=== PATIENT | female | born 1935 | race Caucasian/White ===

== ENCOUNTER 2016-11-29 19:44 | Outpatient (CLI) | payer MEDICARE, OTHER | END 2016-11-29 19:45 | disposition home or self-care (01) | LOC: EMS 19:44 | PROVIDERS: ATTEND Surgery | DX: Z03.89 Encounter for observation for other suspected diseases and conditions ruled out (principal); W01.0XXA Fall on same level from slipping, tripping and stumbling without subsequent striking against object, initial encounter; Y92.013 Bedroom of single-family (private) house as the place of occurrence of the external cause ==

== ENCOUNTER 2017-10-01 20:40 | Outpatient (CLI) | payer MEDICARE | END 2017-10-01 23:59 | disposition EMS.NT | LOC: EMS 20:40 | PROVIDERS: ATTEND Surgery | DX: Z03.89 Encounter for observation for other suspected diseases and conditions ruled out (principal) ==

== ENCOUNTER 2018-03-22 18:40 | Outpatient (CLI) | payer MEDICARE | END 2018-03-22 18:41 | disposition EMS.NT | LOC: EMS 18:40 | PROVIDERS: ATTEND Surgery | DX: Z03.89 Encounter for observation for other suspected diseases and conditions ruled out (principal); W19.XXXA Unspecified fall, initial encounter; Y92.009 Unspecified place in unspecified non-institutional (private) residence as the place of occurrence of the external cause ==

== ENCOUNTER 2018-08-23 17:07 | Outpatient (CLI) | payer MEDICARE | END 2018-08-23 17:08 | disposition EMS.NT | LOC: EMS 17:07 | PROVIDERS: ATTEND Surgery | DX: Z03.89 Encounter for observation for other suspected diseases and conditions ruled out (principal) ==

== ENCOUNTER 2019-01-19 11:43 | Outpatient (CLI) | payer MEDICARE | END 2019-01-19 11:44 | disposition EMS.NT | LOC: EMS 11:43 | PROVIDERS: ATTEND Surgery | DX: Z04.1 Encounter for examination and observation following transport accident (principal) ==

== ENCOUNTER 2019-05-06 19:48 | Outpatient (CLI) | payer MEDICARE | END 2019-05-06 23:59 | disposition EMS.NT | LOC: EMS 19:48 | PROVIDERS: ATTEND Surgery | DX: R42 Dizziness and giddiness (principal) ==

== ENCOUNTER 2019-12-19 19:20 | Outpatient (CLI) | payer MEDICARE | END 2019-12-19 19:21 | disposition EMS.NT | LOC: EMS 19:20 | PROVIDERS: ATTEND Surgery | DX: Z03.89 Encounter for observation for other suspected diseases and conditions ruled out (principal) ==

== ENCOUNTER 2020-04-26 01:51 | Outpatient (CLI) | payer MEDICARE | END 2020-04-26 01:52 | disposition EMS.NT | LOC: EMS 01:51 | PROVIDERS: ATTEND Surgery | DX: Z03.89 Encounter for observation for other suspected diseases and conditions ruled out (principal) ==

== ENCOUNTER 2020-10-01 17:59 | Outpatient (CLI) | payer MEDICARE, BC | END 2020-10-01 18:00 | disposition critical access hospital (66) | LOC: EMS 17:59 | DX: R41.82 Altered mental status, unspecified (principal) | CPT/HCPCS: A0425; A0429 ==

== ENCOUNTER 2020-10-01 18:22 | Inpatient (IN) | payer MEDICARE, BC ==
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
--- OUTSIDE RECORDS SUMMARY | 2020-10-01 18:54 | EXTERNAL MEDICAL SUMMARY RPT | Continuity of Care Document ---
:1935 Demographics Phone Unavailable Preferred Language Unknown Marital Status Unknown Roman Catholic Affiliation Unknown Race Unknown Ethnic Group Unknown Author Organization [facility] Address [address] [place] [address] Phone Social History date description facility [phone]
[2020-10-01 18:59] LABS: BASOPHILS % (AUTO) 0.4 %; HCT - HEMATOCRIT 41.3 % (37.0-47.0); HGB - HEMOGLOBIN 13.9 g/dL (12.0-16.0); MEAN CORPUSCULAR HEMOGLOBIN 36.7 pg (27.0-31.0); MEAN CORPUSCULAR HGB CONC 33.7 g/dL (32.0-36.0); MONOCYTES % (AUTO) 7.9 %; NEUTROPHILS % (AUTO) 86.7 %; PLT - PLATELET COUNT 238 10^3/uL (130-450); RED BLOOD COUNT 3.79 10^6/uL (4.20-5.40); RED CELL DISTRIBUTION WIDTH 12.9 % (12.0-15.0); WHITE BLOOD COUNT 19.5 x10^3/uL (4.8-10.8)
[2020-10-01] MEDS ORDERED: IOPAMIDOL-300 100 ML VIAL ONE (19:01)
[2020-10-01 19:02] LABS: ABNORMAL LYMPHS % (MANUAL) 0 %
[2020-10-01 19:13] LABS: INR 1.3 (0.8-1.2); PT - PROTHROMBIN TIME 14.1 secs (9.9-12.6)
[2020-10-01 19:18] LABS: VBG BASE EXCESS -2.5 mmol/L (-2 - +2); VBG HCO3 22.4 mmol/L (23-28); VBG OXYGEN SATURATION 42.9 % (60-80); VBG PCO2 39.6 mmHg (41-51); VBG PH 7.371 (7.31-7.41); VBG PO2 24.8 mmHg (25-47); VBG TOTAL CO2 23.6 mmol/L (24-29)
[2020-10-01 19:38] LABS: ALBUMIN 3.6 g/dL (3.2-5.5); ALBUMIN/GLOBULIN RATIO 1.3 (1.0-2.2); ALKALINE PHOSPHATASE 50 IU/L (42-121); ALT ALANINE AMINOTRANSFERASE 96 IU/L (10-60); AST ASPARTATE AMINOTRANSFERASE 421 IU/L (10-42); BILIRUBIN,TOTAL 1.3 mg/dL (0.2-1.0); BUN - BLOOD UREA NITROGEN 37 mg/dL (6-20); CALCIUM 8.3 mg/dL (8.5-10.3); CARBON DIOXIDE - CO2 24 mmol/L (21-32); CHLORIDE 102 mmol/L (101-111); ETOH - ETHANOL < 5.0 mg/dL; GFR - MDRD 53 (>89); GLUCOSE 119 mg/dL (70-100); LIPASE 26 U/L (22-51); MAGNESIUM 2.1 mg/dL (1.7-2.8); SODIUM 137 mmol/L (135-145); TOTAL PROTEIN 6.4 g/dL (6.7-8.2)
[2020-10-01 19:42] LABS: BAND NEUTROPHILS % (MANUAL) 3 %; LYMPHOCYTES # (MANUAL) 0.8 10^3/uL (1.5-3.5); LYMPHOCYTES % (MANUAL) 4 %; NEUTROPHILS # (MANUAL) 17.7 10^3/uL (1.5-6.6)
[2020-10-01 19:43] LABS: DIFFERENTIAL COMMENT MANUAL DIFFERENTIAL; PLATELET ESTIMATE, MANUAL NORMAL (130-450,000) (NORMAL); PLATELET MORPHOLOGY NORMAL APPEARANCE (NORMAL); RBC MORPHOLOGY (MULTIPLE) 1+ MACROCYTOSIS (NORMAL); WBC MORPHOLOGY (MULTIPLE) 1+ TOXIC GRANULATION (NORMAL)
[2020-10-01 19:44] LABS: CK- CREATINE KINASE 9438 IU/L (22-269)
[2020-10-01] MEDS ORDERED: SODIUM CHLORIDE 0.9% 1,000 ML IV STA ×2 (19:52)
[2020-10-01] MEDS ORDERED: ASPIRIN 300 MG SUPP PR STA (19:52)
[2020-10-01 20:03] LABS: CORONAVIRUS 229E-RESP PCR NOT DETECTED; CORONAVIRUS HKU1-RESP PCR NOT DETECTED; CORONAVIRUS NL63-RESP PCR NOT DETECTED; CORONAVIRUS OC43-RESP PCR NOT DETECTED; HUMAN METAPNEUMOVIRUS NOT DETECTED; INFLUENZA A- RESP PCR PANEL NOT DETECTED; INFLUENZA B - RESP PCR PANEL NOT DETECTED; PARAINFLUENZA VIRUS 1 NOT DETECTED; PARAINFLUENZA VIRUS 2 NOT DETECTED; PARAINFLUENZA VIRUS 3 NOT DETECTED; PARAINFLUENZA VIRUS 4 NOT DETECTED; RHINOVIRUS/ENTEROVIRUS NOT DETECTED; SARS-CoV-2 -RESP PCR PANEL NOT DETECTED
[2020-10-01 20:04] LABS: B. PARAPERTUSSIS- RESP PCR PAN NOT DETECTED; B. PERTUSSIS- RESP PCR PANEL NOT DETECTED; C. PNEUMONIAE- RESP PCR PANEL NOT DETECTED; M. PNEUMONIAE- RESP PCR PANEL NOT DETECTED; RSV- RESP PCR PANEL NOT DETECTED
[2020-10-01] MEDS ORDERED: IOPAMIDOL-300 100 ML VIAL IVP ONE (20:38)
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
[2020-10-01 20:58] LABS: GLUCOSE, URINE (UA) NEGATIVE (NEGATIVE); KETONES,URINE (UA) 15 mg/dL (NEGATIVE); LEUKOCYTE ESTERASE, URINE NEGATIVE (NEGATIVE); NITRITE,URINE POSITIVE (NEGATIVE); OCCULT BLOOD,URINE LARGE (NEGATIVE); PH,URINE 5.5 PH (5.0-7.5); PROTEIN,URINE 100 mg/dL (NEGATIVE); UROBILINOGEN,URINE 0.2 (NORMAL) E.U./dL (NORMAL)
[2020-10-01 21:01] LABS: BILIRUBIN,URINE NEGATIVE (NEGATIVE); CLARITY,URINE CLOUDY (CLEAR); ICTOTEST,URINE NEGATIVE
[2020-10-01] MEDS ORDERED: SODIUM CHLORIDE FLUSH 0.9% 10 ML SYRINGE IVP PRN (21:03)
[2020-10-01] MEDS ORDERED: LACTATED RINGERS 1,000 ML IV ONE (21:06)
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
[2020-10-01 21:11] LABS: BACTERIA,URINE Moderate /HPF (None Seen); CASTS, URINE 3-5 Course Granular /LPF; SQUAMOUS EPITHELIAL CELL,UR FEW Squamous (<= Few)
[2020-10-01] MEDS ORDERED: cefTRIAXone 1 GM in SODIUM CHLORIDE 0.9% MINIBAG 100 ML IV SCH (21:13)
--- OUTSIDE RECORDS SUMMARY | 2020-10-01 21:32 | EXTERNAL MEDICAL SUMMARY RPT | Continuity of Care Document ---
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 Results test status date ordered by attending specimen dax e ALBUMIN_GLOBULIN_RATIO unknown [id number] unknown unknown unknown T unknown [id number] unknown unknown unknown T unknown [id number] unknown unknown unknown ALKALINE_PHOSPHATASE unknown [id number] unknown unknown un known ALT_ALANINE_AMINOTRANS unknown [id number] unknown unknown unknown FERASE T unknown [id number] unknown unknown unknown T unknown [id number] unknown unknown unknown T unknown [id number] unknown unknown unknown BILIRUBIN_TOTAL unknown [id number] unknown unknown unknown T unknown [id number] unknown unknown unknown T unknown [id number] unknown unknown unknown T unknown [id number] unknown unknown unknown T unknown [id number] unknown unknown unknown T unknown [id number] unknown unknown unknown T unknown [id number] unknown unknown unknown T unknown [id number] unknown unknown unknown GFR_-_MDRD unknown [id number] unknown unknown unknown T unknown [id number] unknown unknown unknown T unknown [id number] unknown unknown unknown T unknown [id number] unknown unknown unknown T unknown [id number] unknown unknown unknown T unknown [id number] unknown unknown unknown T unknown [id number] unknown unknown unknown T unknown [id number] unknown unknown unknown LYMPHOCYTES_MANUAL_ unknown [id number] unknown unknown unk nown T unknown [id number] unknown unknown unknown T unknown [id number] unknown unknown unknown T unknown [id number] unknown unknown unknown T unknown [id number] unknown unknown unknown T unknown [id number] unknown unknown unknown MONOCYTES_MANUAL_ unknown [id number] unknown unknown unkno wn T unknown [id number] unknown unknown unknown T unknown [id number] unknown unknown unknown T unknown [id number] unknown unknown unknown NEUTROPHILS_MANUAL_ unknown [id number] unknown unknown unk nown T unknown [id number] unknown unknown unknown T unknown [id number] unknown unknown unknown PLATELET_ESTIMATE_MANU unknown [id number] unknown unknown unknown AL T unknown [id number] unknown unknown unknown T unknown [id number] unknown unknown unknown T unknown [id number] unknown unknown unknown T unknown [id number] unknown unknown unknown T unknown [id number] unknown unknown unknown TOTAL_CELLS_COUNTED unknown [id number] unknown unknown unk nown T unknown [id number] unknown unknown unknown T unknown [id number] unknown unknown unknown BILIRUBIN_URINE unknown [id number] unknown unknown unknown CLARITY_URINE unknown [id number] unknown unknown unknown COLOR_URINE unknown [id number] unknown unknown unknown GLUCOSE_URINE_UA_ unknown [id number] unknown unknown unkno wn KETONES_URINE_UA_ unknown [id number] unknown unknown unkno wn LEUKOCYTE_ESTERASE_URI unknown [id number] unknown unknown unknown NE NITRITE_URINE unknown [id number] unknown unknown unknown PH_URINE unknown [id number] unknown unknown unknown T unknown [id number] unknown unknown unknown T unknown [id number] unknown unknown unknown T unknown [id number] unknown unknown unknown T unknown [id number] unknown unknown unknown T unknown [id number] unknown unknown unknown T unknown [id number] unknown unknown unknown T unknown [id number] unknown unknown unknown T unknown [id number] unknown unknown unknown T unknown [id number] unknown unknown unknown T unknown [id number] unknown unknown unknown SPECIFIC_GRAVITY_URINE unknown [id number] unknown unknown unknown UROBILINOGEN_URINE unknown [id number] unknown unknown unkn own T unknown [id number] unknown unknown unknown red_blood_cell_distrib unknown [id number] unknown unknown unknown ution_width mean_corpuscular_hemog unknown [id number] unknown unknown unknown lobin_RBC total_cells_counted_bl unknown 68193025 unknown unknown unknown ood calcium_serum unknown [id number] unknown unknown unknown chloride_serum unknown 10324795 unknown unknown unknown albumin_globulin_ratio unknown [id number] unknown unknown unknown _serum sodium_serum unknown [id number] unknown unknown unknown creatine_kinase_serum unknown [id number] unknown unknown u nknown mean_corpuscular_hemog unknown [id number] unknown unknown unknown lobin_concentration_rbc Alanine_aminotransfera unknown 68111924 unknown unknown unknown se_Enzymatic_activity_v olume_in_Serum_or_Plasm a Albumin_Mass_volume_in unknown 23074028 unknown unknown unknown _Serum_or_Plasma Albumin_Globulin_Mass_ unknown [id number] unknown unknown unknown Ratio_in_Serum_or_Plasm a Alkaline_phosphatase_E unknown 05532991 unknown unknown unknown nzymatic_activity_volum e_in_Blood creatinine_serum unknown 29337734 unknown unknown unknow n Anion_gap_4_in_Serum_o unknown [id number] unknown unknown unknown r_Plasma Aspartate_aminotransfe unknown 06539588 unknown unknown unknown rase_Enzymatic_activity _volume_in_Serum_or_Pla sma Bilirubin.total_Mass_v unknown [id number] unknown unknown unknown olume_in_Serum_or_Plasm a albumin_serum unknown 57732040 unknown unknown unknown Calcium_Moles_volume_i unknown 50369832 unknown unknown unknown n_Serum_or_Plasma carbon_dioxide_serum_t unknown 00141025 unknown unknown unknown otal Chloride_Moles_volume_ unknown 22906334 unknown unknown unknown in_Serum_or_Plasma Creatine_kinase_Enzyma unknown [id number] unknown unknown unknown tic_activity_volume_in_ Serum_or_Plasma Creatinine_Mass_volume unknown 08906300 unknown unknown unknown _in_Serum_or_Plasma Globulin_Mass_volume_i unknown 59360015 unknown unknown unknown n_Serum Glucose_Mass_volume_in unknown 24614897 unknown unknown unknown _Serum_or_Plasma Glucose_Mass_volume_in unknown 03311719 unknown unknown unknown _Urine Magnesium_Moles_volume unknown 04040920 unknown unknown unknown _in_Serum_or_Plasma urine_color unknown 97366538 unknown unknown unknown mean_platelet_volume unknown 71755391 unknown unknown un known anion_gap_serum unknown 81159744 unknown unknown unknown Protein_Mass_volume_in unknown 79062609 unknown unknown unknown _Serum_or_Plasma Sodium_Moles_volume_in unknown 32822509 unknown unknown unknown _Serum_or_Plasma alkaline_phosphatase_s unknown 26776718 unknown unknown unknown richard globulin_serum unknown 92931268 unknown unknown unknown international_normaliz unknown [id number] unknown unknown unknown ed_ratio_INR_ Urea_nitrogen_Mass_vol unknown 67257848 unknown unknown unknown ume_in_Serum_or_Plasma platelet_count_estimat unknown 42673158 unknown unknown unknown e mean_corpuscular_volum unknown 31353933 unknown unknown unknown e_RBC bilirubin_urine unknown 28883264 unknown unknown unknown magnesium_serum unknown 19543716 unknown unknown unknown ketones_urine_by_test_ unknown 24904597 unknown unknown unknown strip nitrite_urine_semiquan unknown 15288053 unknown unknown unknown titative specific_gravity_urine unknown 63156421 unknown unknown unknown urobilinogen_urine_sem unknown 79210461 unknown unknown unknown iquantitative_dipstick_ leukocyte_esterase_uri unknown 04399012 unknown unknown unknown ne_by_dipstick glucose_urine unknown 01124184 unknown unknown unknown potassium_blood unknown 32836592 unknown unknown unknown blood_glucose unknown 88017665 unknown unknown unknown protein_total_serum unknown 65319270 unknown unknown unk nown aspartate_aminotransfe unknown 16018088 unknown unknown unknown rase_SGOT_serum carbon_dioxide_serum_t unknown 76484930 unknown unknown unknown otal alanine_aminotransfera unknown 39633302 unknown unknown unknown se_SGPT_serum bilirubin_serum_total unknown 79962968 unknown unknown u nknown Hematocrit_Volume_Frac unknown 09933041 unknown unknown unknown tion_of_Blood_by_Automa ted_count Glomerular_filtration_ unknown [id number] unknown unknown unknown rate_1.73_sq_M.predicte d_among_non-blacks_Volu me_Rate_Area_in_Serum_P lasma_or_Blood_by_Creat inine-based_formula_MDR D_ prothrombin_time_patie unknown [id number] unknown unknown unknown nt_ pH_study_of_acidity unknown 75166944 unknown unknown unk nown polymorphonuclear_neut unknown 10569304 unknown unknown unknown rophils_absolute_manual lymphocytes_absolute_m unknown 91751917 unknown unknown unknown anual monocytes_absolute_man unknown 39824920 unknown unknown unknown ual clarity_urine_point unknown 93590985 unknown unknown unk nown Bilirubin.total_Presen unknown 07521436 unknown unknown unknown ce_in_Urine_by_Test_str ip Color_of_Urine unknown 05665573 unknown unknown unknown Ketones_Mass_volume_in unknown 00341195 unknown unknown unknown _Urine_by_Test_strip Leukocyte_esterase_Pre unknown 70636540 unknown unknown unknown sence_in_Urine_by_Test_ strip Nitrite_Presence_in_Ur unknown 11920085 unknown unknown unknown ine_by_Test_strip Specific_gravity_of_Ur unknown 41515313 unknown unknown unknown ine_by_Test_strip Urobilinogen_Presence_ unknown 24629631 unknown unknown unknown in_Urine_by_Test_strip Prothrombin_time_PT_ unknown 25479897 unknown unknown un known potassium_blood unknown 92763938 unknown unknown unknown INR_in_Platelet_poor_p unknown 10478665 unknown unknown unknown lasma_by_Coagulation_as say hematocrit_blood unknown 70003345 unknown unknown unknow n hemoglobin_blood unknown 67491403 unknown unknown unknow n platelet_count unknown 20201001 unknown unknown unknown Glomerular_Filtration_ unknown 20201001 unknown unknown unknown rate Leukocytes_volume_in_B unknown 20201001 unknown unknown unknown lood_by_Automated_count erythrocyte_RBC_count unknown 12144748 unknown unknown u nknown leukocyte_count_blood unknown 20201001 unknown unknown u nknown Hemoglobin_Mass_volume unknown 11689302 unknown unknown unknown _in_Blood Platelet_mean_volume_E unknown 32102618 unknown unknown unknown ntitic_volume_in_Blood_ by_Rees-Jason Platelets_volume_in_Bl unknown 20201001 unknown unknown unknown ood_by_Automated_count MCH_Entitic_mass_by_Au unknown 20201001 unknown unknown unknown tomated_count MCV_Entitic_volume_by_ unknown 20201001 unknown unknown unknown Automated_count Erythrocyte_distributi unknown 20201001 unknown unknown unknown on_width_Ratio_by_Autom ated_count Erythrocytes_volume_in unknown 20201001 unknown unknown unknown _Blood_by_Automated_cou nt urea_nitrogen_blood unknown 20201001 unknown unknown unk nown platelet_count_estimat unknown 20201001 unknown unknown unknown e facility observation status value reference units lab code abn ormal line range [facility] ALBUMIN_GLOB unknown 1.3 unknown AGRATIO unkno wn unknown Clinic ULIN_RATIO [facility] T unknown 3.6 unknown g/dL ALB unknown unk nown Clinic [facility] T unknown 50 unknown U/L ALK_PHOS unknown u nknown Clinic [facility] ALKALINE_PHO unknown 50 unknown U/L ALP unknow n unknown Clinic SPHATASE [facility] ALT_ALANINE_ unknown 96 unknown U/L ALT unknow n unknown Clinic AMINOTRANSFER [facility] ASE [facility] T unknown 96 unknown U/L ALT_SGPT unknown u nknown Clinic _ [facility] T unknown 421 unknown U/L AST unknown unk nown Clinic [facility] T unknown 1.3 unknown A_G_RATI unknown u [facility] O [facility] BILIRUBIN_TO unknown 1.3 unknown mg/dL BILIT unknow n unknown Clinic DEMARIO [facility] T unknown 37 unknown mg/dL BUN unknown [facility] T unknown 8.3 unknown mg/dL CA unknown [facility] T unknown 9438 unknown U/L CK unknown [facility] T unknown 102 unknown mmol/ CL unknown [facility] L [facility] T unknown 24 unknown mmol/ CO2 unknown [facility] L [facility] T unknown 1.0 unknown mg/dL CREAT unknown [facility] T unknown 11.0 unknown GAP unknown [facility] GFR_-_MDRD unknown 53 unknown mL/mi GFR unknown unknown Clinic n [facility] T unknown 53 unknown mL/mi GFR_-_MD unknown u [facility] n RD [facility] T unknown 2.8 unknown GLOB unknown [facility] T unknown 119 unknown mg/dL GLU unknown [facility] T unknown 41.3 unknown % HCT unknown [facility] T unknown 13.9 unknown g/dL HGB unknown [facility] T unknown 1.3 unknown INR unknown [facility] T unknown 4.0 unknown meq/L K unknown [facility] LYMPHOCYTES_ unknown 0.8 10 unknown LYMPH_M unkno wn unknown Clinic MANUAL_ 3/UL [facility] T unknown 0.8 10 unknown LYMPH_MA unknown u [facility] 3/UL NUAL_ [facility] T unknown 36.7 unknown pg MCH unknown [facility] T unknown 33.7 unknown g/dL MCHC unknown [facility] T unknown 109.0 unknown fL MCV unknown [facility] T unknown 2.1 unknown mg/dL MG unknown [facility] MONOCYTES_MA unknown 1.0 10 unknown MONO_M unknow n unknown Clinic NUAL_ 3/UL [facility] T unknown 1.0 10 unknown MONO_MAN unknown u nknow Clinic 3/UL UAL_ [facility] T unknown 10.0 unknown fL MPV unknown [facility] T unknown 137 unknown mmol/ NA unknown [facility] L [facility] NEUTROPHILS_ unknown 17.7 10 unknown NEUT_M unkno wn unknown Clinic MANUAL_ 3/UL [facility] T unknown 17.7 10 unknown NEUT_MAN unknown unknown Clinic 3/UL UAL_ [facility] T unknown 238 10 unknown PLT unknown [facility] 3/UL [facility] PLATELET_EST unknown NORMAL unknown PLTEST unknow n unknown Clinic IMATE_MANUAL (130-450,0 Primary 00) [facility] T unknown NORMAL unknown PLT_EST unknown un known Clinic (130-450,0 Primary 00) [facility] T unknown 6.4 unknown g/dL PRO_TOTA unknown u no Clinic L [facility] T unknown 14.1 SECS unknown PT unknown unknown Clinic [facility] T unknown 3.79 10 unknown RBC unknown un known Clinic 6/UL [facility] T unknown 12.9 unknown % RDW unknown [facility] TOTAL_CELLS_ unknown 100 unknown TCC unknow n unknown Clinic COUNTED [facility] T unknown 1.3 unknown mg/dL TOTAL_BI unknown u [facility] LI [facility] T unknown 100 unknown TOT_CELL unknown u [facility] S_COUNT [facility] BILIRUBIN_UR unknown NEGATIVE unknown UBIL unkn own unknown Clinic INE [facility] CLARITY_URIN unknown CLOUDY unknown UCLAR unknow n unknown Clinic E [facility] COLOR_URINE unknown YELLOW unknown UCOL unknown unknown Clinic [facility] GLUCOSE_URIN unknown NEGATIVE unknown UGLUC unkn own unknown Clinic E_UA_ mg/dL [facility] KETONES_URIN unknown 15 unknown UKET unknow n unknown Clinic E_UA_ [facility] LEUKOCYTE_ES unknown NEGATIVE unknown ULEUK unkn own unknown Clinic TERASE_URINE [facility] NITRITE_URIN unknown POSITIVE unknown UNITRITE un known unknown Clinic E [facility] PH_URINE unknown 5.5 unknown UPH unknown u [facility] T unknown NEGATIVE unknown UR_BILI unknown unknown Clinic [facility] T unknown CLOUDY unknown UR_CLARI unknown u [facility] TY [facility] T unknown YELLOW unknown UR_COLOR unknown u [facility] T unknown NEGATIVE unknown UR_GLU unknown u [facility] mg/dL [facility] T unknown 15 unknown UR_KETO_ unknown u [facility] UA_ [facility] T unknown NEGATIVE unknown UR_LEU_E unknown unknown Clinic STERASE [facility] T unknown POSITIVE unknown UR_NIT unknown u [facility] T unknown 5.5 unknown UR_PH unknown [facility] T unknown >=1.030 unknown UR_SG unknown un known Clinic [facility] T unknown 0.2 unknown UR_URO unknown unk nown Clinic (NORMAL) [facility] SPECIFIC_GRA unknown >=1.030 unknown USG unkno wn unknown Clinic VITY_URINE [facility] UROBILINOGEN unknown 0.2 unknown UUROBIL unkno wn unknown Clinic _URINE (NORMAL) [facility] T unknown 19.5 X10 unknown WBC unknown u nknown Clinic 3/UL [facility] red_blood_ce unknown 12.9 unknown % _1030 unknow n unknown Clinic ll_distributi Primary on_width [facility] mean_corpusc unknown 36.7 unknown pg _1031 unknow n unknown Clinic ular_hemoglob Primary in_RBC [facility] total_cells_ unknown 100 unknown _1063000 unkn own unknown Clinic counted_blood 01 [facility] calcium_seru unknown 8.3 unknown mg/dL _11 unknow n unknown Clinic m [facility] chloride_ser unknown 102 unknown mmol/ _13 unknow n unknown Clinic um L [facility] albumin_glob unknown 1.3 unknown _146 unknow n unknown Clinic ulin_ratio_se Primary rum [facility] sodium_serum unknown 137 unknown mmol/ _159 unknow n unknown Clinic L [facility] creatine_kin unknown 9438 unknown U/L _16 unknow n unknown Clinic ase_serum [facility] mean_corpusc unknown 33.7 unknown g/dL _17029 unknow n unknown Clinic ular_hemoglob Primary in_concentrat Care & ion_rbc [facility] Alanine_amin unknown 96 unknown U/L _1742-6 unkno wn unknown Clinic otransferase_ Primary Enzymatic_act Care & ivity_volume_ Ancillary in_Serum_or_P Services lasma [facility] Albumin_Mass unknown 3.6 unknown g/dL _1751-7 unkno wn unknown Clinic _volume_in_Se Primary rum_or_Plasma [facility] Albumin_Glob unknown 1.3 unknown _1759-0 unkno wn unknown Clinic ulin_Mass_Rat Primary io_in_Serum_o Care & r_Plasma [facility] Alkaline_pho unknown 50 unknown U/L _1783-0 unkno wn unknown Clinic sphatase_Enzy Primary matic_activit Care & y_volume_in_B Ancillary lood [facility] creatinine_s unknown 1.0 unknown mg/dL _18 unknow n unknown Clinic richard [facility] Anion_gap_4_ unknown 11.0 unknown _1863-0 unkno wn unknown Clinic in_Serum_or_P Primary lasma [facility] Aspartate_am unknown 421 unknown U/L _1919- unkno wn unknown Clinic inotransferas Primary e_Enzymatic_a Care & ctivity_volum Ancillary e_in_Serum_or Services _Plasma [facility] Bilirubin.to unknown 1.3 unknown mg/dL _1974- unkno wn unknown Clinic tal_Mass_volu Primary me_in_Serum_o Care & r_Plasma [facility] albumin_seru unknown 3.6 unknown g/dL _2 unknow n unknown Clinic m [facility] Calcium_Mole unknown 8.3 unknown mg/dL _1999- unkno wn unknown Clinic s_volume_in_S Primary erum_or_Plasm [facility] a [facility] carbon_dioxi unknown 24 unknown mmol/ _2027- unkno wn unknown Clinic de_serum_tota L Primary l [facility] Chloride_Mol unknown 102 unknown mmol/ _2074-0 unkno wn unknown Clinic es_volume_in_ L Primary Serum_or_Plas Care [facility] ma [facility] Creatine_kin unknown 9438 unknown U/L _2156- unkno wn unknown Clinic ase_Enzymatic Primary _activity_vol Care & ume_in_Serum_ Ancillary or_Plasma [facility] Creatinine_M unknown 1.0 unknown mg/dL _2160-0 unkno wn unknown Clinic ass_volume_in Primary _Serum_or_Pla Care & sma [facility] Globulin_Mas unknown 2.8 unknown _2336-6 unkno wn unknown Clinic s_volume_in_S Primary richard [facility] Glucose_Mass unknown 119 unknown mg/dL _2345-7 unkno wn unknown Clinic _volume_in_Se Primary rum_or_Plasma [facility] Glucose_Mass unknown NEGATIVE unknown _2350-7 unk nown unknown Clinic _volume_in_Ur mg/dL Primary ine [facility] Magnesium_Mo unknown 2.1 unknown mg/dL _2601-3 unkno wn unknown Clinic les_volume_in Primary _Serum_or_Pla Care [facility] sma [facility] urine_color unknown YELLOW unknown _2751 unknown unknown Clinic [facility] mean_platele unknown 10.0 unknown fL _2784 unknow n unknown Clinic t_volume [facility] anion_gap_se unknown 11.0 unknown _279 unknow n unknown Clinic rum [facility] Protein_Mass unknown 6.4 unknown g/dL _2885-2 unkno wn unknown Clinic _volume_in_Se Primary rum_or_Plasma [facility] Sodium_Moles unknown 137 unknown mmol/ _2951-2 unkno wn unknown Clinic _volume_in_Se L Primary rum_or_Plasma [facility] alkaline_pho unknown 50 unknown U/L _3 unknow n unknown Clinic sphatase_seru Primary m [facility] globulin_ser unknown 2.8 unknown _3059 unknow n unknown Clinic um [facility] internationa unknown 1.3 unknown _309 unknow n unknown Clinic l_normalized_ Primary ratio_INR_ [facility] Urea_nitroge unknown 37 unknown mg/dL _3094-0 unkno wn unknown Clinic n_Mass_volume Primary _in_Serum_or_ Care & Plasma [facility] platelet_cou unknown NORMAL unknown _3109 unknow n unknown Clinic nt_estimate (130-450,0 Primary 00) [facility] mean_corpusc unknown 109.0 unknown fL _315 unknow n unknown Clinic ular_volume_R Primary BC [facility] bilirubin_ur unknown NEGATIVE unknown _319 unkn own unknown Clinic ine [facility] magnesium_se unknown 2.1 unknown mg/dL _32 unknow n unknown Clinic rum [facility] ketones_urin unknown 15 unknown _322 unknow n unknown Clinic e_by_test_str Primary ip [facility] nitrite_urin unknown POSITIVE unknown _323 unkn own unknown Clinic e_semiquantit Primary ative [facility] specific_gra unknown >=1.030 unknown _325 [facility] w[facility] unknown [facility] vity_urine [facility] urobilinogen unknown 0.2 unknown _326 unknow n unknown Clinic _urine_semiqu (NORMAL) Primary antitative_di Care & pstick_ [facility] leukocyte_es unknown NEGATIVE unknown _327 unkn own unknown Clinic terase_urine_ Primary by_dipstick [facility] glucose_urin unknown NEGATIVE unknown _3369 unkn own unknown Clinic e mg/dL [facility] potassium_bl unknown 4.0 unknown meq/L _3483 unknow n unknown Clinic ood [facility] blood_glucos unknown 119 unknown mg/dL _3565 unknow n unknown Clinic e [facility] protein_tota unknown 6.4 unknown g/dL _36 unknow n unknown Clinic l_serum [facility] aspartate_am unknown 421 unknown U/L _39 unknow n unknown Clinic inotransferas Primary e_SGOT_serum [facility] carbon_dioxi unknown 24 unknown mmol/ _3962 unknow n unknown Clinic de_serum_tota L Primary l [facility] alanine_amin unknown 96 unknown U/L _40 unknow n unknown Clinic otransferase_ Primary SGPT_serum [facility] bilirubin_se unknown 1.3 unknown mg/dL _43 unknow n unknown Clinic rum_total [facility] Hematocrit_V unknown 41.3 unknown % _4544-3 unkno wn unknown Clinic olume_Fractio Primary n_of_Blood_by Care & _Automated_co [facility] unt [facility] Glomerular_fi unknown 53 unknown mL/mi _48642-3 unkn own unknown Clinic ltration_rate n Primary _1.73_sq_M.pr Care & edicted_among Ancillary _non-blacks_V Services olume_Rate_Ar [facility] ea_in_Serum_P lasma_or_Bloo d_by_Creatini ne-based_form ula_MDRD_ [facility] prothrombin_ unknown 14.1 SECS unknown _50 unk nown unknown Clinic time_patient_ [facility] pH_study_of_ unknown 5.5 unknown _51641 unknow n unknown Clinic acidity [facility] polymorphonu unknown 17.7 10 unknown _52320 unkno wn unknown Clinic clear_neutrop 3/UL Primary hils_absolute Care & _manual [facility] lymphocytes_ unknown 0.8 10 unknown _52322 unknow n unknown Clinic absolute_manu 3/UL Primary al [facility] monocytes_ab unknown 1.0 10 unknown _52323 unknow n unknown Clinic solute_manual 3/UL [facility] clarity_urin unknown CLOUDY unknown _5589 unknow n unknown Clinic e_point [facility] Bilirubin.to unknown NEGATIVE unknown _5770-3 unk nown unknown Clinic tal_Presence_ Primary in_Urine_by_T Care & est_strip [facility] Color_of_Uri unknown YELLOW unknown _5778-6 unkno wn unknown Clinic ne [facility] Ketones_Mass unknown 15 unknown _5797-6 unkno wn unknown Clinic _volume_in_Ur Primary ine_by_Test_s Care & trip [facility] Leukocyte_es unknown NEGATIVE unknown _5799-2 unk nown unknown Clinic terase_Presen Primary ce_in_Urine_b Care & y_Test_strip [facility] Nitrite_Pres unknown POSITIVE unknown _5802-4 unk nown unknown Clinic ence_in_Urine Primary _by_Test_stri Care & p [facility] Specific_gra unknown >=1.030 unknown _5811-5 unkn own unknown Clinic vity_of_Urine Primary _by_Test_stri Care & p [facility] Urobilinogen unknown 0.2 unknown _5818-0 unkno wn unknown Clinic _Presence_in_ (NORMAL) Primary Urine_by_Test Care & _strip [facility] Prothrombin_ unknown 14.1 SECS unknown _5902-2 un known unknown Clinic time_PT_ [facility] potassium_bl unknown 4.0 unknown meq/L _6298-4 unkno wn unknown Clinic ood [facility] INR_in_Plate unknown 1.3 unknown _6301-6 unkno wn unknown Clinic let_poor_plas Primary ma_by_Coagula Care & tion_assay [facility] hematocrit_b unknown 41.3 unknown % _64 unknow n unknown Clinic lood [facility] hemoglobin_b unknown 13.9 unknown g/dL _65 unknow n unknown Clinic lood [facility] platelet_cou unknown 238 10 unknown _66 unknow n unknown Clinic nt 3/UL [facility] Glomerular_F unknown 53 unknown mL/mi _66455 unknow n unknown Clinic iltration_rat n Primary e [facility] Leukocytes_v unknown 19.5 X10 unknown _6690-2 unk nown unknown Clinic olume_in_Bloo 3/UL Primary d_by_Automate Care & d_count [facility] erythrocyte_ unknown 3.79 10 unknown _67 unkno wn unknown Clinic RBC_count 6/UL [facility] leukocyte_co unknown 19.5 X10 unknown _68 unkn own unknown Clinic unt_blood 3/UL [facility] Hemoglobin_M unknown 13.9 unknown g/dL _718-7 unknow n unknown Clinic ass_volume_in Primary _Blood [facility] Platelet_mea unknown 10.0 unknown fL _776-5 unknow n unknown Clinic n_volume_Enti Primary tic_volume_in Care & _Blood_by_Ree Anc[facility] s-[facility] Platelets_vo unknown 238 10 unknown _777-3 unknow n unknown Clinic lume_in_Blood 3/UL Primary _by_Automated Care & _count [facility] MCH_Entitic_ unknown 36.7 unknown pg _785-6 unknow n unknown Clinic mass_by_Autom Primary ated_count [facility] MCV_Entitic_ unknown 109.0 unknown fL _787-2 unknow n unknown Clinic volume_by_Aut Primary omated_count [facility] Erythrocyte_ unknown 12.9 unknown % _788-0 unknow n unknown Clinic distribution_ Primary width_Ratio_b Care & y_Automated_c Ancillary ount [facility] Erythrocytes unknown 3.79 10 unknown _789-8 unkno wn unknown Clinic _volume_in_Bl 6/UL Primary ood_by_Automa Care & ted_count [facility] urea_nitroge unknown 37 unknown mg/dL _9 unknow n unknown Clinic n_blood [facility] platelet_cou unknown NORMAL unknown _9317-9 unkno wn unknown Clinic nt_estimate (130-450,0 Primary 00) [facility] Social History date description facility [phone]
[2020-10-01] MEDS ORDERED: cefTRIAXone 1 GM VIAL ONE (21:37)
[2020-10-01] MEDS ORDERED: cefTRIAXone 1 GM in SODIUM CHLORIDE 0.9% MINIBAG 100 ML IV STA (21:43)
[2020-10-01 21:52] LABS: ACETAMINOPHEN < 10 ug/mL (10-30); SALICYLATE < 6.0 mg/dL
[2020-10-01] MEDS ORDERED: THIAMINE 100 MG TABLET PO STA (22:28)
[2020-10-01] MEDS ORDERED: CARBOXYMETHYLCELLULOSE OPHTH DROPS EACHEYE PRN (22:38)
[2020-10-01] MEDS: LACTATED RINGERS 1,000 ML IV SCH (23:03)
--- NOTE | 2020-10-01 23:44 | XRAY Report ---
PROCEDURE: Knee 3 View LT INDICATIONS: Fall. Knee/leg pain. TECHNIQUE: 3 views of the left knee(s) were acquired. COMPARISON: None. FINDINGS: Bones: No fractures or dislocations. No suspicious bony lesions. Expected alignment of left knee a rthroplasty. Diffuse osteopenia Soft tissues: No joint effusion. No suspicious soft tissue calcifications. Scattered vascular calc ifications IMPRESSION: No fracture. Expected postoperative alignment Reviewed by: David Palma MD on 10/01/2020 11:42 PM PDT Approved by: David Palam MD on 10/01/2020 11:42 PM PDT Station ID: [id number]
[2020-10-01] MEDS: SODIUM CHLORIDE FLUSH 0.9% 10 ML SYRINGE IVP SCH (23:46)
[2020-10-02 01:55] LABS: MUDS CUTOFF CONCENTRATIONS CUTOFF CONC BELOW:
[2020-10-02 02:15] LABS: AMPHETAMINE SCREEN,URINE NEGATIVE (NEGATIVE); BARBITURATE SCREEN,UR NEGATIVE (NEGATIVE); BENZODIAZEPINES SCREEN, URINE NEGATIVE (NEGATIVE); COCAINE SCREEN URINE NEGATIVE (NEGATIVE); METHADONE SCREEN, URINE NEGATIVE (NEGATIVE); METHAMPHETAMINES SCREEN, URINE NEGATIVE (NEGATIVE); OPIATE SCREEN, URINE NEGATIVE (NEGATIVE); OXYCODONE SCREEN, URINE NEGATIVE (NEGATIVE); PROPOXYPHENE SCREEN, URINE NEGATIVE (NEGATIVE); THC CANNABINOID SCREEN, URINE NEGATIVE (NEGATIVE); TRICYCLIC ANTIDEPRESSANT,URINE NEGATIVE (NEGATIVE)
[2020-10-02] MEDS: LACTATED RINGERS 1,000 ML IV SCH ×4 (03:42→19:44)
[2020-10-02 05:34] LABS: BASOPHILS # (AUTO) 0.1 10^3/uL (0.0-0.1); BASOPHILS % (AUTO) 0.3 %; HCT - HEMATOCRIT 38.7 % (37.0-47.0); HGB - HEMOGLOBIN 12.6 g/dL (12.0-16.0); LYMPHOCYTES # (AUTO) 1.2 10^3/uL (1.5-3.5); LYMPHOCYTES % (AUTO) 7.7 %; MEAN CORPUSCULAR HEMOGLOBIN 36.2 pg (27.0-31.0); MEAN CORPUSCULAR HGB CONC 32.6 g/dL (32.0-36.0); MEAN CORPUSCULAR VOLUME 111.2 fL (81.0-99.0); MEAN PLATELET VOLUME 10.4 fL (7.9-10.8); MONOCYTES # (AUTO) 1.3 10^3/uL (0.0-1.0); MONOCYTES % (AUTO) 7.9 %; NEUTROPHILS # (AUTO) 13.1 10^3/uL (1.5-6.6); NEUTROPHILS % (AUTO) 83.1 %; PLT - PLATELET COUNT 224 10^3/uL (130-450); RED BLOOD COUNT 3.48 10^6/uL (4.20-5.40); RED CELL DISTRIBUTION WIDTH 13.2 % (12.0-15.0); WHITE BLOOD COUNT 15.8 x10^3/uL (4.8-10.8)
[2020-10-02 05:47] LABS: SLIDE REVIEW? Indicated
[2020-10-02] MEDS: IBUPROFEN 400 MG TABLET PO PRN ×2 (05:52→23:58)
[2020-10-02 06:06] LABS: PLATELET ESTIMATE, MANUAL NORMAL (130-450,000) (NORMAL); PLATELET MORPHOLOGY NORMAL APPEARANCE (NORMAL); RBC MORPHOLOGY (MULTIPLE) 1+ MACROCYTOSIS (NORMAL); WBC MORPHOLOGY (MULTIPLE) NORMAL APPEARANCE (NORMAL)
[2020-10-02 06:15] LABS: FOLATE 7.07 ng/mL (5.90 - >24.8)
[2020-10-02 06:21] LABS: ALBUMIN 3.4 g/dL (3.2-5.5); BILIRUBIN,DIRECT 0.2 mg/dL (0.1-0.5); BILIRUBIN,TOTAL 1.1 mg/dL (0.2-1.0); CREATININE 0.8 mg/dL (0.4-1.0); PHOSPHORUS 2.9 mg/dL (2.5-4.6); POTASSIUM 4.1 mmol/L (3.5-5.0); TOTAL PROTEIN 5.9 g/dL (6.7-8.2)
[2020-10-02] MEDS: MULTIVITAMIN W/MINERALS TABLET PO SCH (09:10)
[2020-10-02] MEDS: ENOXAPARIN 40 MG/0.4 ML SYRINGE SUBQ SCH (09:10)
[2020-10-02] MEDS: SODIUM CHLORIDE FLUSH 0.9% 10 ML SYRINGE IVP SCH ×3 (09:10→23:48)
[2020-10-02] MEDS: THIAMINE 100 MG TABLET PO SCH (09:10)
[2020-10-02] MEDS ORDERED: LORazepam 2 MG/ML VIAL IVP PRN (10:09)
[2020-10-02] MEDS: NYSTATIN POWDER 15 GM TOP SCH ×2 (11:55→21:43)
[2020-10-02] MEDS: ZINC OXIDE 20% OINT 30 GM TUBE TOP SCH ×2 (11:55→21:43)
--- NOTE | 2020-10-02 19:37 | PROVIDER PROGRESS NOTE ---
Subjective - Prog Note Date Prog Note Date: 10/02/20 - Subjective Subjective: She reports feeling better overall. Denies any pain at her left knee. She feels like her legs are a little heavy. She denies any chest pain, dyspnea. She has been tolerating a diet without difficulty. She feels like she still might be a little bit confused but feels improved compared to yesterday. She knows where she is and why she is at the hospital. Current Medications - Current Medications Current Medications: Active Medications Carboxymethylcellulose (Carboxymethylcellulose Ophth Drops) 1 drops EACHEYE Q4HR PRN PRN Reason: Dry Eye Enoxaparin Sodium (Enoxaparin 40 Mg/0.4 Ml Syringe) 40 mg SUBQ DAILY [facility] Last Admin: 10/02/20 09:10 Dose: 40 mg Documented by: Lactated Ringer's (Lr) 1,000 mls @ 200 mls/hr IV .Q5H [facility] Last Admin: 10/02/20 14:20 Dose: 200 mls/hr Documented by: Ceftriaxone Sodium 1 gm/ (Sodium Chloride) 100 mls @ 200 mls/hr IV Q24H [facility] Ibuprofen (Ibuprofen 400 Mg Tablet) 400 mg PO Q4HR PRN PRN Reason: Pain 1 to 4 Last Admin: 10/02/20 05:52 Dose: 400 mg Documented by: Lorazepam (Lorazepam 2 Mg/Ml Vial) 1 mg IVP Q30M PRN; Protocol PRN Reason: CIWA >8 Multi-Ingredient Ointment (Zinc Oxide 20% Oint 30 Gm Tube) 1 applic TOP BID [facility] Last Admin: 10/02/20 11:55 Dose: 1 applic Documented by: Multivitamins/Minerals (Multivitamin W/Minerals Tablet) 1 tab PO DAILYWM [facility] Last Admin: 10/02/20 09:10 Dose: 1 tab Documented by: Nystatin (Nystatin Powder 15 Gm) 1 applic TOP BID [facility] Last Admin: 10/02/20 11:55 Dose: 1 applic Documented by: Multivit/Folic Acid/Iron ( Vitamin Tablet) 1 tab PO DAILY [facility] Sodium Chloride (Sodium Chloride Flush 0.9% 10 Ml Syringe) 10 ml IVP PRN PRN PRN Reason: NEEDED PER PROVIDER ORDERS Sodium Chloride (Sodium Chloride Flush 0.9% 10 Ml Syringe) 10 ml IVP 0100,0900,1700 [facility] Last Admin: 10/02/20 17:27 Dose: Not Given Documented by: Thiamine HCl (Thiamine 100 Mg Tablet) 100 mg PO DAILY [facility] Last Admin: 10/02/20 09:10 Dose: 100 mg Documented by: Naproxen Sodium [Aleve] 220 mg PO DAILY 10/01/20 Objective - Vital Signs/Intake & Output Reviewed Vital Signs: Yes Vital Signs: Vital Signs x48h Temp Pulse Resp BP Pulse Ox 10/02/20 16:06 36.2 C L 70 24 144/67 H 100 10/02/20 11:50 36.5 C 90 20 125/88 H 99 Intake & Output: Intake & Output 09/29/20 09/30/20 10/01/20 10/02/20 23:59 23:59 23:59 23:59 Intake Total 2668.000 3750 Output Total 470 Balance 2668.000 3280 - Objective General Appearance: positive: No acute distress, Alert Eyes Bilateral: positive: Conjunctivae nml ENT: positive: ENT inspection nml Neck: positive: Nml inspection Respiratory: positive: No respiratory distress. negative: Wheezes, Rales Cardiovascular: positive: Regular rate & rhythm, Systolic murmur. negative: No murmur, Tachycardia Abdomen: positive: Non-tender, No distention. negative: Tenderness, Guarding, Rebound Skin: positive: Warm, Dry, Other (Multiple abrasions and areas of varying ecchymosis over her bilateral lower extremities most prominently over her knees as well as her shins. She also has abrasions over her bilateral cheeks and chin.) Extremities: positive: No pedal edema Neurologic/Psychiatric: negative: Disoriented to person, Disoriented to place, Disoriented to time - Lab Results Fish Bones: 10/02/20 05:17 10/02/20 05:17 Other Labs: Lab Results x24hrs 10/02/20 10/02/20 10/02/20 Range/Units 05:17 05:17 05:17 WBC 15.8 H (4.8-10.8) x10^3/uL RBC 3.48 L (4.20-5.40) 10^6/uL Hgb 12.6 (12.0-16.0) g/dL Hct 38.7 (37.0-47.0) % MCV 111.2 H (81.0-99.0) fL MCH 36.2 H (27.0-31.0) pg MCHC 32.6 (32.0-36.0) g/dL RDW 13.2 (12.0-15.0) % Plt Count 224 (130-450) 10^3/uL MPV 10.4 (7.9-10.8) fL Neut # (Auto) 13.1 H Lymph # (Auto) 1.2 L [place] # (Auto) 1.3 H Eos # (Auto) 0.0 Baso # (Auto) 0.1 Absolute Nucleated RBC 0.00 Total Counted Band Neuts % (Manual) (0 - 10) % Abnorm Lymph % (Manual) % Nucleated RBC % 0.0 Neutrophils # (Manual) (1.5-6.6) 10^3/uL Lymphocytes # (Manual) (1.5-3.5) 10^3/uL Monocytes # (Manual) (0.0-1.0) 10^3/uL Eosinophils # (Manual) (0-0.7) 10^3/uL Basophils # (Manual) (0-0.1) 10^3/uL Differential Comment Manual Slide Review Indicated WBC Morphology NORMAL APPEARANCE (NORMAL) Platelet Estimate NORMAL (130-450,000) (NORMAL) Platelet Morphology NORMAL APPEARANCE (NORMAL) RBC Morph Micro Appear 1+ MACROCYTOSIS (NORMAL) Sodium 138 (135-145) mmol/L Potassium 4.1 (3.5-5.0) mmol/L Chloride 105 (101-111) mmol/L Carbon Dioxide 22 (21-32) mmol/L Anion Gap 11.0 (6-13) BUN 32 H (6-20) mg/dL Creatinine 0.8 (0.4-1.0) mg/dL Estimated GFR (MDRD) 68 L (>89) Glucose 85 (70-100) mg/dL Calcium 8.0 L (8.5-10.3) mg/dL Phosphorus 2.9 (2.5-4.6) mg/dL Magnesium 2.0 (1.7-2.8) mg/dL Total Bilirubin 1.1 H (0.2-1.0) mg/dL Direct Bilirubin 0.2 (0.1-0.5) mg/dL AST 326 H (10-42) IU/L ALT 86 H (10-60) IU/L Alkaline Phosphatase 42 (42-121) IU/L Ammonia (7-35) umol/L Total Creatine Kinase 7203 H* (22-269) IU/L Troponin I High Sens (2.3-14.8) ng/L Total Protein 5.9 L (6.7-8.2) g/dL Albumin 3.4 (3.2-5.5) g/dL Globulin 2.5 (2.1-4.2) g/dL Albumin/Globulin Ratio (1.0-2.2) Lipase (22-51) U/L Vitamin B12 150 L (180-914) pg/mL Folate 7.07 (5.90 - >24.8) ng/mL TSH (0.34-5.60) uIU/mL Urine Color Urine Clarity (CLEAR) Urine pH (5.0-7.5) PH Ur Specific [place] (1.002-1.030) Urine Protein (NEGATIVE) mg/dL Urine Glucose (UA) (NEGATIVE) mg/dL Urine Ketones (NEGATIVE) mg/dL Urine Occult Blood (NEGATIVE) Urine Nitrite (NEGATIVE) Urine Bilirubin (NEGATIVE) Urine Urobilinogen (NORMAL) E.U./dL Ur Leukocyte Esterase (NEGATIVE) Urine RBC (0-5) /HPF Urine WBC (0-5) /HPF Ur Squamous Epith Cells (<= Few) Urine Bacteria (None Seen) /HPF Urine Casts /LPF Ur Microscopic Review Urine Culture Comments Nasal Adenovirus (PCR) Nasal B. parapertussis DNA (PCR) Nasal Coronavir 229E PCR Nasal Coronavir HKU1 PCR Nasal Coronavir NL63 PCR Nasal Coronavir OC43 PCR Nasal Enterovir/Rhinovir PCR Nasal Influenza B PCR Nasal Influenza A PCR Nasal Parainfluen 1 PCR Nasal Parainfluen 2 PCR Nasal Parainfluen 3 PCR Nasal Parainfluen 4 PCR Nasal RSV (PCR) Nasal B.pertussis DNA PCR Nasal C.pneumoniae (PCR) Emil Human Metapneumo PCR Nasal M.pneumoniae (PCR) Nasal SARS-CoV-2 (PCR) Salicylates mg/dL Urine Opiates Screen (NEGATIVE) Ur Oxycodone Screen (NEGATIVE) Urine Methadone Screen (NEGATIVE) Ur Propoxyphene Screen (NEGATIVE) Acetaminophen (10-30) ug/mL Ur Barbiturates Screen (NEGATIVE) Ur Tricyclics Screen (NEGATIVE) Ur Phencyclidine Scrn (NEGATIVE) Ur Amphetamine Screen (NEGATIVE) U Methamphetamines Scrn (NEGATIVE) U Benzodiazepines Scrn (NEGATIVE) Urine Cocaine Screen (NEGATIVE) U Cannabinoids Screen (NEGATIVE) Ethyl Alcohol mg/dL 10/02/20 10/01/20 10/01/20 Range/Units 01:45 21:15 21:15 WBC (4.8-10.8) x10^3/uL RBC (4.20-5.40) 10^6/uL Hgb (12.0-16.0) g/dL Hct (37.0-47.0) % MCV (81.0-99.0) fL MCH (27.0-31.0) pg MCHC (32.0-36.0) g/dL RDW (12.0-15.0) % Plt Count (130-450) 10^3/uL MPV (7.9-10.8) fL Neut # (Auto) Lymph # (Auto) [place] # (Auto) Eos # (Auto) Baso # (Auto) Absolute Nucleated RBC Total Counted Band Neuts % (Manual) (0 - 10) % Abnorm Lymph % (Manual) % Nucleated RBC % Neutrophils # (Manual) (1.5-6.6) 10^3/uL Lymphocytes # (Manual) (1.5-3.5) 10^3/uL Monocytes # (Manual) (0.0-1.0) 10^3/uL Eosinophils # (Manual) (0-0.7) 10^3/uL Basophils # (Manual) (0-0.1) 10^3/uL Differential Comment Manual Slide Review WBC Morphology (NORMAL) Platelet Estimate (NORMAL) Platelet Morphology (NORMAL) RBC Morph Micro Appear (NORMAL) Sodium (135-145) mmol/L Potassium (3.5-5.0) mmol/L Chloride (101-111) mmol/L Carbon Dioxide (21-32) mmol/L Anion Gap (6-13) BUN (6-20) mg/dL Creatinine (0.4-1.0) mg/dL Estimated GFR (MDRD) (>89) Glucose (70-100) mg/dL Calcium (8.5-10.3) mg/dL Phosphorus (2.5-4.6) mg/dL Magnesium (1.7-2.8) mg/dL Total Bilirubin (0.2-1.0) mg/dL Direct Bilirubin (0.1-0.5) mg/dL AST (10-42) IU/L ALT (10-60) IU/L Alkaline Phosphatase (42-121) IU/L Ammonia 17.8 (7-35) umol/L Total Creatine Kinase (22-269) IU/L Troponin I High Sens (2.3-14.8) ng/L Total Protein (6.7-8.2) g/dL Albumin (3.2-5.5) g/dL Globulin (2.1-4.2) g/dL Albumin/Globulin Ratio (1.0-2.2) Lipase (22-51) U/L Vitamin B12 (180-914) pg/mL Folate (5.90 - >24.8) ng/mL TSH (0.34-5.60) uIU/mL Urine Color Urine Clarity (CLEAR) Urine pH (5.0-7.5) PH Ur Specific [place] (1.002-1.030) Urine Protein (NEGATIVE) mg/dL Urine Glucose (UA) (NEGATIVE) mg/dL Urine Ketones (NEGATIVE) mg/dL Urine Occult Blood (NEGATIVE) Urine Nitrite (NEGATIVE) Urine Bilirubin (NEGATIVE) Urine Urobilinogen (NORMAL) E.U./dL Ur Leukocyte Esterase (NEGATIVE) Urine RBC (0-5) /HPF Urine WBC (0-5) /HPF Ur Squamous Epith Cells (<= Few) Urine Bacteria (None Seen) /HPF Urine Casts /LPF Ur Microscopic Review Urine Culture Comments Nasal Adenovirus (PCR) Nasal B. parapertussis DNA (PCR) Nasal Coronavir 229E PCR Nasal Coronavir HKU1 PCR Nasal Coronavir NL63 PCR Nasal Coronavir OC43 PCR Nasal Enterovir/Rhinovir PCR Nasal Influenza B PCR Nasal Influenza A PCR Nasal Parainfluen 1 PCR Nasal Parainfluen 2 PCR Nasal Parainfluen 3 PCR Nasal Parainfluen 4 PCR Nasal RSV (PCR) Nasal B.pertussis DNA PCR Nasal C.pneumoniae (PCR) Emil Human Metapneumo PCR Nasal M.pneumoniae (PCR) Nasal SARS-CoV-2 (PCR) Salicylates < 6.0 mg/dL Urine Opiates Screen NEGATIVE (NEGATIVE) Ur Oxycodone Screen NEGATIVE (NEGATIVE) Urine Methadone Screen NEGATIVE (NEGATIVE) Ur Propoxyphene Screen NEGATIVE (NEGATIVE) Acetaminophen < 10 L (10-30) ug/mL Ur Barbiturates Screen NEGATIVE (NEGATIVE) Ur Tricyclics Screen NEGATIVE (NEGATIVE) Ur Phencyclidine Scrn NEGATIVE (NEGATIVE) Ur Amphetamine Screen NEGATIVE (NEGATIVE) U Methamphetamines Scrn NEGATIVE (NEGATIVE) U Benzodiazepines Scrn NEGATIVE (NEGATIVE) Urine Cocaine Screen NEGATIVE (NEGATIVE) U Cannabinoids Screen NEGATIVE (NEGATIVE) Ethyl Alcohol mg/dL 10/01/20 10/01/20 10/01/20 Range/Units 21:15 20:45 18:50 WBC (4.8-10.8) x10^3/uL RBC (4.20-5.40) 10^6/uL Hgb (12.0-16.0) g/dL Hct (37.0-47.0) % MCV (81.0-99.0) fL MCH (27.0-31.0) pg MCHC (32.0-36.0) g/dL RDW (12.0-15.0) % Plt Count (130-450) 10^3/uL MPV (7.9-10.8) fL Neut # (Auto) Lymph # (Auto) [place] # (Auto) Eos # (Auto) Baso # (Auto) Absolute Nucleated RBC Total Counted Band Neuts % (Manual) (0 - 10) % Abnorm Lymph % (Manual) % Nucleated RBC % Neutrophils # (Manual) (1.5-6.6) 10^3/uL Lymphocytes # (Manual) (1.5-3.5) 10^3/uL Monocytes # (Manual) (0.0-1.0) 10^3/uL Eosinophils # (Manual) (0-0.7) 10^3/uL Basophils # (Manual) (0-0.1) 10^3/uL Differential Comment Manual Slide Review WBC Morphology (NORMAL) Platelet Estimate (NORMAL) Platelet Morphology (NORMAL) RBC Morph Micro Appear (NORMAL) Sodium (135-145) mmol/L Potassium (3.5-5.0) mmol/L Chloride (101-111) mmol/L Carbon Dioxide (21-32) mmol/L Anion Gap (6-13) BUN (6-20) mg/dL Creatinine (0.4-1.0) mg/dL Estimated GFR (MDRD) (>89) Glucose (70-100) mg/dL Calcium (8.5-10.3) mg/dL Phosphorus (2.5-4.6) mg/dL Magnesium (1.7-2.8) mg/dL Total Bilirubin (0.2-1.0) mg/dL Direct Bilirubin (0.1-0.5) mg/dL AST (10-42) IU/L ALT (10-60) IU/L Alkaline Phosphatase (42-121) IU/L Ammonia (7-35) umol/L Total Creatine Kinase (22-269) IU/L Troponin I High Sens 227.5 H* (2.3-14.8) ng/L Total Protein (6.7-8.2) g/dL Albumin (3.2-5.5) g/dL Globulin (2.1-4.2) g/dL Albumin/Globulin Ratio (1.0-2.2) Lipase (22-51) U/L Vitamin B12 (180-914) pg/mL Folate (5.90 - >24.8) ng/mL TSH 1.84 (0.34-5.60) uIU/mL Urine Color YELLOW Urine Clarity CLOUDY (CLEAR) Urine pH 5.5 (5.0-7.5) PH Ur Specific [place] >=1.030 H (1.002-1.030) Urine Protein 100 H (NEGATIVE) mg/dL Urine Glucose (UA) NEGATIVE (NEGATIVE) mg/dL Urine Ketones 15 H (NEGATIVE) mg/dL Urine Occult Blood LARGE H (NEGATIVE) Urine Nitrite POSITIVE H (NEGATIVE) Urine Bilirubin NEGATIVE (NEGATIVE) Urine Urobilinogen 0.2 (NORMAL) (NORMAL) E.U./dL Ur Leukocyte Esterase NEGATIVE (NEGATIVE) Urine RBC 11-25 H (0-5) /HPF Urine WBC 6-10 H (0-5) /HPF Ur Squamous Epith Cells FEW Squamous (<= Few) Urine Bacteria Moderate H (None Seen) /HPF Urine Casts 3-5 Course Granular /LPF Ur Microscopic Review INDICATED Urine Culture Comments INDICATED Nasal Adenovirus (PCR) Nasal B. parapertussis DNA (PCR) Nasal Coronavir 229E PCR Nasal Coronavir HKU1 PCR Nasal Coronavir NL63 PCR Nasal Coronavir OC43 PCR Nasal Enterovir/Rhinovir PCR Nasal Influenza B PCR Nasal Influenza A PCR Nasal Parainfluen 1 PCR Nasal Parainfluen 2 PCR Nasal Parainfluen 3 PCR Nasal Parainfluen 4 PCR Nasal RSV (PCR) Nasal B.pertussis DNA PCR Nasal C.pneumoniae (PCR) Emil Human Metapneumo PCR Nasal M.pneumoniae (PCR) Nasal SARS-CoV-2 (PCR) Salicylates mg/dL Urine Opiates Screen (NEGATIVE) Ur Oxycodone Screen (NEGATIVE) Urine Methadone Screen (NEGATIVE) Ur Propoxyphene Screen (NEGATIVE) Acetaminophen (10-30) ug/mL Ur Barbiturates Screen (NEGATIVE) Ur Tricyclics Screen (NEGATIVE) Ur Phencyclidine Scrn (NEGATIVE) Ur Amphetamine Screen (NEGATIVE) U Methamphetamines Scrn (NEGATIVE) U Benzodiazepines Scrn (NEGATIVE) Urine Cocaine Screen (NEGATIVE) U Cannabinoids Screen (NEGATIVE) Ethyl Alcohol mg/dL 10/01/20 10/01/20 10/01/20 Range/Units 18:50 18:50 18:50 WBC (4.8-10.8) x10^3/uL RBC (4.20-5.40) 10^6/uL Hgb (12.0-16.0) g/dL Hct (37.0-47.0) % MCV (81.0-99.0) fL MCH (27.0-31.0) pg MCHC (32.0-36.0) g/dL RDW (12.0-15.0) % Plt Count (130-450) 10^3/uL MPV (7.9-10.8) fL Neut # (Auto) Not Reportable Lymph # (Auto) Not Reportable [place] # (Auto) Not Reportable Eos # (Auto) Not Reportable Baso # (Auto) Not Reportable Absolute Nucleated RBC Not Reportable Total Counted 100 Band Neuts % (Manual) 3 (0 - 10) % Abnorm Lymph % (Manual) 0 % Nucleated RBC % Not Reportable Neutrophils # (Manual) 17.7 H (1.5-6.6) 10^3/uL Lymphocytes # (Manual) 0.8 L (1.5-3.5) 10^3/uL Monocytes # (Manual) 1.0 (0.0-1.0) 10^3/uL Eosinophils # (Manual) 0.0 (0-0.7) 10^3/uL Basophils # (Manual) 0.0 (0-0.1) 10^3/uL Differential Comment MANUAL DIFFERENTIAL Manual Slide Review WBC Morphology 1+ TOXIC GRANULATION (NORMAL) Platelet Estimate NORMAL (130-450,000) (NORMAL) Platelet Morphology NORMAL APPEARANCE (NORMAL) RBC Morph Micro Appear 1+ MACROCYTOSIS (NORMAL) Sodium 137 (135-145) mmol/L Potassium 4.0 (3.5-5.0) mmol/L Chloride 102 (101-111) mmol/L Carbon Dioxide 24 (21-32) mmol/L Anion Gap 11.0 (6-13) BUN 37 H (6-20) mg/dL Creatinine 1.0 (0.4-1.0) mg/dL Estimated GFR (MDRD) 53 L (>89) Glucose 119 H (70-100) mg/dL Calcium 8.3 L (8.5-10.3) mg/dL Phosphorus (2.5-4.6) mg/dL Magnesium 2.1 (1.7-2.8) mg/dL Total Bilirubin 1.3 H (0.2-1.0) mg/dL Direct Bilirubin (0.1-0.5) mg/dL AST 421 H (10-42) IU/L ALT 96 H (10-60) IU/L Alkaline Phosphatase 50 (42-121) IU/L Ammonia (7-35) umol/L Total Creatine Kinase 9438 H* (22-269) IU/L Troponin I High Sens (2.3-14.8) ng/L Total Protein 6.4 L (6.7-8.2) g/dL Albumin 3.6 (3.2-5.5) g/dL Globulin 2.8 (2.1-4.2) g/dL Albumin/Globulin Ratio 1.3 (1.0-2.2) Lipase 26 (22-51) U/L Vitamin B12 (180-914) pg/mL Folate (5.90 - >24.8) ng/mL TSH (0.34-5.60) uIU/mL Urine Color Urine Clarity (CLEAR) Urine pH (5.0-7.5) PH Ur Specific [place] (1.002-1.030) Urine Protein (NEGATIVE) mg/dL Urine Glucose (UA) (NEGATIVE) mg/dL Urine Ketones (NEGATIVE) mg/dL Urine Occult Blood (NEGATIVE) Urine Nitrite (NEGATIVE) Urine Bilirubin (NEGATIVE) Urine Urobilinogen (NORMAL) E.U./dL Ur Leukocyte Esterase (NEGATIVE) Urine RBC (0-5) /HPF Urine WBC (0-5) /HPF Ur Squamous Epith Cells (<= Few) Urine Bacteria (None Seen) /HPF Urine Casts /LPF Ur Microscopic Review Urine Culture Comments Nasal Adenovirus (PCR) NOT DETECTED Nasal B. parapertussis DNA (PCR) NOT DETECTED Nasal Coronavir 229E PCR NOT DETECTED Nasal Coronavir HKU1 PCR NOT DETECTED Nasal Coronavir NL63 PCR NOT DETECTED Nasal Coronavir OC43 PCR NOT DETECTED Nasal Enterovir/Rhinovir PCR NOT DETECTED Nasal Influenza B PCR NOT DETECTED Nasal Influenza A PCR NOT DETECTED Nasal Parainfluen 1 PCR NOT DETECTED Nasal Parainfluen 2 PCR NOT DETECTED Nasal Parainfluen 3 PCR NOT DETECTED Nasal Parainfluen 4 PCR NOT DETECTED Nasal RSV (PCR) NOT DETECTED Nasal B.pertussis DNA PCR NOT DETECTED Nasal C.pneumoniae (PCR) NOT DETECTED Emil Human Metapneumo PCR NOT DETECTED Nasal M.pneumoniae (PCR) NOT DETECTED Nasal SARS-CoV-2 (PCR) NOT DETECTED Salicylates mg/dL Urine Opiates Screen (NEGATIVE) Ur Oxycodone Screen (NEGATIVE) Urine Methadone Screen (NEGATIVE) Ur Propoxyphene Screen (NEGATIVE) Acetaminophen (10-30) ug/mL Ur Barbiturates Screen (NEGATIVE) Ur Tricyclics Screen (NEGATIVE) Ur Phencyclidine Scrn (NEGATIVE) Ur Amphetamine Screen (NEGATIVE) U Methamphetamines Scrn (NEGATIVE) U Benzodiazepines Scrn (NEGATIVE) Urine Cocaine Screen (NEGATIVE) U Cannabinoids Screen (NEGATIVE) Ethyl Alcohol < 5.0 mg/dL - Diagnostic Imaging Diagnostic Imaging Results: positive: Final report reviewed ABX Reporting Has patient been on IV antibiotics over the past 48 hours?: Yes Assessment/Plan - Problem List (1) Encephalopathy Impression: She appears to be improving from an encephalopathy standpoint. She is alert and oriented to self, location, year, and month. She still has some difficulty with recalling the past few days. She is not consistent with how long ago she fell. Overall she is improving. CT of the head and cervical spine was unremarkable. Her ammonia and TSH were within normal limits. She may have some baseline cognitive decline due to her daily alcohol use. Her B12 was low at 150 and we will replace this with supplementation. We will continue to monitor her neurologic status. Continue with IV hydration for the rhabdomyolysis. (2) Rhabdomyolysis Impression: This is improving. Her CKs are down to 7200. We will continue with IV hydration with lactated Ringer's at 200 mL an hour. Daily CKs. Qualifiers: Rhabdomyolysis type: traumatic Encounter type: initial encounter Qualified Code(s): T79.6XXA - Traumatic ischemia of muscle, initial encounter (3) Urinary tract infection Impression: Her urine culture is growing gram-negative rods. Although she has no symptoms, we are treating her given she was confused on admission and was an unreliable historian as well as her significant leukocytosis which is improving. Continue ceftriaxone with today being day 2. Follow-up urine culture. We will look to switch to p.o. antibiotics tomorrow as long as her white count continues to improve. (4) Elevated troponin Impression: Her troponins are decreasing and she has no chest pain. Her EKG revealed nonspecific ST segment changes. This is likely demand ischemia. We will obtain echocardiogram on Sunday. We will hold off on trending troponins unless she has a change in her clinical condition. (5) Abnormal LFTs Impression: This is likely secondary to the rhabdomyolysis as well as component of her alcohol use. Her LFTs are improving. (6) Alcohol abuse Impression: She has not shown evidence of withdrawal during this hospitalization. We will continue to monitor for evidence of withdrawal. Continue with thiamine. (7) Skin abrasion Impression: This is secondary to her fall and likely rug burn. There is no evidence of infection. (8) Vitamin B12 deficiency Impression: Her B12 is low at 150 and her MCV is elevated at 110. We will start her on jarret ly vitamin B12 supplementation.
[2020-10-02] MEDS ORDERED: cefTRIAXone 1 GM in SODIUM CHLORIDE 0.9% MINIBAG 100 ML IV SCH (21:00)
[2020-10-03] MEDS: LACTATED RINGERS 1,000 ML IV SCH ×5 (01:02→21:00)
[2020-10-03 05:34] LABS: BASOPHILS % (AUTO) 0.4 %; EOSINOPHILS # (AUTO) 0.1 10^3/uL (0.0-0.7); EOSINOPHILS % (AUTO) 0.9 %; HCT - HEMATOCRIT 32.9 % (37.0-47.0); HGB - HEMOGLOBIN 10.8 g/dL (12.0-16.0); LYMPHOCYTES # (AUTO) 1.9 10^3/uL (1.5-3.5); MEAN CORPUSCULAR HEMOGLOBIN 36.7 pg (27.0-31.0); MEAN CORPUSCULAR HGB CONC 32.8 g/dL (32.0-36.0); MEAN CORPUSCULAR VOLUME 111.9 fL (81.0-99.0); MEAN PLATELET VOLUME 10.6 fL (7.9-10.8); MONOCYTES # (AUTO) 1.1 10^3/uL (0.0-1.0); MONOCYTES % (AUTO) 10.5 %; NEUTROPHILS # (AUTO) 7.2 10^3/uL (1.5-6.6); NEUTROPHILS % (AUTO) 68.4 %; PLT - PLATELET COUNT 183 10^3/uL (130-450); RED BLOOD COUNT 2.94 10^6/uL (4.20-5.40); RED CELL DISTRIBUTION WIDTH 13.2 % (12.0-15.0); WHITE BLOOD COUNT 10.6 x10^3/uL (4.8-10.8)
[2020-10-03 05:40] LABS: SLIDE REVIEW? Indicated
[2020-10-03 06:01] LABS: PLATELET ESTIMATE, MANUAL NORMAL (130-450,000) (NORMAL); PLATELET MORPHOLOGY NORMAL APPEARANCE (NORMAL); RBC MORPHOLOGY (MULTIPLE) 1+ MACROCYTOSIS (NORMAL); WBC MORPHOLOGY (MULTIPLE) NORMAL APPEARANCE (NORMAL)
[2020-10-03 06:13] LABS: ALBUMIN 2.8 g/dL (3.2-5.5); BILIRUBIN,DIRECT 0.1 mg/dL (0.1-0.5); BILIRUBIN,TOTAL 0.7 mg/dL (0.2-1.0); CALCIUM 7.5 mg/dL (8.5-10.3); CREATININE 0.7 mg/dL (0.4-1.0); MAGNESIUM 1.9 mg/dL (1.7-2.8); POTASSIUM 3.6 mmol/L (3.5-5.0); TOTAL PROTEIN 5.2 g/dL (6.7-8.2)
[2020-10-03] MEDS: MULTIVITAMIN W/MINERALS TABLET PO SCH (07:40)
[2020-10-03] MEDS ORDERED: NEUTRA-PHOS 250 MG TABLET PO SCH (08:00)
[2020-10-03] MEDS: ENOXAPARIN 40 MG/0.4 ML SYRINGE SUBQ SCH (08:34)
[2020-10-03] MEDS: CYANOCOBALAMIN 500 MCG TABLET PO SCH (08:34)
[2020-10-03] MEDS: THIAMINE 100 MG TABLET PO SCH (08:34)
[2020-10-03] MEDS: NYSTATIN POWDER 15 GM TOP SCH ×2 (08:34→20:59)
[2020-10-03] MEDS: SODIUM CHLORIDE FLUSH 0.9% 10 ML SYRINGE IVP SCH ×2 (08:35→16:08)
[2020-10-03] MEDS: ZINC OXIDE 20% OINT 30 GM TUBE TOP SCH ×2 (08:35→20:59)
[2020-10-03] MEDS ORDERED: PRENATAL VITAMIN TABLET PO SCH (09:00)
--- NOTE | 2020-10-03 12:36 | PROVIDER PROGRESS NOTE ---
Assessment/Plan - Problem List (1) Encephalopathy Assessment/Plan: This is probably multifactorial: cognitive decline due to her daily alcohol use, her B12 was low, from an infection(UTI0, and from her dehydration. CT of the head and cervical spine was unremarkable. Her ammonia and TSH were within normal limits. She appears to be improving from a confusion standpoint. We will continue to monitor her neurologic status and [facility] protocol monitor. Replace her B12, thiamine and Multivitamin. Continue with IV hydration for the rhabdomyolysis. Cognitive evaluation by Occupational Therapy has been ordered to be done Sunday (today Sunday). 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 (2) Rhabdomyolysis Qualifiers: Rhabdomyolysis type: traumatic Encounter type: initial encounter Qualified Code(s): T79.6XXA - Traumatic ischemia of muscle, initial encounter Assessment/Plan: This is from being on the ground and is improving. Her CKs are down 9000>> 7000>> 3000's today. We will continue with IV hydration with lactated Ringer's at 200 mL an hour. Monitor daily serum CK. PT has been ordered to evaluate her walking and very likely she will need SNF for PT rehab. (3) Urinary tract infection Assessment/Plan: Her urine culture is growing gram-negative rods. Although she has no symptoms, we are treating her given she was confused on admission and was an unreliable historian as well as her significant leukocytosis which is improving. Continue ceftriaxone with today being day 3. Await urine culture result. Switch to p.o. antibiotics tomorrow as long as her white count continues to improve. (4) Elevated troponin Assessment/Plan: Troponins are decreasing, were relatively flat and she had no chest pain. Her EKG revealed nonspecific ST segment changes. This is likely demand ischemia. We will obtain Echocardiogram on Sunday (today is Sun). (5) Abnormal LFTs Assessment/Plan: This is likely secondary to the rhabdomyolysis as well as from her alcohol use, since the ratio is AST>> ALT. Monitor liver tests intermittently. (6) Alcohol abuse Assessment/Plan: She did admit to drinking 4 alcoholic beverages a day for the past 5 to 6 years. There could be a component of alcoholic hepatitis. She is on daily orlk thiamine and multivitamin. [facility] protocol was ordered to monitor for evidence of withdrawal. (7) Vitamin B12 deficiency Assessment/Plan: Her B12 is low at 150 and her MCV is elevated at 110. We will start her on daily vitamin B12 supplementation. (8) Skin abrasion Assessment/Plan: She has multiple areas of redness on her face torso and extremitities. These is secondary to her fall and likely are rug burn. There is no evidence of infection. Order topical zinc or other ointment for discomfort - Current Meds Current Meds: Current Medications Generic Name Dose Route Start Last Admin Trade Name Freq PRN Reason Stop Dose Admin Carboxymethylcellulose 1 drops 10/01/20 22:38 10/03/20 08:35 Carboxymethylcellulose Ophth Drops EACHEYE 1 drops Q4HR PRN Administration Dry Eye Cefuroxime Axetil 250 mg 10/03/20 09:00 10/03/20 08:34 Cefuroxime Axetil 250 Mg Tablet PO 10/06/20 10:10 250 mg BID JAKE Administration Cyanocobalamin 1,000 mcg 10/03/20 09:00 10/03/20 08:34 Cyanocobalamin 500 Mcg Tablet PO 1,000 mcg DAILY JAKE Administration Enoxaparin Sodium 40 mg 10/02/20 09:00 10/03/20 08:34 Enoxaparin 40 Mg/0.4 Ml Syringe SUBQ 40 mg DAILY JAKE Administration Lactated Ringer's 1,000 mls @ 200 mls/hr 10/01/20 22:00 10/03/20 10:45 Lr IV 200 mls/hr .Q5H JAKE Administration Ibuprofen 400 mg 10/01/20 21:03 10/02/20 23:58 Ibuprofen 400 Mg Tablet PO 400 mg Q4HR PRN Administration Pain 1 to 4 Multi-Ingredient Ointment 1 applic 10/02/20 11:00 10/03/20 08:35 Zinc Oxide 20% Oint 30 Gm Tube TOP 1 applic BID JAKE Administration Multivitamins/Minerals 1 tab 10/02/20 08:00 10/03/20 07:40 Multivitamin W/Minerals Tablet PO 1 tab DAILYWM JAKE Administration Nystatin 1 applic 10/02/20 11:00 10/03/20 08:34 Nystatin Powder 15 Gm TOP 1 applic BID JAKE Administration Multivit/Folic Acid/Iron 1 tab 10/03/20 09:00 10/03/20 08:34 Vitamin Tablet PO 1 tab DAILY JAKE Administration Sodium Chloride 10 ml 10/02/20 01:00 10/03/20 08:35 Sodium Chloride Flush 0.9% 10 Ml Syringe IVP 10 ml 0100,0900,1700 JAKE Administration Thiamine HCl 100 mg 10/02/20 09:00 10/03/20 08:34 Thiamine 100 Mg Tablet PO 100 mg DAILY JAKE Administration - Lab Result Fish Bone Diagrams: 10/03/20 05:06 10/03/20 05:06 - Additional Planning My Orders: My Active Orders 10/03/20 09:00 Vitamin [Trinatal Rx 1] 1 tab PO DAILY Subjective - Subjective Patient Reports: Feeling Better, Resting Comfortably Objective Vital Signs: Vital Signs - 24 hr 10/02/20 10/02/20 10/02/20 16:06 20:30 23:54 Temperature 36.2 C L 36.9 C 36.3 C L Heart Rate [ 70 68 72 Brachial] Respiratory 24 18 17 Rate Blood Pressure 144/67 H 134/60 H 150/62 H [Left Brachial artery] O2 Saturation 100 100 100 10/03/20 10/03/20 05:19 07:19 Temperature 36.8 C 36.3 C L Heart Rate [ 64 60 Brachial] Respiratory 17 16 Rate Blood Pressure 141/66 H 155/69 H [Left Brachial artery] O2 Saturation 99 99 Oxygen O2 Source Room air I&O (Last 24 Hrs): Intake and Output Totals x24h 10/01/20 10/02/20 10/03/20 23:59 23:59 23:59 Intake Total 2668.000 5770 3303.333 Output Total 570 Balance 2668.000 5200 3303.333 General: Alert HEENT: Other (Multiple red areas (rug otto)) Neck: Supple Neuro: Alert, Disoriented Cardiovascular: Regular rate Respiratory: No respiratory distress Abdomen: Soft Genitourinary: Other (As per images on admission) Extremities: No edema, Other (Multiple areas of redness (rug otto) and bruises) - Results Results: Laboratory Results WBC 10.6 x10^3/uL (4.8-10.8) 10/03/20 05:06 RBC 2.94 10^6/uL (4.20-5.40) L 10/03/20 05:06 Hgb 10.8 g/dL (12.0-16.0) L 10/03/20 05:06 Hct 32.9 % (37.0-47.0) L 10/03/20 05:06 MCV 111.9 fL (81.0-99.0) H 10/03/20 05:06 MCH 36.7 pg (27.0-31.0) H 10/03/20 05:06 MCHC 32.8 g/dL (32.0-36.0) 10/03/20 05:06 RDW 13.2 % (12.0-15.0) 10/03/20 05:06 Plt Count 183 10^3/uL (130-450) 10/03/20 05:06 MPV 10.6 fL (7.9-10.8) 10/03/20 05:06 Neut # (Auto) 7.2 10^3/uL (1.5-6.6) H 10/03/20 05:06 Lymph # (Auto) 1.9 10^3/uL (1.5-3.5) 10/03/20 05:06 [place] # (Auto) 1.1 10^3/uL (0.0-1.0) H 10/03/20 05:06 Eos # (Auto) 0.1 10^3/uL (0.0-0.7) 10/03/20 05:06 Baso # (Auto) 0.0 10^3/uL (0.0-0.1) 10/03/20 05:06 Absolute Nucleated RBC 0.00 x10^3/uL 10/03/20 05:06 Total Counted 100 10/01/20 18:50 Band Neuts % (Manual) 3 % (0-10) 10/01/20 18:50 Abnorm Lymph % (Manual) 0 % 10/01/20 18:50 Nucleated RBC % 0.0 /100WBC 10/03/20 05:06 Neutrophils # (Manual) 17.7 10^3/uL (1.5-6.6) H 10/01/20 18:50 Lymphocytes # (Manual) 0.8 10^3/uL (1.5-3.5) L 10/01/20 18:50 Monocytes # (Manual) 1.0 10^3/uL (0.0-1.0) 10/01/20 18:50 Eosinophils # (Manual) 0.0 10^3/uL (0-0.7) 10/01/20 18:50 Basophils # (Manual) 0.0 10^3/uL (0-0.1) 10/01/20 18:50 Differential Comment MANUAL DIFFERENTIAL 10/01/20 18:50 Manual Slide Review Indicated 10/03/20 05:06 WBC Morphology NORMAL APPEARANCE (NORMAL) 10/03/20 05:06 Platelet Estimate NORMAL (130-450,000) (NORMAL) 10/03/20 05:06 Platelet Morphology NORMAL APPEARANCE (NORMAL) 10/03/20 05:06 RBC Morph Micro Appear 1+ MACROCYTOSIS (NORMAL) 10/03/20 05:06 PT 14.1 secs (9.9-12.6) H 10/01/20 18:50 INR 1.3 (0.8-1.2) H 10/01/20 18:50 VBG pH 7.371 (7.31-7.41) 10/01/20 19:12 VBG pCO2 39.6 mmHg (41-51) L 10/01/20 19:12 VBG pO2 24.8 mmHg (25-47) L 10/01/20 19:12 VBG HCO3 22.4 mmol/L (23-28) L 10/01/20 19:12 VBG Total CO2 23.6 mmol/L (24-29) L 10/01/20 19:12 VBG O2 Saturation 42.9 % (60-80) L 10/01/20 19:12 VBG Base Excess -2.5 mmol/L (-2 - +2) L 10/01/20 19:12 Sodium 136 mmol/L (135-145) 10/03/20 05:06 Potassium 3.6 mmol/L (3.5-5.0) 10/03/20 05:06 Chloride 105 mmol/L (101-111) 10/03/20 05:06 Carbon Dioxide 23 mmol/L (21-32) 10/03/20 05:06 Anion Gap 8.0 (6-13) 10/03/20 05:06 BUN 21 mg/dL (6-20) H 10/03/20 05:06 Creatinine 0.7 mg/dL (0.4-1.0) 10/03/20 05:06 Estimated GFR (MDRD) 79 (>89) L 10/03/20 05:06 Glucose 94 mg/dL (70-100) 10/03/20 05:06 Lactic Acid 1.5 mmol/L (0.5-2.2) 10/01/20 18:50 Calcium 7.5 mg/dL (8.5-10.3) L 10/03/20 05:06 Phosphorus 2.0 mg/dL (2.5-4.6) L 10/03/20 05:06 Magnesium 1.9 mg/dL (1.7-2.8) 10/03/20 05:06 Total Bilirubin 0.7 mg/dL (0.2-1.0) 10/03/20 05:06 Direct Bilirubin 0.1 mg/dL (0.1-0.5) 10/03/20 05:06 AST 203 IU/L (10-42) H 10/03/20 05:06 ALT 71 IU/L (10-60) H 10/03/20 05:06 Alkaline Phosphatase 36 IU/L (42-121) L 10/03/20 05:06 Ammonia 17.8 umol/L (7-35) 10/01/20 21:15 Total Creatine Kinase 3487 IU/L (22-269) H* 10/03/20 05:06 Troponin I High Sens 227.5 ng/L (2.3-14.8) H* 10/01/20 21:15 Total Protein 5.2 g/dL (6.7-8.2) L 10/03/20 05:06 Albumin 2.8 g/dL (3.2-5.5) L 10/03/20 05:06 Globulin 2.4 g/dL (2.1-4.2) 10/03/20 05:06 Albumin/Globulin Ratio 1.3 (1.0-2.2) 10/01/20 18:50 Lipase 26 U/L (22-51) 10/01/20 18:50 Vitamin B12 150 pg/mL (180-914) L 10/02/20 05:17 Folate 7.07 ng/mL (5.90 - >24.8) 10/02/20 05:17 TSH 1.84 uIU/mL (0.34-5.60) 10/01/20 18:50 Urine Color YELLOW 10/01/20 20:45 Urine Clarity CLOUDY (CLEAR) 10/01/20 20:45 Urine pH 5.5 PH (5.0-7.5) 10/01/20 20:45 Ur Specific [place] >=1.030 (1.002-1.030) H 10/01/20 20:45 Urine Protein 100 mg/dL (NEGATIVE) H 10/01/20 20:45 Urine Glucose (UA) NEGATIVE mg/dL (NEGATIVE) 10/01/20 20:45 Urine Ketones 15 mg/dL (NEGATIVE) H 10/01/20 20:45 Urine Occult Blood LARGE (NEGATIVE) H 10/01/20 20:45 Urine Nitrite POSITIVE (NEGATIVE) H 10/01/20 20:45 Urine Bilirubin NEGATIVE (NEGATIVE) 10/01/20 20:45 Urine Urobilinogen 0.2 (NORMAL) E.U./dL (NORMAL) 10/01/20 20:45 Ur Leukocyte Esterase NEGATIVE (NEGATIVE) 10/01/20 20:45 Urine RBC 11-25 /HPF (0-5) H 10/01/20 20:45 Urine WBC 6-10 /HPF (0-5) H 10/01/20 20:45 Ur Squamous Epith Cells FEW Squamous (<= Few) 10/01/20 20:45 Urine Bacteria Moderate /HPF (None Seen) H 10/01/20 20:45 Urine Casts 3-5 Course Granular /LPF 10/01/20 20:45 Ur Microscopic Review INDICATED 10/01/20 20:45 Urine Culture Comments INDICATED 10/01/20 20:45 Nasal Adenovirus (PCR) NOT DETECTED 10/01/20 18:50 Nasal B. parapertussis DNA (PCR) NOT DETECTED 10/01/20 18:50 Nasal Coronavir 229E PCR NOT DETECTED 10/01/20 18:50 Nasal Coronavir HKU1 PCR NOT DETECTED 10/01/20 18:50 Nasal Coronavir NL63 PCR NOT DETECTED 10/01/20 18:50 Nasal Coronavir OC43 PCR NOT DETECTED 10/01/20 18:50 Nasal Enterovir/Rhinovir PCR NOT DETECTED 10/01/20 18:50 Nasal Influenza B PCR NOT DETECTED 10/01/20 18:50 Nasal Influenza A PCR NOT DETECTED 10/01/20 18:50 Nasal Parainfluen 1 PCR NOT DETECTED 10/01/20 18:50 Nasal Parainfluen 2 PCR NOT DETECTED 10/01/20 18:50 Nasal Parainfluen 3 PCR NOT DETECTED 10/01/20 18:50 Nasal Parainfluen 4 PCR NOT DETECTED 10/01/20 18:50 Nasal RSV (PCR) NOT DETECTED 10/01/20 18:50 Nasal B.pertussis DNA PCR NOT DETECTED 10/01/20 18:50 Nasal C.pneumoniae (PCR) NOT DETECTED 10/01/20 18:50 Emil Human Metapneumo PCR NOT DETECTED 10/01/20 18:50 Nasal M.pneumoniae (PCR) NOT DETECTED 10/01/20 18:50 Nasal SARS-CoV-2 (PCR) NOT DETECTED 10/01/20 18:50 Salicylates < 6.0 mg/dL 10/01/20 21:15 Urine Opiates Screen NEGATIVE (NEGATIVE) 10/02/20 01:45 Ur Oxycodone Screen NEGATIVE (NEGATIVE) 10/02/20 01:45 Urine Methadone Screen NEGATIVE (NEGATIVE) 10/02/20 01:45 Ur Propoxyphene Screen NEGATIVE (NEGATIVE) 10/02/20 01:45 Acetaminophen < 10 ug/mL (10-30) L 10/01/20 21:15 Ur Barbiturates Screen NEGATIVE (NEGATIVE) 10/02/20 01:45 Ur Tricyclics Screen NEGATIVE (NEGATIVE) 10/02/20 01:45 Ur Phencyclidine Scrn NEGATIVE (NEGATIVE) 10/02/20 01:45 Ur Amphetamine Screen NEGATIVE (NEGATIVE) 10/02/20 01:45 U Methamphetamines Scrn NEGATIVE (NEGATIVE) 10/02/20 01:45 U Benzodiazepines Scrn NEGATIVE (NEGATIVE) 10/02/20 01:45 Urine Cocaine Screen NEGATIVE (NEGATIVE) 10/02/20 01:45 U Cannabinoids Screen NEGATIVE (NEGATIVE) 10/02/20 01:45 Ethyl Alcohol < 5.0 mg/dL 10/01/20 18:50
[2020-10-03] MEDS: IBUPROFEN 400 MG TABLET PO PRN (20:59)
[2020-10-04] MEDS: SODIUM CHLORIDE FLUSH 0.9% 10 ML SYRINGE IVP SCH ×4 (00:50→23:50)
[2020-10-04] MEDS: LACTATED RINGERS 1,000 ML IV SCH ×6 (02:01→23:49)
[2020-10-04 05:44] LABS: BASOPHILS # (AUTO) 0.1 10^3/uL (0.0-0.1); BASOPHILS % (AUTO) 1.1 %; EOSINOPHILS # (AUTO) 0.4 10^3/uL (0.0-0.7); EOSINOPHILS % (AUTO) 3.9 %; HCT - HEMATOCRIT 34.2 % (37.0-47.0); HGB - HEMOGLOBIN 11.1 g/dL (12.0-16.0); LYMPHOCYTES # (AUTO) 1.7 10^3/uL (1.5-3.5); LYMPHOCYTES % (AUTO) 18.8 %; MEAN CORPUSCULAR HEMOGLOBIN 36.9 pg (27.0-31.0); MEAN CORPUSCULAR HGB CONC 32.5 g/dL (32.0-36.0); MEAN CORPUSCULAR VOLUME 113.6 fL (81.0-99.0); MEAN PLATELET VOLUME 10.3 fL (7.9-10.8); MONOCYTES # (AUTO) 1.1 10^3/uL (0.0-1.0); MONOCYTES % (AUTO) 12.3 %; NEUTROPHILS # (AUTO) 5.4 10^3/uL (1.5-6.6); NEUTROPHILS % (AUTO) 59.6 %; PLT - PLATELET COUNT 199 10^3/uL (130-450); RED BLOOD COUNT 3.01 10^6/uL (4.20-5.40); RED CELL DISTRIBUTION WIDTH 13.1 % (12.0-15.0)
[2020-10-04 06:05] LABS: PLATELET ESTIMATE, MANUAL NORMAL (130-450,000) (NORMAL); PLATELET MORPHOLOGY NORMAL APP (NORMAL); RBC MORPHOLOGY (MULTIPLE) 1+ MACROCYTOSIS (NORMAL); WBC MORPHOLOGY (MULTIPLE) NORMAL APPEARANCE (NORMAL)
[2020-10-04 06:08] LABS: ALBUMIN 2.8 g/dL (3.2-5.5); BILIRUBIN,DIRECT 0.1 mg/dL (0.1-0.5); BILIRUBIN,TOTAL 0.8 mg/dL (0.2-1.0); CALCIUM 7.8 mg/dL (8.5-10.3); CREATININE 0.6 mg/dL (0.4-1.0); MAGNESIUM 1.7 mg/dL (1.7-2.8); PHOSPHORUS 2.1 mg/dL (2.5-4.6); POTASSIUM 3.8 mmol/L (3.5-5.0); TOTAL PROTEIN 5.1 g/dL (6.7-8.2)
[2020-10-04] MEDS ORDERED: NEUTRA-PHOS 250 MG TABLET PO ONE (10:00)
[2020-10-04] MEDS: polyethylene glycoL 3350 17 GM PACKET PO SCH (10:21)
[2020-10-04] MEDS: CYANOCOBALAMIN 500 MCG TABLET PO SCH (10:21)
[2020-10-04] MEDS: THIAMINE 100 MG TABLET PO SCH (10:21)
[2020-10-04] MEDS: ENOXAPARIN 40 MG/0.4 ML SYRINGE SUBQ SCH (10:21)
[2020-10-04] MEDS: ZINC OXIDE 20% OINT 30 GM TUBE TOP SCH ×2 (10:22→20:26)
[2020-10-04] MEDS: NYSTATIN POWDER 15 GM TOP SCH ×2 (10:22→20:26)
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
[2020-10-04] MEDS ORDERED: CYANOCOBALAMIN 1,000 MCG/ML VIAL IM ONE (11:00)
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
--- NOTE | 2020-10-04 12:51 | PROVIDER PROGRESS NOTE ---
Assessment/Plan - Problem List (2) Rhabdomyolysis Qualifiers: Rhabdomyolysis type: traumatic Encounter type: initial encounter Qualified Code(s): T79.6XXA - Traumatic ischemia of muscle, initial encounter - Current Meds Current Meds: Current Medications Generic Name Dose Route Start Last Admin Trade Name Freq PRN Reason Stop Dose Admin Carboxymethylcellulose 1 drops 10/01/20 22:38 10/03/20 08:35 Carboxymethylcellulose Ophth Drops EACHEYE 1 drops Q4HR PRN Administration Dry Eye Cefuroxime Axetil 250 mg 10/03/20 09:00 10/04/20 10:21 Cefuroxime Axetil 250 Mg Tablet PO 10/06/20 10:10 250 mg BID JAKE Administration Cyanocobalamin 1,000 mcg 10/03/20 09:00 10/04/20 10:21 Cyanocobalamin 500 Mcg Tablet PO 1,000 mcg DAILY JAKE Administration Enoxaparin Sodium 40 mg 10/02/20 09:00 10/04/20 10:21 Enoxaparin 40 Mg/0.4 Ml Syringe SUBQ 40 mg DAILY JAKE Administration Lactated Ringer's 1,000 mls @ 200 mls/hr 10/01/20 22:00 10/04/20 11:49 Lr IV 200 mls/hr .Q5H JAKE Administration Ibuprofen 400 mg 10/01/20 21:03 10/03/20 20:59 Ibuprofen 400 Mg Tablet PO 400 mg Q4HR PRN Administration Pain 1 to 4 Multi-Ingredient Ointment 1 applic 10/02/20 11:00 10/04/20 10:22 Zinc Oxide 20% Oint 30 Gm Tube TOP 1 applic BID JAKE Administration Nystatin 1 applic 10/02/20 11:00 10/04/20 10:22 Nystatin Powder 15 Gm TOP 1 applic BID JAKE Administration Polyethylene Glycol 17 gm 10/04/20 09:00 10/04/20 10:21 Polyethylene Glycol 3350 17 Gm Packet PO 17 gm DAILY JAKE Administration Sodium Chloride 10 ml 10/02/20 01:00 10/04/20 10:31 Sodium Chloride Flush 0.9% 10 Ml Syringe IVP Not Given 0100,0900,1700 JAKE Thiamine HCl 100 mg 10/02/20 09:00 10/04/20 10:21 Thiamine 100 Mg Tablet PO 100 mg DAILY JAKE Administration - Lab Result Fish Bone Diagrams: 10/04/20 05:18 10/04/20 05:18 - Additional Planning My Orders: My Active Orders 10/04/20 12:00 Vitamin [Trinatal Rx 1] 1 tab PO DAILYWM Objective Vital Signs: Vital Signs - 24 hr 10/03/20 10/03/20 10/04/20 15:51 19:56 00:47 Temperature 36.6 C 36.7 C 36.5 C Heart Rate [ 66 65 71 Brachial] Heart Rate [ Sitting] Heart Rate [ Supine] Respiratory 20 20 18 Rate Blood Pressure 160/71 H 139/66 H 155/68 H [Left Brachial artery] Blood Pressure [Sitting] Blood Pressure [Supine] O2 Saturation 100 98 97 10/04/20 10/04/20 10/04/20 04:20 07:38 11:15 Temperature 36.4 C L 36.3 C L Heart Rate [ 65 63 Brachial] Heart Rate [ 80 Sitting] Heart Rate [ 66 Supine] Respiratory 17 18 Rate Blood Pressure 160/79 H 171/70 H [Left Brachial artery] Blood Pressure 125/88 H [Sitting] Blood Pressure 125/65 [Supine] O2 Saturation 99 99 10/04/20 11:17 Temperature 36.3 C L Heart Rate [ 70 Brachial] Heart Rate [ Sitting] Heart Rate [ Supine] Respiratory 18 Rate Blood Pressure 159/80 H [Left Brachial artery] Blood Pressure [Sitting] Blood Pressure [Supine] O2 Saturation 100 Oxygen O2 Source Room air I&O (Last 24 Hrs): Intake and Output Totals x24h 10/02/20 10/03/20 10/04/20 23:59 23:59 23:59 Intake Total 5770 6405.333 4353.333 Output Total 289 844 4420 Balance 5200 5705.333 2628.333 - Results Results: Laboratory Results WBC 9.0 x10^3/uL (4.8-10.8) 10/04/20 05:18 RBC 3.01 10^6/uL (4.20-5.40) L 10/04/20 05:18 Hgb 11.1 g/dL (12.0-16.0) L 10/04/20 05:18 Hct 34.2 % (37.0-47.0) L 10/04/20 05:18 MCV 113.6 fL (81.0-99.0) H 10/04/20 05:18 MCH 36.9 pg (27.0-31.0) H 10/04/20 05:18 MCHC 32.5 g/dL (32.0-36.0) 10/04/20 05:18 RDW 13.1 % (12.0-15.0) 10/04/20 05:18 Plt Count 199 10^3/uL (130-450) 10/04/20 05:18 MPV 10.3 fL (7.9-10.8) 10/04/20 05:18 Neut # (Auto) 5.4 10^3/uL (1.5-6.6) 10/04/20 05:18 Lymph # (Auto) 1.7 10^3/uL (1.5-3.5) 10/04/20 05:18 [place] # (Auto) 1.1 10^3/uL (0.0-1.0) H 10/04/20 05:18 Eos # (Auto) 0.4 10^3/uL (0.0-0.7) 10/04/20 05:18 Baso # (Auto) 0.1 10^3/uL (0.0-0.1) 10/04/20 05:18 Absolute Nucleated RBC 0.00 x10^3/uL 10/04/20 05:18 Total Counted 100 10/01/20 18:50 Band Neuts % (Manual) 3 % (0-10) 10/01/20 18:50 Abnorm Lymph % (Manual) 0 % 10/01/20 18:50 Nucleated RBC % 0.0 /100WBC 10/04/20 05:18 Neutrophils # (Manual) 17.7 10^3/uL (1.5-6.6) H 10/01/20 18:50 Lymphocytes # (Manual) 0.8 10^3/uL (1.5-3.5) L 10/01/20 18:50 Monocytes # (Manual) 1.0 10^3/uL (0.0-1.0) 10/01/20 18:50 Eosinophils # (Manual) 0.0 10^3/uL (0-0.7) 10/01/20 18:50 Basophils # (Manual) 0.0 10^3/uL (0-0.1) 10/01/20 18:50 Differential Comment MANUAL DIFFERENTIAL 10/01/20 18:50 Manual Slide Review Indicated 10/03/20 05:06 WBC Morphology NORMAL APPEARANCE (NORMAL) 10/04/20 05:18 Platelet Estimate NORMAL (130-450,000) (NORMAL) 10/04/20 05:18 Platelet Morphology NORMAL INES (NORMAL) 10/04/20 05:18 RBC Morph Micro Appear 1+ MACROCYTOSIS (NORMAL) 10/04/20 05:18 PT 14.1 secs (9.9-12.6) H 10/01/20 18:50 INR 1.3 (0.8-1.2) H 10/01/20 18:50 VBG pH 7.371 (7.31-7.41) 10/01/20 19:12 VBG pCO2 39.6 mmHg (41-51) L 10/01/20 19:12 VBG pO2 24.8 mmHg (25-47) L 10/01/20 19:12 VBG HCO3 22.4 mmol/L (23-28) L 10/01/20 19:12 VBG Total CO2 23.6 mmol/L (24-29) L 10/01/20 19:12 VBG O2 Saturation 42.9 % (60-80) L 10/01/20 19:12 VBG Base Excess -2.5 mmol/L (-2 - +2) L 10/01/20 19:12 Sodium 140 mmol/L (135-145) 10/04/20 05:18 Potassium 3.8 mmol/L (3.5-5.0) 10/04/20 05:18 Chloride 107 mmol/L (101-111) 10/04/20 05:18 Carbon Dioxide 25 mmol/L (21-32) 10/04/20 05:18 Anion Gap 8.0 (6-13) 10/04/20 05:18 BUN 12 mg/dL (6-20) 10/04/20 05:18 Creatinine 0.6 mg/dL (0.4-1.0) 10/04/20 05:18 Estimated GFR (MDRD) 95 (>89) 10/04/20 05:18 Glucose 98 mg/dL (70-100) 10/04/20 05:18 Lactic Acid 1.5 mmol/L (0.5-2.2) 10/01/20 18:50 Calcium 7.8 mg/dL (8.5-10.3) L 10/04/20 05:18 Phosphorus 2.1 mg/dL (2.5-4.6) L 10/04/20 05:18 Magnesium 1.7 mg/dL (1.7-2.8) 10/04/20 05:18 Total Bilirubin 0.8 mg/dL (0.2-1.0) 10/04/20 05:18 Direct Bilirubin 0.1 mg/dL (0.1-0.5) 10/04/20 05:18 AST 173 IU/L (10-42) H 10/04/20 05:18 ALT 71 IU/L (10-60) H 10/04/20 05:18 Alkaline Phosphatase 41 IU/L (42-121) L 10/04/20 05:18 Ammonia 17.8 umol/L (7-35) 10/01/20 21:15 Total Creatine Kinase 2515 IU/L (22-269) H* 10/04/20 05:18 Troponin I High Sens 227.5 ng/L (2.3-14.8) H* 10/01/20 21:15 Total Protein 5.1 g/dL (6.7-8.2) L 10/04/20 05:18 Albumin 2.8 g/dL (3.2-5.5) L 10/04/20 05:18 Globulin 2.3 g/dL (2.1-4.2) 10/04/20 05:18 Albumin/Globulin Ratio 1.3 (1.0-2.2) 10/01/20 18:50 Lipase 26 U/L (22-51) 10/01/20 18:50 Vitamin B12 150 pg/mL (180-914) L 10/02/20 05:17 Folate 7.07 ng/mL (5.90 - >24.8) 10/02/20 05:17 TSH 1.84 uIU/mL (0.34-5.60) 10/01/20 18:50 Urine Color YELLOW 10/01/20 20:45 Urine Clarity CLOUDY (CLEAR) 10/01/20 20:45 Urine pH 5.5 PH (5.0-7.5) 10/01/20 20:45 Ur Specific [place] >=1.030 (1.002-1.030) H 10/01/20 20:45 Urine Protein 100 mg/dL (NEGATIVE) H 10/01/20 20:45 Urine Glucose (UA) NEGATIVE mg/dL (NEGATIVE) 10/01/20 20:45 Urine Ketones 15 mg/dL (NEGATIVE) H 10/01/20 20:45 Urine Occult Blood LARGE (NEGATIVE) H 10/01/20 20:45 Urine Nitrite POSITIVE (NEGATIVE) H 10/01/20 20:45 Urine Bilirubin NEGATIVE (NEGATIVE) 10/01/20 20:45 Urine Urobilinogen 0.2 (NORMAL) E.U./dL (NORMAL) 10/01/20 20:45 Ur Leukocyte Esterase NEGATIVE (NEGATIVE) 10/01/20 20:45 Urine RBC 11-25 /HPF (0-5) H 10/01/20 20:45 Urine WBC 6-10 /HPF (0-5) H 10/01/20 20:45 Ur Squamous Epith Cells FEW Squamous (<= Few) 10/01/20 20:45 Urine Bacteria Moderate /HPF (None Seen) H 10/01/20 20:45 Urine Casts 3-5 Course Granular /LPF 10/01/20 20:45 Ur Microscopic Review INDICATED 10/01/20 20:45 Urine Culture Comments INDICATED 10/01/20 20:45 Nasal Adenovirus (PCR) NOT DETECTED 10/01/20 18:50 Nasal B. parapertussis DNA (PCR) NOT DETECTED 10/01/20 18:50 Nasal Coronavir 229E PCR NOT DETECTED 10/01/20 18:50 Nasal Coronavir HKU1 PCR NOT DETECTED 10/01/20 18:50 Nasal Coronavir NL63 PCR NOT DETECTED 10/01/20 18:50 Nasal Coronavir OC43 PCR NOT DETECTED 10/01/20 18:50 Nasal Enterovir/Rhinovir PCR NOT DETECTED 10/01/20 18:50 Nasal Influenza B PCR NOT DETECTED 10/01/20 18:50 Nasal Influenza A PCR NOT DETECTED 10/01/20 18:50 Nasal Parainfluen 1 PCR NOT DETECTED 10/01/20 18:50 Nasal Parainfluen 2 PCR NOT DETECTED 10/01/20 18:50 Nasal Parainfluen 3 PCR NOT DETECTED 10/01/20 18:50 Nasal Parainfluen 4 PCR NOT DETECTED 10/01/20 18:50 Nasal RSV (PCR) NOT DETECTED 10/01/20 18:50 Nasal B.pertussis DNA PCR NOT DETECTED 10/01/20 18:50 Nasal C.pneumoniae (PCR) NOT DETECTED 10/01/20 18:50 Emil Human Metapneumo PCR NOT DETECTED 10/01/20 18:50 Nasal M.pneumoniae (PCR) NOT DETECTED 10/01/20 18:50 Nasal SARS-CoV-2 (PCR) NOT DETECTED 10/01/20 18:50 Salicylates < 6.0 mg/dL 10/01/20 21:15 Urine Opiates Screen NEGATIVE (NEGATIVE) 10/02/20 01:45 Ur Oxycodone Screen NEGATIVE (NEGATIVE) 10/02/20 01:45 Urine Methadone Screen NEGATIVE (NEGATIVE) 10/02/20 01:45 Ur Propoxyphene Screen NEGATIVE (NEGATIVE) 10/02/20 01:45 Acetaminophen < 10 ug/mL (10-30) L 10/01/20 21:15 Ur Barbiturates Screen NEGATIVE (NEGATIVE) 10/02/20 01:45 Ur Tricyclics Screen NEGATIVE (NEGATIVE) 10/02/20 01:45 Ur Phencyclidine Scrn NEGATIVE (NEGATIVE) 10/02/20 01:45 Ur Amphetamine Screen NEGATIVE (NEGATIVE) 10/02/20 01:45 U Methamphetamines Scrn NEGATIVE (NEGATIVE) 10/02/20 01:45 U Benzodiazepines Scrn NEGATIVE (NEGATIVE) 10/02/20 01:45 Urine Cocaine Screen NEGATIVE (NEGATIVE) 10/02/20 01:45 U Cannabinoids Screen NEGATIVE (NEGATIVE) 10/02/20 01:45 Ethyl Alcohol < 5.0 mg/dL 10/01/20 18:50
[2020-10-04] MEDS: PRENATAL VITAMIN TABLET PO SCH (13:05)
[2020-10-04] MEDS: IBUPROFEN 400 MG TABLET PO PRN (23:52)
[2020-10-05] MEDS: LACTATED RINGERS 1,000 ML IV SCH ×2 (04:47→10:19)
[2020-10-05 05:46] LABS: BASOPHILS % (AUTO) 1.9 %; EOSINOPHILS % (AUTO) 8.9 %; HCT - HEMATOCRIT 35.6 % (37.0-47.0); HGB - HEMOGLOBIN 11.2 g/dL (12.0-16.0); MEAN CORPUSCULAR HEMOGLOBIN 35.9 pg (27.0-31.0); MEAN CORPUSCULAR HGB CONC 31.5 g/dL (32.0-36.0); MEAN CORPUSCULAR VOLUME 114.1 fL (81.0-99.0); MEAN PLATELET VOLUME 10.1 fL (7.9-10.8); MONOCYTES % (AUTO) 13.5 %; NEUTROPHILS % (AUTO) 53.3 %; PLT - PLATELET COUNT 194 10^3/uL (130-450); RED BLOOD COUNT 3.12 10^6/uL (4.20-5.40); RED CELL DISTRIBUTION WIDTH 13.1 % (12.0-15.0); WHITE BLOOD COUNT 8.6 x10^3/uL (4.8-10.8)
[2020-10-05 05:50] LABS: ABNORMAL LYMPHS % (MANUAL) 0 %; BAND NEUTROPHILS % (MANUAL) 0 %
[2020-10-05 05:57] LABS: CALCIUM 7.9 mg/dL (8.5-10.3); CREATININE 0.6 mg/dL (0.4-1.0); MAGNESIUM 1.7 mg/dL (1.7-2.8); PHOSPHORUS 2.3 mg/dL (2.5-4.6); POTASSIUM 3.9 mmol/L (3.5-5.0)
[2020-10-05 06:11] LABS: BASOPHILS # (MANUAL) 0.3 10^3/uL (0-0.1); BASOPHILS % (MANUAL) 3 %; DIFFERENTIAL COMMENT MANUAL DIFFERENTIAL; EOSINOPHILS # (MANUAL) 0.8 10^3/uL (0-0.7); LYMPHOCYTES # (MANUAL) 1.5 10^3/uL (1.5-3.5); LYMPHOCYTES % (MANUAL) 18 %; MYELOCYTES % (MANUAL) 3 %; NEUTROPHILS # (MANUAL) 4.7 10^3/uL (1.5-6.6); PLATELET ESTIMATE, MANUAL NORMAL (130-450,000) (NORMAL); PLATELET MORPHOLOGY NORMAL APPEARANCE (NORMAL); RBC MORPHOLOGY (MULTIPLE) NORMAL APPEARANCE (NORMAL); WBC MORPHOLOGY (MULTIPLE) NORMAL APPEARANCE (NORMAL)
[2020-10-05] MEDS: THIAMINE 100 MG TABLET PO SCH (09:11)
[2020-10-05] MEDS: CYANOCOBALAMIN 500 MCG TABLET PO SCH (09:11)
[2020-10-05] MEDS: polyethylene glycoL 3350 17 GM PACKET PO SCH (09:12)
[2020-10-05] MEDS: NYSTATIN POWDER 15 GM TOP SCH (09:12)
[2020-10-05] MEDS: ZINC OXIDE 20% OINT 30 GM TUBE TOP SCH (09:12)
[2020-10-05] MEDS: PRENATAL VITAMIN TABLET PO SCH (09:12)
[2020-10-05] MEDS: SODIUM CHLORIDE FLUSH 0.9% 10 ML SYRINGE IVP SCH (09:12)
[2020-10-05] MEDS: ENOXAPARIN 40 MG/0.4 ML SYRINGE SUBQ SCH (09:15)
[2020-10-05 11:37] VITALS: BP 166/78
--- NOTE | 2020-10-05 11:53 | Discharge Plan ---
"Discharge Plan for SNF / [facility] - Discharge Plan And Transition Orders Problem Reviewed?: Yes Disposition: 03 SNF DC/Xfer Condition: Fair Allergies and Adverse Reactions: Allergies Allergy/AdvReac Type Severity Reaction Status Date / Time No Known Drug Allergies Allergy Verified 12/03/15 21:34 Health Concerns: 84-year-old female who lives in her own home and drinks up to 4 drinks a day before dinner who was found down by a friend who went to check on her. She had significant skin breakdown on her zygomatic arch, chin, knees and had severe rhabdomyolysis, dehydration, and elevated troponin from demand ischemia. Confusion was present. After hydration and fluid management, the patient is improved but is still weak and not able to return to home to live independently due to this weakness. She will need rehabilitation. Plan of Treatment: 1. No more alcohol 2. Occupational and physical therapy to regain strength and cognitive improvement to allow her to live independently 3. She cannot drive Care Goals: To return home to independent living - SNF / GROUP [facility] Transition Orders Admit to (Facility): [facility] Discharge Diagnosis: 1. Rhabdomyolysis 2. E. coli and Klebsiella UTI 3. Metabolic encephalopathy secondary to UTI and chronic alcohol abuse 4. Chronic alcohol abuse 5. Elevated liver enzymes 6. Vitamin B12 deficiency with IM B12 given October 04 and needs to be given every month 7. Multiple skin abrasions: Bilateral facial cheeks, chin, bilateral knees 8. Postmenopausal vaginal bleeding 9. Elevated troponin due to demand ischemia 10. Beatriz intertrigo under breast pannus and intertriginous folds of groin Medicare Certification Statement: I certify that [facility] care is medically necessary on a continuing basis for any of the conditions for which she/he is receiving care during hospitalization. Notify PCP of admission and forward orders to primary provider for signature. Weight on admission and: Weekly Other Notification Orders: Call PCP immediately if patient develops dyspnea, chest pain/tightness or edema. House Bowel Program: Yes Additional Bowel Program Orders: If no BM after 2 days, nurse may give M.O.M. 30ml PO PRN and/or ducolax Supp 1 [place] and/or SHAUN 250mg P.O., and/or senna 1-2 tabs PO. On day 3 nurse may give repeat above order until residents constipation is resolved. Annual Influenza Vaccine (between Feb 09 and September 08): Yes Medication Orders: PLEASE REFER TO THE DISCHARGE MEDICATION LIST. Insulin Orders?: No - Diet Type: Geriatric Texture: Regular Liquids: Thin May have monthly special meal: Yes - Therapies | Activity Therapy: Evaluation | Treat if indicated: PT, OT Rehabilitation Potential: Maximize functional status, Return to independent living Activity: Activity as Tolerated Assistance Devices: Walker"
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
[2020-10-05 12:34] LABS: B. PARAPERTUSSIS- RESP PCR PAN NOT DETECTED; B. PERTUSSIS- RESP PCR PANEL NOT DETECTED; C. PNEUMONIAE- RESP PCR PANEL NOT DETECTED; CORONAVIRUS 229E-RESP PCR NOT DETECTED; CORONAVIRUS HKU1-RESP PCR NOT DETECTED; CORONAVIRUS NL63-RESP PCR NOT DETECTED; CORONAVIRUS OC43-RESP PCR NOT DETECTED; HUMAN METAPNEUMOVIRUS NOT DETECTED; INFLUENZA A- RESP PCR PANEL NOT DETECTED; INFLUENZA B - RESP PCR PANEL NOT DETECTED; M. PNEUMONIAE- RESP PCR PANEL NOT DETECTED; PARAINFLUENZA VIRUS 1 NOT DETECTED; PARAINFLUENZA VIRUS 2 NOT DETECTED; PARAINFLUENZA VIRUS 3 NOT DETECTED; PARAINFLUENZA VIRUS 4 NOT DETECTED; RHINOVIRUS/ENTEROVIRUS NOT DETECTED; RSV- RESP PCR PANEL NOT DETECTED; SARS-CoV-2 -RESP PCR PANEL NOT DETECTED
== END 2020-10-05 15:00 | DRG 565 ==
LOC: EDUNIT# → EDBD → ED 18:22 → MS2 21:03
PROVIDERS: ADMIT Internal Medicine; ATTEND Specialist
DX: T79.6XXA Traumatic ischemia of muscle, initial encounter (principal); G93.40 Encephalopathy, unspecified; Z20.822 Contact with and (suspected) exposure to COVID-19; S09.90XA Unspecified injury of head, initial encounter; S19.9XXA Unspecified injury of neck, initial encounter; T14.8XXA Other injury of unspecified body region, initial encounter; N39.0 Urinary tract infection, site not specified; I24.8 Other forms of acute ischemic heart disease; E86.0 Dehydration; F10.20 Alcohol dependence, uncomplicated; B96.20 Unspecified Escherichia coli [E. coli] as the cause of diseases classified elsewhere; B96.1 Klebsiella pneumoniae [K. pneumoniae] as the cause of diseases classified elsewhere; R74.8 Abnormal levels of other serum enzymes; E53.8 Deficiency of other specified B group vitamins; S00.81XA Abrasion of other part of head, initial encounter; S80.212A Abrasion, left knee, initial encounter; S80.211A Abrasion, right knee, initial encounter; W19.XXXA Unspecified fall, initial encounter; Z91.81 History of falling; Y92.009 Unspecified place in unspecified non-institutional (private) residence as the place of occurrence of the external cause; N93.9 Abnormal uterine and vaginal bleeding, unspecified; B37.2 Candidiasis of skin and nail; M25.562 Pain in left knee; Z96.643 Presence of artificial hip joint, bilateral; Z96.652 Presence of left artificial knee joint; Z66 Do not resuscitate; R53.1 Weakness; Z90.710 Acquired absence of both cervix and uterus
CPT/HCPCS: 36415; 51701; 70450; 71275; 72125; 73562; 74177; 80048; 80053; 80076; 80306; 80307; 81001; 82140; 82550; 82607; 82746; 82803; 83605; 83690; 83735; 84100; 84443; 84484; 85025; 85610; 87040; 87077; 87086; 87181; 87631; 93005; 93306; 97110; 97116; 97162; 97166; 97530; 99285; A9270; G0480; J1650; J7120; Q9967; 0202U; 80320; 80329; 81003

== ENCOUNTER 2020-10-11 08:00 | Outpatient (CLI) | payer MEDICARE, BC ==
[2020-10-11 20:34] LABS: BASOPHILS # (AUTO) 0.1 10^3/uL (0.0-0.1); BASOPHILS % (AUTO) 0.6 %; EOSINOPHILS # (AUTO) 0.7 10^3/uL (0.0-0.7); EOSINOPHILS % (AUTO) 6.1 %; HCT - HEMATOCRIT 36.1 % (37.0-47.0); HGB - HEMOGLOBIN 11.7 g/dL (12.0-16.0); LYMPHOCYTES # (AUTO) 1.4 10^3/uL (1.5-3.5); MEAN CORPUSCULAR HEMOGLOBIN 37.3 pg (27.0-31.0); MEAN CORPUSCULAR HGB CONC 32.4 g/dL (32.0-36.0); MEAN PLATELET VOLUME 10.6 fL (7.9-10.8); NEUTROPHILS # (AUTO) 8.5 10^3/uL (1.5-6.6); NEUTROPHILS % (AUTO) 71.3 %; PLT - PLATELET COUNT 290 10^3/uL (130-450); RED BLOOD COUNT 3.14 10^6/uL (4.20-5.40); RED CELL DISTRIBUTION WIDTH 13.1 % (12.0-15.0); WHITE BLOOD COUNT 11.9 x10^3/uL (4.8-10.8)
[2020-10-11 20:39] LABS: SLIDE REVIEW? Indicated
[2020-10-11 20:42] LABS: ALBUMIN/GLOBULIN RATIO 1.1 (1.0-2.2); BILIRUBIN,TOTAL 0.5 mg/dL (0.2-1.0); CALCIUM 8.8 mg/dL (8.5-10.3); POTASSIUM 4.8 mmol/L (3.5-5.0); TOTAL PROTEIN 5.8 g/dL (6.7-8.2)
[2020-10-11 21:31] LABS: RBC MORPHOLOGY (MULTIPLE) 1+ MACROCYTOSIS (NORMAL)
[2020-10-11 21:32] LABS: PLATELET ESTIMATE, MANUAL NORMAL (130-450,000) (NORMAL); PLATELET MORPHOLOGY RARE GIANT PLATELETS (NORMAL)
== END 2020-10-11 23:59 | disposition home or self-care (01) ==
LOC: LAB.R 08:00 → EDSTATUS 08:43 → LAB.R 16:45 → EDSTATUS 21:38 → LAB.R 23:59
DX: E53.9 Vitamin B deficiency, unspecified (principal); I24.8 Other forms of acute ischemic heart disease
CPT/HCPCS: 80053; 85025

== ENCOUNTER 2020-10-14 13:37 | Outpatient (CLI) | payer MEDICARE, BC ==
--- NOTE | 2020-10-14 15:37 | Ultrasound Report ---
PROCEDURE: Duplex Ext Veins Left INDICATIONS: EDEMA TECHNIQUE: Real-time imaging, as well as color and pulse Doppler interrogation, was performed of the left upper extremity deep veins from the inferior neck to the antecubital fossa. COMPARISON: None. FINDINGS: The internal jugular vein, visualized portions of the subclavian vein, axillary, and brach ial veins are free of intraluminal thrombus. Where physically possible, the veins are normally compr essible. Color and pulse Doppler demonstrate normal intraluminal flow, with expected phasicity and p ulsatility. Additional scanning of the cephalic and basilic veins of the superficial system demonstr ate normal compressibility, without thrombus. IMPRESSION: No evidence of deep vein thrombosis involving the left upper extremity. Reviewed by: Anne Harper MD, PhD on 10/14/2020 3:36 PM PDT Approved by: Anne Harper MD, PhD on 10/14/2020 3:36 PM PDT Station ID: [id number]
== END 2020-10-14 13:38 | disposition home or self-care (01) ==
LOC: DI 13:37
PROVIDERS: ATTEND Family Medicine
DX: R60.9 Edema, unspecified (principal)

== ENCOUNTER 2020-10-25 17:35 | Outpatient (CLI) | payer MEDICARE, BC ==
[2020-10-25 20:50] LABS: BASOPHILS # (AUTO) 0.1 10^3/uL (0.0-0.1); BASOPHILS % (AUTO) 0.4 %; EOSINOPHILS # (AUTO) 0.2 10^3/uL (0.0-0.7); EOSINOPHILS % (AUTO) 1.3 %; HCT - HEMATOCRIT 39.3 % (37.0-47.0); HGB - HEMOGLOBIN 12.8 g/dL (12.0-16.0); LYMPHOCYTES # (AUTO) 1.3 10^3/uL (1.5-3.5); LYMPHOCYTES % (AUTO) 10.7 %; MEAN CORPUSCULAR HEMOGLOBIN 36.7 pg (27.0-31.0); MEAN CORPUSCULAR HGB CONC 32.6 g/dL (32.0-36.0); MEAN CORPUSCULAR VOLUME 112.6 fL (81.0-99.0); MEAN PLATELET VOLUME 11.7 fL (7.9-10.8); MONOCYTES # (AUTO) 0.9 10^3/uL (0.0-1.0); MONOCYTES % (AUTO) 7.4 %; NEUTROPHILS # (AUTO) 9.5 10^3/uL (1.5-6.6); NEUTROPHILS % (AUTO) 79.7 %; PLATELET ESTIMATE, MANUAL NORMAL (130-450,000) (NORMAL); PLATELET MORPHOLOGY NORMAL APPEARANCE (NORMAL); PLT - PLATELET COUNT 284 10^3/uL (130-450); RED BLOOD COUNT 3.49 10^6/uL (4.20-5.40); RED CELL DISTRIBUTION WIDTH 12.5 % (12.0-15.0)
[2020-10-25 20:51] LABS: RBC MORPHOLOGY (MULTIPLE) 2+ MACROCYTOSIS (NORMAL); WBC MORPHOLOGY (MULTIPLE) NORMAL APPEARANCE (NORMAL)
[2020-10-25 20:56] LABS: ALBUMIN 4.3 g/dL (3.2-5.5); ALBUMIN/GLOBULIN RATIO 1.2 (1.0-2.2); BILIRUBIN,TOTAL 1.3 mg/dL (0.2-1.0); CALCIUM 9.3 mg/dL (8.5-10.3); CREATININE 0.8 mg/dL (0.4-1.0); POTASSIUM 4.1 mmol/L (3.5-5.0); TOTAL PROTEIN 7.8 g/dL (6.7-8.2)
== END 2020-10-25 23:59 | disposition home or self-care (01) ==
LOC: LAB.R 17:35
DX: R10.9 Unspecified abdominal pain (principal)
CPT/HCPCS: 80053; 85025

== ENCOUNTER 2020-10-28 17:00 | Outpatient (CLI) | payer MEDICARE, BC ==
[2020-10-28 18:38] LABS: BILIRUBIN,URINE NEGATIVE (NEGATIVE); GLUCOSE, URINE (UA) NEGATIVE (NEGATIVE); KETONES,URINE (UA) NEGATIVE (NEGATIVE); LEUKOCYTE ESTERASE, URINE TRACE (NEGATIVE); NITRITE,URINE POSITIVE (NEGATIVE); OCCULT BLOOD,URINE TRACE-LYSE (NEGATIVE); PROTEIN,URINE 30 mg/dL (NEGATIVE); UROBILINOGEN,URINE 2 E.U./dL (NORMAL)
[2020-10-28 18:39] LABS: CLARITY,URINE HAZY (CLEAR)
[2020-10-28 18:54] LABS: BACTERIA,URINE Many /HPF (None Seen); SQUAMOUS EPITHELIAL CELL,UR FEW Squamous (<= Few)
== END 2020-10-28 23:59 | disposition home or self-care (01) ==
LOC: LAB.R 17:00
DX: N39.0 Urinary tract infection, site not specified (principal)
CPT/HCPCS: 81001; 81003; 87077; 87086; 87181

== ENCOUNTER 2020-10-29 14:15 | Outpatient (CLI) | payer MEDICARE, BC ==
[2020-10-30 21:17] LABS: BASOPHILS # (AUTO) 0.1 10^3/uL (0.0-0.1); BASOPHILS % (AUTO) 1.1 %; EOSINOPHILS # (AUTO) 0.2 10^3/uL (0.0-0.7); EOSINOPHILS % (AUTO) 1.6 %; HCT - HEMATOCRIT 35.8 % (37.0-47.0); HGB - HEMOGLOBIN 11.6 g/dL (12.0-16.0); LYMPHOCYTES # (AUTO) 1.4 10^3/uL (1.5-3.5); LYMPHOCYTES % (AUTO) 11.7 %; MEAN CORPUSCULAR HEMOGLOBIN 36.3 pg (27.0-31.0); MEAN CORPUSCULAR HGB CONC 32.4 g/dL (32.0-36.0); MEAN CORPUSCULAR VOLUME 111.9 fL (81.0-99.0); MEAN PLATELET VOLUME 12.1 fL (7.9-10.8); MONOCYTES # (AUTO) 1.4 10^3/uL (0.0-1.0); MONOCYTES % (AUTO) 11.4 %; NEUTROPHILS # (AUTO) 8.7 10^3/uL (1.5-6.6); NEUTROPHILS % (AUTO) 71.7 %; PLT - PLATELET COUNT 328 10^3/uL (130-450); RED CELL DISTRIBUTION WIDTH 12.2 % (12.0-15.0); WHITE BLOOD COUNT 12.2 x10^3/uL (4.8-10.8)
[2020-10-30 21:21] LABS: SLIDE REVIEW? Indicated
[2020-10-30 22:16] LABS: RBC MORPHOLOGY (MULTIPLE) 1+ MACROCYTOSIS (NORMAL)
[2020-10-30 22:17] LABS: PLATELET ESTIMATE, MANUAL NORMAL (130-450,000) (NORMAL); PLATELET MORPHOLOGY NORMAL APPEARANCE (NORMAL)
== END 2020-10-29 23:59 | disposition home or self-care (01) ==
LOC: LAB.R 14:15
DX: N95.0 Postmenopausal bleeding (principal); G93.41 Metabolic encephalopathy
CPT/HCPCS: 85025

== ENCOUNTER 2020-11-01 10:08 | Outpatient (CLI) | payer MEDICARE, BC, OTHER ==
[2020-11-01 13:23] LABS: CALCIUM 8.6 mg/dL (8.5-10.3); CREATININE 0.7 mg/dL (0.4-1.0); POTASSIUM 3.8 mmol/L (3.5-5.0)
== END 2020-11-01 23:59 | disposition home or self-care (01) ==
LOC: LAB.R 10:08
PROVIDERS: ATTEND Family Medicine
DX: G93.41 Metabolic encephalopathy (principal)
CPT/HCPCS: 80048

== ENCOUNTER 2020-11-25 10:28 | Outpatient (CLI) | payer MEDICARE, BC ==
[2020-11-25 16:18] LABS: BASOPHILS # (AUTO) 0.1 10^3/uL (0.0-0.1); BASOPHILS % (AUTO) 0.8 %; EOSINOPHILS # (AUTO) 0.1 10^3/uL (0.0-0.7); EOSINOPHILS % (AUTO) 1.2 %; HCT - HEMATOCRIT 40.5 % (37.0-47.0); HGB - HEMOGLOBIN 12.6 g/dL (12.0-16.0); LYMPHOCYTES # (AUTO) 1.6 10^3/uL (1.5-3.5); LYMPHOCYTES % (AUTO) 16.3 %; MEAN CORPUSCULAR HEMOGLOBIN 35.1 pg (27.0-31.0); MEAN CORPUSCULAR HGB CONC 31.1 g/dL (32.0-36.0); MEAN CORPUSCULAR VOLUME 112.8 fL (81.0-99.0); MEAN PLATELET VOLUME 10.8 fL (7.9-10.8); MONOCYTES # (AUTO) 0.9 10^3/uL (0.0-1.0); NEUTROPHILS # (AUTO) 6.8 10^3/uL (1.5-6.6); NEUTROPHILS % (AUTO) 71.8 %; PLT - PLATELET COUNT 269 10^3/uL (130-450); RED BLOOD COUNT 3.59 10^6/uL (4.20-5.40); RED CELL DISTRIBUTION WIDTH 14.4 % (12.0-15.0); WHITE BLOOD COUNT 9.5 x10^3/uL (4.8-10.8)
[2020-11-25 16:22] LABS: SLIDE REVIEW? Indicated
[2020-11-25 16:32] LABS: ALBUMIN 4.1 g/dL (3.2-5.5); ALBUMIN/GLOBULIN RATIO 1.4 (1.0-2.2); ALKALINE PHOSPHATASE 59 IU/L (42-121); ALT ALANINE AMINOTRANSFERASE < 10 IU/L (10-60); AST ASPARTATE AMINOTRANSFERASE 16 IU/L (10-42); BUN - BLOOD UREA NITROGEN 14 mg/dL (6-20); CALCIUM 9.4 mg/dL (8.5-10.3); CARBON DIOXIDE - CO2 27 mmol/L (21-32); CHLORIDE 101 mmol/L (101-111); CREATININE 0.9 mg/dL (0.4-1.0); GFR - MDRD 59 (>89); GLUCOSE 108 mg/dL (70-100); POTASSIUM 4.5 mmol/L (3.5-5.0); SODIUM 138 mmol/L (135-145); TOTAL PROTEIN 7.1 g/dL (6.7-8.2)
[2020-11-25 16:44] LABS: PLATELET ESTIMATE, MANUAL NORMAL (130-450,000) (NORMAL); PLATELET MORPHOLOGY NORMAL APPEARANCE (NORMAL); RBC MORPHOLOGY (MULTIPLE) 1+ MACROCYTOSIS (NORMAL); WBC MORPHOLOGY (MULTIPLE) NORMAL APPEARANCE (NORMAL)
== END 2020-11-25 10:29 | disposition home or self-care (01) ==
LOC: LAB.S 10:28
PROVIDERS: ATTEND Internal Medicine
DX: G93.41 Metabolic encephalopathy (principal)
CPT/HCPCS: 36415; 80053; 85025

== ENCOUNTER 2021-04-30 02:38 | Outpatient (CLI) | payer MEDICARE, BC | END 2021-04-30 02:39 | disposition EMS.NT | LOC: EMS 02:38 | DX: Z03.89 Encounter for observation for other suspected diseases and conditions ruled out (principal) ==

== ENCOUNTER 2021-05-07 01:38 | Outpatient (CLI) | payer MEDICARE, BC | END 2021-05-07 01:39 | disposition EMS.NT | LOC: EMS 01:38 | DX: S51.812A Laceration without foreign body of left forearm, initial encounter (principal); W06.XXXA Fall from bed, initial encounter; Y92.003 Bedroom of unspecified non-institutional (private) residence as the place of occurrence of the external cause ==

== ENCOUNTER 2021-07-06 17:47 | Outpatient (CLI) | payer MEDICARE, BC | END 2021-07-06 17:48 | disposition EMS.NT | LOC: EMS 17:47 | DX: Z03.89 Encounter for observation for other suspected diseases and conditions ruled out (principal) ==

== ENCOUNTER 2021-07-06 18:24 | Outpatient (CLI) | payer MEDICARE, BC | END 2021-07-06 18:25 | disposition EMS.NT | LOC: EMS 18:24 | DX: Z03.89 Encounter for observation for other suspected diseases and conditions ruled out (principal) ==

== ENCOUNTER 2021-11-18 11:10 | Inpatient (IN) | payer MEDICARE, BC ==
[2021-11-18] MEDS ORDERED: ACETAMINOPHEN 325 MG TABLET PO PRN (14:33)
[2021-11-18] MEDS: APIXABAN 5 MG TABLET PO SCH (20:38)
--- NOTE | 2021-11-19 07:34 | HISTORY & PHYSICAL EXAMINATION ---
Chief Complaint - Chief Complaint Chief Complaint: Weakness History of Present Illness - Admitted From Admitted From:: [facility] acute care - History Obtained From Records Reviewed: [facility] History obtained from: Patient, EMR - History of Present Illness HPI Comment/Other: This is a 85-year-old female with a past medical history significant for alcohol abuse who was admitted to our facility about 4 days ago after a fall and found to have atrial fibrillation with rapid ventricular response. She was treated initially with a diltiazem drip and then transition to oral metoprolol. An echocardiogram revealed an ejection fraction of 25% and she did appear to be in heart failure issue she was diuresed with IV Lasix before being transitioned to oral diuretics. She was then started on appropriate heart failure therapy with Toprol, lisinopril, spironolactone. She was seen by physical therapy and ongoing therapy was recommended so she is now being admitted to our swing bed for physical therapy. The patient reports feeling well. She denies any chest pain, dyspnea, palpitations, lower extremity edema. Her goal is to go home on discharge. She is a DNR. 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 Living arrangement: At home Living Situation: Alone Social History Notes: The patient lives at home alone and has a friend who will check on her every few days. She drinks 4 alcoholic beverages and has been doing so for about a decade. She is a non-smoker. Meds/Allgy - Home Medications Home Medications: Ambulatory Orders Medication Instructions Recorded Confirmed Apixaban [Eliquis] 5 mg PO BID tablet 11/18/21 11/18/21 Furosemide [Lasix] 40 mg PO DAILY #0 tablet 11/18/21 11/18/21 Metoprolol Succinate [Toprol Xl] 50 mg PO DAILY tablet 11/18/21 11/18/21 Spironolactone [Aldactone] 12.5 mg PO DAILY tablet 11/18/21 11/18/21 Thiamine [Vitamin B-1] 100 mg PO DAILY tablet 11/18/21 11/18/21 lisinopriL [Zestril] 5 mg PO DAILY tablet 11/18/21 11/18/21 - Allergies Allergies/Adverse Reactions: Allergies Allergy/AdvReac Type Severity Reaction Status Date / Time No Known Drug Allergies Allergy Verified 11/14/21 21:46 Review of Systems - Constitutional Constitutional: denies: Fever, Chills - Cardiovascular Cariovascular: denies: Chest pain, Edema, Lightheadedness, Exertional dyspnea, Decr. exercise tolerance - Respiratory Respiratory: denies: Cough, SOB at rest, SOB with exertion - Genitourinary Genitourinary: denies: Dysuria, Frequency, Urgency - Neurological Neurological: denies: Focal weakness - Hematologic/Lymphatic Hematologic/Lymphatic: denies: Bruising, Bleeding tendencies - All Other Systems All Other Systems: reports: Reviewed and negative Prior Level of Functionality: She was living independently prior to admission. Now ambulates with a walker. Exam - Vital Signs Reviewed Vital Signs: Yes Vital Signs: Vital Signs x48h Temp Pulse Resp BP Pulse Ox 11/19/21 07:19 36.6 C 76 15 112/83 H 92 - Physical Exam General Appearance: positive: No acute distress, Alert Eyes Bilateral: positive: Normal inspection, Conjunctivae nml ENT: positive: ENT inspection nml Neck: positive: Nml inspection Respiratory: positive: No respiratory distress Cardiovascular: positive: Irregularly irregular. negative: Tachycardia, Systolic murmur Abdomen: positive: Non-tender, No distention. negative: Tenderness Skin: positive: Warm, Dry Extremities: positive: No pedal edema Neurologic/Psychiatric: negative: Disoriented to person, Disoriented to place Conclusion/Plan - Problem List (1) Physical deconditioning Conclusion/Plan: This is an ongoing problem for her leading to multiple falls. She will not be admitted to our swing bed facility for PT/OT. (2) Chronic systolic heart failure Conclusion/Plan: This is stable and not in exacerbation. This is likely secondary to alcohol abuse or tachyarrhythmia She is stable on oral Lasix, metoprolol, lisinopril, spironolactone. He will need labs in a few days to ensure that her renal function electrolytes are stable. She will eventually need outpatient follow up with cardiology. (3) Atrial fibrillation Conclusion/Plan: This is a new diagnosis for her during this past admission. She is rate controlled on metoprolol and we are continuing Eliquis for anticoagulation. (4) Alcohol abuse Conclusion/Plan: She was treated with Librium during the prior hospitalization and there was no e vidence of withdrawal. Continue thiamine. Core Measures - Issues Hospital Issues and Management Plan: 85-year-old female with chronic systolic heart failure, tribulation will be admitted to our swing bed due to physical deconditioning that requires physical therapy.
[2021-11-19] MEDS: APIXABAN 5 MG TABLET PO SCH ×2 (08:37→20:10)
[2021-11-19] MEDS: METOPROLOL SUCCINATE 50 MG TABLET PO SCH (08:37)
[2021-11-19] MEDS: SPIRONOLACTONE 25 MG TABLET PO SCH (08:38)
[2021-11-19] MEDS: THIAMINE 100 MG TABLET PO SCH (08:38)
[2021-11-19] MEDS: lisinopriL 5 MG TABLET PO SCH (08:38)
[2021-11-19] MEDS: FUROSEMIDE 40 MG TABLET PO SCH (08:38)
[2021-11-20] MEDS: lisinopriL 5 MG TABLET PO SCH (08:10)
[2021-11-20] MEDS: APIXABAN 5 MG TABLET PO SCH ×2 (08:10→20:50)
[2021-11-20] MEDS: THIAMINE 100 MG TABLET PO SCH (08:10)
[2021-11-20] MEDS: METOPROLOL SUCCINATE 50 MG TABLET PO SCH (08:10)
[2021-11-20] MEDS: SPIRONOLACTONE 25 MG TABLET PO SCH (08:11)
[2021-11-20] MEDS: FUROSEMIDE 40 MG TABLET PO SCH (08:11)
[2021-11-21] MEDS: FUROSEMIDE 40 MG TABLET PO SCH (08:29)
[2021-11-21] MEDS: METOPROLOL SUCCINATE 50 MG TABLET PO SCH (08:30)
[2021-11-21] MEDS: THIAMINE 100 MG TABLET PO SCH (08:30)
[2021-11-21] MEDS: APIXABAN 5 MG TABLET PO SCH ×2 (08:30→20:19)
[2021-11-21] MEDS: lisinopriL 5 MG TABLET PO SCH (08:30)
[2021-11-21] MEDS: SPIRONOLACTONE 25 MG TABLET PO SCH (08:30)
[2021-11-21] MEDS: PRENATAL VITAMIN TABLET PO SCH (09:49)
[2021-11-22] MEDS: lisinopriL 5 MG TABLET PO SCH (08:01)
[2021-11-22] MEDS: THIAMINE 100 MG TABLET PO SCH (08:01)
[2021-11-22] MEDS: PRENATAL VITAMIN TABLET PO SCH (08:01)
[2021-11-22] MEDS: FUROSEMIDE 40 MG TABLET PO SCH (08:02)
[2021-11-22] MEDS: SPIRONOLACTONE 25 MG TABLET PO SCH (08:02)
[2021-11-22] MEDS: METOPROLOL SUCCINATE 50 MG TABLET PO SCH (08:02)
[2021-11-22] MEDS: APIXABAN 5 MG TABLET PO SCH ×2 (08:02→20:53)
[2021-11-23] MEDS: METOPROLOL SUCCINATE 50 MG TABLET PO SCH (07:47)
[2021-11-23] MEDS: APIXABAN 5 MG TABLET PO SCH ×2 (07:47→20:16)
[2021-11-23] MEDS: lisinopriL 5 MG TABLET PO SCH (07:48)
[2021-11-23] MEDS: PRENATAL VITAMIN TABLET PO SCH (07:48)
[2021-11-23] MEDS: FUROSEMIDE 40 MG TABLET PO SCH (07:48)
[2021-11-23] MEDS: THIAMINE 100 MG TABLET PO SCH (07:48)
[2021-11-23] MEDS: SPIRONOLACTONE 25 MG TABLET PO SCH (07:49)
[2021-11-24] MEDS: FUROSEMIDE 40 MG TABLET PO SCH (08:25)
[2021-11-24] MEDS: THIAMINE 100 MG TABLET PO SCH (08:25)
[2021-11-24] MEDS: lisinopriL 5 MG TABLET PO SCH (08:25)
[2021-11-24] MEDS: PRENATAL VITAMIN TABLET PO SCH (08:25)
[2021-11-24] MEDS: METOPROLOL SUCCINATE 50 MG TABLET PO SCH (08:26)
[2021-11-24] MEDS: SPIRONOLACTONE 25 MG TABLET PO SCH (08:26)
[2021-11-24] MEDS: APIXABAN 5 MG TABLET PO SCH ×2 (08:26→20:57)
[2021-11-25] MEDS: SPIRONOLACTONE 25 MG TABLET PO SCH (08:19)
[2021-11-25] MEDS: FUROSEMIDE 40 MG TABLET PO SCH (08:19)
[2021-11-25] MEDS: THIAMINE 100 MG TABLET PO SCH (08:19)
[2021-11-25] MEDS: lisinopriL 5 MG TABLET PO SCH (08:19)
[2021-11-25] MEDS: METOPROLOL SUCCINATE 50 MG TABLET PO SCH (08:19)
[2021-11-25] MEDS: PRENATAL VITAMIN TABLET PO SCH (08:19)
[2021-11-25] MEDS: APIXABAN 5 MG TABLET PO SCH ×2 (08:19→23:15)
[2021-11-26] MEDS: SPIRONOLACTONE 25 MG TABLET PO SCH (09:07)
[2021-11-26] MEDS: THIAMINE 100 MG TABLET PO SCH (09:07)
[2021-11-26] MEDS: PRENATAL VITAMIN TABLET PO SCH (09:08)
[2021-11-26] MEDS: FUROSEMIDE 40 MG TABLET PO SCH (09:08)
[2021-11-26] MEDS: APIXABAN 5 MG TABLET PO SCH ×2 (09:08→20:48)
[2021-11-26] MEDS: METOPROLOL SUCCINATE 50 MG TABLET PO SCH (09:57)
[2021-11-26] MEDS: lisinopriL 5 MG TABLET PO SCH (09:58)
--- NOTE | 2021-11-26 10:34 | PROVIDER PROGRESS NOTE ---
Assessment/Plan - Problem List (1) Hypotension Assessment/Plan: BP is the lowest she has had at 90 systolic today. Will assess that she does not have prerenal azotemia and obtain a BMP as well as magnesium. We will put holding parameters on her cardiac medications. We will likely decrease her Lasix dose. (2) Physical deconditioning Conclusion/Plan: This is an ongoing problem for her leading to multiple falls. She was admitted to our swing bed facility for PT/OT. Today her friend Franklyn visited her at bedside and I spoke to him. The social worker masters Flora was also in the room. We both explained to Franklyn that she needs caregivers daily because of her poor memory and trouble with maneuvering out of bed. He said he currently has Mondays and Tuesdays covered but no other days. (3) Chronic systolic heart failure Conclusion/Plan: This is stable and not in exacerbation. This is likely secondary to alcohol abuse or tachyarrhythmia She is stable on oral Lasix, metoprolol, lisinopril, spironolactone. She will eventually need outpatient follow up with Cardiology. (4) Atrial fibrillation Conclusion/Plan: This is a new diagnosis for her during this past admission. She is rate controlled on metoprolol and we are continuing Eliquis for anticoagulation. (5) Alcohol abuse Conclusion/Plan: She was treated with Librium during the prior hospitalization and there was no evidence of withdrawal. Continue thiamine. (6) Dementia Conclusion/Plan: This patient scored low on her cognitive eval. She may have dementia from alcohol abuse. She was living alone and friend Tere was checking on her daily, taking her shopping. She cannot return to living at home alone. Franklyn has been told by our SW and he was to be arranging for caregivers. He said he currently has Mondays and Tuesdays covered but no other days. Franklyn was told we are anticipating her upcoming discharge in next 2 days approx. - Current Meds Current Meds: Current Medications Generic Name Dose Route Start Last Admin Trade Name Freq PRN Reason Stop Dose Admin Apixaban 5 mg 11/18/21 21:00 11/26/21 09:08 Apixaban 5 Mg Tablet PO 5 mg BID JAKE Administration Multivit/Folic Acid/Iron 1 tab 11/21/21 10:00 11/26/21 09:08 Vitamin Tablet PO 1 tab DAILYWM JAKE Administration Spironolactone 12.5 mg 11/19/21 09:00 11/26/21 09:07 Spironolactone 25 Mg Tablet PO 12.5 mg DAILY JAKE Administration Thiamine HCl 100 mg 11/19/21 09:00 11/26/21 09:07 Thiamine 100 Mg Tablet PO 100 mg DAILY JAKE Administration - Lab Result Fish Bone Diagrams: 11/26/21 10:45 - Additional Planning My Orders: My Active Orders 11/26/21 10:28 Vital Signs - Orthostatic [RC] DAILY BMP - BASIC METABOLIC PANEL [CHEM] Routine MAGNESIUM [CHEM] Routine 11/26/21 10:30 Miscellaenous Nursing Order [RC] ONCE 11/26/21 21:00 Metoprolol Succinate [Toprol Xl] 25 mg PO BID 11/27/21 09:00 lisinopriL [Zestril] 2.5 mg PO DAILY 11/28/21 10:29 Furosemide [Lasix] 40 mg PO [id number] Subjective - Subjective Patient Reports: No Complaints Nursing Reports: Other (She told her RN she was bit "foggy". Per PT, she has marked trouble maneuvering OOB.) Objective Vital Signs: Vital Signs - 24 hr 11/25/21 11/26/21 11/26/21 15:59 07:55 10:17 Temperature 36.6 C 36.8 C Heart Rate [ 97 102 H Brachial] Respiratory 18 20 Rate Blood Pressure 104/71 120/89 H 91/62 [Right Brachial artery] O2 Saturation 97 95 Oxygen O2 Source Room air I&O (Last 24 Hrs): Intake and Output Totals x24h 11/24/21 11/25/21 11/26/21 23:59 23:59 23:59 Intake Total 1670 1560 785 Output Total 2250 1000 1050 Balance -580 560 -265 General: Alert, Other (She appears disheveled.) HEENT: PERRLA Neck: Supple Neuro: Alert, Other (Poor memory, she is slow to answer. Speech is normal.) Cardiovascular: Regular rate Respiratory: No respiratory distress Abdomen: Soft, Other (Obese) Extremities: No clubbing, No edema
[2021-11-26 11:24] LABS: CALCIUM 8.6 mg/dL (8.5-10.3); CREATININE 0.8 mg/dL (0.4-1.0); POTASSIUM 3.8 mmol/L (3.5-5.0)
[2021-11-26] MEDS: METOPROLOL SUCCINATE 25 MG TABLET PO SCH (20:48)
[2021-11-27] MEDS: SPIRONOLACTONE 25 MG TABLET PO SCH (08:26)
[2021-11-27] MEDS: PRENATAL VITAMIN TABLET PO SCH (08:26)
[2021-11-27] MEDS: THIAMINE 100 MG TABLET PO SCH (08:26)
[2021-11-27] MEDS: APIXABAN 5 MG TABLET PO SCH ×2 (08:26→21:25)
[2021-11-27] MEDS: lisinopriL 5 MG TABLET PO SCH (10:23)
[2021-11-27] MEDS: METOPROLOL SUCCINATE 25 MG TABLET PO SCH ×2 (10:23→21:25)
[2021-11-28 08:19] VITALS: BP 96/77
[2021-11-28] MEDS: lisinopriL 5 MG TABLET PO SCH (08:19)
[2021-11-28] MEDS: METOPROLOL SUCCINATE 25 MG TABLET PO SCH (08:19)
[2021-11-28] MEDS: PRENATAL VITAMIN TABLET PO SCH (08:21)
[2021-11-28] MEDS: SPIRONOLACTONE 25 MG TABLET PO SCH (08:21)
[2021-11-28] MEDS: APIXABAN 5 MG TABLET PO SCH (08:21)
[2021-11-28] MEDS: THIAMINE 100 MG TABLET PO SCH (08:22)
[2021-11-28] MEDS ORDERED: FUROSEMIDE 40 MG TABLET PO SCH (09:00)
--- NOTE | 2021-11-28 12:59 | Discharge Plan ---
Discharge Plan Problem Reviewed?: Yes Disposition: Home Health Service Condition: Fair Prescriptions: Metoprolol Succinate [Toprol Xl] 25 mg PO BID #60 tablet lisinopriL [Zestril] 2.5 mg PO DAILY #15 tablet Diet: Cardiac Activity Restrictions: Activity as Tolerated Shower Restrictions: No Driving Restrictions: Yes (No driving due to dementia) Assistance Devices: Walker Health Concerns: You were hospitalized to treat your trouble breathing and your weakness. You have progressed with physical therapy and you are being discharged home. [facility] agency will be contacting you and coming out to your house. They will be providing you with a Registered Nurse to check that your medications are correct, a home health aide to help with bathing, and therapists for more Physical Therapy and Occupational Therapy. Because of poor memory, you need a daily caregiver to come to your home. Please DO NOT DRINK ANY ALCOHOL. Follow the list of medications as printed out. Some of the doses have been changed since what you took before admission. You should see your Primary Care Provider in the next 1-2 weeks for a hospital follow-up appointment. Plan of Treatment: As above. Care Goals: Improvement in symptoms and stabilization are the goals. Assessment: These instructions are provided for reminders and for your caregivers at home. Additional Instructions or Follow Up instructions: If you have new or worsening symptoms, call your Primary Care Provider for advice or come to the Emergency Department. Follow-Up Care: Home Health - RN, Home Health - PT, Home Health - OT No Smoking: If you smoke, Please STOP! Call for help. Follow-up with: Osman Bauman MD [Credentialed Staff Provider] -
--- NOTE | 2021-11-28 13:18 | DISCHARGE SUMMARY ---
Discharge Summary Admit Date: 11/19/21 Discharge Date: 11/28/21 Discharging Provider: Dr Rosa M Andersen Primary Care Provider: Dr Osman Bauman Code Status: Do Not Attempt Resuscitation Condition at Discharge: Fair Discharge Disposition: [facility] History of Present Illness: From the admission H&P into SNF, by Dr Alexander Connell: This is an 85-year-old white female with a past medical history significant for alcohol abuse, who was admitted to our hospital facility as an Inpatient about 4 days ago after a fall and was found to have atrial fibrillation with rapid ventricular response. She was treated initially with a diltiazem drip and then transition to oral metoprolol. An Echocardiogram was done and revealed an LV ejection fraction of 25% and she did appear to be in heart failure, but she was diuresed with IV Lasix before being transitioned to oral diuretics. She was then started on appropriate heart failure therapy with Toprol, lisinopril, and spironolactone. She was seen by physical therapy and ongoing rehab therapy was recommended so she is now being admitted to our SNF, Swing bed status, for physical therapy. The patient reports feeling well. She denies any chest pain, dyspnea, palpitations, lower extremity edema. She has a poor memory. Her goal is to go home on discharge, but she lives alone. She is a DNR. - HOSPITAL COURSE Hospital Course: (1) Physical deconditioning This was an ongoing problem for her, leading to multiple falls. She was admitted to the Swing bed status at our facility for PT/OT and participated and met her goals. She needs caregivers daily because of her poor memory and alot of trouble with maneuvering out of bed. Franklyn has arranged for daily caregivers. Further PT and OT were to be done with a Home Health agency. (2) Hypotension Her BP at its lowest was 90 systolic, likely from being on new cardiac meds for CHF. Doses were adjusted. (3) Chronic systolic heart failure This was stable and she was not in exacerbation. It was likely secondary to alcohol abuse or tachyarrhythmia. She was stable on oral Lasix, Metoprolol, Lisinopril, and Spironolactone. She will need outpatient work-up and follow up with Cardiology. (4) Atrial fibrillation This is also a new diagnosis for her during the last admission. She was rate controlled on Metoprolol and she was on Eliquis for anticoagulation. (5) Alcohol abuse She was treated with Librium during the recent prior hospitalization and there was no evidence of withdrawal. We continued daily thiamine. (6) Dementia This patient scored low on her cognitive eval. She likely has dementia from alcohol abuse. She was living alone and friend Franklyn was checking on her daily, helping around the house and taking her shopping. Since she could not return to living safely at home alone, Franklyn was notified by our SW and the Hospitalist that now daily caregivers were needed, and Franklyn arranged this by the time of discharge. - ALLERGIES Allergies/Adverse Reactions: Allergies Allergy/AdvReac Type Severity Reaction Status Date / Time No Known Drug Allergies Allergy Verified 11/14/21 21:46 - MEDICATIONS Home Medications: Ambulatory Orders Medication Instructions Recorded Confirmed Apixaban [Eliquis] 5 mg PO BID tablet 11/18/21 11/18/21 Spironolactone [Aldactone] 12.5 mg PO DAILY tablet 11/18/21 11/18/21 Thiamine [Vitamin B-1] 100 mg PO DAILY tablet 11/18/21 11/18/21 Apixaban [Eliquis] 5 mg PO BID #60 tablet 11/28/21 Furosemide [Lasix] 40 mg PO MOWEFR tablet 11/28/21 Furosemide [Lasix] 40 mg PO MOWEFR #15 tablet 11/28/21 Lisinopril [Zestril] 2.5 mg PO DAILY #30 tablet 11/28/21 Metoprolol Succinate [Toprol Xl] 25 mg PO BID #60 tablet 11/28/21 Metoprolol Succinate [Toprol Xl] 25 mg PO BID #60 tablet 11/28/21 Multivit with Iron,Minerals 1 each PO DAILY #30 tab.chew 11/28/21 [Multivitamins with Iron] Spironolactone [Aldactone] 12.5 mg PO DAILY #15 tablet 11/28/21 Thiamine [Vitamin B-1] 100 mg PO DAILY #30 tablet 11/28/21 lisinopriL [Zestril] 2.5 mg PO DAILY #15 tablet 11/28/21 - PHYSICAL EXAM AT DISCHARGE General Appearance: positive: No acute distress, Alert, Other (Disheveled) Eyes Bilateral: positive: Normal inspection, EOMI ENT: positive: ENT inspection nml, No signs of dehydration Neck: positive: Nml inspection, No JVD Respiratory: positive: No respiratory distress, Breath sounds nml Cardiovascular: positive: No murmur, Irregularly irregular Abdomen: positive: Non-tender, Nml bowel sounds, No distention Skin: positive: Warm, Dry Extremities: positive: Non-tender, No pedal edema Neurologic/Psychiatric: positive: Motor nml, Disoriented to place, Disoriented to time, Other (Poor memory) - LABS Result Diagrams: 11/26/21 10:45 - FOLLOW UP Follow Up: See PCP in 1-2 weeks for a hospital follow-up visit and possibly a referral to Cardiology. - TIME SPENT Time Spent in Discharge (Minutes): 50
== END 2021-11-28 14:15 | disposition home health service (06) | DRG 948 ==
LOC: MS2 14:33 → UNDOADMIN 14:33 → UNDODISIN 11-28 14:15
PROVIDERS: ADMIT Internal Medicine; ATTEND Internal Medicine
DX: R53.1 Weakness (principal); I50.22 Chronic systolic (congestive) heart failure; I95.2 Hypotension due to drugs; T50.915A Adverse effect of multiple unspecified drugs, medicaments and biological substances, initial encounter; Y92.239 Unspecified place in hospital as the place of occurrence of the external cause; I48.91 Unspecified atrial fibrillation; F10.10 Alcohol abuse, uncomplicated; F03.90 Unspecified dementia, unspecified severity, without behavioral disturbance, psychotic disturbance, mood disturbance, and anxiety; Z91.81 History of falling
CPT/HCPCS: 36415; 80048; 83735

== ENCOUNTER 2021-12-29 04:15 | Outpatient (CLI) | payer MEDICARE, BC | END 2021-12-29 04:16 | disposition EMS.NT | LOC: EMS 04:15 | DX: Z03.89 Encounter for observation for other suspected diseases and conditions ruled out (principal) ==

== ENCOUNTER 2022-01-02 07:03 | Outpatient (CLI) | payer MEDICARE, BC | END 2022-01-02 07:04 | disposition EMS.NT | LOC: EMS 07:03 | DX: Z03.89 Encounter for observation for other suspected diseases and conditions ruled out (principal) ==

== ENCOUNTER 2022-01-02 15:19 | Outpatient (CLI) | payer MEDICARE, BC | END 2022-01-02 15:20 | disposition EMS.NT | LOC: EMS 15:19 | DX: Z03.89 Encounter for observation for other suspected diseases and conditions ruled out (principal) ==

== ENCOUNTER 2022-01-02 15:56 | Outpatient (CLI) | payer MEDICARE, BC | END 2022-01-02 15:57 | disposition left against medical advice (07) | LOC: EMS 15:56 | DX: S61.511A Laceration without foreign body of right wrist, initial encounter (principal); W01.0XXA Fall on same level from slipping, tripping and stumbling without subsequent striking against object, initial encounter; Y93.K9 Activity, other involving animal care; Y92.000 Kitchen of unspecified non-institutional (private) residence as the place of occurrence of the external cause ==

== ENCOUNTER 2022-01-03 06:50 | Outpatient (CLI) | payer MEDICARE, BC | END 2022-01-03 06:51 | disposition left against medical advice (07) | LOC: EMS 06:50 | DX: R53.1 Weakness (principal) ==

== ENCOUNTER 2022-01-03 11:22 | Outpatient (CLI) | payer MEDICARE, BC | END 2022-01-03 11:23 | disposition critical access hospital (66) | LOC: EMS 11:22 | DX: R53.1 Weakness (principal); R29.6 Repeated falls; S81.802A Unspecified open wound, left lower leg, initial encounter; S81.801A Unspecified open wound, right lower leg, initial encounter; X58.XXXA Exposure to other specified factors, initial encounter | CPT/HCPCS: A0425; A0429 ==

== ENCOUNTER 2022-01-03 12:03 | Emergency (ER) | payer MEDICARE, BC ==
--- OUTSIDE RECORDS SUMMARY | 2022-01-03 12:11 | EXTERNAL MEDICAL SUMMARY RPT | Continuity of Care Document ---
:1935 Author Organization [facility] Address [address] [place] [address] Phone Allergies No information. Encounters No information. Functional Status No information. Immunizations No information. Medications date description facility [id number]+0000 apixaban [facility] Eddie [phone]+0000 cephalexin [facility] [phone]+0000 furosemide [facility] [phone]+0000 metoprolol succinate [facility] Eddie [phone]+0000 lisinopril [facility] [phone]+0000 apixaban [facility] [phone]+0000 cephalexin [facility] [phone]+0000 lisinopril [facility] [phone]+0000 furosemide [facility] [phone]+0000 metoprolol tartrate [facility] Eddie [phone]+0000 metoprolol succinate [facility] Eddie [phone]+0000 metoprolol succinate [facility] Eddie [phone]+0000 metoprolol succinate [facility] [phone]+0000 metoprolol tartrate [facility] Eddie Problems No information. Procedures date description facility [id number]+0000 Visit Code Hold [facility] C [facility] [id number]+0000 POC URINALYSIS DIP [facility] [place] [phone]+0000 Home Health Certification [facility] tanrowan [phone]+0000 Home Health Certification [facility] Results/Labs No information. Social History No information. Vital Signs date measurement value units [id number]+0000 BMI BMI 32.51 kg/m2 [id number]+0000 BP_diastolic BP_diastolic 62 mm[H g] 44028759633087+0000 BP_systolic BP_systolic 110 mm[Hg] 22291215106954+0000 heart_rate heart_rate 94 /min 49856734830492+0000 height_metric height_metric 158.75 cm [id number]+0000 height_standard height_standard 62.5 in [id number]+0000 respiration_rate respiration_rate 16 /min 86207931008561+0000 temperature_metric temperature_metric 35.89 C [id number]+0000 temperature_standard temperature_standard 9 6.6 F [id number]+0000 weight_metric weight_metric 81.65 kg 41153290925078+0000 weight_standard weight_standard 180 lb 05823172104501+0000 BP_diastolic BP_diastolic 47 mm[H g] 11298721351384+0000 BP_systolic BP_systolic 81 mm[Hg] 44337528883206+0000 heart_rate heart_rate 72 /min 86677859595067+0000 height_metric height_metric 158.75 cm 34616457380715+0000 height_standard height_standard 62.5 in [id number]+0000 respiration_rate respiration_rate 12 /min 73404681690997+0000 temperature_metric temperature_metric 36.28 C [id number]+0000 temperature_standard temperature_standard 9 7.3 F
[2022-01-03 12:38] LABS: BASOPHILS # (AUTO) 0.1 10^3/uL (0.0-0.1); BASOPHILS % (AUTO) 0.5 %; EOSINOPHILS # (AUTO) 0.1 10^3/uL (0.0-0.7); EOSINOPHILS % (AUTO) 0.6 %; HCT - HEMATOCRIT 33.4 % (37.0-47.0); HGB - HEMOGLOBIN 11.7 g/dL (12.0-16.0); LYMPHOCYTES # (AUTO) 1.1 10^3/uL (1.5-3.5); LYMPHOCYTES % (AUTO) 10.3 %; MEAN CORPUSCULAR HEMOGLOBIN 36.9 pg (27.0-31.0); MEAN CORPUSCULAR VOLUME 105.4 fL (81.0-99.0); MEAN PLATELET VOLUME 9.1 fL (7.9-10.8); MONOCYTES # (AUTO) 0.9 10^3/uL (0.0-1.0); MONOCYTES % (AUTO) 8.6 %; NEUTROPHILS # (AUTO) 8.6 10^3/uL (1.5-6.6); NEUTROPHILS % (AUTO) 79.3 %; PLT - PLATELET COUNT 235 10^3/uL (130-450); RED BLOOD COUNT 3.17 10^6/uL (4.20-5.40); RED CELL DISTRIBUTION WIDTH 12.4 % (12.0-15.0); WHITE BLOOD COUNT 10.8 x10^3/uL (4.8-10.8)
[2022-01-03] MEDS ORDERED: SODIUM CHLORIDE 0.9% 1,000 ML IV ONE (12:48)
[2022-01-03 12:49] LABS: INR 2.6 (0.8-1.2); PT - PROTHROMBIN TIME 28.8 secs (9.9-12.6)
[2022-01-03 12:52] LABS: ALBUMIN 3.4 g/dL (3.2-5.5); ALBUMIN/GLOBULIN RATIO 1.2 (1.0-2.2); BILIRUBIN,TOTAL 1.5 mg/dL (0.2-1.0); CALCIUM 9.2 mg/dL (8.5-10.3); CREATININE 1.1 mg/dL (0.4-1.0); POTASSIUM 4.5 mmol/L (3.5-5.0); TOTAL PROTEIN 6.2 g/dL (6.7-8.2)
[2022-01-03 12:54] LABS: BILIRUBIN,URINE NEGATIVE (NEGATIVE); GLUCOSE, URINE (UA) NEGATIVE (NEGATIVE); KETONES,URINE (UA) NEGATIVE (NEGATIVE); LEUKOCYTE ESTERASE, URINE SMALL (NEGATIVE); NITRITE,URINE POSITIVE (NEGATIVE); OCCULT BLOOD,URINE TRACE-INTA (NEGATIVE); PROTEIN,URINE NEGATIVE (NEGATIVE); UROBILINOGEN,URINE 1 (NORMAL) E.U./dL (NORMAL)
[2022-01-03 12:56] LABS: CLARITY,URINE CLEAR (CLEAR)
[2022-01-03 13:05] LABS: RBC,URINE 0-5 /HPF (0-5); SQUAMOUS EPITHELIAL CELL,UR FEW Squamous (<= Few)
[2022-01-03 13:06] LABS: BACTERIA,URINE Moderate /HPF (None Seen)
[2022-01-03] MEDS ORDERED: cefTRIAXone 1 GM in SODIUM CHLORIDE 0.9% MINIBAG 100 ML IV STA (13:10)
--- NOTE | 2022-01-03 13:38 | XRAY Report ---
PROCEDURE: Chest 1 View X-Ray INDICATIONS: chest pain TECHNIQUE: One view of the chest was acquired. COMPARISON: 11/14/2021 FINDINGS: Surgical changes and devices: None. Lungs and pleura: No pleural effusions or pneumothorax. Mild diffuse interstitial prominence. Streak y bibasilar opacities likely representing atelectasis. No focal consolidation. Mediastinum: Mediastinal contours appear normal. Heart size is mildly enlarged. Bones and chest wall: No suspicious bony lesions. Overlying soft tissues appear unremarkable. IMPRESSION: Cardiomegaly with findings suggestive of early/mild pulmonary edema/CHF. No focal consolidation. Reviewed by: Nestor Faulkner MD on 01/03/2022 1:37 PM PDT Approved by: Nestor Faulkner MD on 01/03/2022 1:37 PM PDT Station ID: [id number]
--- NOTE | 2022-01-03 13:59 | CT Report ---
PROCEDURE: HEAD WO INDICATIONS: Fall TECHNIQUE: Noncontrast 4.5 mm thick angled axial sections acquired from the foramen magnum to the vertex. For r adiation dose reduction, the following was used: automated exposure control, adjustment of mA and/or kV according to patient size. COMPARISON: 11/14/2021 FINDINGS: Image quality: Excellent. CSF spaces: Basal cisterns are patent. There is a small amount of high density material layering al jeana the left tentorium with a thickness up to 0.7 cm. There is slight effacement of the overlying sul ci in the temporal lobe. Ventricles are normal in size and shape. Brain: There may be a trace amount of subarachnoid hemorrhage immediately overlying the tiny subdura l hemorrhage arising from the left temporal lobe. No midline shift. No intracranial mass. Long-white matter interface is normal. There is age-related cervical cortical volume loss. Skull and face: Calvarium and visualized facial bones are intact, without suspicious lesions. Sinuses: Visualized sinuses and mastoids are clear. IMPRESSION: 1. Small subdural hemorrhage layering dependently in the left tentorium. 2. Possible tiny adjacent subarachnoid hemorrhage from the left posterior temporal lobe. 3. Findings discussed with Dr. Carrasco in the emergency room at 13:53 hours Reviewed by: Lakeisha Al MD on 01/03/2022 1:58 PM PDT Approved by: Lakeisha Al MD on 01/03/2022 1:58 PM PDT Station ID: [id number]
[2022-01-03] MEDS ORDERED: PROTHROMBIN COMPLEX CONC 500 UNIT VIAL IVP STA (14:13)
[2022-01-03] MEDS ORDERED: NITROGLYCERIN SL 0.4 MG TABLET SL STA (14:40)
--- NOTE | 2022-01-03 14:54 | ED Physician Documentation ---
History of Present Illness - Stated complaint Stated Complaint: GLF - Chief complaint Chief Complaint: General - Additonal information Additional information: Patient is 86-year-old female presenting to the emergency department with complaint of weakness and frequent falls. Brought in by EMS who reports 6 call out to her property over the last 24 hours for frequent falls at home. They report that she was seen recently at a local area medical clinic and prescribed antibiotics for urinary tract infection. She became acutely weak while trying to return home and was subsequently transported to the emergency department. Patient is somewhat confused. Reports that she has been taking all of her medications as prescribed including her Eliquis. Endorses for feeling generally weak but denies any specific area of pain. Further history is limited by her altered mentation. Review of Systems Unable to obtain: Confused PD PAST MEDICAL HISTORY - Past Medical History Cardiovascular: Congestive heart failure, Atrial fibrillation Respiratory: None Neuro: Dementia Endocrine/Autoimmune: None GI: None MEDICAL TECHNOLOGIST BLOOD BANK: None : None HEENT: None Psych: None Musculoskeletal: Osteoarthritis Derm: None - Past Surgical History Past Surgical History: Yes Ortho: Hip replacement, Knee replacement /MEDICAL TECHNOLOGIST BLOOD BANK: Hysterectomy HEENT: Cataracts - Present Medications Home Medications: Ambulatory Orders Medication Instructions Recorded Confirmed Apixaban [Eliquis] 5 mg PO BID tablet 11/18/21 11/18/21 Spironolactone [Aldactone] 12.5 mg PO DAILY tablet 11/18/21 11/18/21 Thiamine [Vitamin B-1] 100 mg PO DAILY tablet 11/18/21 11/18/21 Apixaban [Eliquis] 5 mg PO BID #60 tablet 11/28/21 Furosemide [Lasix] 40 mg PO MOWEFR tablet 11/28/21 Furosemide [Lasix] 40 mg PO MOWEFR #15 tablet 11/28/21 Lisinopril [Zestril] 2.5 mg PO DAILY #30 tablet 11/28/21 Metoprolol Succinate [Toprol Xl] 25 mg PO BID #60 tablet 11/28/21 Metoprolol Succinate [Toprol Xl] 25 mg PO BID #60 tablet 11/28/21 Multivit with Iron,Minerals 1 each PO DAILY #30 tab.chew 11/28/21 [Multivitamins with Iron] Spironolactone [Aldactone] 12.5 mg PO DAILY #15 tablet 11/28/21 Thiamine [Vitamin B-1] 100 mg PO DAILY #30 tablet 11/28/21 lisinopriL [Zestril] 2.5 mg PO DAILY #15 tablet 11/28/21 - Allergies Allergies/Adverse Reactions: Allergies Allergy/AdvReac Type Severity Reaction Status Date / Time No Known Drug Allergies Allergy Verified 01/03/22 12:26 - Social History Does the pt smoke?: No Smoking Status: Unknown if ever smoked Does the pt drink ETOH?: No Does the pt have substance abuse?: No - Immunizations Immunizations are current?: Yes Immunizations: TDAP current <10years PD ED PE NORMAL - General General: No acute distress, Other (Elderly, obese.) - HEENT HEENT: Atraumatic, PERRL, EOMI, Ears normal, Pharynx benign - Neck Neck: Supple, no meningeal sign, No bony TTP, No adenopathy - Cardiac Cardiac: RRR, No gallop - Respiratory Respiratory: No respiratory distress, Clear bilaterally - Abdomen Abdomen: Normal bowel sounds, Non tender - Female Female : Deferred - Rectal Rectal: Deferred - Back Back: No CVA TTP - Derm Derm: Normal color - Extremities Extremities: No deformity - Neuro Neuro: porter luggage 2-12 intact, No motor deficit, Other (Patient GCS 14. Generally nonfocal nonlateralizing exam.) Results - Vitals Vitals: Vital Signs - 24 hr 01/03/22 01/03/22 01/03/22 12:03 12:44 13:19 Temperature 36.4 C L Heart Rate 92 73 95 Respiratory 12 17 20 Rate Blood Pressure 78/47 L 101/73 96/62 O2 Saturation 97 100 97 01/03/22 01/03/22 01/03/22 13:40 14:00 14:30 Temperature 36.5 C Heart Rate 100 98 96 Respiratory 14 14 16 Rate Blood Pressure 108/89 H 110/88 H 114/86 H O2 Saturation 97 98 98 Oxygen O2 Source Room air - EKG (time done) 1233 Rate: Rate (enter#) (95) Rhythm: Atrial fibrillation [place]: Normal Intervals: Prolonged QT, RBBB Ischemia: Non specific changes Compare to prior EKG: Old EKG unavailable - Labs Labs: Laboratory Tests 01/03/22 01/03/22 01/03/22 12:35 12:35 12:35 WBC 10.8 RBC 3.17 L Hgb 11.7 L Hct 33.4 L MCV 105.4 H MCH 36.9 H MCHC 35.0 RDW 12.4 Plt Count 235 MPV 9.1 Neut # (Auto) 8.6 H Lymph # (Auto) 1.1 L [place] # (Auto) 0.9 Eos # (Auto) 0.1 Baso # (Auto) 0.1 Absolute Nucleated RBC 0.00 Nucleated RBC % 0.0 PT 28.8 H INR 2.6 H Sodium 128 L Potassium 4.5 Chloride 91 L Carbon Dioxide 27 Anion Gap 10.0 BUN 26 H Creatinine 1.1 H Estimated GFR (MDRD) 47 L Glucose 74 Lactic Acid Calcium 9.2 Magnesium 2.0 Total Bilirubin 1.5 H AST 84 H ALT 30 Alkaline Phosphatase 65 Total Creatine Kinase 876 H CK-MB (CK-2) Troponin I High Sens B-Natriuretic Peptide Total Protein 6.2 L Albumin 3.4 Globulin 2.8 Albumin/Globulin Ratio 1.2 Lipase 64 H TSH Urine Color Urine Clarity Urine pH Ur Specific [place] Urine Protein Urine Glucose (UA) Urine Ketones Urine Occult Blood Urine Nitrite Urine Bilirubin Urine Urobilinogen Ur Leukocyte Esterase Urine RBC Urine WBC Ur Squamous Epith Cells Urine Bacteria Ur Microscopic Review Urine Culture Comments SARS-CoV-2 (PCR) 01/03/22 01/03/22 01/03/22 12:35 12:35 12:35 WBC RBC Hgb Hct MCV MCH MCHC RDW Plt Count MPV Neut # (Auto) Lymph # (Auto) [place] # (Auto) Eos # (Auto) Baso # (Auto) Absolute Nucleated RBC Nucleated RBC % PT INR Sodium Potassium Chloride Carbon Dioxide Anion Gap BUN Creatinine Estimated GFR (MDRD) Glucose Lactic Acid 1.5 Calcium Magnesium Total Bilirubin AST ALT Alkaline Phosphatase Total Creatine Kinase CK-MB (CK-2) 30.8 H Troponin I High Sens B-Natriuretic Peptide 629 H Total Protein Albumin Globulin Albumin/Globulin Ratio Lipase TSH Urine Color Urine Clarity Urine pH Ur Specific [place] Urine Protein Urine Glucose (UA) Urine Ketones Urine Occult Blood Urine Nitrite Urine Bilirubin Urine Urobilinogen Ur Leukocyte Esterase Urine RBC Urine WBC Ur Squamous Epith Cells Urine Bacteria Ur Microscopic Review Urine Culture Comments SARS-CoV-2 (PCR) 01/03/22 01/03/22 01/03/22 12:35 12:35 12:36 WBC RBC Hgb Hct MCV MCH MCHC RDW Plt Count MPV Neut # (Auto) Lymph # (Auto) [place] # (Auto) Eos # (Auto) Baso # (Auto) Absolute Nucleated RBC Nucleated RBC % PT INR Sodium Potassium Chloride Carbon Dioxide Anion Gap BUN Creatinine Estimated GFR (MDRD) Glucose Lactic Acid Calcium Magnesium Total Bilirubin AST ALT Alkaline Phosphatase Total Creatine Kinase CK-MB (CK-2) Troponin I High Sens 39.5 H* B-Natriuretic Peptide Total Protein Albumin Globulin Albumin/Globulin Ratio Lipase TSH 6.24 H Urine Color Urine Clarity Urine pH Ur Specific [place] Urine Protein Urine Glucose (UA) Urine Ketones Urine Occult Blood Urine Nitrite Urine Bilirubin Urine Urobilinogen Ur Leukocyte Esterase Urine RBC Urine WBC Ur Squamous Epith Cells Urine Bacteria Ur Microscopic Review Urine Culture Comments SARS-CoV-2 (PCR) DETECTED A 01/03/22 12:40 WBC RBC Hgb Hct MCV MCH MCHC RDW Plt Count MPV Neut # (Auto) Lymph # (Auto) [place] # (Auto) Eos # (Auto) Baso # (Auto) Absolute Nucleated RBC Nucleated RBC % PT INR Sodium Potassium Chloride Carbon Dioxide Anion Gap BUN Creatinine Estimated GFR (MDRD) Glucose Lactic Acid Calcium Magnesium Total Bilirubin AST ALT Alkaline Phosphatase Total Creatine Kinase CK-MB (CK-2) Troponin I High Sens B-Natriuretic Peptide Total Protein Albumin Globulin Albumin/Globulin Ratio Lipase TSH Urine Color DARK YELLOW Urine Clarity CLEAR Urine pH 6.0 Ur Specific [place] 1.015 Urine Protein NEGATIVE Urine Glucose (UA) NEGATIVE Urine Ketones NEGATIVE Urine Occult Blood TRACE-INTA Urine Nitrite POSITIVE H Urine Bilirubin NEGATIVE Urine Urobilinogen 1 (NORMAL) Ur Leukocyte Esterase SMALL H Urine RBC 0-5 Urine WBC 11-25 H Ur Squamous Epith Cells FEW Squamous Urine Bacteria Moderate H Ur Microscopic Review INDICATED Urine Culture Comments INDICATED SARS-CoV-2 (PCR) PD MEDICAL DECISION MAKING - ED course Complexity details: reviewed old records, reviewed results, d/w patient, d/w financial consultant ED course: Patient is 86-year-old female presenting to the emergency department with generalized weakness and frequent falls at home. Mildly hypertensive on arrival to the emergency department and given 1 L IV hydration with significant improvement in her blood pressure. Clinically appears dry. Is somewhat confused but has a generally nonfocal nonlateralizing neurologic exam. Multiple superficial abrasions noted on the base of the chin as well as fresh skin tears on the arms bilaterally consistent with history of frequent falls at home. EKG as outlined above demonstrated atrial fibrillation with existing right bundle branch block. Nonspecific changes but nothing that is directly evident of acute cardiac ischemia. Labs returned demonstrate a very mild elevation in high-sensitivity troponin as well as a new onset hyponatremia with sodium 128. Patient found to be COVID-positive in the emergency department. CT of the head obtained demonstrated subdural hematoma along the left tentorium with involved subarachnoid involving the left temporal lobe. Additionally patient's urine analysis positive for urinary tract infection. Patient given a gram Rocephin in the emergency department as well as dose Kcentra for reversal of her Eliquis. Patient's clinical presentation improved dramatically with IV hydration however she remains somewhat confused. Does not Seem to understand the nature of her injury or its possible severity. Case was further discussed with the transfer center and ER attending at [facility]. At this time patient will be transferred from our facility to [facility] for further evaluation and treatment. - Critical Care Time(min): 31 Time Includes: Direct patient care, Coordinate care, Medical consult Departure - Departure Disposition: 66 [facility] DC/Xfer Clinical Impression: Subdural hematoma, Chronic anticoagulation, Hyponatremia, Confusion, Acute lower UTI
[2022-01-03 15:28] VITALS: BP 112/88
== END 2022-01-03 15:45 | disposition short-term general hospital (02) ==
LOC: EDUNIT# → ED 12:03
DX: S06.5X9A Traumatic subdural hemorrhage with loss of consciousness of unspecified duration, initial encounter (principal); S06.6X9A Traumatic subarachnoid hemorrhage with loss of consciousness of unspecified duration, initial encounter; S41.112A Laceration without foreign body of left upper arm, initial encounter; S41.111A Laceration without foreign body of right upper arm, initial encounter; W19.XXXA Unspecified fall, initial encounter; S00.81XA Abrasion of other part of head, initial encounter; Z91.81 History of falling; R41.0 Disorientation, unspecified; I10 Essential (primary) hypertension; I48.91 Unspecified atrial fibrillation; I45.10 Unspecified right bundle-branch block; E87.1 Hypo-osmolality and hyponatremia; N39.0 Urinary tract infection, site not specified; U07.1 COVID-19; Z79.01 Long term (current) use of anticoagulants
CPT/HCPCS: 36415; 70450; 71045; 80053; 81001; 82550; 82553; 83605; 83690; 83735; 83880; 84443; 84484; 85025; 85610; 87086; 87181; 87635; 93005; 96365; 96375; 99285; 99291; J7168; 81003

== ENCOUNTER 2022-03-09 11:47 | Outpatient (CLI) | payer MEDICARE, BC | END 2022-03-09 11:48 | disposition home or self-care (01) | LOC: LAB.R 11:47 | PROVIDERS: ATTEND Hospitalist | DX: R77.0 Abnormality of albumin (principal) | CPT/HCPCS: 84134 ==

== ENCOUNTER 2022-05-08 15:25 | Outpatient (CLI) | payer MEDICARE, BC ==
[2022-05-08 15:41] LABS: CALCIUM 8.9 mg/dL (8.5-10.3); CREATININE 0.7 mg/dL (0.4-1.0); POTASSIUM 4.1 mmol/L (3.5-5.0)
== END 2022-05-08 15:26 | disposition home or self-care (01) ==
LOC: LAB 15:25
PROVIDERS: ATTEND Internal Medicine
DX: I10 Essential (primary) hypertension (principal)
CPT/HCPCS: 36415; 80048

== ENCOUNTER 2022-05-31 12:16 | Outpatient (CLI) | payer MEDICARE, BC ==
[2022-05-31 13:15] LABS: B. PARAPERTUSSIS- RESP PCR PAN NOT DETECTED; B. PERTUSSIS- RESP PCR PANEL NOT DETECTED; C. PNEUMONIAE- RESP PCR PANEL NOT DETECTED; CORONAVIRUS 229E-RESP PCR NOT DETECTED; CORONAVIRUS HKU1-RESP PCR NOT DETECTED; CORONAVIRUS NL63-RESP PCR NOT DETECTED; CORONAVIRUS OC43-RESP PCR NOT DETECTED; HUMAN METAPNEUMOVIRUS NOT DETECTED; INFLUENZA A- RESP PCR PANEL NOT DETECTED; INFLUENZA B - RESP PCR PANEL NOT DETECTED; M. PNEUMONIAE- RESP PCR PANEL NOT DETECTED; PARAINFLUENZA VIRUS 1 NOT DETECTED; PARAINFLUENZA VIRUS 2 NOT DETECTED; PARAINFLUENZA VIRUS 3 NOT DETECTED; PARAINFLUENZA VIRUS 4 NOT DETECTED; RHINOVIRUS/ENTEROVIRUS NOT DETECTED; RSV- RESP PCR PANEL DETECTED; SARS-CoV-2 -RESP PCR PANEL NOT DETECTED
== END 2022-05-31 12:17 | disposition home or self-care (01) ==
LOC: LAB.R 12:16
PROVIDERS: ATTEND Internal Medicine
DX: R05.9 Cough, unspecified (principal); Z20.822 Contact with and (suspected) exposure to COVID-19
CPT/HCPCS: 87633

== ENCOUNTER 2022-08-31 14:45 | Outpatient (CLI) | payer MEDICARE, BC ==
[2022-08-31 15:07] LABS: CALCIUM 8.4 mg/dL (8.5-10.3); CREATININE 0.7 mg/dL (0.4-1.0); POTASSIUM 3.6 mmol/L (3.5-5.0)
== END 2022-08-31 14:46 | disposition home or self-care (01) ==
LOC: LAB.R 14:45
PROVIDERS: ATTEND Registered Nurse
DX: R26.2 Difficulty in walking, not elsewhere classified (principal); E87.1 Hypo-osmolality and hyponatremia
CPT/HCPCS: 80048

== ENCOUNTER 2022-09-25 15:32 | Outpatient (CLI) | payer MEDICARE, BC ==
--- NOTE | 2022-09-25 17:00 | XRAY Report ---
PROCEDURE: Shoulder 2 View RT INDICATIONS: ACUTE ONSET PX TECHNIQUE: 2 views of the shoulder were acquired. COMPARISON: Chest radiograph 01/03/2022 FINDINGS: No definite acute fracture or dislocation identified. Nonspecific dystrophic calcification present ab out the right shoulder as before. Degenerative changes of the acromioclavicular joint redemonstrated IMPRESSION: No definite acute osseous abnormality. if symptoms persist, follow-up radiographs and/or CT or MRI m ay be helpful for further evaluation. Degenerative changes about the shoulder present as before. Nonspecific dystrophic calcification redem onstrated about the right shoulder Reviewed by: Kel Hardy MD on 09/25/2022 4:58 PM PDT Approved by: Kel Hardy MD on 09/25/2022 4:58 PM PDT Station ID: [id number]
--- NOTE | 2022-09-25 17:01 | XRAY Report ---
PROCEDURE: Clavicle RT INDICATIONS: ACUTE ONSET PAIN TECHNIQUE: 2 views of the clavicle were acquired. COMPARISON: Right Shoulder radiographs same day chest radiograph 01/03/2022 FINDINGS: No definite acute fracture or dislocation identified. Nonspecific dystrophic calcification present ab out the right shoulder as before. Degenerative changes of the acromioclavicular joint redemonstrated IMPRESSION: No definite acute osseous abnormality. if symptoms persist, follow-up radiographs and/or CT or MRI m ay be helpful for further evaluation. Degenerative changes about the shoulder present as before. Nonspecific dystrophic calcification redem onstrated about the right shoulder Reviewed by: Kel Hardy MD on 09/25/2022 4:59 PM PDT Approved by: Kel Hardy MD on 09/25/2022 4:59 PM PDT Station ID: [id number]
--- NOTE | 2022-09-25 17:24 | XRAY Report ---
PROCEDURE: Ribs w/PA Chest RT INDICATIONS: ACUTE ONSET PAIN TECHNIQUE: 2 views of the right ribs were acquired, along with a single view chest. COMPARISON: None. FINDINGS: Surgical changes and devices: None. Bones and chest wall: No fractures or dislocations. No suspicious bony lesions. Overlying soft tis sues appear unremarkable. Lungs and pleura: No pleural effusions or pneumothorax. Lungs appear clear. Mediastinum: Mediastinal contours appear normal. Heart size is normal. IMPRESSION: No definite displaced rib fracture or pneumothorax. Reviewed by: Frankie Rosenthal MD on 09/25/2022 5:23 PM PDT Approved by: Frankie Rosenthal MD on 09/25/2022 5:23 PM PDT Station ID: [id number]
== END 2022-09-25 15:33 | disposition home or self-care (01) ==
LOC: DI 15:32
PROVIDERS: ATTEND Registered Nurse
DX: M19.011 Primary osteoarthritis, right shoulder (principal); M25.811 Other specified joint disorders, right shoulder

== ENCOUNTER 2022-10-18 13:53 | Outpatient (CLI) | payer OTHER, BC ==
[2022-10-18 14:03] LABS: BASOPHILS # (AUTO) 0.1 10^3/uL (0.0-0.1); BASOPHILS % (AUTO) 0.6 %; EOSINOPHILS # (AUTO) 0.3 10^3/uL (0.0-0.7); EOSINOPHILS % (AUTO) 1.9 %; HCT - HEMATOCRIT 38.1 % (37.0-47.0); HGB - HEMOGLOBIN 12.4 g/dL (12.0-16.0); MEAN CORPUSCULAR HEMOGLOBIN 34.9 pg (27.0-31.0); MEAN CORPUSCULAR HGB CONC 32.5 g/dL (32.0-36.0); MEAN CORPUSCULAR VOLUME 107.3 fL (81.0-99.0); MEAN PLATELET VOLUME 10.8 fL (7.9-10.8); MONOCYTES % (AUTO) 7.6 %; NEUTROPHILS # (AUTO) 9.8 10^3/uL (1.5-6.6); NEUTROPHILS % (AUTO) 74.4 %; PLT - PLATELET COUNT 275 10^3/uL (130-450); RED BLOOD COUNT 3.55 10^6/uL (4.20-5.40); RED CELL DISTRIBUTION WIDTH 13.3 % (12.0-15.0); WHITE BLOOD COUNT 13.2 x10^3/uL (4.8-10.8)
== END 2022-10-18 13:54 | disposition home or self-care (01) ==
LOC: LAB.R 13:53
PROVIDERS: ATTEND Registered Nurse
DX: E87.1 Hypo-osmolality and hyponatremia (principal)
CPT/HCPCS: 85025

== ENCOUNTER 2023-02-06 07:55 | Outpatient (CLI) | payer MEDICARE, BC | END 2023-02-06 23:59 | disposition critical access hospital (66) | LOC: EMS 07:55 | DX: I48.91 Unspecified atrial fibrillation (principal) | CPT/HCPCS: A0425; A0427 ==

== ENCOUNTER 2023-02-06 08:04 | Inpatient (IN) | payer MEDICARE, BC ==
[2023-02-06] MEDS ORDERED: ACETAMINOPHEN 500 MG TABLET PO STA (08:10)
[2023-02-06] MEDS ORDERED: SODIUM CHLORIDE 0.9% 1,000 ML IV STA ×2 (08:11→08:53)
--- NOTE | 2023-02-06 08:22 | ED Physician Documentation ---
History of Present Illness - Stated complaint Stated Complaint: AFIB/RVR - Chief complaint Chief Complaint: Cardiac - History obtained from History obtained from: EMS - Additonal information Additional information: Patient is an 87-year-old female from a carriage presenting for evaluation of elevated heart rate. She has a history of chronic atrial fibrillation and is on Eliquis. She was noted by staff to have an elevated heart rate this morning of 150s. Per EMS her heart rates were in the 80s yesterday but she is always in A- fib. They did not receive any other information from nursing staff and were told By the nurse that it was her first time caring for this patient this morning. EMS was unable to obtain a blood pressure but administered 12 mg of IV Cardizem for the elevated heart rate. Patient was noted to be febrile and hypotensive upon arrival. She is not able to contribute any meaningful history. Per her records she does have cognitive deficits. She was admitted 1 year ago to [facility] after recurrent falls at home with a subdural and subarachnoid hemorrhage. She was discharged home on Toprol all succinate ER 25 mg daily. She is currently on metoprolol tartrate 12.5 mg daily. Has a history of borderline blood pressures. It is unclear if she has had her metoprolol dosing today. Review of Systems Unable to obtain: Confused PD PAST MEDICAL HISTORY - Past Medical History Cardiovascular: Congestive heart failure, Atrial fibrillation Respiratory: None Neuro: Dementia Endocrine/Autoimmune: None GI: None PIE MAKER MACHINE: None : None HEENT: None Psych: None Musculoskeletal: Osteoarthritis Derm: None - Past Surgical History Past Surgical History: Yes Ortho: Hip replacement, Knee replacement /PIE MAKER MACHINE: Hysterectomy HEENT: Cataracts - Present Medications Home Medications: Ambulatory Orders Medication Instructions Recorded Confirmed Apixaban [Eliquis] 5 mg PO BID #60 tablet 11/28/21 02/06/23 Multivit with Iron,Minerals 1 each PO DAILY #30 tab.chew 11/28/21 02/06/23 [Multivitamins with Iron] Acetaminophen [Tylenol] 650 mg PO Q8HR PRN 02/06/23 02/06/23 Bisacodyl Supp [Dulcolax Supp] 10 mg [place] DAILY PRN 02/06/23 02/06/23 Diclofenac Sodium 1% Gel [Voltaren 1 applic TOP BID PRN 02/06/23 02/06/23 Gel] Metoprolol Succinate [Toprol Xl] 12.5 mg PO DAILY 02/06/23 02/06/23 Mineral Oil [Mineral Oil Enema] 1 ea RC PRN PRN 02/06/23 02/06/23 Senna [Senokot] 17.2 mg PO DAILY PRN 02/06/23 02/06/23 guaiFENesin [Chest Congestion 400 mg PO Q6HR PRN 02/06/23 02/06/23 Relief] polyethylene glycoL 3350 [Miralax] 17 gm PO DAILY PRN 02/06/23 02/06/23 - Allergies Allergies/Adverse Reactions: Allergies Allergy/AdvReac Type Severity Reaction Status Date / Time No Known Drug Allergies Allergy Verified 02/06/23 08:12 - Social History Does the pt smoke?: No Smoking Status: Unknown if ever smoked Does the pt drink ETOH?: No Does the pt have substance abuse?: No - Immunizations Immunizations are current?: Yes Immunizations: TDAP current <10years PD ED PE NORMAL - General General: No acute distress, Well developed/nourished. No: Alert and oriented X 3 (Alert and oriented to person and place) - HEENT HEENT: Atraumatic, PERRL, EOMI, Other. No: Moist mucous membranes (Dry oral mucosa) - Neck Neck: Supple, no meningeal sign - Cardiac Cardiac: Strong equal pulses, Other (Tachycardic, irregularly irregular) - Respiratory Respiratory: No respiratory distress, Clear bilaterally - Abdomen Abdomen: Normal bowel sounds, Soft, Non tender, Non distended - Derm Derm: Warm and dry - Extremities Extremities: No edema - Neuro Neuro: No motor deficit (Generalized weakness but no focal deficits), Normal speech, Other (No facial asymmetry). No: Alert and oriented X 3 (Alert and oriented to person and place) Results - Vitals Vitals: Vital Signs - 24 hr 02/06/23 02/06/23 02/06/23 08:12 08:28 09:03 Temperature 38.5 C H Heart Rate 155 H 144 H 156 H Respiratory 20 22 24 Rate Blood Pressure 58/38 L 95/36 L 75/34 L O2 Saturation 96 95 98 02/06/23 02/06/23 02/06/23 09:19 09:23 09:37 Temperature 37.1 C Heart Rate 154 H 152 H Respiratory 30 H 15 Rate Blood Pressure 75/34 L 84/73 L O2 Saturation 96 97 02/06/23 10:41 Temperature Heart Rate 149 H Respiratory 20 Rate Blood Pressure 70/42 L O2 Saturation 98 Oxygen O2 Source Room air - EKG (time done) 0812 EKG releavant findings:: EKG personally interpreted by author of this note. Relevant findings are: Rate 155, atrial fibrillation, right bundle branch block Rate: Rate (enter#) (155) Rhythm: Atrial fibrillation Intervals: RBBB Ischemia: No: ST elevation c/w ischemia - Labs Labs: Laboratory Tests 02/06/23 02/06/23 02/06/23 08:09 08:24 08:24 WBC 24.4 H RBC 3.50 L Hgb 12.2 Hct 36.7 L MCV 104.9 H MCH 34.9 H MCHC 33.2 RDW 13.7 Plt Count 220 MPV 10.9 H Neut # (Auto) 23.5 H Lymph # (Auto) 0.2 L Mora # (Auto) 0.2 Eos # (Auto) 0.1 Baso # (Auto) 0.1 Absolute Nucleated RBC 0.00 Nucleated RBC % 0.0 Manual Slide Review Indicated RBC Morph Micro Appear 1+ ANISOCYTOSIS Sodium 133 L Potassium 3.7 Chloride 100 L Carbon Dioxide 23 Anion Gap 10.0 BUN 57 H Creatinine 1.7 H Estimated GFR (MDRD) 28 L Glucose 107 H POC Whole Bld Glucose 124 H Lactic Acid Calcium 8.8 Total Bilirubin 1.0 AST 12 ALT 9 L Alkaline Phosphatase 71 Total Protein 6.4 Albumin 3.3 Globulin 3.1 Albumin/Globulin Ratio 1.1 Lipase 20 Urine Color Urine Clarity Urine pH Ur Specific [place] Urine Protein Urine Glucose (UA) Urine Ketones Urine Occult Blood Urine Nitrite Urine Bilirubin Urine Urobilinogen Ur Leukocyte Esterase Urine RBC Urine WBC Ur Squamous Epith Cells Urine Bacteria Ur Microscopic Review Urine Culture Comments Nasal Adenovirus (PCR) Nasal B. parapertussis DNA (PCR) Nasal Coronavir 229E PCR Nasal Coronavir HKU1 PCR Nasal Coronavir NL63 PCR Nasal Coronavir OC43 PCR Nasal Enterovir/Rhinovir PCR Nasal Influenza B PCR Nasal Influenza A PCR Nasal Parainfluen 1 PCR Nasal Parainfluen 2 PCR Nasal Parainfluen 3 PCR Nasal Parainfluen 4 PCR Nasal RSV (PCR) Nasal B.pertussis DNA PCR Nasal C.pneumoniae (PCR) Emil Human Metapneumo PCR Nasal M.pneumoniae (PCR) Nasal SARS-CoV-2 (PCR) 02/06/23 02/06/23 02/06/23 08:24 08:40 08:45 WBC RBC Hgb Hct MCV MCH MCHC RDW Plt Count MPV Neut # (Auto) Lymph # (Auto) Mora # (Auto) Eos # (Auto) Baso # (Auto) Absolute Nucleated RBC Nucleated RBC % Manual Slide Review RBC Morph Micro Appear Sodium Potassium Chloride Carbon Dioxide Anion Gap BUN Creatinine Estimated GFR (MDRD) Glucose POC Whole Bld Glucose Lactic Acid 3.1 H* Calcium Total Bilirubin AST ALT Alkaline Phosphatase Total Protein Albumin Globulin Albumin/Globulin Ratio Lipase Urine Color YELLOW Urine Clarity CLOUDY Urine pH 8.0 H Ur Specific [place] 1.025 Urine Protein >=300 H Urine Glucose (UA) NEGATIVE Urine Ketones NEGATIVE Urine Occult Blood MODERATE H Urine Nitrite NEGATIVE Urine Bilirubin NEGATIVE Urine Urobilinogen 0.2 (NORMAL) Ur Leukocyte Esterase MODERATE H Urine RBC 6-10 H Urine WBC >25 H Ur Squamous Epith Cells FEW Squamous Urine Bacteria Many H Ur Microscopic Review INDICATED Urine Culture Comments INDICATED Nasal Adenovirus (PCR) NOT DETECTED Nasal B. parapertussis DNA (PCR) NOT DETECTED Nasal Coronavir 229E PCR NOT DETECTED Nasal Coronavir HKU1 PCR NOT DETECTED Nasal Coronavir NL63 PCR NOT DETECTED Nasal Coronavir OC43 PCR NOT DETECTED Nasal Enterovir/Rhinovir PCR NOT DETECTED Nasal Influenza B PCR NOT DETECTED Nasal Influenza A PCR NOT DETECTED Nasal Parainfluen 1 PCR NOT DETECTED Nasal Parainfluen 2 PCR NOT DETECTED Nasal Parainfluen 3 PCR NOT DETECTED Nasal Parainfluen 4 PCR NOT DETECTED Nasal RSV (PCR) NOT DETECTED Nasal B.pertussis DNA PCR NOT DETECTED Nasal C.pneumoniae (PCR) NOT DETECTED Emil Human Metapneumo PCR NOT DETECTED Nasal M.pneumoniae (PCR) NOT DETECTED Nasal SARS-CoV-2 (PCR) NOT DETECTED Procedures - Central Line - Major Central Line Preparation: Unable to obtain consent, Time out completed, Ultrasound used, Sterile prep and drape Central line location: Right IJ Central line type: Triple lumen Central line aftercare: Chlorhexidine disc placed, Secured, Placement confirmed, No pneumothorax, No complications, Bundle checklist complete, Pt tolerated well PD Medical Decision Making - ED course Complexity details: reviewed results, re-evaluated patient ED course: Patient is an 87-year-old female presenting from a carriage for reports of elevated heart rate. She received IV Cardizem prior to arrival with no blood pressure obtainable by EMS. Patient noted to be febrile on arrival. Tachycardic and hypotensive. Sepsis work-up initiated. Patient started with IV fluid boluses, Patient has not had significant improvement in her hemodynamics despite fluid resuscitation and was started on IV Levophed. Central line was placed. Urine appeared purulent on straight cath and started on Rocephin. Her labs are significant for elevated white count of 24,000, lactic of 3.1. Creatinine of 1.7 (with prior baseline around 0.7). CT head obtained due to confusion unclear baseline. CT abdomen pelvis was also obtained. Patient has a 7 proximal left ureter stone. Consulted with urology as well as our hospitalist. They will admit and treat for further management. Plan for patient to go to the OR for ureter stent. 1139 - D/W Urology, Dr. Ridley - He will call the OR and see the pt. 1140 - D/W Hospitalist, Dr. Dillon. We will admit the patient to the ICU. Departure - Departure Disposition: [facility] DC/Xfer Clinical Impression: Septic shock, Left ureteral stone, Chronic atrial fibrillation Condition: Critical Discharge Date/Time: 02/06/23 11:49
[2023-02-06 08:39] LABS: BASOPHILS # (AUTO) 0.1 10^3/uL (0.0-0.1); BASOPHILS % (AUTO) 0.4 %; EOSINOPHILS # (AUTO) 0.1 10^3/uL (0.0-0.7); EOSINOPHILS % (AUTO) 0.4 %; HCT - HEMATOCRIT 36.7 % (37.0-47.0); HGB - HEMOGLOBIN 12.2 g/dL (12.0-16.0); LYMPHOCYTES # (AUTO) 0.2 10^3/uL (1.5-3.5); LYMPHOCYTES % (AUTO) 0.8 %; MEAN CORPUSCULAR HEMOGLOBIN 34.9 pg (27.0-31.0); MEAN CORPUSCULAR HGB CONC 33.2 g/dL (32.0-36.0); MEAN CORPUSCULAR VOLUME 104.9 fL (81.0-99.0); MEAN PLATELET VOLUME 10.9 fL (7.9-10.8); MONOCYTES # (AUTO) 0.2 10^3/uL (0.0-1.0); MONOCYTES % (AUTO) 0.8 %; NEUTROPHILS # (AUTO) 23.5 10^3/uL (1.5-6.6); NEUTROPHILS % (AUTO) 96.5 %; PLT - PLATELET COUNT 220 10^3/uL (130-450); RED CELL DISTRIBUTION WIDTH 13.7 % (12.0-15.0); WHITE BLOOD COUNT 24.4 x10^3/uL (4.8-10.8)
[2023-02-06 08:45] LABS: SLIDE REVIEW? Indicated
[2023-02-06] MEDS ORDERED: cefTRIAXone 1 GM in SODIUM CHLORIDE 0.9% MINIBAG 100 ML IV STA (08:47)
[2023-02-06 08:49] LABS: ALBUMIN 3.3 g/dL (3.2-5.5); ALBUMIN/GLOBULIN RATIO 1.1 (1.0-2.2); CALCIUM 8.8 mg/dL (8.5-10.3); CREATININE 1.7 mg/dL (0.6-1.3); POTASSIUM 3.7 mmol/L (3.5-4.5); TOTAL PROTEIN 6.4 g/dL (6.4-8.9)
[2023-02-06 08:59] LABS: BILIRUBIN,URINE NEGATIVE (NEGATIVE); GLUCOSE, URINE (UA) NEGATIVE (NEGATIVE); KETONES,URINE (UA) NEGATIVE (NEGATIVE); LEUKOCYTE ESTERASE, URINE MODERATE (NEGATIVE); NITRITE,URINE NEGATIVE (NEGATIVE); OCCULT BLOOD,URINE MODERATE (NEGATIVE); PROTEIN,URINE >=300 mg/dL (NEGATIVE); UROBILINOGEN,URINE 0.2 (NORMAL) E.U./dL (NORMAL)
--- NOTE | 2023-02-06 08:59 | XRAY Report ---
PROCEDURE: Chest 1 View X-Ray INDICATIONS: fever/afib TECHNIQUE: One view of the chest was acquired. COMPARISON: 09/25/2022, 01/03/2022 FINDINGS: Surgical changes and devices: None. Lungs and pleura: Clear lungs. No pneumothorax or significant pleural effusion. Mediastinum: Mild cardiomegaly and tortuous thoracic aorta. Prominent central pulmonary arteries. No significant central venous congestion. Bones and chest wall: No acute fractures. Severe left shoulder degeneration and postsurgical and/or dystrophic posttraumatic changes to the right distal clavicle. IMPRESSION: 1. No acute cardiopulmonary disease. 2. Stable cardiomediastinal contour. Reviewed by: Lakeisha Al MD on 02/06/2023 8:58 AM PDT Approved by: Lakeisha Al MD on 02/06/2023 8:58 AM PDT Station ID: [id number]
[2023-02-06 09:01] LABS: CLARITY,URINE CLOUDY (CLEAR)
[2023-02-06 09:02] LABS: BACTERIA,URINE Many /HPF (None Seen); SQUAMOUS EPITHELIAL CELL,UR FEW Squamous (<= Few); WBC,URINE >25 /HPF (0-5)
[2023-02-06 09:04] LABS: RBC MORPHOLOGY (MULTIPLE) 1+ ANISOCYTOSIS (NORMAL)
[2023-02-06 09:40] LABS: B. PARAPERTUSSIS- RESP PCR PAN NOT DETECTED; B. PERTUSSIS- RESP PCR PANEL NOT DETECTED; C. PNEUMONIAE- RESP PCR PANEL NOT DETECTED; CORONAVIRUS 229E-RESP PCR NOT DETECTED; CORONAVIRUS HKU1-RESP PCR NOT DETECTED; CORONAVIRUS NL63-RESP PCR NOT DETECTED; CORONAVIRUS OC43-RESP PCR NOT DETECTED; HUMAN METAPNEUMOVIRUS NOT DETECTED; INFLUENZA A- RESP PCR PANEL NOT DETECTED; INFLUENZA B - RESP PCR PANEL NOT DETECTED; M. PNEUMONIAE- RESP PCR PANEL NOT DETECTED; PARAINFLUENZA VIRUS 1 NOT DETECTED; PARAINFLUENZA VIRUS 2 NOT DETECTED; PARAINFLUENZA VIRUS 3 NOT DETECTED; PARAINFLUENZA VIRUS 4 NOT DETECTED; RHINOVIRUS/ENTEROVIRUS NOT DETECTED; RSV- RESP PCR PANEL NOT DETECTED; SARS-CoV-2 -RESP PCR PANEL NOT DETECTED
--- NOTE | 2023-02-06 10:53 | CT Report ---
PROCEDURE: CT brain without contrast INDICATIONS: AMS; on eliquis TECHNIQUE: Helical axial CT of the brain was obtained without contrast and reformatted in multiple p lanes. Radiation dose reduction was achieved using automated exposure control or adjustment of mA and /or kV according to patient size. COMPARISON: None. FINDINGS: CSF spaces: Basal cisterns are patent. No extra-axial fluid collections. Ventricles are normal in size and shape. Brain: No midline shift. No intracranial masses or hemorrhage. Long-white matter interface is norm al. Moderate atrophy and multifocal white matter chronic ischemic change noted. Atherosclerotic vascular calcification noted in the cavernous segments of both internal carotid arteries as well as the intrad ural vertebral arteries. Skull and face: Calvarium and visualized facial bones are intact, without suspicious lesions. Bilat eral intraocular lens replacements noted. Sinuses: Complete opacification of the left maxillary sinus, ostiomeatal unit, left ethmoid and fron haley sinus also associated with mucosal thickening on the floor the right maxillary sinus IMPRESSION: Atrophy and chronic ischemic change without intracranial hemorrhage or mass effect. Left-sided mack sinus disease without remodeling involves complete opacification of the frontal, anter ior ethmoid and maxillary sinuses. Reviewed by: Jose Miguel Morel MD on 02/06/2023 9:52 AM EMILIA Approved by: Jose Miguel Morel MD on 02/06/2023 9:52 AM EMILIA Station ID: [id number]
[2023-02-06] MEDS ORDERED: oxyCODONE 5 MG TABLET PO PRN (11:00)
[2023-02-06] MEDS: NOREPINEPHRINE/D5W 8 MG/250 ML BAG IV SCH (11:00)
[2023-02-06] MEDS ORDERED: ONDANSETRON ODT 4 MG TABLET TL PRN (11:00)
[2023-02-06] MEDS ORDERED: ONDANSETRON 4 MG/2 ML VIAL IVP PRN (11:00)
--- NOTE | 2023-02-06 11:10 | CT Report ---
PROCEDURE: CT abdomen and pelvis without contrast INDICATIONS: sepsis/UTI/KELLY TECHNIQUE: Helical axial CT of the abdomen and pelvis was obtained without intravenous contrast and reformatted in multiple planes. Radiation dose reduction was achieved utilizing automated exposure control or adj ustment of mA and/or kV according to patient size. COMPARISON: 10/01/2020 FINDINGS: Lower thorax: The lung bases are clear. Heart size enlarged. Coronary vascular calcification noted.. No hiatal hernia. Liver: Normal in size and attenuation. No contour deformity present. Small hepatic cyst Biliary system: Cholelithiasis without CT evidence of pericholecystic inflammatory change Pancreas: Unremarkable without mass or inflammation evident. Spleen: Normal in size and density. Adrenals: Normal morphology and density. Reproductive system: Unremarkable as visualized. Urinary system: 7 x 5 mm calculus in the proximal left ureter results in moderate left hydronephrosis and hydroureter as well as left renal swelling. Left renal simple cyst remains unchanged. Right kidn ey contains a hyperdense cyst, also stable Gastrointestinal system: The bowel appears unremarkable with no evidence of bowel obstruction or inf lammation. The stomach appears unremarkable. Multiple diverticuli arise from the left colon and sigmo id colon without evidence of diverticulitis Appendix: No findings to suggest acute appendicitis. Peritoneal spaces: No mesenteric or retroperitoneal adenopathy. No free air. No free fluid. Vasculature: Diffuse aortic and small vessel vascular atherosclerotic calcification present. Abdominal Wall: Abdominal wall is intact without evidence of ventral or inguinal hernias. Musculoskeletal: Multilevel degenerative disc disease, arthropathy and T12 wedge-shaped compression f racture all remains unchanged from the prior. Severe L4-5 central stenosis. Bilateral hip prosthesis limits assessment of multiple images in the pelvis. Incidental note is made of asymmetric fatty atrop hy of the right iliopsoas iliacus muscle, stable. IMPRESSION: 1. Left-sided moderate hydronephrosis and hydroureter results from 7 mm proximal left ureter calculus . 2. Chronic stable findings include advanced aortic and small vessel vascular atherosclerotic calcific ation, degenerative disc disease and arthropathy, sigmoid diverticulosis and cholelithiasis without i nflammatory change Reviewed by: Jose Miguel Morel MD on 02/06/2023 10:09 AM EMILIA Approved by: Jose Miguel Morel MD on 02/06/2023 10:09 AM EMILIA Station ID: [id number]
--- NOTE | 2023-02-06 11:16 | HISTORY & PHYSICAL EXAMINATION ---
Chief Complaint - Chief Complaint Chief Complaint: Fast heart rate on vital signs History of Present Illness - Admitted From Admitted From:: [facility] via ambulance - History Obtained From Records Reviewed: [facility] History obtained from: Dr. Alegre Exam Limitations: Patient has dementia, is very lethargic with her septic shock - History of Present Illness HPI Comment/Other: Elderly female who is a resident of [facility] and has a history of alcohol abuse with admission for atrial fibrillation with RVR in November 2021 resulting in a swing bed stay. At that time ejection fraction was 25%. There i s no antecedent history provided to EMS but EMS was called because her heart rate was elevated during vital sign check this morning. Heart rate was in the 150s. Blood pressure was not checked with this and she was given 12 mg of Cardizem IVP. She was then brought into the emergency room and fever was seen with a temperature of 101. Heart rate was in the 150s. Blood pressure were 70s to 80s systolic. She was given 2 L of IV fluids, and evaluation was done. She is still in A-fib with RVR but white cell count is 24,000, creatinine is twice but usually is (she is usually 0.7 and she is 1.7). Lactic acid is 3. Urinalysis has dense pyuria. She is COVID-negative. Chest x-ray negative. CT of head and abdomen and pelvis is pending. In the emergency room the emergency room provider felt that the patient had septic shock from both A-fib with RVR and UTI. Since she did not respond to the 2 L IV fluid and her pressure is still in the 70s and 80s a central line was started and she was begun on Levophed. Blood pressures were manually confirmed. The emergency room provider and I discussed the case. She asked if the patient needed to be kept in the emergency room until we got back the CT of abdomen and pelvis. Since we do have urology on staff, I do feel comfortable admitting this patient even if she does have obstructed stones.As such, I am admitting this patient to inpatient status in the ICU. I last admitted this patient in September 2020 for a fall. At that time she had co gnitive deficits, was walking with a cane. But she did tell me that she is a DO NOT RESUSCITATE and wanted limited intervention. She was readmitted again in November 2021. Again for fall. It was at that point she was identified as having an ejection fraction of 25%. The ER provider makes reference of a fall at home with resultant subarachnoid hemorrhage, subdural. She called EMS 6 times in 24 hours in December 2021 and with the last time had UTI. Also subdurral. Went to [facility]. And shortly thereafter placed in a correction facility. I spoke to her nurse at the SNF, and the RN reports 10/05/2020 was Ms. Finley's admission to [facility] but that date is not concordant with the ER records of living along and EMS being called until December 2021. Never the less, the patient doesn't walk or get of bed. She will feed herself. But refuses to get out of bed and is dependent on the aides for bath, hygeined, meds, etc. She has a neice that is POA. Radha Garcia @ [phone]. Up until today, the patient was in her usual status. The nurse states that there was no change in the patient's mentation. There is no fever. No cough, urgency, frequency. It was only the fast heart rate that alerted her to something wrong. As far as mentation, the patient was normally mentating when she left the correction facility and came to the ER. Her friend Franklyn, who is a nearby neighbor, has promised to look in after her ever since her . Franklyn said that she is pretty stubborn. Refuses to get out of bed because her feet hurt. So she is basically bedbound. She is starting to lose her memory over the last year. History - Past Medical History Cardiovascular: reports: Congestive heart failure (Echocardiogram November 2021 with ejection fraction 25%), Atrial fibrillation Respiratory: reports: None Neuro: reports: Dementia Endocrine/Autoimmune: reports: None GI: reports: None PRODUCTION MACHINE TENDER: reports: None, Other (, lost baby in miscarriage) : reports: None HEENT: reports: None Psych: reports: None Musculoskeletal: reports: Osteoarthritis Derm: reports: None MRSA Hx?: Yes - Past Surgical History Ortho: reports: Hip replacement, Knee replacement /PRODUCTION MACHINE TENDER: reports: Hysterectomy HEENT: reports: Cataracts - Family & Social History Family History: Mother: , Father: Family History Comment/Other: Her mother from a myocardial infarction. No children. No siblings. Cousin Radha is RAFFI. Living arrangement: senior living Living Situation: With caregiver(s) Social History Notes: She used to drink 4 large alcoholic beverages a day and had been doing so for about a decade. She is a non-smoker. 3 years ago. Since being placed at [facility], no longer drinks. She converses w her friends and friend Franklyn feels cognitive ok. She is member of the [employer]. Never had children. RAFFI lives in [facility] and is her niece. Right now Radha is in [place] - Substance History Use: Uses substance without health or social issues: NONE Abuse: Recurrent use of substance despite neg consequences: NONE Dependence: Experiences withdrawal or developed tolerances: NONE - POLST Patient has POLST: Yes POLST Status: DNR (With limited interventions) Meds/Allgy - Home Medications Home Medications: Ambulatory Orders Medication Instructions Recorded Confirmed Apixaban [Eliquis] 5 mg PO BID #60 tablet 11/28/21 02/06/23 Multivit with Iron,Minerals 1 each PO DAILY #30 tab.chew 11/28/21 02/06/23 [Multivitamins with Iron] Acetaminophen [Tylenol] 650 mg PO Q8HR PRN 02/06/23 02/06/23 Bisacodyl Supp [Dulcolax Supp] 10 mg DE DAILY PRN 02/06/23 02/06/23 Diclofenac Sodium 1% Gel [Voltaren 1 applic TOP BID PRN 02/06/23 02/06/23 Gel] Metoprolol Succinate [Toprol Xl] 12.5 mg PO DAILY 02/06/23 02/06/23 Mineral Oil [Mineral Oil Enema] 1 ea RC PRN PRN 02/06/23 02/06/23 Senna [Senokot] 17.2 mg PO DAILY PRN 02/06/23 02/06/23 guaiFENesin [Chest Congestion 400 mg PO Q6HR PRN 02/06/23 02/06/23 Relief] polyethylene glycoL 3350 [Miralax] 17 gm PO DAILY PRN 02/06/23 02/06/23 - Allergies Allergies/Adverse Reactions: Allergies Allergy/AdvReac Type Severity Reaction Status Date / Time No Known Drug Allergies Allergy Verified 08/29/23 08:12 Review of Systems - Other Findings Other Findings: Patient is obtunded, unable to provide review of systems at this time. Her description of her overall status is provided by her nurse from [facility] Prior Level of Functionality: Bedbound status. Completely dependent for activities of daily living. The only thing she does on her own, voluntarily, is feed herself Exam - Vital Signs Reviewed Vital Signs: Yes Vital Signs: Vital Signs x48h Temp Pulse Resp BP Pulse Ox 02/06/23 10:41 149 H 20 70/42 L 98 02/06/23 09:37 152 H 15 84/73 L 97 02/06/23 09:23 37.1 C 02/06/23 09:19 154 H 30 H 75/34 L 96 02/06/23 09:03 156 H 24 75/34 L 98 02/06/23 08:28 144 H 22 95/36 L 95 02/06/23 08:12 38.5 C H 155 H 20 58/38 L 96 - Physical Exam General Appearance: positive: Lethargic Eyes Bilateral: positive: PERRL, EOMI ENT: positive: Pharynx nml Neck: positive: No JVD. negative: Stiff neck Respiratory: positive: No respiratory distress. negative: Wheezes, Rales, Rhonchi Sepsis Event Note (H) - Evaluation Current Stage of Sepsis: Septic shock Possible source of Sepsis: positive: Genitourinary - Sepsis Criteria Sepsis Criteria: Recorded Temperature greater than 38.3C or Less than 36C, Recorded Heart Rate greater than 90 bpm, WBC count greater than 10% bands, WBC count greater than 12,000 or less than 4000, SENIOR DESIGNER/ART DIRECTOR: altered consciousness (unrelated to primary neuro pathology), SBP drop more than 40mHg, MAP less than 65 mmHg, Metabolic: lactate > 2 mmol/L Conclusion/Plan - Problem List (1) Septic shock Conclusion/Plan: Her nurse at the correction facility describes her as being in her baseline bedbound status. She does not get out of bed very often. Her friend Franklyn says that she does not get out of bed because her feet hurt. Nurse states has been no increasing of dictation. No fever, no chills. Nevertheless she was evaluated for tachycardia and found to be in septic shock from most likely a UTI. Plan: Inpatient status Central line so that we can start Levophed I called power of collections attorneyDanell, and left a message at [phone] Start empiric antibiotics Repeat lactic acid to assess response to therapy Recognize that she is a DO NOT RESUSCITATE with regards to intubation and CPR but she is still to get antibiotics, blood transfusions, etc. (2) Urinary tract infection Conclusion/Plan: At this time we are only identifying severe pyuria. We do not know the organism yet and cultures have been sent. Plan: CT of the abdomen and pelvis is pending. We are making sure she is not obstructed. Started on empiric Rocephin 1 g daily in the ER Adjust antibiotics on the basis of identification and sensitivities Qualifiers: Urinary tract infection type: site unspecified (3) Atrial fibrillation with RVR Conclusion/Plan: Most likely rate is uncontrolled. At this point I am not getting history of hypovolemia. But she is hypotensive, very infected, and her inflammatory response could be driving her A-fib. She has a history of congestive heart failure and this was most likely make her CHF worse. Plan: Lopressor 5 mg IV push now that she has had 2 L of fluid resuscitation Metoprolol 50 mg p.o. twice daily if she is awake enough to take this Follow troponins tomorrow. I do expect demand ischemia to cause a troponin to bump. (4) Chronic systolic heart failure Conclusion/Plan: I suspect that she is getting going to acute systolic heart failure with 2 L of fluid, her atrial fibrillation. But we are aggressively resuscitating her. We will have to treat with diuresis when she is stabilized from her blood pressure and heart rate. (5) Encephalopathy Conclusion/Plan: Both her POA and her friend, Franklyn, say that she is losing her memory over the last few months. But she is still a very opinionated person. Talkative. She may be forgetful but still tells me what she wants. Cousin Radha states that she kind of lost the will to live once her . And when she got placed in the [facility], she is just sort of given up. She is given away all of her personal things including jewelry. As such, I do feel she has a metabolic encephalopathy from sepsis. I would anticipate clearing once her sepsis improves. - Lab Results Lab results reviewed: Yes Fish Bones: 02/06/23 08:24 08/29/23 08:24 - Diagnostic Imaging Results Diagnostic Imaging Results: positive: Final report reviewed Core Measures - Anticipated LOS I expect patient to be DC'd or transferred within 96 hours.: Yes - DVT/VTE - Prophylaxis VTE/DVT Device ordered at admit?: Yes
[2023-02-06] MEDS: SODIUM CHLORIDE 0.9% 1,000 ML IV SCH ×2 (11:26→20:04)
[2023-02-06] MEDS ORDERED: ENOXAPARIN 40 MG/0.4 ML SYRINGE SUBQ SCH (12:00)
--- NOTE | 2023-02-06 12:16 | SURGERY HX AND PHYSICAL(T) ---
Surgical History & Physical - Chief Complaint/HPI Chief Complaint: septic shock History of Present Illness: 87yo F with multiple medical issues presented today with septic shock, UTI, leukocytosis. 7mm left proximal ureteral stone on CT KUB. She is confused and a poor historian. Seen today at bedside. - PMH/PSH/Social Hx Does the pt have a hx of MRSA?: Yes Neurological History: Dementia Eyes, Ears, Nose, Throat: None Cardiovascular: Congestive heart failure (Echocardiogram November 2021 with ejection fraction 25%), Atrial fibrillation Respiratory: None Skin: None Endocrine/Autoimmune: None Gastrointestinal: None CAKE FORMER: None Urinary: None Musculoskeletal: Osteoarthritis Blood Disorders: None Psychiatric: None Orthopedic: Hip replacement, Knee replacement Eyes Ears Nose Throat (EENT): Cataracts Smoking Status: Unknown if ever smoked Does the pt drink ETOH?: No Frequency: Daily Does the pt have substance abuse?: No - Home Meds and Allergies Home Medications: Acetaminophen [Tylenol] 650 mg PO Q8HR PRN 02/06/23 Bisacodyl Supp [Dulcolax Supp] 10 mg DC DAILY PRN 02/06/23 Diclofenac Sodium 1% Gel [Voltaren Gel] 1 applic TOP BID PRN 02/06/23 Metoprolol Succinate [Toprol Xl] 12.5 mg PO DAILY 02/06/23 Mineral Oil [Mineral Oil Enema] 1 ea RC PRN PRN 02/06/23 Senna [Senokot] 17.2 mg PO DAILY PRN 02/06/23 guaiFENesin [Chest Congestion Relief] 400 mg PO Q6HR PRN 02/06/23 polyethylene glycoL 3350 [Miralax] 17 gm PO DAILY PRN 02/06/23 Allergies/Adverse Reactions: Allergies Allergy/AdvReac Type Severity Reaction Status Date / Time No Known Drug Allergies Allergy Verified 02/06/23 08:12 - Vital Signs Heart Rate: 159 Blood Pressure: 114/66 Temperature: 37.1 C Respiratory Rate: 23 O2 Saturation: 97 Weight (kg): 73.4 kg Height: 1.52 m - Physical Exam General Appearance: positive: No acute distress Respiratory: positive: Breath sounds nml Cardiovascular: positive: Irregularly irregular. negative: Regular rate & rhythm - Patient Review Patient Review: Problems were reviewed with the patient during this visit. Medications were reviewed with the patient during this visit. Allergies were reviewed this patient during this visit. Pertinent Tests Reviewed: All pertitent test for this patient were reviewed. - Assessment & Plan Assessment and Plan: 87yo F with septic shock, 7mm left proximal ureteral stone, UTI. Plan: -cystoscopy and left ureteral stent placement -risks including, infection, bleeding, pain, anesthesia concerns, discussed -discussed with Franklyn her next of kin. Nursing and SHIP ENGINES OPERATING ENGINEER Dash fajardo
--- NOTE | 2023-02-06 12:25 | PHARMACY PROGRESS NOTE ---
- Best Possible Medication History Admit Date and Time: 02/06/23 1100 Processed by: Pharmacy Medication History completed: Yes Patient Interview: Pt unable to participate Secondary Source(s): Facility MAR as ONLY source As the person ultimately responsible for medication therapy, providers are able to order a medication from an existing home medication list in [facility] via the "Reconcile Routine" prior to Confirmation of that medication by office support specialist. Such practice is discouraged except when the physician, in their clinical judgment, deems that a medical need exists for a medication without regard to previous use.
[2023-02-06] MEDS ORDERED: MIDAZOLAM 2 MG/2 ML VIAL ONE (12:27)
[2023-02-06] MEDS ORDERED: LIDOCAINE 2% URO-JET 5 ML SYRINGE UR ONE (12:27)
[2023-02-06] MEDS ORDERED: KETAMINE 200 MG/20 ML VIAL ONE (12:27)
--- NOTE | 2023-02-06 12:42 | XRAY Report ---
PROCEDURE: Chest for Line Placement INDICATIONS: line placement TECHNIQUE: One view of the chest was acquired. COMPARISON: Chest radiograph 02/06/2023. FINDINGS: Surgical changes and devices: Interval placement of a right internal jugular catheter with catheter tip projecting over the right atrium.. Lungs and pleura: No pleural effusions or pneumothorax. Lungs are clear. Mediastinum: Mediastinal contours appear normal. Heart size is normal. Bones and chest wall: No suspicious bony lesions. Overlying soft tissues appear unremarkable. IMPRESSION: Interval placement of a right internal jugular catheter with catheter tip projecting over the right a trium. Recommend pulling catheter back by approximately 5 cm. Reviewed by: Kel Cabezas MD on 02/06/2023 12:41 PM PDT Approved by: Kel Cabezas MD on 02/06/2023 12:41 PM PDT Station ID: [id number]
[2023-02-06] MEDS ORDERED: fentaNYL 100 MCG/2 ML VIAL ONE ×2 (12:52→13:21)
[2023-02-06] MEDS ORDERED: iohexoL-240 10 ML VIAL IVP ONE (13:06)
--- NOTE | 2023-02-06 13:26 | OPERATIVE REPORT ---
Operative Report - General Admit Date: 02/06/23 Procedure Date: 02/06/23 Planned Procedure: Cystoscopy left ureteral stent placement Pre-Op Diagnosis: Left ureteral stone, septic shock Procedure Performed: Cystoscopy, left ureteral stent, retrograde pyelogram Post Op Diagnosis: left ureteral stone, septic shock - Procedure Note Primary Surgeon: Khai Anesthesia Provider: FRANCO Bowling Anesthesia Technique: MAC Estimated Blood Loss (mL): 0 Indications: Septic shock, left ureteral stone Findings: Severe vaginal atrophy Proximal Urethra Tortuous ureter Left 4.5f stent placed Complications: Shanthi stoolage - Other Other Information/Narrative: After informed consent was obtained by the patient and her caregiver Franklyn from the ICU, the patient was brought to the OR and laid in the supine position at that point time the patient was in anesthetized per anesthesia protocols she is prepped draped in usual sterile fashion. She was noted to have severe co ntractures and was very difficult to be placed in lithotomy position. A formal timeout was performed reconfirming the patient procedure and laterality. She had preoperative antibiotics in the ER with ceftriaxone. Using 22 Burkinan cystoscope her vagina was noted be severely atrophied with a very tight introitus. She had a proximal urethra which was 2 to 3 cm back from the introitus. It was little difficult to find this. Once the urethra was found it was advanced into the bladder. The bladder was very cloudy and full of purulent urine. This was evacuated. There was some debris or possibly small stones in the bladder. The left UO was edematous and difficult to cannulize. A sensor wire was eventually placed up the left UO into the kidney. The ureter was tortuous. A 5 Burkinan ureteral catheter was placed over this and we drained some purulent urine. A gentle retrograde pyelogram confirmed we were in the kidney. A sensor wire was replaced and a 6 Burkinan 24 cm stent was placed. However, on withdrawal of the wire the stent seem to fall down into the proximal ureter, it possibly was getting hung up on the stone. So a new wire was placed up into the kidney, and then a 4.5 Burkinan variable stent was placed with good curling noted in the kidney and good curling noted in the bladder cystoscopically. With some difficulty a temperature probe [place] catheter was placed into the bladder. It was noted she had shanthi stoolage after the [place] was placed, which was cleaned up at the end of the case. The patient will be brought to the ICU for further care. She suffered no untoward events. All counts were correct. She will require advanced medical care for the foreseeable future.She remains in a guarded state
--- NOTE | 2023-02-06 13:35 | ANESTHESIA ---
Pre-Anesthesia VS, & Labs - Diagnosis L kidney stone urosepsis - Procedure L ureteral stent placement Vital Signs: Temp Pulse Resp BP Pulse Ox O2 Flow Rate 37.1 C 159 H 30 H 100/47 L 98 02/06/23 12:16 02/06/23 12:30 02/06/23 12:30 02/06/23 12:30 02/06/23 12:30 Height: 5 ft Weight (kg): 73.4 kg Body Mass Index: 31.6 BMI Classification: Obese - NPO Other - Is Patient ?: No - Lab Results Current Lab Results: Laboratory Tests 02/06/23 08:24: Lactic Acid 3.1 H* 02/06/23 08:24: Sodium 133 L, Potassium 3.7, Chloride 100 L, Carbon Dioxide 23, Anion Gap 10.0, BUN 57 H, Creatinine 1.7 H, Estimated GFR (MDRD) 28 L, Glucose 107 H, Calcium 8.8, Total Bilirubin 1.0, AST 12, ALT 9 L, Alkaline Phosphatase 71, Total Protein 6.4, Albumin 3.3, Globulin 3.1, Albumin/Globulin Ratio 1.1, Lipase 20 02/06/23 08:24: WBC 24.4 H, RBC 3.50 L, Hgb 12.2, Hct 36.7 L, MCV 104.9 H, MCH 34.9 H, MCHC 33.2, RDW 13.7, Plt Count 220, MPV 10.9 H, Neut # (Auto) 23.5 H, Lymph # (Auto) 0.2 L, Ware # (Auto) 0.2, Eos # (Auto) 0.1, Baso # (Auto) 0.1, A bsolute Nucleated RBC 0.00, Nucleated RBC % 0.0, Manual Slide Review Indicated, RBC Morph Micro Appear 1+ ANISOCYTOSIS 02/06/23 08:09: POC Whole Bld Glucose 124 H Lab results reviewed: Yes Fish Bones: 02/06/23 08:24 02/06/23 08:24 Home Medications and Allergies Home Medications: Ambulatory Orders Acetaminophen [Tylenol] 650 mg PO Q8HR PRN 02/06/23 Bisacodyl Supp [Dulcolax Supp] 10 mg KS DAILY PRN 02/06/23 Diclofenac Sodium 1% Gel [Voltaren Gel] 1 applic TOP BID PRN 02/06/23 Metoprolol Succinate [Toprol Xl] 12.5 mg PO DAILY 02/06/23 Mineral Oil [Mineral Oil Enema] 1 ea RC PRN PRN 02/06/23 Senna [Senokot] 17.2 mg PO DAILY PRN 02/06/23 guaiFENesin [Chest Congestion Relief] 400 mg PO Q6HR PRN 02/06/23 polyethylene glycoL 3350 [Miralax] 17 gm PO DAILY PRN 02/06/23 Active Medications Acetaminophen (Acetaminophen 325 Mg Tablet) 650 mg PO Q4HR PRN PRN Reason: Pain 1 to 4, or Fever Enoxaparin Sodium (Enoxaparin 30 Mg/0.3 Ml Syringe) 30 mg SUBQ DAILY JAKE Norepinephrine Bitartrate (Levophed 8 Mg/250 Ml D5w) 8 mg in 250 mls @ 15 mls /hr IV .[id number] JAKE; Protocol Last Titration: 02/06/23 12:00 Dose: 10 mcg/min, 18.75 mls/hr Sodium Chloride (Normal Saline 0.9%) 1,000 mls @ 100 mls/hr IV .Q10H JAKE Last Infusion: 02/06/23 12:28 Dose: 100 mls/hr Ceftriaxone Sodium 1 gm/ (Sodium Chloride) 100 mls @ 200 mls/hr IV DAILY JAKE Stop: 02/13/23 09:29 Morphine Sulfate (Morphine 2 Mg/Ml Carpuject) 2 mg IVP Q2HR PRN PRN Reason: Pain 8 to 10 Ondansetron HCl (Ondansetron Odt 4 Mg Tablet) 4 mg TL Q6HR PRN PRN Reason: Nausea / Vomiting Ondansetron HCl (Ondansetron 4 Mg/2 Ml Vial) 4 mg IVP Q6HR PRN PRN Reason: Nausea / Vomiting Oxycodone HCl (Oxycodone 5 Mg Tablet) 5 mg PO Q4HR PRN PRN Reason: Pain 5 to 7 Sodium Chloride (Sodium Chloride Flush 0.9% 10 Ml Syringe) 10 ml IVP 0100,0900,1700 JAKE Sodium Chloride (Sodium Chloride Flush 0.9% 10 Ml Syringe) 10 ml IVP PRN PRN PRN Reason: NEEDED PER PROVIDER ORDERS Acetaminophen [Tylenol] 650 mg PO Q8HR PRN 02/06/23 Bisacodyl Supp [Dulcolax Supp] 10 mg KS DAILY PRN 02/06/23 Diclofenac Sodium 1% Gel [Voltaren Gel] 1 applic TOP BID PRN 02/06/23 Metoprolol Succinate [Toprol Xl] 12.5 mg PO DAILY 02/06/23 Mineral Oil [Mineral Oil Enema] 1 ea RC PRN PRN 02/06/23 Senna [Senokot] 17.2 mg PO DAILY PRN 02/06/23 guaiFENesin [Chest Congestion Relief] 400 mg PO Q6HR PRN 02/06/23 polyethylene glycoL 3350 [Miralax] 17 gm PO DAILY PRN 02/06/23 Allergies/Adverse Reactions: Allergies Allergy/AdvReac Type Severity Reaction Status Date / Time No Known Drug Allergies Allergy Verified 02/06/23 08:12 Anes History & Medical History - Anesthetic History Anesthesia Complications: reports: No previous complications Family history of Anesthesia Complications: Denies Family history of Malignant Hyperthermia: Denies - Medical History Cardiovascular: reports: Congestive heart failure (Echocardiogram November 2021 with ejection fraction 25%), Atrial fibrillation (w rvr, rates 160) Pulmonary: reports: None Gastrointestinal: reports: None Urinary: reports: Kidney stones, Other (urosepsis) Neuro: reports: Dementia Musculoskeletal: reports: Osteoarthritis Endocrine/Autoimmune: reports: None Blood Disorders: reports: None Skin: reports: None Smoking Status: Unknown if ever smoked - Surgical History Eyes Ears Nose Throat (EENT): reports: Cataracts Gynecologic: reports: Hysterectomy Orthopedic: reports: Hip replacement, Knee replacement Exam General: Alert, Cooperative, Mild distress, Other (oriented to place/person/time) Mouth Openin Fingerbreadth Neck Mobility: Normal Mallampati classification: III Thyromental Distance: 4-6 cm Respiratory: Lungs clear Plan Anesthesia Type: General, MAC Consent for Procedure(s) Verified and Reviewed: Yes Code Status: Attempt Resuscitation ASA classification: 4-Incapacitating disease Is this case an emergency?: Yes
[2023-02-06] MEDS ORDERED: METOPROLOL 5 MG/5 ML VIAL IVP STA ×2 (14:20→15:05)
--- NOTE | 2023-02-06 15:27 | ANESTHESIA POST OP EVALUATION ---
Anesthesia Post Eval - Post Anesthesia Eval Vitals: Last Vital Signs Temp 36.9 C 02/06/23 15:15 Pulse 152 H 02/06/23 15:15 Resp 18 02/06/23 15:15 BP 105/79 02/06/23 15:21 Pulse Ox 96 02/06/23 15:15 O2 Flow Rate CV Function Including HR & BP: Stable Pain Control: Satisfactory Nausea & Vomiting: Negative Mental Status: Baseline Respiratory Status: Airway Patent Hydration Status: Satisfactory Anesthesia Complications: None
--- NOTE | 2023-02-06 16:18 | XRAY Report ---
PROCEDURE: OR C-Arm Procedure INDICATIONS: stent placement FLUORO TIME: 0.3 TECHNIQUE: Intraoperative fluoroscopy used for stent placement. COMPARISON: None. FINDINGS: Intraoperative fluoroscopic spot image demonstrates catheter tubing in the expected location of the l eft ureter. IMPRESSION: Intraoperative fluoroscopy for ureteral stent placement. Reviewed by: Lakeisha Al MD on 02/06/2023 4:16 PM PDT Approved by: Lakeisha Al MD on 02/06/2023 4:16 PM PDT Station ID: [id number]
[2023-02-06] MEDS ORDERED: diltiaZEM INJ 5 MG/ML VIAL ONE (17:14)
[2023-02-06] MEDS: diltiaZEM INJ 125 MG in DEXTROSE 5% 100 ML IV SCH (17:18)
[2023-02-06] MEDS: SODIUM CHLORIDE FLUSH 0.9% 10 ML SYRINGE IVP SCH (17:21)
[2023-02-06] MEDS: METOPROLOL 5 MG/5 ML VIAL IVP SCH (19:02)
[2023-02-06] MEDS: METOPROLOL TARTRATE 50 MG TABLET PO SCH (20:05)
[2023-02-07] MEDS: SODIUM CHLORIDE FLUSH 0.9% 10 ML SYRINGE IVP SCH ×3 (00:10→18:11)
[2023-02-07] MEDS: METOPROLOL 5 MG/5 ML VIAL IVP SCH ×5 (00:10→23:45)
[2023-02-07] MEDS: NOREPINEPHRINE/D5W 8 MG/250 ML BAG IV SCH ×2 (01:02→17:06)
[2023-02-07] MEDS: diltiaZEM INJ 125 MG in DEXTROSE 5% 100 ML IV SCH ×2 (02:54→19:52)
--- NOTE | 2023-02-07 03:10 | PROVIDER PROGRESS NOTE ---
Tourist Cabin Keeper Note - Tourist Cabin Keeper Note Tourist Cabin Keeper Note: RN paged"87F DNR admitted for septic shock/UTI. Patient's preliminary blood cultures have just come back showing gram positive cocci. No urine cultures are resulted at this time. Patient is currently on Rocephin once daily. Vitals are stable. Are there any changes to antibiotics needed?" managed. followup sensitivity Ck Thornton DO Internal Medicine Sound Tele Tourist Cabin Keeper
[2023-02-07 04:27] LABS: BASOPHILS % (AUTO) 0.4 %; HCT - HEMATOCRIT 34.2 % (37.0-47.0); HGB - HEMOGLOBIN 11.2 g/dL (12.0-16.0); LYMPHOCYTES % (AUTO) 4.5 %; MEAN CORPUSCULAR HEMOGLOBIN 34.8 pg (27.0-31.0); MEAN CORPUSCULAR HGB CONC 32.7 g/dL (32.0-36.0); MEAN CORPUSCULAR VOLUME 106.2 fL (81.0-99.0); MONOCYTES % (AUTO) 5.6 %; NEUTROPHILS % (AUTO) 88.5 %; PLT - PLATELET COUNT 208 10^3/uL (130-450); RED BLOOD COUNT 3.22 10^6/uL (4.20-5.40); RED CELL DISTRIBUTION WIDTH 13.8 % (12.0-15.0); WHITE BLOOD COUNT 28.2 x10^3/uL (4.8-10.8)
[2023-02-07 04:32] LABS: ABNORMAL LYMPHS % (MANUAL) 0 %
[2023-02-07 04:33] LABS: CALCIUM, IONIZED 1.14 mmol/L (1.15-1.33); VBG PH 7.351 (7.31-7.41)
[2023-02-07 04:39] LABS: CALCIUM 8.3 mg/dL (8.5-10.3); CREATININE 1.2 mg/dL (0.6-1.3); MAGNESIUM 1.9 mg/dL (1.7-2.3); POTASSIUM 3.6 mmol/L (3.5-4.5)
[2023-02-07] MEDS ORDERED: POTASSIUM CHLOR 20 MEQ/100 ML 20 MEQ/100 ML BAG IV ONE ×2 (05:11→08:53)
[2023-02-07 05:32] LABS: BAND NEUTROPHILS % (MANUAL) 1 %; DIFFERENTIAL COMMENT MANUAL DIFFERENTIAL; LYMPHOCYTES # (MANUAL) 1.4 10^3/uL (1.5-3.5); LYMPHOCYTES % (MANUAL) 5 %; MONOCYTES # (MANUAL) 2.5 10^3/uL (0.0-1.0); NEUTROPHILS # (MANUAL) 24.3 10^3/uL (1.5-6.6); PLATELET ESTIMATE, MANUAL NORMAL (130-450,000) (NORMAL); RBC MORPHOLOGY (MULTIPLE) NORMAL APPEARANCE (NORMAL)
[2023-02-07] MEDS: SODIUM CHLORIDE 0.9% 1,000 ML IV SCH ×2 (05:41→16:16)
[2023-02-07] MEDS: ACETAMINOPHEN 325 MG TABLET PO PRN (06:21)
[2023-02-07] MEDS: METOPROLOL TARTRATE 50 MG TABLET PO SCH ×3 (08:04→20:00)
[2023-02-07] MEDS: ENOXAPARIN 30 MG/0.3 ML SYRINGE SUBQ SCH (08:05)
[2023-02-07] MEDS: cefTRIAXone 1 GM in SODIUM CHLORIDE 0.9% MINIBAG 100 ML IV SCH (08:09)
--- NOTE | 2023-02-07 09:53 | CONSULTATION NOTE ---
Consultation Report: consulted by corn lab technician for radiologist recommendation to withdraw R IJ central line 5cm. discussed w pt, verbalized understanding, sterile procedure withdrew catheter approx 5cm after providing site care and redressed site w clear occlusive dressing w imbedded antimicrobial. no complications noted, will reCXR
[2023-02-07] MEDS ORDERED: METOPROLOL 5 MG/5 ML VIAL IVP ONE (10:00)
--- NOTE | 2023-02-07 10:58 | XRAY Report ---
PROCEDURE: Chest for Line Placement INDICATIONS: central line placement TECHNIQUE: One view of the chest was acquired. COMPARISON: 02/06/2023. FINDINGS: Surgical changes and devices: Right IJ line has been retracted, and projects to the proximal to mid right atrium. Lungs and pleura: No pleural effusions or pneumothorax. Lungs are clear. Mediastinum: Mediastinal contours appear normal. Cardiomegaly. Bones and chest wall: No suspicious bony lesions. Overlying soft tissues appear unremarkable. IMPRESSION: Right IJ line projects to the proximal to mid right atrium. Suggest retraction slightly. Reviewed by: Hernán Blanton MD on 02/07/2023 10:57 AM PDT Approved by: Hernán Blanton MD on 02/07/2023 10:57 AM PDT Station ID: [id number]
[2023-02-07] MEDS ORDERED: DIGOXIN 500 MCG/2 ML AMP IVP STA (13:22)
[2023-02-07] MEDS ORDERED: MIN OIL/DIMETHICON/COCONUT OIL 92 GM TUBE TOP PRN (14:00)
[2023-02-07] MEDS: DIGOXIN 500 MCG/2 ML AMP IVP SCH ×2 (18:14→23:45)
--- NOTE | 2023-02-07 19:05 | PROVIDER PROGRESS NOTE ---
Assessment/Plan - Problem List (1) Septic shock Assessment/Plan: On levophed, improving, titrate down levophed with goal MAP>65 continue IV ceftraxone (2) Acute on chronic systolic CHF (congestive heart failure) Assessment/Plan: monitoring sign of SOB, edema, volume status strict I&O weight daily (3) Atrial fibrillation with RVR Assessment/Plan: rate is not well controlled give digioxin loading will transition to oral (4) Bacteriuria Assessment/Plan: E coli bacteriuria, in the setting of shock, it is likely the source of infection, continue with iv ceftriaxone - Current Meds Current Meds: Current Medications Generic Name Dose Route Start Last Admin Trade Name Freq PRN Reason Stop Dose Admin Acetaminophen 650 mg 02/06/23 11:00 02/07/23 06:21 Acetaminophen 325 Mg Tablet PO 650 mg Q4HR PRN Administration Pain 1 to 4, or Fever Digoxin 250 mcg 02/07/23 18:00 02/07/23 18:14 Digoxin 500 Mcg/2 Ml Amp IVP 02/08/23 06:01 250 mcg Q6H JAKE Administration Enoxaparin Sodium 30 mg 02/07/23 09:00 02/07/23 08:05 Enoxaparin 30 Mg/0.3 Ml Syringe SUBQ 30 mg DAILY JAKE Administration Norepinephrine Bitartrate 8 mg in 250 mls @ 15 mls/hr 02/06/23 11:00 02/07/23 18:33 Levophed 8 Mg/250 Ml D5w IV 8 mcg/min .[id number] JAKE 15 mls/hr Titration Protocol 8 MCG/MIN Sodium Chloride 1,000 mls @ 100 mls/hr 02/06/23 11:00 02/07/23 16:16 Normal Saline 0.9% IV 100 mls/hr .Q10H JAKE Administration Ceftriaxone Sodium 1 gm/ 100 mls @ 200 mls/hr 02/07/23 09:00 02/07/23 08:41 Sodium Chloride IV 02/13/23 09:29 Infused DAILY JAKE Infusion Diltiazem HCl 125 mg/ Dextrose 125 mls @ 5 mls/hr 02/06/23 17:00 02/07/23 15:39 IV Infused .Q25H JAKE Titration Protocol 5 MG/HR Metoprolol Tartrate 50 mg 02/06/23 21:00 02/07/23 10:08 Metoprolol Tartrate 50 Mg Tablet PO 50 mg BID JAKE Administration Metoprolol Tartrate 5 mg 02/06/23 19:00 02/07/23 18:16 Metoprolol 5 Mg/5 Ml Vial IVP 5 mg Q6HR JAKE Administration Sodium Chloride 10 ml 02/06/23 17:00 02/07/23 18:11 Sodium Chloride Flush 0.9% 10 Ml Syringe IVP 10 ml 0100,0900,1700 JAKE Administration - Lab Result Fish Bone Diagrams: 02/07/23 04:00 02/07/23 11:30 - Additional Planning My Orders: My Active Orders 02/07/23 Breakfast DIET [Regular Diet] [DIET] 02/07/23 14:00 Min Oil/Dimeth/Coconut Oil Crm [Cavilon] 1 applic TOP PRN PRN 02/07/23 18:00 Digoxin Inj [Lanoxin Inj] 250 mcg IVP Q6H Subjective - Subjective Patient Reports: Feeling Better, No Complaints, Other (appetite is improved) Objective Vital Signs: Vital Signs - 24 hr 02/06/23 02/06/23 02/06/23 19:30 20:00 20:05 Temperature 36.9 C 36.9 C Heart Rate Heart Rate [ 121 H 102 H Monitoring electrodes] Respiratory 20 21 Rate Blood Pressure 110/63 Blood Pressure 81/63 L 110/63 [Right Brachial artery] O2 Saturation 100 99 02/06/23 02/06/23 02/06/23 20:30 21:00 21:30 Temperature 36.8 C 36.8 C 36.8 C Heart Rate Heart Rate [ 102 H 74 73 Monitoring electrodes] Respiratory 17 22 20 Rate Blood Pressure Blood Pressure 104/57 L 92/54 L 95/56 L [Right Brachial artery] O2 Saturation 94 98 99 02/06/23 02/06/23 02/06/23 22:00 22:30 22:39 Temperature 36.8 C 36.8 C Heart Rate Heart Rate [ 73 80 74 Monitoring electrodes] Respiratory 20 20 Rate Blood Pressure Blood Pressure 91/56 L 80/52 L 84/57 L [Right Brachial artery] O2 Saturation 99 98 02/06/23 02/06/23 02/06/23 22:48 23:00 23:30 Temperature 36.6 C 36.5 C Heart Rate Heart Rate [ 81 99 99 Monitoring electrodes] Respiratory 20 19 Rate Blood Pressure Blood Pressure 96/55 L 101/52 L 104/53 L [Right Brachial artery] O2 Saturation 97 98 02/07/23 02/07/23 02/07/23 00:00 00:10 00:15 Temperature 36.5 C Heart Rate Heart Rate [ 101 H 74 Monitoring electrodes] Respiratory 16 Rate Blood Pressure 102/54 L Blood Pressure 100/55 L 96/57 L [Right Brachial artery] O2 Saturation 100 02/07/23 02/07/23 02/07/23 00:22 00:30 01:00 Temperature 36.4 C L 36.4 C L Heart Rate Heart Rate [ 74 81 77 Monitoring electrodes] Respiratory 19 18 Rate Blood Pressure Blood Pressure 92/56 L 95/58 L 104/59 L [Right Brachial artery] O2 Saturation 97 97 02/07/23 02/07/23 02/07/23 01:30 02:00 02:30 Temperature 36.3 C L 36.3 C L 36.4 C L Heart Rate Heart Rate [ 100 76 101 H Monitoring electrodes] Respiratory 20 19 20 Rate Blood Pressure Blood Pressure 112/57 L 107/56 L 125/53 L [Right Brachial artery] O2 Saturation 98 99 98 02/07/23 02/07/23 02/07/23 02:45 03:00 03:30 Temperature 36.3 C L 36.3 C L Heart Rate Heart Rate [ 102 H 92 Monitoring electrodes] Respiratory 14 20 Rate Blood Pressure Blood Pressure 99/53 L 97/55 L 90/57 L [Right Brachial artery] O2 Saturation 100 99 02/07/23 02/07/23 02/07/23 04:00 04:30 05:00 Temperature 36.4 C L 36.4 C L 36.4 C L Heart Rate Heart Rate [ 77 84 89 Monitoring electrodes] Respiratory 19 19 17 Rate Blood Pressure Blood Pressure 92/58 L 96/56 L 112/57 L [Right Brachial artery] O2 Saturation 100 100 100 02/07/23 02/07/23 02/07/23 05:30 06:00 06:15 Temperature 36.4 C L 36.4 C L 36.3 C L Heart Rate Heart Rate [ 84 81 104 H Monitoring electrodes] Respiratory 18 18 17 Rate Blood Pressure Blood Pressure 96/53 L 85/54 L 105/58 L [Right Brachial artery] O2 Saturation 100 96 99 02/07/23 02/07/23 02/07/23 06:28 06:30 06:35 Temperature 36.4 C L Heart Rate Heart Rate [ 101 H 87 Monitoring electrodes] Respiratory 19 Rate Blood Pressure 105/58 L Blood Pressure 79/51 L 71/48 L [Right Brachial artery] O2 Saturation 100 02/07/23 02/07/23 02/07/23 06:40 06:45 06:55 Temperature 36.4 C L Heart Rate Heart Rate [ 94 99 99 Monitoring electrodes] Respiratory 17 Rate Blood Pressure Blood Pressure 91/72 109/65 111/58 L [Right Brachial artery] O2 Saturation 99 02/07/23 02/07/23 02/07/23 07:00 07:11 07:30 Temperature 36.4 C L Heart Rate Heart Rate [ 99 100 Monitoring electrodes] Respiratory 20 Rate Blood Pressure Blood Pressure 112/60 106/58 L 99/56 L [Right Brachial artery] O2 Saturation 96 02/07/23 02/07/23 02/07/23 08:00 08:30 09:00 Temperature 36.4 C L 36.4 C L Heart Rate Heart Rate [ 102 H 116 H 114 H Monitoring electrodes] Respiratory 18 22 19 Rate Blood Pressure Blood Pressure 99/71 98/64 96/58 L [Right Brachial artery] O2 Saturation 99 100 99 02/07/23 02/07/23 02/07/23 09:30 09:55 10:02 Temperature 36.6 C Heart Rate Heart Rate [ 157 H 128 H Monitoring electrodes] Respiratory 27 H 18 Rate Blood Pressure 93/75 Blood Pressure 86/60 L 100/81 H [Right Brachial artery] O2 Saturation 99 100 02/07/23 02/07/23 02/07/23 10:08 10:30 10:45 Temperature 36.7 C Heart Rate Heart Rate [ 128 H 137 H Monitoring electrodes] Respiratory 18 Rate Blood Pressure 100/81 H Blood Pressure 88/69 L 88/69 L [Right Brachial artery] O2 Saturation 99 02/07/23 02/07/23 02/07/23 11:05 11:30 11:45 Temperature 36.9 C Heart Rate Heart Rate [ 131 H 140 H 133 H Monitoring electrodes] Respiratory 28 H 18 Rate Blood Pressure Blood Pressure 105/68 85/61 L 100/65 [Right Brachial artery] O2 Saturation 100 100 02/07/23 02/07/23 02/07/23 11:46 11:50 11:58 Temperature 37.0 C Heart Rate Heart Rate [ 120 H 119 H Monitoring electrodes] Respiratory 25 H Rate Blood Pressure 100/65 Blood Pressure 109/94 H 77/55 L [Right Brachial artery] O2 Saturation 98 02/07/23 02/07/23 02/07/23 12:00 12:17 12:30 Temperature 37.0 C 37.1 C Heart Rate Heart Rate [ 134 H 137 H 137 H Monitoring electrodes] Respiratory 22 22 Rate Blood Pressure Blood Pressure 135/98 H 107/78 83/58 L [Right Brachial artery] O2 Saturation 97 98 02/07/23 02/07/23 02/07/23 13:00 13:30 13:33 Temperature 37.2 C 37.2 C Heart Rate 151 H Heart Rate [ 150 H 151 H Monitoring electrodes] Respiratory 27 H 27 H Rate Blood Pressure Blood Pressure 89/69 L 99/73 [Right Brachial artery] O2 Saturation 100 98 02/07/23 02/07/23 02/07/23 14:00 15:00 15:30 Temperature Heart Rate Heart Rate [ 137 H 135 H 149 H Monitoring electrodes] Respiratory 27 H 21 22 Rate Blood Pressure Blood Pressure 100/67 82/40 L 90/67 [Right Brachial artery] O2 Saturation 98 99 98 02/07/23 02/07/23 02/07/23 16:00 16:30 17:00 Temperature 37.1 C 37.2 C Heart Rate Heart Rate [ 149 H 151 H 152 H Monitoring electrodes] Respiratory 20 23 24 Rate Blood Pressure Blood Pressure 104/76 96/69 81/67 L [Right Brachial artery] O2 Saturation 100 98 99 02/07/23 02/07/23 02/07/23 17:30 18:00 18:14 Temperature 37.2 C 37.2 C Heart Rate 151 H Heart Rate [ 152 H 98 Monitoring electrodes] Respiratory 21 25 H Rate Blood Pressure Blood Pressure 96/68 116/69 [Right Brachial artery] O2 Saturation 100 98 02/07/23 02/07/23 02/07/23 18:16 18:25 18:30 Temperature Heart Rate Heart Rate [ 99 98 Monitoring electrodes] Respiratory Rate Blood Pressure 104/74 Blood Pressure 116/69 117/74 [Right Brachial artery] O2 Saturation 02/07/23 02/07/23 18:35 18:45 Temperature Heart Rate Heart Rate [ 98 98 Monitoring electrodes] Respiratory Rate Blood Pressure Blood Pressure 116/69 113/69 [Right Brachial artery] O2 Saturation Oxygen O2 Source Room air I&O (Last 24 Hrs): Intake and Output Totals x24h 02/05/23 02/06/23 02/07/23 23:59 23:59 23:59 Intake Total 3218.167 3662.427 Output Total 247 597 Balance 2971.167 3065.427 General: Alert, No acute distress, Other (congnitive impairment) HEENT: Atraumatic, PERRLA, EOMI Neck: Supple Neuro: Alert, Non Focal, CN 2-12 Grossly Intact Cardiovascular: Other (irregular rate rhythm, RVR) Respiratory: Chest non-tender, No respiratory distress Abdomen: Soft, No tenderness Extremities: No edema, Normal pulses - Results Results: Laboratory Results WBC 28.2 x10^3/uL (4.8-10.8) H 02/07/23 04:00 RBC 3.22 10^6/uL (4.20-5.40) L 02/07/23 04:00 Hgb 11.2 g/dL (12.0-16.0) L 02/07/23 04:00 Hct 34.2 % (37.0-47.0) L 02/07/23 04:00 MCV 106.2 fL (81.0-99.0) H 02/07/23 04:00 MCH 34.8 pg (27.0-31.0) H 02/07/23 04:00 MCHC 32.7 g/dL (32.0-36.0) 02/07/23 04:00 RDW 13.8 % (12.0-15.0) 02/07/23 04:00 Plt Count 208 10^3/uL (130-450) 02/07/23 04:00 MPV 11.0 fL (7.9-10.8) H 02/07/23 04:00 Neut # (Auto) Not Reportable 02/07/23 04:00 Lymph # (Auto) Not Reportable 02/07/23 04:00 [place] # (Auto) Not Reportable 02/07/23 04:00 Eos # (Auto) Not Reportable 02/07/23 04:00 Baso # (Auto) Not Reportable 02/07/23 04:00 Absolute Nucleated RBC Not Reportable 02/07/23 04:00 Total Counted 100 02/07/23 04:00 Band Neuts % (Manual) 1 % (0-10) 02/07/23 04:00 Abnorm Lymph % (Manual) 0 % 02/07/23 04:00 Nucleated RBC % Not Reportable 02/07/23 04:00 Neutrophils # (Manual) 24.3 10^3/uL (1.5-6.6) H 02/07/23 04:00 Lymphocytes # (Manual) 1.4 10^3/uL (1.5-3.5) L 02/07/23 04:00 Monocytes # (Manual) 2.5 10^3/uL (0.0-1.0) H 02/07/23 04:00 Eosinophils # (Manual) 0.0 10^3/uL (0-0.7) 02/07/23 04:00 Basophils # (Manual) 0.0 10^3/uL (0-0.1) 02/07/23 04:00 Differential Comment MANUAL DIFFERENTIAL 02/07/23 04:00 Manual Slide Review Indicated 02/06/23 08:24 Platelet Estimate NORMAL (130-450,000) (NORMAL) 02/07/23 04:00 RBC Morph Micro Appear NORMAL APPEARANCE (NORMAL) 02/07/23 04:00 VBG pH 7.351 (7.31-7.41) 02/07/23 04:00 Ionized Calcium 1.14 mmol/L (1.15-1.33) L 02/07/23 04:00 Sodium 135 mmol/L (135-145) 02/07/23 04:00 Potassium 4.0 mmol/L (3.5-4.5) 02/07/23 11:30 Chloride 104 mmol/L (101-111) 02/07/23 04:00 Carbon Dioxide 25 mmol/L (21-32) 02/07/23 04:00 Anion Gap 6.0 (6-13) 02/07/23 04:00 BUN 50 mg/dL (6-20) H 02/07/23 04:00 Creatinine 1.2 mg/dL (0.6-1.3) 02/07/23 04:00 Estimated GFR (MDRD) 42 (>89) L 02/07/23 04:00 Glucose 137 mg/dL (74-104) H 02/07/23 04:00 POC Whole Bld Glucose 124 mg/dL (70 - 100) H 02/06/23 08:09 Lactic Acid 1.1 mmol/L (0.5-2.2) 02/06/23 19:18 Calcium 8.3 mg/dL (8.5-10.3) L 02/07/23 04:00 Phosphorus 3.8 mg/dL (2.5-5.0) 02/07/23 04:00 Magnesium 1.9 mg/dL (1.7-2.3) 02/07/23 04:00 Total Bilirubin 1.0 mg/dL (0.2-1.0) 02/06/23 08:24 AST 12 IU/L (10-42) 02/06/23 08:24 ALT 9 IU/L (10-60) L 02/06/23 08:24 Alkaline Phosphatase 71 IU/L (42-121) 02/06/23 08:24 Total Protein 6.4 g/dL (6.4-8.9) 02/06/23 08:24 Albumin 3.3 g/dL (3.2-5.5) 02/06/23 08:24 Globulin 3.1 g/dL (2.1-4.2) 02/06/23 08:24 Albumin/Globulin Ratio 1.1 (1.0-2.2) 02/06/23 08:24 Lipase 20 U/L (11-82) 02/06/23 08:24 Urine Color YELLOW 02/06/23 08:45 Urine Clarity CLOUDY (CLEAR) 02/06/23 08:45 Urine pH 8.0 PH (5.0-7.5) H 02/06/23 08:45 Ur Specific [place] 1.025 (1.002-1.030) 02/06/23 08:45 Urine Protein >=300 mg/dL (NEGATIVE) H 02/06/23 08:45 Urine Glucose (UA) NEGATIVE mg/dL (NEGATIVE) 02/06/23 08:45 Urine Ketones NEGATIVE mg/dL (NEGATIVE) 02/06/23 08:45 Urine Occult Blood MODERATE (NEGATIVE) H 02/06/23 08:45 Urine Nitrite NEGATIVE (NEGATIVE) 02/06/23 08:45 Urine Bilirubin NEGATIVE (NEGATIVE) 02/06/23 08:45 Urine Urobilinogen 0.2 (NORMAL) E.U./dL (NORMAL) 02/06/23 08:45 Ur Leukocyte Esterase MODERATE (NEGATIVE) H 02/06/23 08:45 Urine RBC 6-10 /HPF (0-5) H 02/06/23 08:45 Urine WBC >25 /HPF (0-5) H 02/06/23 08:45 Ur Squamous Epith Cells FEW Squamous (<= Few) 02/06/23 08:45 Urine Bacteria Many /HPF (None Seen) H 02/06/23 08:45 Ur Microscopic Review INDICATED 02/06/23 08:45 Urine Culture Comments INDICATED 02/06/23 08:45 Nasal Adenovirus (PCR) NOT DETECTED 02/06/23 08:40 Nasal B. parapertussis DNA (PCR) NOT DETECTED 02/06/23 08:40 Nasal Coronavir 229E PCR NOT DETECTED 02/06/23 08:40 Nasal Coronavir HKU1 PCR NOT DETECTED 02/06/23 08:40 Nasal Coronavir NL63 PCR NOT DETECTED 02/06/23 08:40 Nasal Coronavir OC43 PCR NOT DETECTED 02/06/23 08:40 Nasal Enterovir/Rhinovir PCR NOT DETECTED 02/06/23 08:40 Nasal Influenza B PCR NOT DETECTED 02/06/23 08:40 Nasal Influenza A PCR NOT DETECTED 02/06/23 08:40 Nasal Parainfluen 1 PCR NOT DETECTED 02/06/23 08:40 Nasal Parainfluen 2 PCR NOT DETECTED 02/06/23 08:40 Nasal Parainfluen 3 PCR NOT DETECTED 02/06/23 08:40 Nasal Parainfluen 4 PCR NOT DETECTED 02/06/23 08:40 Nasal RSV (PCR) NOT DETECTED 02/06/23 08:40 Nasal Screen MRSA (PCR) NEGATIVE (NEGATIVE) 02/06/23 12:01 Nasal B.pertussis DNA PCR NOT DETECTED 02/06/23 08:40 Nasal C.pneumoniae (PCR) NOT DETECTED 02/06/23 08:40 Emil Human Metapneumo PCR NOT DETECTED 02/06/23 08:40 Nasal M.pneumoniae (PCR) NOT DETECTED 02/06/23 08:40 Nasal SARS-CoV-2 (PCR) NOT DETECTED 02/06/23 08:40 Sepsis Event Note (H) - Evaluation Current Stage of Sepsis: Septic shock Possible source of Sepsis: positive: Genitourinary - Sepsis Criteria Sepsis Criteria: Recorded Temperature greater than 38.3C or Less than 36C, Recorded Heart Rate greater than 90 bpm, WBC count greater than 10% bands, WBC count greater than 12,000 or less than 4000, 3RD PRESSMAN: altered consciousness (unrelated to primary neuro pathology), SBP drop more than 40mHg, MAP less than 65 mmHg, Metabolic: lactate > 2 mmol/L ABX Reporting Has patient been on IV antibiotics over the past 48 hours?: Yes Current Medications - Current Medications Current Medications: Active Medications Generic Name Dose Route Start Last Admin Trade Name Freq PRN Reason Stop Dose Admin Acetaminophen 650 mg 02/06/23 11:00 02/07/23 06:21 Acetaminophen 325 Mg Tablet PO 650 mg Q4HR PRN Administration Pain 1 to 4, or Fever Digoxin 250 mcg 02/07/23 18:00 02/07/23 18:14 Digoxin 500 Mcg/2 Ml Amp IVP 02/08/23 06:01 250 mcg Q6H JAKE Administration Enoxaparin Sodium 30 mg 02/07/23 09:00 02/07/23 08:05 Enoxaparin 30 Mg/0.3 Ml Syringe SUBQ 30 mg DAILY JAKE Administration Norepinephrine Bitartrate 8 mg in 250 mls @ 15 mls/hr 02/06/23 11:00 02/07/23 18:33 Levophed 8 Mg/250 Ml D5w IV 8 mcg/min .[id number] JAKE 15 mls/hr Titration Protocol 8 MCG/MIN Sodium Chloride 1,000 mls @ 100 mls/hr 02/06/23 11:00 02/07/23 16:16 Normal Saline 0.9% IV 100 mls/hr .Q10H JAKE Administration Ceftriaxone Sodium 1 gm/ 100 mls @ 200 mls/hr 02/07/23 09:00 02/07/23 08:41 Sodium Chloride IV 02/13/23 09:29 Infused DAILY JAKE Infusion Diltiazem HCl 125 mg/ Dextrose 125 mls @ 5 mls/hr 02/06/23 17:00 02/07/23 15:39 IV Infused .Q25H JAKE Titration Protocol 5 MG/HR Metoprolol Tartrate 50 mg 02/06/23 21:00 02/07/23 10:08 Metoprolol Tartrate 50 Mg Tablet PO 50 mg BID JAKE Administration Metoprolol Tartrate 5 mg 02/06/23 19:00 02/07/23 18:16 Metoprolol 5 Mg/5 Ml Vial IVP 5 mg Q6HR JAKE Administration Mineral Oil 1 applic 02/07/23 14:00 Min Oil/Dimethicon/Coconut Oil 92 Gm Tube TOP PRN PRN Skin Care Morphine Sulfate 2 mg 02/06/23 11:00 Morphine 2 Mg/Ml Carpuject IVP Q2HR PRN Pain 8 to 10 Ondansetron HCl 4 mg 02/06/23 11:00 Ondansetron Odt 4 Mg Tablet TL Q6HR PRN Nausea / Vomiting Ondansetron HCl 4 mg 02/06/23 11:00 Ondansetron 4 Mg/2 Ml Vial IVP Q6HR PRN Nausea / Vomiting Oxycodone HCl 5 mg 02/06/23 11:00 Oxycodone 5 Mg Tablet PO Q4HR PRN Pain 5 to 7 Sodium Chloride 10 ml 02/06/23 17:00 02/07/23 18:11 Sodium Chloride Flush 0.9% 10 Ml Syringe IVP 10 ml 0100,0900,1700 JAKE Administration Sodium Chloride 10 ml 02/06/23 11:00 Sodium Chloride Flush 0.9% 10 Ml Syringe IVP PRN PRN NEEDED PER PROVIDER ORDERS Acetaminophen [Tylenol] 650 mg PO Q8HR PRN 02/06/23 Bisacodyl Supp [Dulcolax Supp] 10 mg [place] DAILY PRN 02/06/23 Diclofenac Sodium 1% Gel [Voltaren Gel] 1 applic TOP BID PRN 02/06/23 Metoprolol Succinate [Toprol Xl] 12.5 mg PO DAILY 02/06/23 Mineral Oil [Mineral Oil Enema] 1 ea RC PRN PRN 02/06/23 Senna [Senokot] 17.2 mg PO DAILY PRN 02/06/23 guaiFENesin [Chest Congestion Relief] 400 mg PO Q6HR PRN 02/06/23 polyethylene glycoL 3350 [Miralax] 17 gm PO DAILY PRN 02/06/23
[2023-02-07] MEDS: MORPHINE 2 MG/ML CARPUJECT IVP PRN (23:46)
[2023-02-08] MEDS: SODIUM CHLORIDE 0.9% 1,000 ML IV SCH (01:56)
[2023-02-08 05:24] LABS: BASOPHILS # (AUTO) 0.1 10^3/uL (0.0-0.1); BASOPHILS % (AUTO) 0.4 %; EOSINOPHILS # (AUTO) 0.3 10^3/uL (0.0-0.7); EOSINOPHILS % (AUTO) 1.7 %; HCT - HEMATOCRIT 32.9 % (37.0-47.0); HGB - HEMOGLOBIN 11.1 g/dL (12.0-16.0); LYMPHOCYTES # (AUTO) 1.2 10^3/uL (1.5-3.5); LYMPHOCYTES % (AUTO) 6.6 %; MEAN CORPUSCULAR HEMOGLOBIN 35.8 pg (27.0-31.0); MEAN CORPUSCULAR HGB CONC 33.7 g/dL (32.0-36.0); MEAN CORPUSCULAR VOLUME 106.1 fL (81.0-99.0); MEAN PLATELET VOLUME 11.2 fL (7.9-10.8); MONOCYTES # (AUTO) 1.4 10^3/uL (0.0-1.0); MONOCYTES % (AUTO) 7.4 %; NEUTROPHILS # (AUTO) 15.6 10^3/uL (1.5-6.6); NEUTROPHILS % (AUTO) 82.8 %; PLT - PLATELET COUNT 196 10^3/uL (130-450); RED CELL DISTRIBUTION WIDTH 14.1 % (12.0-15.0); WHITE BLOOD COUNT 18.8 x10^3/uL (4.8-10.8)
[2023-02-08 05:30] LABS: CALCIUM, IONIZED 1.15 mmol/L (1.15-1.33); VBG PH 7.366 (7.31-7.41)
[2023-02-08 05:38] LABS: CALCIUM 8.2 mg/dL (8.5-10.3); CREATININE 0.8 mg/dL (0.6-1.3); MAGNESIUM 1.7 mg/dL (1.7-2.3); POTASSIUM 3.8 mmol/L (3.5-4.5)
[2023-02-08] MEDS: NOREPINEPHRINE/D5W 8 MG/250 ML BAG IV SCH (06:24)
[2023-02-08] MEDS: SODIUM CHLORIDE FLUSH 0.9% 10 ML SYRINGE IVP SCH ×3 (06:25→17:22)
[2023-02-08] MEDS: DIGOXIN 500 MCG/2 ML AMP IVP SCH (06:34)
[2023-02-08] MEDS: METOPROLOL 5 MG/5 ML VIAL IVP SCH (06:35)
[2023-02-08] MEDS: SODIUM CHLORIDE FLUSH 0.9% 10 ML SYRINGE IVP PRN (06:35)
--- NOTE | 2023-02-08 07:37 | PROVIDER PROGRESS NOTE ---
Assessment/Plan - Problem List (1) Septic shock Assessment/Plan: Shock status resolved, weaned off Levophed yesterday, continue improving, Continue IV ceftriaxone [facility] (2) Atrial fibrillation with RVR Assessment/Plan: Rate controlled after digoxin loading, continue give digoxin 125 mcg daily, continue with metoprolol, continue telemetry for 24 hours (3) E. coli UTI Assessment/Plan: Improved leukocytosis, improved overall condition, continue IV ceftriaxone. Follow-up with CBC - Current Meds Current Meds: Current Medications Generic Name Dose Route Start Last Admin Trade Name Freq PRN Reason Stop Dose Admin Acetaminophen 650 mg 02/06/23 11:00 02/07/23 06:21 Acetaminophen 325 Mg Tablet PO 650 mg Q4HR PRN Administration Pain 1 to 4, or Fever Enoxaparin Sodium 30 mg 02/07/23 09:00 02/07/23 08:05 Enoxaparin 30 Mg/0.3 Ml Syringe SUBQ 30 mg DAILY JAKE Administration Norepinephrine Bitartrate 8 mg in 250 mls @ 15 mls/hr 02/06/23 11:00 02/08/23 06:32 Levophed 8 Mg/250 Ml D5w IV 5 mcg/min .[id number] JAKE 9.375 mls/hr Titration Protocol 8 MCG/MIN Sodium Chloride 1,000 mls @ 100 mls/hr 02/06/23 11:00 02/08/23 01:56 Normal Saline 0.9% IV 100 mls/hr .Q10H JAKE Administration Ceftriaxone Sodium 1 gm/ 100 mls @ 200 mls/hr 02/07/23 09:00 02/07/23 08:41 Sodium Chloride IV 02/13/23 09:29 Infused DAILY JAKE Infusion Diltiazem HCl 125 mg/ Dextrose 125 mls @ 5 mls/hr 02/06/23 17:00 02/08/23 00:25 IV 0 mg/hr .Q25H JAKE 0 mls/hr Titration Protocol 5 MG/HR Metoprolol Tartrate 50 mg 02/06/23 21:00 02/07/23 20:00 Metoprolol Tartrate 50 Mg Tablet PO 50 mg BID JAKE Administration Metoprolol Tartrate 5 mg 02/06/23 19:00 02/08/23 06:35 Metoprolol 5 Mg/5 Ml Vial IVP 5 mg Q6HR JAKE Administration Morphine Sulfate 2 mg 02/06/23 11:00 02/07/23 23:46 Morphine 2 Mg/Ml Carpuject IVP 2 mg Q2HR PRN Administration Pain 8 to 10 Sodium Chloride 10 ml 02/06/23 17:00 02/08/23 06:25 Sodium Chloride Flush 0.9% 10 Ml Syringe IVP 10 ml 0100,0900,1700 JAKE Administration Sodium Chloride 10 ml 02/06/23 11:00 02/08/23 06:35 Sodium Chloride Flush 0.9% 10 Ml Syringe IVP 10 ml PRN PRN Administration NEEDED PER PROVIDER ORDERS - Lab Result Fish Bone Diagrams: 02/08/23 04:23 02/08/23 13:47 - Additional Planning Condition/Complexity: Improved My Orders: My Active Orders 02/07/23 14:00 Min Oil/Dimeth/Coconut Oil Crm [Cavilon] 1 applic TOP PRN PRN Plan Discussed with:: Patient Time Spent: 31-60 minutes Subjective - Subjective Patient Reports: Feeling Better (Patient reports he feels better, feels normal herself, denies any discomfort. Reports on baseline she is using brief for her urinary incontinent. She understand that [place] need to be removed, she need to be trialed on voiding) Objective Vital Signs: Vital Signs - 24 hr 02/07/23 02/07/23 02/07/23 08:00 08:30 09:00 Temperature 36.4 C L 36.4 C L Heart Rate Heart Rate [ 102 H 116 H 114 H Monitoring electrodes] Respiratory 18 22 19 Rate Blood Pressure Blood Pressure 99/71 98/64 96/58 L [Right Brachial artery] O2 Saturation 99 100 99 02/07/23 02/07/23 02/07/23 09:30 09:55 10:02 Temperature 36.6 C Heart Rate Heart Rate [ 157 H 128 H Monitoring electrodes] Respiratory 27 H 18 Rate Blood Pressure 93/75 Blood Pressure 86/60 L 100/81 H [Right Brachial artery] O2 Saturation 99 100 02/07/23 02/07/23 02/07/23 10:08 10:30 10:45 Temperature 36.7 C Heart Rate Heart Rate [ 128 H 137 H Monitoring electrodes] Respiratory 18 Rate Blood Pressure 100/81 H Blood Pressure 88/69 L 88/69 L [Right Brachial artery] O2 Saturation 99 02/07/23 02/07/23 02/07/23 11:05 11:30 11:45 Temperature 36.9 C Heart Rate Heart Rate [ 131 H 140 H 133 H Monitoring electrodes] Respiratory 28 H 18 Rate Blood Pressure Blood Pressure 105/68 85/61 L 100/65 [Right Brachial artery] O2 Saturation 100 100 02/07/23 02/07/23 02/07/23 11:46 11:50 11:58 Temperature 37.0 C Heart Rate Heart Rate [ 120 H 119 H Monitoring electrodes] Respiratory 25 H Rate Blood Pressure 100/65 Blood Pressure 109/94 H 77/55 L [Right Brachial artery] O2 Saturation 98 02/07/23 02/07/23 02/07/23 12:00 12:17 12:30 Temperature 37.0 C 37.1 C Heart Rate Heart Rate [ 134 H 137 H 137 H Monitoring electrodes] Respiratory 22 22 Rate Blood Pressure Blood Pressure 135/98 H 107/78 83/58 L [Right Brachial artery] O2 Saturation 97 98 02/07/23 02/07/23 02/07/23 13:00 13:30 13:33 Temperature 37.2 C 37.2 C Heart Rate 151 H Heart Rate [ 150 H 151 H Monitoring electrodes] Respiratory 27 H 27 H Rate Blood Pressure Blood Pressure 89/69 L 99/73 [Right Brachial artery] O2 Saturation 100 98 02/07/23 02/07/23 02/07/23 14:00 15:00 15:30 Temperature Heart Rate Heart Rate [ 137 H 135 H 149 H Monitoring electrodes] Respiratory 27 H 21 22 Rate Blood Pressure Blood Pressure 100/67 82/40 L 90/67 [Right Brachial artery] O2 Saturation 98 99 98 02/07/23 02/07/23 02/07/23 16:00 16:30 17:00 Temperature 37.1 C 37.2 C Heart Rate Heart Rate [ 149 H 151 H 152 H Monitoring electrodes] Respiratory 20 23 24 Rate Blood Pressure Blood Pressure 104/76 96/69 81/67 L [Right Brachial artery] O2 Saturation 100 98 99 02/07/23 02/07/23 02/07/23 17:30 18:00 18:14 Temperature 37.2 C 37.2 C Heart Rate 151 H Heart Rate [ 152 H 98 Monitoring electrodes] Respiratory 21 25 H Rate Blood Pressure Blood Pressure 96/68 116/69 [Right Brachial artery] O2 Saturation 100 98 02/07/23 02/07/23 02/07/23 18:16 18:25 18:30 Temperature Heart Rate Heart Rate [ 99 98 Monitoring electrodes] Respiratory Rate Blood Pressure 104/74 Blood Pressure 116/69 117/74 [Right Brachial artery] O2 Saturation 02/07/23 02/07/23 02/07/23 18:35 18:45 19:00 Temperature 37.1 C Heart Rate Heart Rate [ 98 98 99 Monitoring electrodes] Respiratory 21 Rate Blood Pressure Blood Pressure 116/69 113/69 106/75 [Right Brachial artery] O2 Saturation 98 02/07/23 02/07/23 02/07/23 19:30 20:00 20:30 Temperature 37.1 C 37.0 C 37.0 C Heart Rate Heart Rate [ 127 H 148 H 147 H Monitoring electrodes] Respiratory 23 24 23 Rate Blood Pressure 110/76 Blood Pressure 110/76 103/64 120/95 H [Right Brachial artery] O2 Saturation 98 98 99 02/07/23 02/07/23 02/07/23 21:00 21:30 22:00 Temperature 37.0 C 36.9 C 36.9 C Heart Rate Heart Rate [ 148 H 148 H 74 Monitoring electrodes] Respiratory 25 H 19 20 Rate Blood Pressure Blood Pressure 107/81 H 100/84 H 104/77 [Right Brachial artery] O2 Saturation 99 98 98 02/07/23 02/07/23 02/07/23 22:30 23:00 23:30 Temperature 36.9 C 36.9 C 36.9 C Heart Rate Heart Rate [ 128 H 99 100 Monitoring electrodes] Respiratory 16 19 20 Rate Blood Pressure Blood Pressure 126/107 H 104/49 L 117/49 L [Right Brachial artery] O2 Saturation 96 99 99 02/07/23 02/08/23 02/08/23 23:45 00:00 00:30 Temperature 36.9 C 36.9 C Heart Rate 78 Heart Rate [ 72 53 L Monitoring electrodes] Respiratory 18 18 Rate Blood Pressure 117/49 L Blood Pressure 109/54 L 104/48 L [Right Brachial artery] O2 Saturation 99 99 02/08/23 02/08/23 02/08/23 01:00 01:30 02:00 Temperature 36.9 C 36.9 C 36.9 C Heart Rate Heart Rate [ 72 71 64 Monitoring electrodes] Respiratory 19 17 18 Rate Blood Pressure Blood Pressure 118/63 120/67 122/54 L [Right Brachial artery] O2 Saturation 99 95 97 02/08/23 02/08/23 02/08/23 02:30 03:00 03:30 Temperature 36.9 C 36.9 C 36.9 C Heart Rate Heart Rate [ 71 85 83 Monitoring electrodes] Respiratory 18 18 17 Rate Blood Pressure Blood Pressure 132/81 H 136/93 H 122/60 [Right Brachial artery] O2 Saturation 99 96 95 02/08/23 02/08/23 02/08/23 04:00 04:30 05:00 Temperature 36.9 C 36.9 C 36.9 C Heart Rate Heart Rate [ 91 72 73 Monitoring electrodes] Respiratory 21 17 18 Rate Blood Pressure Blood Pressure 94/72 121/74 144/62 H [Right Brachial artery] O2 Saturation 97 96 97 02/08/23 02/08/23 02/08/23 05:30 06:00 06:30 Temperature 36.9 C 36.9 C Heart Rate Heart Rate [ 72 97 125 H Monitoring electrodes] Respiratory 14 20 16 Rate Blood Pressure Blood Pressure 153/60 H 152/65 H 122/74 [Right Brachial artery] O2 Saturation 100 96 96 02/08/23 02/08/23 02/08/23 06:34 06:35 07:00 Temperature 36.9 C Heart Rate 125 H Heart Rate [ 88 Monitoring electrodes] Respiratory 12 Rate Blood Pressure 122/74 Blood Pressure 138/49 H [Right Brachial artery] O2 Saturation 100 Oxygen O2 Source Room air I&O (Last 24 Hrs): Intake and Output Totals x24h 02/06/23 02/07/23 02/08/23 23:59 23:59 23:59 Intake Total 3218.167 3734.427 1098.480 Output Total 247 822 768 Balance 2971.167 2912.427 330.480 General: Alert, Oriented x3 (Patient is able to recognize all the providers, remembers the names) HEENT: PERRLA, EOMI Neck: Supple Neuro: Alert, Non Focal, CN 2-12 Grossly Intact Cardiovascular: Regular rate Respiratory: No respiratory distress, Breath sounds nml Abdomen: Normal bowel sounds Extremities: No clubbing, No edema, No tenderness/swelling - Results Results: Laboratory Results WBC 18.8 x10^3/uL (4.8-10.8) H 02/08/23 04:23 RBC 3.10 10^6/uL (4.20-5.40) L 02/08/23 04:23 Hgb 11.1 g/dL (12.0-16.0) L 02/08/23 04:23 Hct 32.9 % (37.0-47.0) L 02/08/23 04:23 MCV 106.1 fL (81.0-99.0) H 02/08/23 04:23 MCH 35.8 pg (27.0-31.0) H 02/08/23 04:23 MCHC 33.7 g/dL (32.0-36.0) 02/08/23 04: RDW 14.1 % (12.0-15.0) 02/08/23 04: Plt Count 196 10^3/uL (130-450) 02/08/23 04:23 MPV 11.2 fL (7.9-10.8) H 02/08/23 04:23 Neut # (Auto) 15.6 10^3/uL (1.5-6.6) H 02/08/23 04:23 Lymph # (Auto) 1.2 10^3/uL (1.5-3.5) L 02/08/23 04:23 [place] # (Auto) 1.4 10^3/uL (0.0-1.0) H 02/08/23 04:23 Eos # (Auto) 0.3 10^3/uL (0.0-0.7) 02/08/23 04: Baso # (Auto) 0.1 10^3/uL (0.0-0.1) 02/08/23 04:23 Absolute Nucleated RBC 0.00 x10^3/uL 02/08/23 04:23 Total Counted 100 02/07/23 04:00 Band Neuts % (Manual) 1 % (0-10) 02/07/23 04:00 Abnorm Lymph % (Manual) 0 % 02/07/23 04:00 Nucleated RBC % 0.0 /100WBC 02/08/23 04:23 Neutrophils # (Manual) 24.3 10^3/uL (1.5-6.6) H 02/07/23 04:00 Lymphocytes # (Manual) 1.4 10^3/uL (1.5-3.5) L 02/07/23 04:00 Monocytes # (Manual) 2.5 10^3/uL (0.0-1.0) H 02/07/23 04:00 Eosinophils # (Manual) 0.0 10^3/uL (0-0.7) 02/07/23 04:00 Basophils # (Manual) 0.0 10^3/uL (0-0.1) 02/07/23 04:00 Differential Comment MANUAL DIFFERENTIAL 02/07/23 04:00 Manual Slide Review Indicated 02/06/23 08:24 Platelet Estimate NORMAL (130-450,000) (NORMAL) 02/07/23 04:00 RBC Morph Micro Appear NORMAL APPEARANCE (NORMAL) 02/07/23 04:00 VBG pH 7.366 (7.31-7.41) 02/08/23 04:23 Ionized Calcium 1.15 mmol/L (1.15-1.33) 02/08/23 04:23 Sodium 136 mmol/L (135-145) 02/08/23 04:23 Potassium 3.8 mmol/L (3.5-4.5) 02/08/23 04:23 Chloride 108 mmol/L (101-111) 02/08/23 04:23 Carbon Dioxide 23 mmol/L (21-32) 02/08/23 04:23 Anion Gap 5.0 (6-13) L 02/08/23 04:23 BUN 33 mg/dL (6-20) H 02/08/23 04:23 Creatinine 0.8 mg/dL (0.6-1.3) 02/08/23 04:23 Estimated GFR (MDRD) 68 (>89) L 02/08/23 04:23 Glucose 117 mg/dL (74-104) H 02/08/23 04:23 POC Whole Bld Glucose 124 mg/dL (70 - 100) H 02/06/23 08:09 Lactic Acid 1.1 mmol/L (0.5-2.2) 02/06/23 19:18 Calcium 8.2 mg/dL (8.5-10.3) L 02/08/23 04:23 Phosphorus 3.8 mg/dL (2.5-5.0) 02/07/23 04:00 Magnesium 1.7 mg/dL (1.7-2.3) 02/08/23 04:23 Total Bilirubin 1.0 mg/dL (0.2-1.0) 02/06/23 08:24 AST 12 IU/L (10-42) 02/06/23 08:24 ALT 9 IU/L (10-60) L 02/06/23 08:24 Alkaline Phosphatase 71 IU/L (42-121) 02/06/23 08:24 Total Protein 6.4 g/dL (6.4-8.9) 02/06/23 08:24 Albumin 3.3 g/dL (3.2-5.5) 02/06/23 08:24 Globulin 3.1 g/dL (2.1-4.2) 02/06/23 08:24 Albumin/Globulin Ratio 1.1 (1.0-2.2) 02/06/23 08:24 Lipase 20 U/L (11-82) 02/06/23 08:24 Urine Color YELLOW 02/06/23 08:45 Urine Clarity CLOUDY (CLEAR) 02/06/23 08:45 Urine pH 8.0 PH (5.0-7.5) H 02/06/23 08:45 Ur Specific [place] 1.025 (1.002-1.030) 02/06/23 08:45 Urine Protein >=300 mg/dL (NEGATIVE) H 02/06/23 08:45 Urine Glucose (UA) NEGATIVE mg/dL (NEGATIVE) 02/06/23 08:45 Urine Ketones NEGATIVE mg/dL (NEGATIVE) 02/06/23 08:45 Urine Occult Blood MODERATE (NEGATIVE) H 02/06/23 08:45 Urine Nitrite NEGATIVE (NEGATIVE) 02/06/23 08:45 Urine Bilirubin NEGATIVE (NEGATIVE) 02/06/23 08:45 Urine Urobilinogen 0.2 (NORMAL) E.U./dL (NORMAL) 02/06/23 08:45 Ur Leukocyte Esterase MODERATE (NEGATIVE) H 02/06/23 08:45 Urine RBC 6-10 /HPF (0-5) H 02/06/23 08:45 Urine WBC >25 /HPF (0-5) H 02/06/23 08:45 Ur Squamous Epith Cells FEW Squamous (<= Few) 02/06/23 08:45 Urine Bacteria Many /HPF (None Seen) H 02/06/23 08:45 Ur Microscopic Review INDICATED 02/06/23 08:45 Urine Culture Comments INDICATED 02/06/23 08:45 Nasal Adenovirus (PCR) NOT DETECTED 02/06/23 08:40 Nasal B. parapertussis DNA (PCR) NOT DETECTED 02/06/23 08:40 Nasal Coronavir 229E PCR NOT DETECTED 02/06/23 08:40 Nasal Coronavir HKU1 PCR NOT DETECTED 02/06/23 08:40 Nasal Coronavir NL63 PCR NOT DETECTED 02/06/23 08:40 Nasal Coronavir OC43 PCR NOT DETECTED 02/06/23 08:40 Nasal Enterovir/Rhinovir PCR NOT DETECTED 02/06/23 08:40 Nasal Influenza B PCR NOT DETECTED 02/06/23 08:40 Nasal Influenza A PCR NOT DETECTED 02/06/23 08:40 Nasal Parainfluen 1 PCR NOT DETECTED 02/06/23 08:40 Nasal Parainfluen 2 PCR NOT DETECTED 02/06/23 08:40 Nasal Parainfluen 3 PCR NOT DETECTED 02/06/23 08:40 Nasal Parainfluen 4 PCR NOT DETECTED 02/06/23 08:40 Nasal RSV (PCR) NOT DETECTED 02/06/23 08:40 Nasal Screen MRSA (PCR) NEGATIVE (NEGATIVE) 02/06/23 12:01 Nasal B.pertussis DNA PCR NOT DETECTED 02/06/23 08:40 Nasal C.pneumoniae (PCR) NOT DETECTED 02/06/23 08:40 Emil Human Metapneumo PCR NOT DETECTED 02/06/23 08:40 Nasal M.pneumoniae (PCR) NOT DETECTED 02/06/23 08:40 Nasal SARS-CoV-2 (PCR) NOT DETECTED 02/06/23 08:40 Sepsis Event Note (H) - Evaluation Current Stage of Sepsis: Septic shock Possible source of Sepsis: positive: Genitourinary - Sepsis Criteria Sepsis Criteria: Recorded Temperature greater than 38.3C or Less than 36C, Recorded Heart Rate greater than 90 bpm, WBC count greater than 10% bands, WBC count greater than 12,000 or less than 4000, FILLER SHREDDER: altered consciousness (unrelated to primary neuro pathology), SBP drop more than 40mHg, MAP less than 65 mmHg, Metabolic: lactate > 2 mmol/L Current Medications - Current Medications Current Medications: Active Medications Acetaminophen (Acetaminophen 325 Mg Tablet) 650 mg PO Q4HR PRN PRN Reason: Pain 1 to 4, or Fever Last Admin: 02/07/23 06:21 Dose: 650 mg Digoxin (Digoxin 125 Mcg Tablet) 125 mcg PO DAILY [facility] Enoxaparin Sodium (Enoxaparin 30 Mg/0.3 Ml Syringe) 30 mg SUBQ DAILY [facility] Last Admin: 02/08/23 08:41 Dose: 30 mg Ceftriaxone Sodium 1 gm/ (Sodium Chloride) 100 mls @ 200 mls/hr IV DAILY [facility] Stop: 02/09/23 09:29 Last Infusion: 02/08/23 09:25 Dose: Infused Metoprolol Tartrate (Metoprolol Tartrate 50 Mg Tablet) 25 mg PO BID [facility] Mineral Oil (Min Oil/Dimethicon/Coconut Oil 92 Gm Tube) 1 applic TOP PRN PRN PRN Reason: Skin Care Morphine Sulfate (Morphine 2 Mg/Ml Carpuject) 2 mg IVP Q2HR PRN PRN Reason: Pain 8 to 10 Last Admin: 02/07/23 23:46 Dose: 2 mg Ondansetron HCl (Ondansetron Odt 4 Mg Tablet) 4 mg TL Q6HR PRN PRN Reason: Nausea / Vomiting Ondansetron HCl (Ondansetron 4 Mg/2 Ml Vial) 4 mg IVP Q6HR PRN PRN Reason: Nausea / Vomiting Oxycodone HCl (Oxycodone 5 Mg Tablet) 5 mg PO Q4HR PRN PRN Reason: Pain 5 to 7 Sodium Chloride (Sodium Chloride Flush 0.9% 10 Ml Syringe) 10 ml IVP 0100,0900,1700 [facility] Last Admin: 02/08/23 08:47 Dose: 10 ml Sodium Chloride (Sodium Chloride Flush 0.9% 10 Ml Syringe) 10 ml IVP PRN PRN PRN Reason: NEEDED PER PROVIDER ORDERS Last Admin: 02/08/23 06:35 Dose: 10 ml Acetaminophen [Tylenol] 650 mg PO Q8HR PRN 02/06/23 Bisacodyl Supp [Dulcolax Supp] 10 mg [place] DAILY PRN 02/06/23 Diclofenac Sodium 1% Gel [Voltaren Gel] 1 applic TOP BID PRN 02/06/23 Metoprolol Succinate [Toprol Xl] 12.5 mg PO DAILY 02/06/23 Mineral Oil [Mineral Oil Enema] 1 ea RC PRN PRN 02/06/23 Senna [Senokot] 17.2 mg PO DAILY PRN 02/06/23 guaiFENesin [Chest Congestion Relief] 400 mg PO Q6HR PRN 02/06/23 polyethylene glycoL 3350 [Miralax] 17 gm PO DAILY PRN 02/06/23
[2023-02-08] MEDS ORDERED: POTASSIUM CHLOR 20 MEQ/100 ML 20 MEQ/100 ML BAG IV ONE (08:00)
[2023-02-08] MEDS ORDERED: MAGNESIUM SULFATE 2 GRAM 2 GM/50 ML BAG IV ONE (08:00)
[2023-02-08] MEDS: ENOXAPARIN 30 MG/0.3 ML SYRINGE SUBQ SCH (08:41)
[2023-02-08] MEDS: cefTRIAXone 1 GM in SODIUM CHLORIDE 0.9% MINIBAG 100 ML IV SCH (08:44)
[2023-02-08] MEDS: METOPROLOL TARTRATE 50 MG TABLET PO SCH ×2 (08:44→21:43)
[2023-02-08 14:18] LABS: MAGNESIUM 2.1 mg/dL (1.7-2.3); POTASSIUM 4.1 mmol/L (3.5-4.5)
[2023-02-08] MEDS: MORPHINE 2 MG/ML CARPUJECT IVP PRN (22:01)
[2023-02-09 05:21] LABS: BASOPHILS # (AUTO) 0.1 10^3/uL (0.0-0.1); BASOPHILS % (AUTO) 0.7 %; EOSINOPHILS # (AUTO) 0.6 10^3/uL (0.0-0.7); EOSINOPHILS % (AUTO) 4.7 %; HGB - HEMOGLOBIN 10.1 g/dL (12.0-16.0); LYMPHOCYTES # (AUTO) 1.5 10^3/uL (1.5-3.5); LYMPHOCYTES % (AUTO) 11.2 %; MEAN CORPUSCULAR HEMOGLOBIN 33.8 pg (27.0-31.0); MEAN CORPUSCULAR HGB CONC 31.6 g/dL (32.0-36.0); MEAN PLATELET VOLUME 11.3 fL (7.9-10.8); MONOCYTES # (AUTO) 1.3 10^3/uL (0.0-1.0); MONOCYTES % (AUTO) 9.5 %; NEUTROPHILS % (AUTO) 72.7 %; PLT - PLATELET COUNT 191 10^3/uL (130-450); RED BLOOD COUNT 2.99 10^6/uL (4.20-5.40); RED CELL DISTRIBUTION WIDTH 13.9 % (12.0-15.0); WHITE BLOOD COUNT 13.7 x10^3/uL (4.8-10.8)
[2023-02-09 05:45] LABS: CALCIUM 8.2 mg/dL (8.5-10.3); CREATININE 0.7 mg/dL (0.6-1.3); MAGNESIUM 1.9 mg/dL (1.7-2.3); POTASSIUM 3.9 mmol/L (3.5-4.5)
[2023-02-09] MEDS: SODIUM CHLORIDE FLUSH 0.9% 10 ML SYRINGE IVP SCH ×4 (06:40→23:43)
--- NOTE | 2023-02-09 08:08 | PROVIDER PROGRESS NOTE ---
Assessment/Plan - Problem List (1) Ureteral stone Assessment/Plan: She had a left ureteral stent placed here by Urologist, Dr. Ridley Plan: We will request for a follow-up note from uUrology regarding management (2) Bacteremia Assessment/Plan: Bacteriuria on U/A, in the setting of a renal stone and shock, made it likely the source of infection was a UTI. The last hospitalist stated that it was E. coli UTI. I can find no identification of E. coli. In fact, the urine culture is growing polymicrobial organisms therefore probably contaminants. Of concern is that 2 of 2 blood cultures are growing gram-positive cocci and that bacteria has not yet been identified. She has improved considerably on empiric IV antibiotic ceftraxone Plan: Continue IV ceftraxone until blood and urine cx are all finalized Because of bacteremia, I will increase the ceftriaxone from 1 g daily to 2 g daily ID consult may be needed (3) Atrial fibrillation with RVR Assessment/Plan: RVR has RESOLVED after she was given digoxin loading. She was transitioned to oral Dig Plan: I will adjust her necessary meds for rate control No plan for anticoAgs due to several subdural bleeds (4) Chronic systolic CHF (congestive heart failure) Assessment/Plan: Her last adm 11/2021 LVEF by Echo was 30%. There has been no pulm edema Plan: Cont monitoring for sign of SOB, edema, volume status strict I&O weight daily (5) Bedbound Assessment/Plan: As per Hx Plan: No PT eval planned (6) Dementia Assessment/Plan: As per Hx. She has a robot cat on her lap Plan: Will order OT eval, since she was able to feed herself before coming in (7) Septic shock RESOLVED She was on levophed, that was stopped 02/07/23. She was ordered out of ICU on 02/07/23. The presumed spource is a UTI Plan: continue IV ceftraxone until c and s avail - Current Meds Current Meds: Current Medications Generic Name Dose Route Start Last Admin Trade Name Freq PRN Reason Stop Dose Admin Acetaminophen 650 mg 02/06/23 11:00 02/07/23 06:21 Acetaminophen 325 Mg Tablet PO 650 mg Q4HR PRN Administration Pain 1 to 4, or Fever Enoxaparin Sodium 30 mg 02/07/23 09:00 02/08/23 08:41 Enoxaparin 30 Mg/0.3 Ml Syringe SUBQ 30 mg DAILY JAKE Administration Ceftriaxone Sodium 1 gm/ 100 mls @ 200 mls/hr 02/07/23 09:00 02/08/23 09:25 Sodium Chloride IV 02/09/23 09:29 Infused DAILY JAKE Infusion Metoprolol Tartrate 25 mg 02/08/23 21:00 02/08/23 21:43 Metoprolol Tartrate 50 Mg Tablet PO 25 mg BID JAKE Administration Morphine Sulfate 2 mg 02/06/23 11:00 02/08/23 22:01 Morphine 2 Mg/Ml Carpuject IVP 2 mg Q2HR PRN Administration Pain 8 to 10 Sodium Chloride 10 ml 02/06/23 17:00 02/09/23 06:40 Sodium Chloride Flush 0.9% 10 Ml Syringe IVP 10 ml 0100,0900,1700 JAKE Administration Sodium Chloride 10 ml 02/06/23 11:00 02/08/23 06:35 Sodium Chloride Flush 0.9% 10 Ml Syringe IVP 10 ml PRN PRN Administration NEEDED PER PROVIDER ORDERS - Lab Result Fish Bone Diagrams: 02/09/23 04:32 02/09/23 04:32 - Additional Planning My Orders: My Active Orders 02/09/23 07:54 Transfer [Admit \ Transfer \ Status] [RC] .ONCE 02/09/23 07:56 Transfer [Admit \ Transfer \ Status] [RC] .ONCE Subjective - Subjective Patient Reports: Pain (Complains of pain in both hands and right shoulder, says it is her arthritis) Objective Vital Signs: Vital Signs - 24 hr 02/08/23 02/08/23 02/08/23 08:30 08:44 09:00 Temperature 37.1 C 37.2 C Heart Rate [ 88 71 Monitoring electrodes] Respiratory 20 20 Rate Blood Pressure 102/60 Blood Pressure 114/46 L 107/50 L [Right Brachial artery] O2 Saturation 97 99 02/08/23 02/08/23 02/08/23 09:30 10:00 10:30 Temperature 37.2 C 37.3 C 37.3 C Heart Rate [ 65 61 63 Monitoring electrodes] Respiratory 21 19 13 Rate Blood Pressure Blood Pressure 104/54 L 106/71 94/60 [Right Brachial artery] O2 Saturation 98 98 97 08/02/08/23 02/08/23 11:00 11:30 12:00 Temperature Heart Rate [ 60 58 L 65 Monitoring electrodes] Respiratory 16 21 18 Rate Blood Pressure Blood Pressure 95/56 L 105/50 L 98/51 L [Right Brachial artery] O2 Saturation 96 95 97 02/08/23 02/08/23 02/08/23 12:30 13:00 13:30 Temperature Heart Rate [ 61 63 61 Monitoring electrodes] Respiratory 22 20 20 Rate Blood Pressure Blood Pressure 105/54 L 94/53 L 96/57 L [Right Brachial artery] O2 Saturation 98 99 100 02/08/23 02/08/23 02/08/23 14:00 14:30 15:00 Temperature Heart Rate [ 68 67 71 Monitoring electrodes] Respiratory 20 24 16 Rate Blood Pressure Blood Pressure 103/73 117/61 103/45 L [Right Brachial artery] O2 Saturation 99 99 97 02/08/23 02/08/23 02/08/23 15:30 16:00 17:00 Temperature Heart Rate [ 73 66 75 Monitoring electrodes] Respiratory 20 18 20 Rate Blood Pressure Blood Pressure 86/50 L 111/93 H 109/51 L [Right Brachial artery] O2 Saturation 99 99 97 02/08/23 02/08/23 02/08/23 18:00 21:00 21:43 Temperature 37.0 C Heart Rate [ 69 60 Monitoring electrodes] Respiratory 18 18 Rate Blood Pressure 122/73 Blood Pressure 102/70 122/73 [Right Brachial artery] O2 Saturation 98 98 02/09/23 02/09/23 00:57 05:00 Temperature Heart Rate [ 73 78 Monitoring electrodes] Respiratory 25 H 15 Rate Blood Pressure Blood Pressure 115/72 100/62 [Right Brachial artery] O2 Saturation 98 98 Oxygen O2 Source Room air I&O (Last 24 Hrs): Intake and Output Totals x24h 02/07/23 02/08/23 02/09/23 23:59 23:59 23:59 Intake Total 3734.427 3731.585 0 Output Total 822 1138 400 Balance 2912.427 2593.585 -400 General: Alert, No acute distress HEENT: Mucous membr. moist/pink, Other (Disheveled) Neck: Supple, No JVD Neuro: Alert, Disoriented, Non Focal Cardiovascular: Regular rate, Other (syst murmur at base) Respiratory: No respiratory distress, Breath sounds nml Abdomen: Normal bowel sounds, Soft Extremities: No clubbing, No edema, Other (R hand tender at joints) - Results Results: Laboratory Results WBC 13.7 x10^3/uL (4.8-10.8) H 02/09/23 04:32 RBC 2.99 10^6/uL (4.20-5.40) L 02/09/23 04:32 Hgb 10.1 g/dL (12.0-16.0) L 02/09/23 04:32 Hct 32.0 % (37.0-47.0) L 02/09/23 04:32 MCV 107.0 fL (81.0-99.0) H 02/09/23 04:32 MCH 33.8 pg (27.0-31.0) H 02/09/23 04:32 MCHC 31.6 g/dL (32.0-36.0) L 02/09/23 04:32 RDW 13.9 % (12.0-15.0) 02/09/23 04:32 Plt Count 191 10^3/uL (130-450) 02/09/23 04:32 MPV 11.3 fL (7.9-10.8) H 02/09/23 04:32 Neut # (Auto) 10.0 10^3/uL (1.5-6.6) H 02/09/23 04:32 Lymph # (Auto) 1.5 10^3/uL (1.5-3.5) 02/09/23 04:32 [place] # (Auto) 1.3 10^3/uL (0.0-1.0) H 02/09/23 04:32 Eos # (Auto) 0.6 10^3/uL (0.0-0.7) 02/09/23 04:32 Baso # (Auto) 0.1 10^3/uL (0.0-0.1) 02/09/23 04:32 Absolute Nucleated RBC 0.00 x10^3/uL 02/09/23 04:32 Total Counted 100 02/07/23 04:00 Band Neuts % (Manual) 1 % (0-10) 02/07/23 04:00 Abnorm Lymph % (Manual) 0 % 02/07/23 04:00 Nucleated RBC % 0.0 /100WBC 02/09/23 04:32 Neutrophils # (Manual) 24.3 10^3/uL (1.5-6.6) H 02/07/23 04:00 Lymphocytes # (Manual) 1.4 10^3/uL (1.5-3.5) L 02/07/23 04:00 Monocytes # (Manual) 2.5 10^3/uL (0.0-1.0) H 02/07/23 04:00 Eosinophils # (Manual) 0.0 10^3/uL (0-0.7) 02/07/23 04:00 Basophils # (Manual) 0.0 10^3/uL (0-0.1) 02/07/23 04:00 Differential Comment MANUAL DIFFERENTIAL 02/07/23 04:00 Manual Slide Review Indicated 02/06/23 08:24 Platelet Estimate NORMAL (130-450,000) (NORMAL) 02/07/23 04:00 RBC Morph Micro Appear NORMAL APPEARANCE (NORMAL) 02/07/23 04:00 VBG pH 7.366 (7.31-7.41) 02/08/23 04:23 Ionized Calcium 1.15 mmol/L (1.15-1.33) 02/08/23 04:23 Sodium 136 mmol/L (135-145) 02/09/23 04:32 Potassium 3.9 mmol/L (3.5-4.5) 02/09/23 04:32 Chloride 108 mmol/L (101-111) 02/09/23 04:32 Carbon Dioxide 25 mmol/L (21-32) 02/09/23 04:32 Anion Gap 3.0 (6-13) L 02/09/23 04:32 BUN 23 mg/dL (6-20) H 02/09/23 04:32 Creatinine 0.7 mg/dL (0.6-1.3) 02/09/23 04:32 Estimated GFR (MDRD) 79 (>89) L 02/09/23 04:32 Glucose 87 mg/dL (74-104) 02/09/23 04:32 POC Whole Bld Glucose 124 mg/dL (70 - 100) H 02/06/23 08:09 Lactic Acid 1.1 mmol/L (0.5-2.2) 02/06/23 19:18 Calcium 8.2 mg/dL (8.5-10.3) L 02/09/23 04:32 Phosphorus 3.8 mg/dL (2.5-5.0) 02/07/23 04:00 Magnesium 1.9 mg/dL (1.7-2.3) 02/09/23 04:32 Total Bilirubin 1.0 mg/dL (0.2-1.0) 02/06/23 08:24 AST 12 IU/L (10-42) 02/06/23 08:24 ALT 9 IU/L (10-60) L 02/06/23 08:24 Alkaline Phosphatase 71 IU/L (42-121) 02/06/23 08:24 Total Protein 6.4 g/dL (6.4-8.9) 02/06/23 08:24 Albumin 3.3 g/dL (3.2-5.5) 02/06/23 08:24 Globulin 3.1 g/dL (2.1-4.2) 02/06/23 08:24 Albumin/Globulin Ratio 1.1 (1.0-2.2) 02/06/23 08:24 Lipase 20 U/L (11-82) 02/06/23 08:24 Urine Color YELLOW 02/06/23 08:45 Urine Clarity CLOUDY (CLEAR) 02/06/23 08:45 Urine pH 8.0 PH (5.0-7.5) H 02/06/23 08:45 Ur Specific [place] 1.025 (1.002-1.030) 02/06/23 08:45 Urine Protein >=300 mg/dL (NEGATIVE) H 02/06/23 08:45 Urine Glucose (UA) NEGATIVE mg/dL (NEGATIVE) 02/06/23 08:45 Urine Ketones NEGATIVE mg/dL (NEGATIVE) 02/06/23 08:45 Urine Occult Blood MODERATE (NEGATIVE) H 02/06/23 08:45 Urine Nitrite NEGATIVE (NEGATIVE) 02/06/23 08:45 Urine Bilirubin NEGATIVE (NEGATIVE) 02/06/23 08:45 Urine Urobilinogen 0.2 (NORMAL) E.U./dL (NORMAL) 02/06/23 08:45 Ur Leukocyte Esterase MODERATE (NEGATIVE) H 02/06/23 08:45 Urine RBC 6-10 /HPF (0-5) H 02/06/23 08:45 Urine WBC >25 /HPF (0-5) H 02/06/23 08:45 Ur Squamous Epith Cells FEW Squamous (<= Few) 02/06/23 08:45 Urine Bacteria Many /HPF (None Seen) H 02/06/23 08:45 Ur Microscopic Review INDICATED 02/06/23 08:45 Urine Culture Comments INDICATED 02/06/23 08:45 Nasal Adenovirus (PCR) NOT DETECTED 02/06/23 08:40 Nasal B. parapertussis DNA (PCR) NOT DETECTED 02/06/23 08:40 Nasal Coronavir 229E PCR NOT DETECTED 02/06/23 08:40 Nasal Coronavir HKU1 PCR NOT DETECTED 02/06/23 08:40 Nasal Coronavir NL63 PCR NOT DETECTED 02/06/23 08:40 Nasal Coronavir OC43 PCR NOT DETECTED 02/06/23 08:40 Nasal Enterovir/Rhinovir PCR NOT DETECTED 02/06/23 08:40 Nasal Influenza B PCR NOT DETECTED 02/06/23 08:40 Nasal Influenza A PCR NOT DETECTED 02/06/23 08:40 Nasal Parainfluen 1 PCR NOT DETECTED 02/06/23 08:40 Nasal Parainfluen 2 PCR NOT DETECTED 02/06/23 08:40 Nasal Parainfluen 3 PCR NOT DETECTED 02/06/23 08:40 Nasal Parainfluen 4 PCR NOT DETECTED 02/06/23 08:40 Nasal RSV (PCR) NOT DETECTED 02/06/23 08:40 Nasal Screen MRSA (PCR) NEGATIVE (NEGATIVE) 02/06/23 12:01 Nasal B.pertussis DNA PCR NOT DETECTED 02/06/23 08:40 Nasal C.pneumoniae (PCR) NOT DETECTED 02/06/23 08:40 Emil Human Metapneumo PCR NOT DETECTED 02/06/23 08:40 Nasal M.pneumoniae (PCR) NOT DETECTED 02/06/23 08:40 Nasal SARS-CoV-2 (PCR) NOT DETECTED 02/06/23 08:40 Sepsis Event Note (H) - Evaluation Current Stage of Sepsis: Septic shock Possible source of Sepsis: positive: Genitourinary - Sepsis Criteria Sepsis Criteria: Recorded Temperature greater than 38.3C or Less than 36C, Recorded Heart Rate greater than 90 bpm, WBC count greater than 10% bands, WBC count greater than 12,000 or less than 4000, MICROSOFT ARCHITECT: altered consciousness (unrelated to primary neuro pathology), SBP drop more than 40mHg, MAP less than 65 mmHg, Metabolic: lactate > 2 mmol/L
[2023-02-09] MEDS ORDERED: MORPHINE 2 MG/ML CARPUJECT IVP PRN (08:21)
[2023-02-09] MEDS: ENOXAPARIN 30 MG/0.3 ML SYRINGE SUBQ SCH (09:17)
[2023-02-09] MEDS: cefTRIAXone 1 GM in SODIUM CHLORIDE 0.9% MINIBAG 100 ML IV SCH (09:17)
[2023-02-09] MEDS: METOPROLOL TARTRATE 50 MG TABLET PO SCH ×3 (09:18→22:04)
[2023-02-09] MEDS: DIGOXIN 125 MCG TABLET PO SCH (09:27)
--- NOTE | 2023-02-09 13:11 | PROVIDER PROGRESS NOTE ---
Subjective - Prog Note Date Prog Note Date: 02/09/23 Objective - Vital Signs/Intake & Output Vital Signs: Vital Signs x48h Temp Pulse Pulse Resp BP Pulse Ox 02/09/23 11:06 36.7 C 96 20 106/82 H 97 02/09/23 08:14 37.1 C 82 19 115/67 96 Intake & Output: Intake & Output 02/06/23 02/07/23 02/08/23 02/09/23 23:59 23:59 23:59 23:59 Intake Total 3218.167 3734.427 3731.585 820 Output Total 470 850 9987 500 Balance 2971.167 2912.427 2593.585 320 - Lab Results Fish Bones: 02/09/23 04:32 02/09/23 04:32 Other Labs: Lab Results x24hrs 02/09/23 02/09/23 02/09/23 Range/Units 04:32 04:32 04:32 WBC 13.7 H (4.8-10.8) x10^3/uL RBC 2.99 L (4.20-5.40) 10^6/uL Hgb 10.1 L (12.0-16.0) g/dL Hct 32.0 L (37.0-47.0) % MCV 107.0 H (81.0-99.0) fL MCH 33.8 H (27.0-31.0) pg MCHC 31.6 L (32.0-36.0) g/dL RDW 13.9 (12.0-15.0) % Plt Count 191 (130-450) 10^3/uL MPV 11.3 H (7.9-10.8) fL Neut # (Auto) 10.0 H (1.5-6.6) 10^3/uL Lymph # (Auto) 1.5 (1.5-3.5) 10^3/uL [place] # (Auto) 1.3 H (0.0-1.0) 10^3/uL Eos # (Auto) 0.6 (0.0-0.7) 10^3/uL Baso # (Auto) 0.1 (0.0-0.1) 10^3/uL Absolute Nucleated RBC 0.00 x10^3/uL Nucleated RBC % 0.0 /100WBC Sodium 136 (135-145) mmol/L Potassium 3.9 (3.5-4.5) mmol/L Chloride 108 (101-111) mmol/L Carbon Dioxide 25 (21-32) mmol/L Anion Gap 3.0 L (6-13) BUN 23 H (6-20) mg/dL Creatinine 0.7 (0.6-1.3) mg/dL Estimated GFR (MDRD) 79 L (>89) Glucose 87 (74-104) mg/dL Calcium 8.2 L (8.5-10.3) mg/dL Magnesium 1.9 (1.7-2.3) mg/dL Vitamin B12 806 (180-914) pg/mL Folate 12.5 (5.90 - >24.8) ng/mL 02/08/23 Range/Units 13:47 WBC (4.8-10.8) x10^3/uL RBC (4.20-5.40) 10^6/uL Hgb (12.0-16.0) g/dL Hct (37.0-47.0) % MCV (81.0-99.0) fL MCH (27.0-31.0) pg MCHC (32.0-36.0) g/dL RDW (12.0-15.0) % Plt Count (130-450) 10^3/uL MPV (7.9-10.8) fL Neut # (Auto) (1.5-6.6) 10^3/uL Lymph # (Auto) (1.5-3.5) 10^3/uL [place] # (Auto) (0.0-1.0) 10^3/uL Eos # (Auto) (0.0-0.7) 10^3/uL Baso # (Auto) (0.0-0.1) 10^3/uL Absolute Nucleated RBC x10^3/uL Nucleated RBC % /100WBC Sodium (135-145) mmol/L Potassium 4.1 (3.5-4.5) mmol/L Chloride (101-111) mmol/L Carbon Dioxide (21-32) mmol/L Anion Gap (6-13) BUN (6-20) mg/dL Creatinine (0.6-1.3) mg/dL Estimated GFR (MDRD) (>89) Glucose (74-104) mg/dL Calcium (8.5-10.3) mg/dL Magnesium 2.1 (1.7-2.3) mg/dL Vitamin B12 (180-914) pg/mL Folate (5.90 - >24.8) ng/mL Sepsis Event Note (H) - Evaluation Current Stage of Sepsis: Septic shock Possible source of Sepsis: positive: Genitourinary - Sepsis Criteria Sepsis Criteria: Recorded Temperature greater than 38.3C or Less than 36C, Rec orded Heart Rate greater than 90 bpm, WBC count greater than 10% bands, WBC count greater than 12,000 or less than 4000, LINUX ENGINEER: altered consciousness (unrelated to primary neuro pathology), SBP drop more than 40mHg, MAP less than 65 mmHg, Metabolic: lactate > 2 mmol/L Assessment/Plan - Problem List (1) Ureteral stone Impression: I was asked to comment on further management per hospitalist team. The stent will remain in place until she is seen as an outpatient and a further plan is decided for her stone. The stent can stay in place for up to 3 months. Her urine culture was polymicrobial growth only, she should complete 2 weeks of empiric antibiotics I recommend Keflex. Both her blood cultures were positive for gram-positive bacteria. She should have further work-up for this per the hospitalist plan. Consider infectious disease consultation. If placed on abx for this, make sure covers empiric urine bacteria, and if so can forgo keflex My office should be made aware when she is discharged to arrange follow-up.
[2023-02-09] MEDS: ACETAMINOPHEN 325 MG TABLET PO PRN ×2 (17:46→22:03)
[2023-02-10] MEDS: ACETAMINOPHEN 325 MG TABLET PO PRN ×3 (05:21→15:47)
[2023-02-10 05:49] LABS: BASOPHILS # (AUTO) 0.1 10^3/uL (0.0-0.1); BASOPHILS % (AUTO) 0.7 %; EOSINOPHILS # (AUTO) 0.6 10^3/uL (0.0-0.7); EOSINOPHILS % (AUTO) 5.9 %; HCT - HEMATOCRIT 32.5 % (37.0-47.0); HGB - HEMOGLOBIN 10.4 g/dL (12.0-16.0); LYMPHOCYTES # (AUTO) 1.8 10^3/uL (1.5-3.5); LYMPHOCYTES % (AUTO) 16.1 %; MEAN CORPUSCULAR HEMOGLOBIN 34.1 pg (27.0-31.0); MEAN CORPUSCULAR VOLUME 106.6 fL (81.0-99.0); MEAN PLATELET VOLUME 10.9 fL (7.9-10.8); MONOCYTES # (AUTO) 1.1 10^3/uL (0.0-1.0); NEUTROPHILS # (AUTO) 7.1 10^3/uL (1.5-6.6); NEUTROPHILS % (AUTO) 65.3 %; PLT - PLATELET COUNT 209 10^3/uL (130-450); RED BLOOD COUNT 3.05 10^6/uL (4.20-5.40); RED CELL DISTRIBUTION WIDTH 13.7 % (12.0-15.0); WHITE BLOOD COUNT 10.9 x10^3/uL (4.8-10.8)
[2023-02-10 06:04] LABS: DIGOXIN 1.4 ng/mL
[2023-02-10 06:08] LABS: CALCIUM 8.5 mg/dL (8.5-10.3); CREATININE 0.6 mg/dL (0.6-1.3); MAGNESIUM 1.6 mg/dL (1.7-2.3)
[2023-02-10] MEDS: DIGOXIN 125 MCG TABLET PO SCH (09:19)
[2023-02-10] MEDS: cefTRIAXone 2 GM in SODIUM CHLORIDE 0.9% MINIBAG 100 ML IV SCH (09:19)
[2023-02-10] MEDS: METOPROLOL TARTRATE 50 MG TABLET PO SCH ×2 (09:20→21:25)
[2023-02-10] MEDS: ENOXAPARIN 40 MG/0.4 ML SYRINGE SUBQ SCH (09:21)
[2023-02-10] MEDS: SODIUM CHLORIDE FLUSH 0.9% 10 ML SYRINGE IVP SCH ×2 (09:23→21:24)
--- NOTE | 2023-02-10 12:52 | PROVIDER PROGRESS NOTE ---
Assessment/Plan - Problem List (1) Streptococcal bacteremia Assessment/Plan: Bacteriuria on U/A, in the setting of a renal stone and shock, made the urine the most likely the source of infection. But her urine cx is growing a different organism. The last Hospitalist stated that it was E. coli UTI. I can find no identification of E. coli. In fact, the urine culture is growing polymicrobial organisms therefore probably contaminants. Of concern is that 2 of 2 blood cultures are growing Strep, theregore this is not a contaminant She has improved considerably since admission, on empiric IV antibiotic ce ftraxone Plan: Continue IV ceftraxone until blood and urine cx are all finalized Because of bacteremia, yesterday I increased the ceftriaxone from 1 g daily to 2 g daily ID consult may be needed (2) Ureteral stone Assessment/Plan: She had a left ureteral stent placed during this admission by Urologist, Dr. Ridley Appreciate follow-up note from urology which indicates that the stent and stone will have further management when she is in outpatient (3) Chronic systolic CHF (congestive heart failure) Assessment/Plan: Her last adm 11/2021 LVEF by Echo was 30%. There has been no pulm edema Plan: Cont monitoring for sign of SOB, edema, volume status strict I&O weight daily (4) Atrial fibrillation Assessment/Plan: RVR has RESOLVED after she was given digoxin loading. She was transitioned to oral Dig Plan: I will adjust meds if necessary for rate control No plan for anticoAgs due to several subdural bleeds (5) Bedbound Assessment/Plan: As per Hx Plan: No PT eval planned (6) Dementia Assessment/Plan: As per Hx. She has a robot cat on her lap Plan: I ordered OT eval, since she was able to feed herself before coming in (7) Septic shock RESOLVED She was on levophed, that was stopped 02/07/23. She was ordered out of ICU on 02/07/23. The presumed spource is a UTI Plan: Continue IV ceftraxone until c and s avail - Current Meds Current Meds: Current Medications Generic Name Dose Route Start Last Admin Trade Name Freq PRN Reason Stop Dose Admin Acetaminophen 650 mg 02/06/23 11:00 02/10/23 09:29 Acetaminophen 325 Mg Tablet PO 650 mg Q4HR PRN Administration Pain 1 to 4, or Fever Digoxin 125 mcg 02/09/23 09:00 02/10/23 09:19 Digoxin 125 Mcg Tablet PO 125 mcg DAILY JAKE Administration Enoxaparin Sodium 40 mg 02/10/23 09:00 02/10/23 09:21 Enoxaparin 40 Mg/0.4 Ml Syringe SUBQ 40 mg DAILY JAKE Administration Ceftriaxone Sodium 2 gm/ 100 mls @ 200 mls/hr 02/10/23 09:00 02/10/23 11:33 Sodium Chloride IV Infused DAILY JAKE Infusion Metoprolol Tartrate 25 mg 02/08/23 21:00 02/10/23 09:20 Metoprolol Tartrate 50 Mg Tablet PO 25 mg BID JAKE Administration Sodium Chloride 10 ml 02/06/23 17:00 02/10/23 09:23 Sodium Chloride Flush 0.9% 10 Ml Syringe IVP 10 ml 0100,0900,1700 JAKE Administration Sodium Chloride 10 ml 02/06/23 11:00 02/08/23 06:35 Sodium Chloride Flush 0.9% 10 Ml Syringe IVP 10 ml PRN PRN Administration NEEDED PER PROVIDER ORDERS - Lab Result Fish Bone Diagrams: 02/10/23 05:15 02/10/23 05:15 - Additional Planning My Orders: My Active Orders 02/09/23 16:33 Shower [RC] ONCE 02/10/23 09:00 [id number] [Rocephin] 2 gm Sodium Chloride 0.9% Minibag [Normal Saline 0.9% Minibag] 100 ml IV DAILY 02/13/23 07:00 Echo Transthoracic Complete [ECHO] Routine Subjective - Subjective Patient Reports: No Complaints Objective Vital Signs: Vital Signs - 24 hr 02/09/23 02/09/23 02/09/23 16:31 20:44 21:59 Temperature 36.6 C 36.7 C Heart Rate [ 49 L 78 89 Brachial] Respiratory 18 16 Rate Blood Pressure Blood Pressure 115/61 96/73 111/55 L [Right Brachial artery] O2 Saturation 99 92 02/09/23 02/10/23 02/10/23 22:04 00:02 05:39 Temperature 36.7 C 36.4 C L Heart Rate [ 73 83 Brachial] Respiratory 24 16 Rate Blood Pressure 111/55 L Blood Pressure 134/84 H 131/73 H [Right Brachial artery] O2 Saturation 96 93 02/10/23 02/10/23 08:36 09:20 Temperature 36.5 C Heart Rate [ 80 Brachial] Respiratory 18 Rate Blood Pressure 123/60 Blood Pressure 123/60 [Right Brachial artery] O2 Saturation 95 Oxygen O2 Source Room air I&O (Last 24 Hrs): Intake and Output Totals x24h 02/08/23 02/09/23 02/10/23 23:59 23:59 23:59 Intake Total 3731.585 1070 340 Output Total 1138 900 Balance 2593.585 170 340 General: Alert, No acute distress HEENT: Mucous membr. moist/pink, Other (disheveled) Neck: Supple Neuro: Alert, Disoriented, Non Focal Cardiovascular: Regular rate Respiratory: No respiratory distress Abdomen: Soft Extremities: No clubbing, No edema, Other (Swollen and misshapen arthritic joints of her hands) - Results Results: Laboratory Results WBC 10.9 x10^3/uL (4.8-10.8) H 02/10/23 05:15 RBC 3.05 10^6/uL (4.20-5.40) L 02/10/23 05:15 Hgb 10.4 g/dL (12.0-16.0) L 02/10/23 05:15 Hct 32.5 % (37.0-47.0) L 02/10/23 05:15 MCV 106.6 fL (81.0-99.0) H 02/10/23 05:15 MCH 34.1 pg (27.0-31.0) H 02/10/23 05:15 MCHC 32.0 g/dL (32.0-36.0) 02/10/23 05:15 RDW 13.7 % (12.0-15.0) 02/10/23 05:15 Plt Count 209 10^3/uL (130-450) 02/10/23 05:15 MPV 10.9 fL (7.9-10.8) H 02/10/23 05:15 Neut # (Auto) 7.1 10^3/uL (1.5-6.6) H 02/10/23 05:15 Lymph # (Auto) 1.8 10^3/uL (1.5-3.5) 02/10/23 05:15 [place] # (Auto) 1.1 10^3/uL (0.0-1.0) H 02/10/23 05:15 Eos # (Auto) 0.6 10^3/uL (0.0-0.7) 02/10/23 05:15 Baso # (Auto) 0.1 10^3/uL (0.0-0.1) 02/10/23 05:15 Absolute Nucleated RBC 0.00 x10^3/uL 02/10/23 05:15 Total Counted 100 02/07/23 04:00 Band Neuts % (Manual) 1 % (0-10) 02/07/23 04:00 Abnorm Lymph % (Manual) 0 % 02/07/23 04:00 Nucleated RBC % 0.0 /100WBC 02/10/23 05:15 Neutrophils # (Manual) 24.3 10^3/uL (1.5-6.6) H 02/07/23 04:00 Lymphocytes # (Manual) 1.4 10^3/uL (1.5-3.5) L 02/07/23 04:00 Monocytes # (Manual) 2.5 10^3/uL (0.0-1.0) H 02/07/23 04:00 Eosinophils # (Manual) 0.0 10^3/uL (0-0.7) 02/07/23 04:00 Basophils # (Manual) 0.0 10^3/uL (0-0.1) 02/07/23 04:00 Differential Comment MANUAL DIFFERENTIAL 02/07/23 04:00 Manual Slide Review Indicated 02/06/23 08:24 Platelet Estimate NORMAL (130-450,000) (NORMAL) 02/07/23 04:00 RBC Morph Micro Appear NORMAL APPEARANCE (NORMAL) 02/07/23 04:00 VBG pH 7.366 (7.31-7.41) 02/08/23 04:23 Ionized Calcium 1.15 mmol/L (1.15-1.33) 02/08/23 04:23 Sodium 136 mmol/L (135-145) 02/10/23 05:15 Potassium 4.0 mmol/L (3.5-4.5) 02/10/23 05:15 Chloride 106 mmol/L (101-111) 02/10/23 05:15 Carbon Dioxide 25 mmol/L (21-32) 02/10/23 05:15 Anion Gap 5.0 (6-13) L 02/10/23 05:15 BUN 16 mg/dL (6-20) 02/10/23 05:15 Creatinine 0.6 mg/dL (0.6-1.3) 02/10/23 05:15 Estimated GFR (MDRD) 94 (>89) 02/10/23 05:15 Glucose 90 mg/dL (74-104) 02/10/23 05:15 POC Whole Bld Glucose 124 mg/dL (70 - 100) H 02/06/23 08:09 Lactic Acid 1.1 mmol/L (0.5-2.2) 02/06/23 19:18 Calcium 8.5 mg/dL (8.5-10.3) 02/10/23 05:15 Phosphorus 3.8 mg/dL (2.5-5.0) 02/07/23 04:00 Magnesium 1.6 mg/dL (1.7-2.3) L 02/10/23 05:15 Total Bilirubin 1.0 mg/dL (0.2-1.0) 02/06/23 08:24 AST 12 IU/L (10-42) 02/06/23 08:24 ALT 9 IU/L (10-60) L 02/06/23 08:24 Alkaline Phosphatase 71 IU/L (42-121) 02/06/23 08:24 Total Protein 6.4 g/dL (6.4-8.9) 02/06/23 08:24 Albumin 3.3 g/dL (3.2-5.5) 02/06/23 08:24 Globulin 3.1 g/dL (2.1-4.2) 02/06/23 08:24 Albumin/Globulin Ratio 1.1 (1.0-2.2) 02/06/23 08:24 Lipase 20 U/L (11-82) 02/06/23 08:24 Vitamin B12 806 pg/mL (180-914) 02/09/23 04:32 Folate 12.5 ng/mL (5.90 - >24.8) 02/09/23 04:32 Urine Color YELLOW 02/06/23 08:45 Urine Clarity CLOUDY (CLEAR) 02/06/23 08:45 Urine pH 8.0 PH (5.0-7.5) H 02/06/23 08:45 Ur Specific [place] 1.025 (1.002-1.030) 02/06/23 08:45 Urine Protein >=300 mg/dL (NEGATIVE) H 02/06/23 08:45 Urine Glucose (UA) NEGATIVE mg/dL (NEGATIVE) 02/06/23 08:45 Urine Ketones NEGATIVE mg/dL (NEGATIVE) 02/06/23 08:45 Urine Occult Blood MODERATE (NEGATIVE) H 02/06/23 08:45 Urine Nitrite NEGATIVE (NEGATIVE) 02/06/23 08:45 Urine Bilirubin NEGATIVE (NEGATIVE) 02/06/23 08:45 Urine Urobilinogen 0.2 (NORMAL) E.U./dL (NORMAL) 02/06/23 08:45 Ur Leukocyte Esterase MODERATE (NEGATIVE) H 02/06/23 08:45 Urine RBC 6-10 /HPF (0-5) H 02/06/23 08:45 Urine WBC >25 /HPF (0-5) H 02/06/23 08:45 Ur Squamous Epith Cells FEW Squamous (<= Few) 02/06/23 08:45 Urine Bacteria Many /HPF (None Seen) H 02/06/23 08:45 Ur Microscopic Review INDICATED 02/06/23 08:45 Urine Culture Comments INDICATED 02/06/23 08:45 Nasal Adenovirus (PCR) NOT DETECTED 02/06/23 08:40 Nasal B. parapertussis DNA (PCR) NOT DETECTED 02/06/23 08:40 Nasal Coronavir 229E PCR NOT DETECTED 02/06/23 08:40 Nasal Coronavir HKU1 PCR NOT DETECTED 02/06/23 08:40 Nasal Coronavir NL63 PCR NOT DETECTED 02/06/23 08:40 Nasal Coronavir OC43 PCR NOT DETECTED 02/06/23 08:40 Nasal Enterovir/Rhinovir PCR NOT DETECTED 02/06/23 08:40 Nasal Influenza B PCR NOT DETECTED 02/06/23 08:40 Nasal Influenza A PCR NOT DETECTED 02/06/23 08:40 Nasal Parainfluen 1 PCR NOT DETECTED 02/06/23 08:40 Nasal Parainfluen 2 PCR NOT DETECTED 02/06/23 08:40 Nasal Parainfluen 3 PCR NOT DETECTED 02/06/23 08:40 Nasal Parainfluen 4 PCR NOT DETECTED 02/06/23 08:40 Nasal RSV (PCR) NOT DETECTED 02/06/23 08:40 Nasal Screen MRSA (PCR) NEGATIVE (NEGATIVE) 02/06/23 12:01 Nasal B.pertussis DNA PCR NOT DETECTED 02/06/23 08:40 Nasal C.pneumoniae (PCR) NOT DETECTED 02/06/23 08:40 Emil Human Metapneumo PCR NOT DETECTED 02/06/23 08:40 Nasal M.pneumoniae (PCR) NOT DETECTED 02/06/23 08:40 Nasal SARS-CoV-2 (PCR) NOT DETECTED 02/06/23 08:40 Last Dose Date UNKNOWN 02/10/23 05:15 Last Dose Time UNKNOWN 02/10/23 05:15 Digoxin 1.4 ng/mL 02/10/23 05:15 Sepsis Event Note (H) - Evaluation Current Stage of Sepsis: Septic shock Possible source of Sepsis: positive: Genitourinary - Sepsis Criteria Sepsis Criteria: Recorded Temperature greater than 38.3C or Less than 36C, Recorded Heart Rate greater than 90 bpm, WBC count greater than 10% bands, WBC count greater than 12,000 or less than 4000, [employer]: altered consciousness (unrelated to primary neuro pathology), SBP drop more than 40mHg, MAP less than 65 mmHg, Metabolic: lactate > 2 mmol/L
[2023-02-11] MEDS: SODIUM CHLORIDE FLUSH 0.9% 10 ML SYRINGE IVP SCH ×3 (00:39→20:16)
[2023-02-11] MEDS: ACETAMINOPHEN 325 MG TABLET PO PRN ×2 (05:48→16:01)
[2023-02-11 06:13] LABS: BASOPHILS # (AUTO) 0.1 10^3/uL (0.0-0.1); BASOPHILS % (AUTO) 0.8 %; EOSINOPHILS # (AUTO) 0.8 10^3/uL (0.0-0.7); EOSINOPHILS % (AUTO) 6.1 %; HCT - HEMATOCRIT 33.4 % (37.0-47.0); HGB - HEMOGLOBIN 10.9 g/dL (12.0-16.0); LYMPHOCYTES # (AUTO) 1.7 10^3/uL (1.5-3.5); LYMPHOCYTES % (AUTO) 13.5 %; MEAN CORPUSCULAR HEMOGLOBIN 34.5 pg (27.0-31.0); MEAN CORPUSCULAR HGB CONC 32.6 g/dL (32.0-36.0); MEAN CORPUSCULAR VOLUME 105.7 fL (81.0-99.0); MEAN PLATELET VOLUME 10.2 fL (7.9-10.8); MONOCYTES # (AUTO) 1.2 10^3/uL (0.0-1.0); MONOCYTES % (AUTO) 9.1 %; NEUTROPHILS # (AUTO) 8.6 10^3/uL (1.5-6.6); NEUTROPHILS % (AUTO) 67.5 %; PLT - PLATELET COUNT 260 10^3/uL (130-450); RED BLOOD COUNT 3.16 10^6/uL (4.20-5.40); RED CELL DISTRIBUTION WIDTH 13.5 % (12.0-15.0); WHITE BLOOD COUNT 12.8 x10^3/uL (4.8-10.8)
[2023-02-11 06:29] LABS: CALCIUM 8.7 mg/dL (8.5-10.3); CREATININE 0.6 mg/dL (0.6-1.3); MAGNESIUM 1.5 mg/dL (1.7-2.3); POTASSIUM 4.2 mmol/L (3.5-4.5)
[2023-02-11] MEDS: METOPROLOL TARTRATE 50 MG TABLET PO SCH ×2 (10:16→20:16)
[2023-02-11] MEDS: ENOXAPARIN 40 MG/0.4 ML SYRINGE SUBQ SCH (10:18)
[2023-02-11] MEDS: NYSTATIN POWDER 15 GM TOP SCH ×2 (10:19→20:17)
[2023-02-11] MEDS: cefTRIAXone 2 GM in SODIUM CHLORIDE 0.9% MINIBAG 100 ML IV SCH (10:19)
[2023-02-11] MEDS: DIGOXIN 125 MCG TABLET PO SCH (10:19)
--- NOTE | 2023-02-11 14:18 | PROVIDER PROGRESS NOTE ---
Assessment/Plan - Problem List (1) Streptococcal bacteremia Assessment/Plan: Bacteriuria on her adm U/A, in the setting of a renal stone and septic shock, made the urine the most likely the source of infection. But her urine cx is growing a different organism. The last Hospitalist stated that it was E. coli UTI. I can find no identification of E. coli. In fact, the urine culture is growing polymicrobial organisms therefore probably contaminants. Of concern is that 2 of 2 blood cultures are growing Strep, therefore this is not a contaminant She has improved considerably since admission, on empiric IV antibiotic ceftraxone Plan: Continue IV ceftraxone until blood and urine cx are all finalized Because of bacteremia, I increased the ceftriaxone from 1 g daily to 2 g daily We will obtain repeat blood culture today, 1 from central line, one from peripheral site, to assess if bld is now negative for growth. If negative, will place a PICC line and plan for her course of IV antibiotics. We are also awaiting an Echocardiogram to assure she does not have endocarditis (today is Sun and we have no Echo ech here until ). She will get 14 days total iv antibx, if there is no endocarditis, otherwise 4-6 weeks of iv antibx (2) Ureteral stone Assessment/Plan: She had a left ureteral stent placed during this admission by Urologist, Dr. Ridley Appreciate follow-up note from urology which indicates that the stent and stone will have further management when she is in outpatient (3) Chronic systolic CHF (congestive heart failure) Assessment/Plan: Her last adm 11/2021 LVEF by Echo was 30%. There has been no pulm edema Plan: Cont monitoring for sign of SOB, edema, volume status strict I&O weight daily (4) Atrial fibrillation Assessment/Plan: RVR has RESOLVED after she was given digoxin loading. She was transitioned to oral Dig Plan: I will adjust meds if necessary for rate control No plan for anticoags due to a Hx of several subdural bleeds (5) Bedbound Assessment/Plan: As per Hx Plan: No PT eval planned (6) Dementia Assessment/Plan: As per Hx. She has a robot cat on her lap Plan: I ordered OT eval, since she was able to feed herself before coming in (7) Septic shock RESOLVED She was on levophed, that was stopped 02/07/23. She was ordered out of ICU on 02/07/23. The presumed spource is a UTI Plan: Continue IV ceftraxone until c and s avail - Current Meds Current Meds: Current Medications Generic Name Dose Route Start Last Admin Trade Name Freq PRN Reason Stop Dose Admin Acetaminophen 650 mg 02/06/23 11:00 02/11/23 05:48 Acetaminophen 325 Mg Tablet PO 650 mg Q4HR PRN Administration Pain 1 to 4, or Fever Digoxin 125 mcg 02/09/23 09:00 02/11/23 10:19 Digoxin 125 Mcg Tablet PO 125 mcg DAILY JAKE Administration Enoxaparin Sodium 40 mg 02/10/23 09:00 02/11/23 10:18 Enoxaparin 40 Mg/0.4 Ml Syringe SUBQ 40 mg DAILY JAKE Administration Ceftriaxone Sodium 2 gm/ 100 mls @ 200 mls/hr 02/10/23 09:00 02/11/23 11:35 Sodium Chloride IV Infused DAILY JAKE Infusion Metoprolol Tartrate 25 mg 02/08/23 21:00 02/11/23 10:16 Metoprolol Tartrate 50 Mg Tablet PO Not Given BID JAKE Nystatin 1 applic 02/11/23 09:00 02/11/23 10:19 Nystatin Powder 15 Gm TOP 1 applic BID JAKE Administration Sodium Chloride 10 ml 02/06/23 17:00 02/11/23 10:20 Sodium Chloride Flush 0.9% 10 Ml Syringe IVP 10 ml 0100,0900,1700 JAKE Administration Sodium Chloride 10 ml 02/06/23 11:00 02/08/23 06:35 Sodium Chloride Flush 0.9% 10 Ml Syringe IVP 10 ml PRN PRN Administration NEEDED PER PROVIDER ORDERS - Lab Result Fish Bone Diagrams: 02/11/23 06:00 02/11/23 06:00 - Additional Planning My Orders: My Active Orders 02/11/23 09:00 Nystatin [Nystop] 1 applic TOP BID 02/11/23 12:00 polyethylene glycoL 3350 [Miralax] 17 gm PO DAILY 02/13/23 07:00 Echo Transthoracic Complete [ECHO] Routine Subjective - Subjective Patient Reports: No Complaints (She is talking to and petting the robot cat that she has on her lap) Objective Vital Signs: Vital Signs - 24 hr 02/10/23 02/10/23 02/10/23 15:54 20:22 21:25 Temperature 36.7 C 36.8 C Heart Rate [ 74 83 Brachial] Respiratory 16 20 Rate Blood Pressure 120/65 Blood Pressure 112/57 L 119/76 [Right Brachial artery] O2 Saturation 95 95 02/11/23 02/11/23 02/11/23 00:25 06:15 08:42 Temperature 36.7 C 36.8 C 36.3 C L Heart Rate [ 72 84 72 Brachial] Respiratory 16 20 18 Rate Blood Pressure Blood Pressure 126/64 119/86 H 101/70 [Right Brachial artery] O2 Saturation 92 93 96 02/11/23 02/11/23 10:16 13:00 Temperature 36.3 C L Heart Rate [ 89 Brachial] Respiratory 18 Rate Blood Pressure 90/73 Blood Pressure 120/74 [Right Brachial artery] O2 Saturation 96 Oxygen O2 Source Room air I&O (Last 24 Hrs): Intake and Output Totals x24h 02/09/23 02/10/23 02/11/23 23:59 23:59 23:59 Intake Total 1070 678 100 Output Total 900 400 800 Balance 170 278 -700 General: Alert, No acute distress HEENT: Mucous membr. moist/pink, Other (Disheveled) Neck: Supple, No JVD Neuro: Alert, Disoriented, Non Focal Cardiovascular: Regular rate, No murmurs Respiratory: No respiratory distress, Breath sounds nml Abdomen: Normal bowel sounds, Soft Extremities: No clubbing, Other (Trace pretibial edema) - Results Results: Laboratory Results WBC 12.8 x10^3/uL (4.8-10.8) H 02/11/23 06:00 RBC 3.16 10^6/uL (4.20-5.40) L 02/11/23 06:00 Hgb 10.9 g/dL (12.0-16.0) L 02/11/23 06:00 Hct 33.4 % (37.0-47.0) L 02/11/23 06:00 MCV 105.7 fL (81.0-99.0) H 02/11/23 06:00 MCH 34.5 pg (27.0-31.0) H 02/11/23 06:00 MCHC 32.6 g/dL (32.0-36.0) 02/11/23 06:00 RDW 13.5 % (12.0-15.0) 02/11/23 06:00 Plt Count 260 10^3/uL (130-450) 02/11/23 06:00 MPV 10.2 fL (7.9-10.8) 02/11/23 06:00 Neut # (Auto) 8.6 10^3/uL (1.5-6.6) H 02/11/23 06:00 Lymph # (Auto) 1.7 10^3/uL (1.5-3.5) 02/11/23 06:00 [place] # (Auto) 1.2 10^3/uL (0.0-1.0) H 02/11/23 06:00 Eos # (Auto) 0.8 10^3/uL (0.0-0.7) H 02/11/23 06:00 Baso # (Auto) 0.1 10^3/uL (0.0-0.1) 02/11/23 06:00 Absolute Nucleated RBC 0.00 x10^3/uL 02/11/23 06:00 Total Counted 100 02/07/23 04:00 Band Neuts % (Manual) 1 % (0-10) 02/07/23 04:00 Abnorm Lymph % (Manual) 0 % 02/07/23 04:00 Nucleated RBC % 0.0 /100WBC 02/11/23 06:00 Neutrophils # (Manual) 24.3 10^3/uL (1.5-6.6) H 02/07/23 04:00 Lymphocytes # (Manual) 1.4 10^3/uL (1.5-3.5) L 02/07/23 04:00 Monocytes # (Manual) 2.5 10^3/uL (0.0-1.0) H 02/07/23 04:00 Eosinophils # (Manual) 0.0 10^3/uL (0-0.7) 02/07/23 04:00 Basophils # (Manual) 0.0 10^3/uL (0-0.1) 02/07/23 04:00 Differential Comment MANUAL DIFFERENTIAL 02/07/23 04:00 Manual Slide Review Indicated 02/06/23 08:24 Platelet Estimate NORMAL (130-450,000) (NORMAL) 02/07/23 04:00 RBC Morph Micro Appear NORMAL APPEARANCE (NORMAL) 02/07/23 04:00 VBG pH 7.366 (7.31-7.41) 02/08/23 04:23 Ionized Calcium 1.15 mmol/L (1.15-1.33) 02/08/23 04:23 Sodium 138 mmol/L (135-145) 02/11/23 06:00 Potassium 4.2 mmol/L (3.5-4.5) 02/11/23 06:00 Chloride 106 mmol/L (101-111) 02/11/23 06:00 Carbon Dioxide 28 mmol/L (21-32) 02/11/23 06:00 Anion Gap 4.0 (6-13) L 02/11/23 06:00 BUN 11 mg/dL (6-20) 02/11/23 06:00 Creatinine 0.6 mg/dL (0.6-1.3) 02/11/23 06:00 Estimated GFR (MDRD) 94 (>89) 02/11/23 06:00 Glucose 94 mg/dL (74-104) 02/11/23 06:00 POC Whole Bld Glucose 124 mg/dL (70 - 100) H 02/06/23 08:09 Lactic Acid 1.1 mmol/L (0.5-2.2) 02/06/23 19:18 Calcium 8.7 mg/dL (8.5-10.3) 02/11/23 06:00 Phosphorus 3.8 mg/dL (2.5-5.0) 02/07/23 04:00 Magnesium 1.5 mg/dL (1.7-2.3) L 02/11/23 06:00 Total Bilirubin 1.0 mg/dL (0.2-1.0) 02/06/23 08:24 AST 12 IU/L (10-42) 02/06/23 08:24 ALT 9 IU/L (10-60) L 02/06/23 08:24 Alkaline Phosphatase 71 IU/L (42-121) 02/06/23 08:24 Total Protein 6.4 g/dL (6.4-8.9) 02/06/23 08:24 Albumin 3.3 g/dL (3.2-5.5) 02/06/23 08:24 Globulin 3.1 g/dL (2.1-4.2) 02/06/23 08:24 Albumin/Globulin Ratio 1.1 (1.0-2.2) 02/06/23 08:24 Lipase 20 U/L (11-82) 02/06/23 08:24 Vitamin B12 806 pg/mL (180-914) 02/09/23 04:32 Folate 12.5 ng/mL (5.90 - >24.8) 02/09/23 04:32 Urine Color YELLOW 02/06/23 08:45 Urine Clarity CLOUDY (CLEAR) 02/06/23 08:45 Urine pH 8.0 PH (5.0-7.5) H 02/06/23 08:45 Ur Specific [place] 1.025 (1.002-1.030) 02/06/23 08:45 Urine Protein >=300 mg/dL (NEGATIVE) H 02/06/23 08:45 Urine Glucose (UA) NEGATIVE mg/dL (NEGATIVE) 02/06/23 08:45 Urine Ketones NEGATIVE mg/dL (NEGATIVE) 02/06/23 08:45 Urine Occult Blood MODERATE (NEGATIVE) H 02/06/23 08:45 Urine Nitrite NEGATIVE (NEGATIVE) 02/06/23 08:45 Urine Bilirubin NEGATIVE (NEGATIVE) 02/06/23 08:45 Urine Urobilinogen 0.2 (NORMAL) E.U./dL (NORMAL) 02/06/23 08:45 Ur Leukocyte Esterase MODERATE (NEGATIVE) H 02/06/23 08:45 Urine RBC 6-10 /HPF (0-5) H 02/06/23 08:45 Urine WBC >25 /HPF (0-5) H 02/06/23 08:45 Ur Squamous Epith Cells FEW Squamous (<= Few) 02/06/23 08:45 Urine Bacteria Many /HPF (None Seen) H 02/06/23 08:45 Ur Microscopic Review INDICATED 02/06/23 08:45 Urine Culture Comments INDICATED 02/06/23 08:45 Nasal Adenovirus (PCR) NOT DETECTED 02/06/23 08:40 Nasal B. parapertussis DNA (PCR) NOT DETECTED 02/06/23 08:40 Nasal Coronavir 229E PCR NOT DETECTED 02/06/23 08:40 Nasal Coronavir HKU1 PCR NOT DETECTED 02/06/23 08:40 Nasal Coronavir NL63 PCR NOT DETECTED 02/06/23 08:40 Nasal Coronavir OC43 PCR NOT DETECTED 02/06/23 08:40 Nasal Enterovir/Rhinovir PCR NOT DETECTED 02/06/23 08:40 Nasal Influenza B PCR NOT DETECTED 02/06/23 08:40 Nasal Influenza A PCR NOT DETECTED 02/06/23 08:40 Nasal Parainfluen 1 PCR NOT DETECTED 02/06/23 08:40 Nasal Parainfluen 2 PCR NOT DETECTED 02/06/23 08:40 Nasal Parainfluen 3 PCR NOT DETECTED 02/06/23 08:40 Nasal Parainfluen 4 PCR NOT DETECTED 02/06/23 08:40 Nasal RSV (PCR) NOT DETECTED 02/06/23 08:40 Nasal Screen MRSA (PCR) NEGATIVE (NEGATIVE) 02/06/23 12:01 Nasal B.pertussis DNA PCR NOT DETECTED 02/06/23 08:40 Nasal C.pneumoniae (PCR) NOT DETECTED 02/06/23 08:40 Emil Human Metapneumo PCR NOT DETECTED 02/06/23 08:40 Nasal M.pneumoniae (PCR) NOT DETECTED 02/06/23 08:40 Nasal SARS-CoV-2 (PCR) NOT DETECTED 02/06/23 08:40 Last Dose Date UNKNOWN 02/10/23 05:15 Last Dose Time UNKNOWN 02/10/23 05:15 Digoxin 1.4 ng/mL 02/10/23 05:15 Sepsis Event Note (H) - Evaluation Current Stage of Sepsis: Septic shock Possible source of Sepsis: positive: Genitourinary - Sepsis Criteria Sepsis Criteria: Recorded Temperature greater than 38.3C or Less than 36C, Recorded Heart Rate greater than 90 bpm, WBC count greater than 10% bands, WBC count greater than 12,000 or less than 4000, [employer]CHNICIAN: altered consciousness (unrelated to primary neuro pathology), SBP drop more than 40mHg, MAP less than 65 mmHg, Metabolic: lactate > 2 mmol/L
[2023-02-11] MEDS: polyethylene glycoL 3350 17 GM PACKET PO SCH (15:05)
[2023-02-12] MEDS: SODIUM CHLORIDE FLUSH 0.9% 10 ML SYRINGE IVP SCH ×3 (00:24→17:21)
[2023-02-12] MEDS: METOPROLOL TARTRATE 50 MG TABLET PO SCH ×2 (08:08→20:23)
[2023-02-12] MEDS: ENOXAPARIN 40 MG/0.4 ML SYRINGE SUBQ SCH (08:09)
[2023-02-12] MEDS: DIGOXIN 125 MCG TABLET PO SCH (08:09)
[2023-02-12] MEDS: NYSTATIN POWDER 15 GM TOP SCH ×2 (08:10→20:18)
[2023-02-12] MEDS: polyethylene glycoL 3350 17 GM PACKET PO SCH (08:11)
[2023-02-12] MEDS: cefTRIAXone 2 GM in SODIUM CHLORIDE 0.9% MINIBAG 100 ML IV SCH (08:50)
--- NOTE | 2023-02-12 13:32 | PROVIDER PROGRESS NOTE ---
Assessment/Plan - Problem List (1) Streptococcal bacteremia Assessment/Plan: Bacteriuria on her adm U/A, in the setting of a renal stone and septic shock, made the urine the most likely the source of infection. But her urine cx is growing a different organism. The last Hospitalist stated that it was E. coli UTI. I can find no identification of E. coli. In fact, the urine culture is growing polymicrobial organisms therefore probably contaminants. Of concern is that 2 of 2 blood cultures are growing Strep, therefore this is not a contaminant She has improved considerably since admission, on empiric IV antibiotic ceftraxone Repeat blood cultures were drawn yesterday 02/11, 1 from central line, one from peripheral site, to assess if blood is now negative for growth. Plan: Continue IV ceftraxone until blood and urine cx are all finalized Because of bacteremia, I increased the ceftriaxone from 1 g daily to 2 g daily Await the repeat blood cultures taken yesterday 02/11. If negative, will place a PICC line tomorrow 02/13 and plan for her course of IV antibiotics. We are also awaiting an Echocardiogram to assure she does not have endocarditis (today is and we have no Electrical Mechanical Technician here until -). She will get 14 days total iv antibx, if there is no endocarditis, otherwise 4-6 weeks of iv antibx (2) Ureteral stone Assessment/Plan: She had a left ureteral stent placed during this admission by Urologist, Dr. Ridley Appreciate follow-up note from urology which indicates that the stent and stone will have further management when she is in outpatient (3) Chronic systolic CHF (congestive heart failure) Assessment/Plan: Her last adm 11/2021 LVEF by Echo was 30%. There has been no pulm edema Plan: Cont monitoring for sign of SOB, edema, volume status Follow I&O weight daily (4) Atrial fibrillation Assessment/Plan: RVR has RESOLVED after she was given digoxin loading. She was transitioned to oral Dig Plan: I will adjust meds if necessary for rate control No plan for anticoags due to a Hx of several subdural bleeds (5) Bedbound Assessment/Plan: As per Hx Plan: No PT eval planned (6) Dementia Assessment/Plan: As per Hx. She has a robot cat on her lap Plan: I ordered OT eval, since she was able to feed herself before coming in (7) Septic shock RESOLVED She was on levophed, that was stopped 02/07/23. She was ordered out of ICU on 02/07/23. The presumed spource is a UTI Plan: Continue IV ceftraxone until c and s avail - Current Meds Current Meds: Current Medications Generic Name Dose Route Start Last Admin Trade Name Freq PRN Reason Stop Dose Admin Acetaminophen 650 mg 02/06/23 11:00 02/11/23 16:01 Acetaminophen 325 Mg Tablet PO 650 mg Q4HR PRN Administration Pain 1 to 4, or Fever Digoxin 125 mcg 02/09/23 09:00 02/12/23 08:09 Digoxin 125 Mcg Tablet PO 125 mcg DAILY JAKE Administration Enoxaparin Sodium 40 mg 02/10/23 09:00 02/12/23 08:09 Enoxaparin 40 Mg/0.4 Ml Syringe SUBQ 40 mg DAILY JAKE Administration Ceftriaxone Sodium 2 gm/ 100 mls @ 200 mls/hr 02/10/23 09:00 02/12/23 09:20 Sodium Chloride IV Infused DAILY JAKE Infusion Metoprolol Tartrate 25 mg 02/08/23 21:00 02/12/23 08:08 Metoprolol Tartrate 50 Mg Tablet PO 25 mg BID JAKE Administration Nystatin 1 applic 02/11/23 09:00 02/12/23 08:10 Nystatin Powder 15 Gm TOP 1 applic BID JAKE Administration Polyethylene Glycol 17 gm 02/11/23 12:00 02/12/23 08:11 Polyethylene Glycol 3350 17 Gm Packet PO 17 gm DAILY JAKE Administration Sodium Chloride 10 ml 02/06/23 17:00 02/12/23 08:50 Sodium Chloride Flush 0.9% 10 Ml Syringe IVP 10 ml 0100,0900,1700 JAKE Administration Sodium Chloride 10 ml 02/06/23 11:00 02/08/23 06:35 Sodium Chloride Flush 0.9% 10 Ml Syringe IVP 10 ml PRN PRN Administration NEEDED PER PROVIDER ORDERS - Lab Result Fish Bone Diagrams: 02/11/23 06:00 02/11/23 06:00 - Additional Planning My Orders: My Active Orders 02/11/23 14:32 CULTURE, BLOOD #1 [RM] Stat 02/11/23 15:00 CULTURE, BLOOD #2 [RM] Stat 02/13/23 07:00 Echo Transthoracic Complete [ECHO] Routine Subjective - Subjective Patient Reports: No Complaints Objective Vital Signs: Vital Signs - 24 hr 02/11/23 02/11/23 02/11/23 16:04 20:16 20:58 Temperature 36.9 C 36.9 C Heart Rate [ 64 75 Brachial] Heart Rate [ 20 L Monitoring electrodes] Respiratory 20 18 Rate Blood Pressure 128/65 Blood Pressure 123/62 128/65 [Right Brachial artery] O2 Saturation 96 97 02/11/23 02/12/23 02/12/23 23:50 04:05 08:08 Temperature 36.7 C 36.1 C L Heart Rate [ 78 78 Brachial] Heart Rate [ Monitoring electrodes] Respiratory 20 18 Rate Blood Pressure 120/64 Blood Pressure 130/54 L 109/67 [Right Brachial artery] O2 Saturation 98 94 02/12/23 08:15 Temperature 36.8 C Heart Rate [ 78 Brachial] Heart Rate [ Monitoring electrodes] Respiratory 18 Rate Blood Pressure Blood Pressure 120/64 [Right Brachial artery] O2 Saturation 96 Oxygen O2 Source Room air I&O (Last 24 Hrs): Intake and Output Totals x24h 02/10/23 02/11/23 02/12/23 23:59 23:59 23:59 Intake Total 678 638 500 Output Total 400 1150 1000 Balance 278 -512 -500 General: Alert, No acute distress HEENT: Mucous membr. moist/pink Neck: Supple, No JVD Neuro: Alert, Disoriented, Non Focal Cardiovascular: Regular rate Respiratory: No respiratory distress Abdomen: No tenderness Extremities: No clubbing, Other (Trace pretibial edema) - Results Results: Laboratory Results WBC 12.8 x10^3/uL (4.8-10.8) H 02/11/23 06:00 RBC 3.16 10^6/uL (4.20-5.40) L 02/11/23 06:00 Hgb 10.9 g/dL (12.0-16.0) L 02/11/23 06:00 Hct 33.4 % (37.0-47.0) L 02/11/23 06:00 MCV 105.7 fL (81.0-99.0) H 02/11/23 06:00 MCH 34.5 pg (27.0-31.0) H 02/11/23 06:00 MCHC 32.6 g/dL (32.0-36.0) 02/11/23 06:00 RDW 13.5 % (12.0-15.0) 02/11/23 06:00 Plt Count 260 10^3/uL (130-450) 02/11/23 06:00 MPV 10.2 fL (7.9-10.8) 02/11/23 06:00 Neut # (Auto) 8.6 10^3/uL (1.5-6.6) H 02/11/23 06:00 Lymph # (Auto) 1.7 10^3/uL (1.5-3.5) 02/11/23 06:00 [place] # (Auto) 1.2 10^3/uL (0.0-1.0) H 02/11/23 06:00 Eos # (Auto) 0.8 10^3/uL (0.0-0.7) H 02/11/23 06:00 Baso # (Auto) 0.1 10^3/uL (0.0-0.1) 02/11/23 06:00 Absolute Nucleated RBC 0.00 x10^3/uL 02/11/23 06:00 Total Counted 100 02/07/23 04:00 Band Neuts % (Manual) 1 % (0-10) 02/07/23 04:00 Abnorm Lymph % (Manual) 0 % 02/07/23 04:00 Nucleated RBC % 0.0 /100WBC 02/11/23 06:00 Neutrophils # (Manual) 24.3 10^3/uL (1.5-6.6) H 02/07/23 04:00 Lymphocytes # (Manual) 1.4 10^3/uL (1.5-3.5) L 02/07/23 04:00 Monocytes # (Manual) 2.5 10^3/uL (0.0-1.0) H 02/07/23 04:00 Eosinophils # (Manual) 0.0 10^3/uL (0-0.7) 02/07/23 04:00 Basophils # (Manual) 0.0 10^3/uL (0-0.1) 02/07/23 04:00 Differential Comment MANUAL DIFFERENTIAL 02/07/23 04:00 Manual Slide Review Indicated 02/06/23 08:24 Platelet Estimate NORMAL (130-450,000) (NORMAL) 02/07/23 04:00 RBC Morph Micro Appear NORMAL APPEARANCE (NORMAL) 02/07/23 04:00 VBG pH 7.366 (7.31-7.41) 02/08/23 04:23 Ionized Calcium 1.15 mmol/L (1.15-1.33) 02/08/23 04:23 Sodium 138 mmol/L (135-145) 02/11/23 06:00 Potassium 4.2 mmol/L (3.5-4.5) 02/11/23 06:00 Chloride 106 mmol/L (101-111) 02/11/23 06:00 Carbon Dioxide 28 mmol/L (21-32) 02/11/23 06:00 Anion Gap 4.0 (6-13) L 02/11/23 06:00 BUN 11 mg/dL (6-20) 02/11/23 06:00 Creatinine 0.6 mg/dL (0.6-1.3) 02/11/23 06:00 Estimated GFR (MDRD) 94 (>89) 02/11/23 06:00 Glucose 94 mg/dL (74-104) 02/11/23 06:00 POC Whole Bld Glucose 124 mg/dL (70 - 100) H 02/06/23 08:09 Lactic Acid 1.1 mmol/L (0.5-2.2) 02/06/23 19:18 Calcium 8.7 mg/dL (8.5-10.3) 02/11/23 06:00 Phosphorus 3.8 mg/dL (2.5-5.0) 02/07/23 04:00 Magnesium 1.5 mg/dL (1.7-2.3) L 02/11/23 06:00 Total Bilirubin 1.0 mg/dL (0.2-1.0) 02/06/23 08:24 AST 12 IU/L (10-42) 02/06/23 08:24 ALT 9 IU/L (10-60) L 02/06/23 08:24 Alkaline Phosphatase 71 IU/L (42-121) 02/06/23 08:24 Total Protein 6.4 g/dL (6.4-8.9) 02/06/23 08:24 Albumin 3.3 g/dL (3.2-5.5) 02/06/23 08:24 Globulin 3.1 g/dL (2.1-4.2) 02/06/23 08:24 Albumin/Globulin Ratio 1.1 (1.0-2.2) 02/06/23 08:24 Lipase 20 U/L (11-82) 02/06/23 08:24 Vitamin B12 806 pg/mL (180-914) 02/09/23 04:32 Folate 12.5 ng/mL (5.90 - >24.8) 02/09/23 04:32 Urine Color YELLOW 02/06/23 08:45 Urine Clarity CLOUDY (CLEAR) 02/06/23 08:45 Urine pH 8.0 PH (5.0-7.5) H 02/06/23 08:45 Ur Specific [place] 1.025 (1.002-1.030) 02/06/23 08:45 Urine Protein >=300 mg/dL (NEGATIVE) H 02/06/23 08:45 Urine Glucose (UA) NEGATIVE mg/dL (NEGATIVE) 02/06/23 08:45 Urine Ketones NEGATIVE mg/dL (NEGATIVE) 02/06/23 08:45 Urine Occult Blood MODERATE (NEGATIVE) H 02/06/23 08:45 Urine Nitrite NEGATIVE (NEGATIVE) 02/06/23 08:45 Urine Bilirubin NEGATIVE (NEGATIVE) 02/06/23 08:45 Urine Urobilinogen 0.2 (NORMAL) E.U./dL (NORMAL) 02/06/23 08:45 Ur Leukocyte Esterase MODERATE (NEGATIVE) H 02/06/23 08:45 Urine RBC 6-10 /HPF (0-5) H 02/06/23 08:45 Urine WBC >25 /HPF (0-5) H 02/06/23 08:45 Ur Squamous Epith Cells FEW Squamous (<= Few) 02/06/23 08:45 Urine Bacteria Many /HPF (None Seen) H 02/06/23 08:45 Ur Microscopic Review INDICATED 02/06/23 08:45 Urine Culture Comments INDICATED 02/06/23 08:45 Nasal Adenovirus (PCR) NOT DETECTED 02/06/23 08:40 Nasal B. parapertussis DNA (PCR) NOT DETECTED 02/06/23 08:40 Nasal Coronavir 229E PCR NOT DETECTED 02/06/23 08:40 Nasal Coronavir HKU1 PCR NOT DETECTED 02/06/23 08:40 Nasal Coronavir NL63 PCR NOT DETECTED 02/06/23 08:40 Nasal Coronavir OC43 PCR NOT DETECTED 02/06/23 08:40 Nasal Enterovir/Rhinovir PCR NOT DETECTED 02/06/23 08:40 Nasal Influenza B PCR NOT DETECTED 02/06/23 08:40 Nasal Influenza A PCR NOT DETECTED 02/06/23 08:40 Nasal Parainfluen 1 PCR NOT DETECTED 02/06/23 08:40 Nasal Parainfluen 2 PCR NOT DETECTED 02/06/23 08:40 Nasal Parainfluen 3 PCR NOT DETECTED 02/06/23 08:40 Nasal Parainfluen 4 PCR NOT DETECTED 02/06/23 08:40 Nasal RSV (PCR) NOT DETECTED 02/06/23 08:40 Nasal Screen MRSA (PCR) NEGATIVE (NEGATIVE) 02/06/23 12:01 Nasal B.pertussis DNA PCR NOT DETECTED 02/06/23 08:40 Nasal C.pneumoniae (PCR) NOT DETECTED 02/06/23 08:40 Emil Human Metapneumo PCR NOT DETECTED 02/06/23 08:40 Nasal M.pneumoniae (PCR) NOT DETECTED 02/06/23 08:40 Nasal SARS-CoV-2 (PCR) NOT DETECTED 02/06/23 08:40 Last Dose Date UNKNOWN 02/10/23 05:15 Last Dose Time UNKNOWN 02/10/23 05:15 Digoxin 1.4 ng/mL 02/10/23 05:15 Sepsis Event Note (H) - Evaluation Current Stage of Sepsis: Septic shock Possible source of Sepsis: positive: Genitourinary - Sepsis Criteria Sepsis Criteria: Recorded Temperature greater than 38.3C or Less than 36C, Recorded Heart Rate greater than 90 bpm, WBC count greater than 10% bands, WBC count greater than 12,000 or less than 4000, FIELD MARKETING DIRECTOR: altered consciousness (unrelated to primary neuro pathology), SBP drop more than 40mHg, MAP less than 65 mmHg, Metabolic: lactate > 2 mmol/L
[2023-02-12] MEDS: ACETAMINOPHEN 325 MG TABLET PO PRN (20:27)
[2023-02-13] MEDS: SODIUM CHLORIDE FLUSH 0.9% 10 ML SYRINGE IVP SCH ×3 (03:11→16:11)
[2023-02-13] MEDS: METOPROLOL TARTRATE 50 MG TABLET PO SCH ×2 (08:41→20:12)
[2023-02-13] MEDS: DIGOXIN 125 MCG TABLET PO SCH (08:42)
[2023-02-13] MEDS: ENOXAPARIN 40 MG/0.4 ML SYRINGE SUBQ SCH (08:42)
[2023-02-13] MEDS: cefTRIAXone 2 GM in SODIUM CHLORIDE 0.9% MINIBAG 100 ML IV SCH (08:42)
[2023-02-13] MEDS: NYSTATIN POWDER 15 GM TOP SCH ×2 (08:43→20:15)
[2023-02-13] MEDS: polyethylene glycoL 3350 17 GM PACKET PO SCH (08:43)
[2023-02-13] MEDS: ACETAMINOPHEN 325 MG TABLET PO PRN (16:11)
[2023-02-13] MEDS: SODIUM CHLORIDE FLUSH 0.9% 10 ML SYRINGE IVP PRN (16:11)
--- NOTE | 2023-02-13 17:57 | PROVIDER PROGRESS NOTE ---
Assessment/Plan - Problem List (1) Streptococcal bacteremia Assessment/Plan: Bacteriuria on her adm U/A, in the setting of a renal stone and septic shock, made the urine the most likely the source of infection. But her urine cx is not growing Strep. The last Hospitalist stated that urine had E. coli UTI. I can find no identification of E. coli. In fact, the urine culture is growing polymicrobial organisms therefore probably contaminants. Of concern is that 2 of 2 blood cultures grew Strep, therefore this was not a contaminant She has improved considerably since admission, on empiric IV antibiotic c eftraxone Repeat blood cultures were drawn 02/11, 1 from central line, one from peripheral site, to assess if blood is now negative for growth. At 48 hours they have no growth Plan: Continue IV ceftraxone 2 g daily until blood cx have senitivities Today I ordered placement a PICC line for her course of IV antibiotics. Anesthesia said it will be placed tomorrow. We are also awaiting an Echocardiogram to assure she does not have endocarditis (we have no Tag Meter Operator here except ). She will get 14 days total iv antibx if there is no endocarditis, otherwise she may need a TRISH and/or 4-6 weeks of iv antibx (2) Ureteral stone Assessment/Plan: She had a left ureteral stent placed during this admission by Urologist, Dr. Ridley Appreciate follow-up note from urology which indicates that the stent and stone will have further management when she is in outpatient (3) Chronic systolic CHF (congestive heart failure) Assessment/Plan: Her last adm 11/2021 LVEF by Echo was 30%. There has been no pulm edema Plan: Cont monitoring for sign of SOB, edema, volume status Follow I&O weight daily (4) Atrial fibrillation Assessment/Plan: RVR has RESOLVED after she was given digoxin loading. She was transitioned to oral Dig Plan: I will adjust meds if necessary for rate control No plan for anticoags due to a Hx of several subdural bleeds (5) Bedbound Assessment/Plan: As per Hx Plan: No PT eval planned (6) Dementia Assessment/Plan: As per Hx. She has a robot cat on her lap Plan: I ordered OT eval, it will be done today (7) Septic shock RESOLVED She was on levophed, that was stopped 02/07/23. She was ordered out of ICU on 02/07/23. The presumed spource is a UTI Plan: Continue IV ceftraxone until c and s avail - Current Meds Current Meds: Current Medications Generic Name Dose Route Start Last Admin Trade Name Freq PRN Reason Stop Dose Admin Acetaminophen 650 mg 02/06/23 11:00 02/13/23 16:11 Acetaminophen 325 Mg Tablet PO 650 mg Q4HR PRN Administration Pain 1 to 4, or Fever Digoxin 125 mcg 02/09/23 09:00 02/13/23 08:42 Digoxin 125 Mcg Tablet PO 125 mcg DAILY JAKE Administration Enoxaparin Sodium 40 mg 02/10/23 09:00 02/13/23 08:42 Enoxaparin 40 Mg/0.4 Ml Syringe SUBQ 40 mg DAILY JAKE Administration Ceftriaxone Sodium 2 gm/ 100 mls @ 200 mls/hr 02/10/23 09:00 02/13/23 15:12 Sodium Chloride IV Infused DAILY JAKE Infusion Metoprolol Tartrate 25 mg 02/08/23 21:00 02/13/23 08:41 Metoprolol Tartrate 50 Mg Tablet PO 25 mg BID JAKE Administration Nystatin 1 applic 02/11/23 09:00 02/13/23 08:43 Nystatin Powder 15 Gm TOP 1 applic BID JAKE Administration Polyethylene Glycol 17 gm 02/11/23 12:00 02/13/23 08:43 Polyethylene Glycol 3350 17 Gm Packet PO 17 gm DAILY JAKE Administration Sodium Chloride 10 ml 02/06/23 17:00 02/13/23 16:11 Sodium Chloride Flush 0.9% 10 Ml Syringe IVP 10 ml 0100,0900,1700 JAKE Administration Sodium Chloride 10 ml 02/06/23 11:00 02/13/23 16:11 Sodium Chloride Flush 0.9% 10 Ml Syringe IVP 30 ml PRN PRN Administration NEEDED PER PROVIDER ORDERS - Lab Result Fish Bone Diagrams: 02/11/23 06:00 02/11/23 06:00 - Additional Planning My Orders: My Active Orders 02/13/23 Evaluate and Treat OT [OT] Routine 02/13/23 07:00 Echo Transthoracic Complete [ECHO] Routine 02/13/23 14:50 PICC Line Care [RC] Q4H PICC Line Insert [RC] .ONCE 02/14/23 05:00 BMP - BASIC METABOLIC PANEL [CHEM] DAILYLAB CBC - COMP BLD CT W/AUTO DIFF [HEME] DAILYLAB MAGNESIUM [CHEM] DAILYLAB Subjective - Subjective Patient Reports: No Complaints Objective Vital Signs: Vital Signs - 24 hr 02/12/23 02/12/23 02/12/23 20:19 20:23 20:50 Temperature 36.9 C 36.9 C Heart Rate [ 72 70 Brachial] Respiratory 17 16 Rate Blood Pressure 121/69 Blood Pressure 121/69 133/78 H [Right Brachial artery] O2 Saturation 95 96 02/12/23 02/13/23 02/13/23 23:58 03:13 08:28 Temperature 36.6 C 36.5 C 36.5 C Heart Rate [ 70 85 Brachial] Respiratory 18 18 18 Rate Blood Pressure Blood Pressure 123/57 L 124/77 132/77 H [Right Brachial artery] O2 Saturation 97 95 97 02/13/23 02/13/23 13:00 15:43 Temperature 36.9 C 36.8 C Heart Rate [ 75 79 Brachial] Respiratory 18 18 Rate Blood Pressure Blood Pressure 113/88 H 113/65 [Right Brachial artery] O2 Saturation 98 96 Oxygen O2 Source Room air I&O (Last 24 Hrs): Intake and Output Totals x24h 02/11/23 02/12/23 02/13/23 23:59 23:59 23:59 Intake Total 638 950 220 Output Total 1150 1600 450 Balance -512 -650 -230 General: Alert, No acute distress, Other (Disheveled) HEENT: Mucous membr. moist/pink Neck: Supple, No JVD Neuro: Alert, Other (Left side weak) Cardiovascular: No murmurs Respiratory: No respiratory distress Abdomen: Soft Extremities: No clubbing, No edema - Results Results: Laboratory Results WBC 12.8 x10^3/uL (4.8-10.8) H 02/11/23 06:00 RBC 3.16 10^6/uL (4.20-5.40) L 02/11/23 06:00 Hgb 10.9 g/dL (12.0-16.0) L 02/11/23 06:00 Hct 33.4 % (37.0-47.0) L 02/11/23 06:00 MCV 105.7 fL (81.0-99.0) H 02/11/23 06:00 MCH 34.5 pg (27.0-31.0) H 02/11/23 06:00 MCHC 32.6 g/dL (32.0-36.0) 02/11/23 06:00 RDW 13.5 % (12.0-15.0) 02/11/23 06:00 Plt Count 260 10^3/uL (130-450) 02/11/23 06:00 MPV 10.2 fL (7.9-10.8) 02/11/23 06:00 Neut # (Auto) 8.6 10^3/uL (1.5-6.6) H 02/11/23 06:00 Lymph # (Auto) 1.7 10^3/uL (1.5-3.5) 02/11/23 06:00 [place] # (Auto) 1.2 10^3/uL (0.0-1.0) H 02/11/23 06:00 Eos # (Auto) 0.8 10^3/uL (0.0-0.7) H 02/11/23 06:00 Baso # (Auto) 0.1 10^3/uL (0.0-0.1) 02/11/23 06:00 Absolute Nucleated RBC 0.00 x10^3/uL 02/11/23 06:00 Total Counted 100 02/07/23 04:00 Band Neuts % (Manual) 1 % (0-10) 02/07/23 04:00 Abnorm Lymph % (Manual) 0 % 02/07/23 04:00 Nucleated RBC % 0.0 /100WBC 02/11/23 06:00 Neutrophils # (Manual) 24.3 10^3/uL (1.5-6.6) H 02/07/23 04:00 Lymphocytes # (Manual) 1.4 10^3/uL (1.5-3.5) L 02/07/23 04:00 Monocytes # (Manual) 2.5 10^3/uL (0.0-1.0) H 02/07/23 04:00 Eosinophils # (Manual) 0.0 10^3/uL (0-0.7) 02/07/23 04:00 Basophils # (Manual) 0.0 10^3/uL (0-0.1) 02/07/23 04:00 Differential Comment MANUAL DIFFERENTIAL 02/07/23 04:00 Manual Slide Review Indicated 02/06/23 08:24 Platelet Estimate NORMAL (130-450,000) (NORMAL) 02/07/23 04:00 RBC Morph Micro Appear NORMAL APPEARANCE (NORMAL) 02/07/23 04:00 VBG pH 7.366 (7.31-7.41) 02/08/23 04:23 Ionized Calcium 1.15 mmol/L (1.15-1.33) 02/08/23 04:23 Sodium 138 mmol/L (135-145) 02/11/23 06:00 Potassium 4.2 mmol/L (3.5-4.5) 02/11/23 06:00 Chloride 106 mmol/L (101-111) 02/11/23 06:00 Carbon Dioxide 28 mmol/L (21-32) 02/11/23 06:00 Anion Gap 4.0 (6-13) L 02/11/23 06:00 BUN 11 mg/dL (6-20) 02/11/23 06:00 Creatinine 0.6 mg/dL (0.6-1.3) 02/11/23 06:00 Estimated GFR (MDRD) 94 (>89) 02/11/23 06:00 Glucose 94 mg/dL (74-104) 02/11/23 06:00 POC Whole Bld Glucose 124 mg/dL (70 - 100) H 02/06/23 08:09 Lactic Acid 1.1 mmol/L (0.5-2.2) 02/06/23 19:18 Calcium 8.7 mg/dL (8.5-10.3) 02/11/23 06:00 Phosphorus 3.8 mg/dL (2.5-5.0) 02/07/23 04:00 Magnesium 1.5 mg/dL (1.7-2.3) L 02/11/23 06:00 Total Bilirubin 1.0 mg/dL (0.2-1.0) 02/06/23 08:24 AST 12 IU/L (10-42) 02/06/23 08:24 ALT 9 IU/L (10-60) L 02/06/23 08:24 Alkaline Phosphatase 71 IU/L (42-121) 02/06/23 08:24 Total Protein 6.4 g/dL (6.4-8.9) 02/06/23 08:24 Albumin 3.3 g/dL (3.2-5.5) 02/06/23 08:24 Globulin 3.1 g/dL (2.1-4.2) 02/06/23 08:24 Albumin/Globulin Ratio 1.1 (1.0-2.2) 02/06/23 08:24 Lipase 20 U/L (11-82) 02/06/23 08:24 Vitamin B12 806 pg/mL (180-914) 02/09/23 04:32 Folate 12.5 ng/mL (5.90 - >24.8) 02/09/23 04:32 Urine Color YELLOW 02/06/23 08:45 Urine Clarity CLOUDY (CLEAR) 02/06/23 08:45 Urine pH 8.0 PH (5.0-7.5) H 02/06/23 08:45 Ur Specific [place] 1.025 (1.002-1.030) 02/06/23 08:45 Urine Protein >=300 mg/dL (NEGATIVE) H 02/06/23 08:45 Urine Glucose (UA) NEGATIVE mg/dL (NEGATIVE) 02/06/23 08:45 Urine Ketones NEGATIVE mg/dL (NEGATIVE) 02/06/23 08:45 Urine Occult Blood MODERATE (NEGATIVE) H 02/06/23 08:45 Urine Nitrite NEGATIVE (NEGATIVE) 02/06/23 08:45 Urine Bilirubin NEGATIVE (NEGATIVE) 02/06/23 08:45 Urine Urobilinogen 0.2 (NORMAL) E.U./dL (NORMAL) 02/06/23 08:45 Ur Leukocyte Esterase MODERATE (NEGATIVE) H 02/06/23 08:45 Urine RBC 6-10 /HPF (0-5) H 02/06/23 08:45 Urine WBC >25 /HPF (0-5) H 02/06/23 08:45 Ur Squamous Epith Cells FEW Squamous (<= Few) 02/06/23 08:45 Urine Bacteria Many /HPF (None Seen) H 02/06/23 08:45 Ur Microscopic Review INDICATED 02/06/23 08:45 Urine Culture Comments INDICATED 02/06/23 08:45 Nasal Adenovirus (PCR) NOT DETECTED 02/06/23 08:40 Nasal B. parapertussis DNA (PCR) NOT DETECTED 02/06/23 08:40 Nasal Coronavir 229E PCR NOT DETECTED 02/06/23 08:40 Nasal Coronavir HKU1 PCR NOT DETECTED 02/06/23 08:40 Nasal Coronavir NL63 PCR NOT DETECTED 02/06/23 08:40 Nasal Coronavir OC43 PCR NOT DETECTED 02/06/23 08:40 Nasal Enterovir/Rhinovir PCR NOT DETECTED 02/06/23 08:40 Nasal Influenza B PCR NOT DETECTED 02/06/23 08:40 Nasal Influenza A PCR NOT DETECTED 02/06/23 08:40 Nasal Parainfluen 1 PCR NOT DETECTED 02/06/23 08:40 Nasal Parainfluen 2 PCR NOT DETECTED 02/06/23 08:40 Nasal Parainfluen 3 PCR NOT DETECTED 02/06/23 08:40 Nasal Parainfluen 4 PCR NOT DETECTED 02/06/23 08:40 Nasal RSV (PCR) NOT DETECTED 02/06/23 08:40 Nasal Screen MRSA (PCR) NEGATIVE (NEGATIVE) 02/06/23 12:01 Nasal B.pertussis DNA PCR NOT DETECTED 02/06/23 08:40 Nasal C.pneumoniae (PCR) NOT DETECTED 02/06/23 08:40 Emil Human Metapneumo PCR NOT DETECTED 02/06/23 08:40 Nasal M.pneumoniae (PCR) NOT DETECTED 02/06/23 08:40 Nasal SARS-CoV-2 (PCR) NOT DETECTED 02/06/23 08:40 Last Dose Date UNKNOWN 02/10/23 05:15 Last Dose Time UNKNOWN 02/10/23 05:15 Digoxin 1.4 ng/mL 02/10/23 05:15 Sepsis Event Note (H) - Evaluation Current Stage of Sepsis: Septic shock Possible source of Sepsis: positive: Genitourinary - Sepsis Criteria Sepsis Criteria: Recorded Temperature greater than 38.3C or Less than 36C, Recorded Heart Rate greater than 90 bpm, WBC count greater than 10% bands, WBC count greater than 12,000 or less than 4000, CONTROL CABINET ASSEMBLER: altered consciousness (unrelated to primary neuro pathology), SBP drop more than 40mHg, MAP less than 65 mmHg, Metabolic: lactate > 2 mmol/L
[2023-02-14] MEDS: SODIUM CHLORIDE FLUSH 0.9% 10 ML SYRINGE IVP SCH ×2 (01:32→09:00)
[2023-02-14 05:21] LABS: BASOPHILS # (AUTO) 0.1 10^3/uL (0.0-0.1); BASOPHILS % (AUTO) 0.6 %; EOSINOPHILS # (AUTO) 0.7 10^3/uL (0.0-0.7); EOSINOPHILS % (AUTO) 5.8 %; HCT - HEMATOCRIT 32.1 % (37.0-47.0); HGB - HEMOGLOBIN 10.3 g/dL (12.0-16.0); LYMPHOCYTES % (AUTO) 16.9 %; MEAN CORPUSCULAR HEMOGLOBIN 34.1 pg (27.0-31.0); MEAN CORPUSCULAR HGB CONC 32.1 g/dL (32.0-36.0); MEAN CORPUSCULAR VOLUME 106.3 fL (81.0-99.0); MEAN PLATELET VOLUME 9.8 fL (7.9-10.8); MONOCYTES # (AUTO) 0.9 10^3/uL (0.0-1.0); MONOCYTES % (AUTO) 7.7 %; NEUTROPHILS # (AUTO) 7.6 10^3/uL (1.5-6.6); NEUTROPHILS % (AUTO) 64.9 %; PLT - PLATELET COUNT 297 10^3/uL (130-450); RED BLOOD COUNT 3.02 10^6/uL (4.20-5.40); RED CELL DISTRIBUTION WIDTH 14.3 % (12.0-15.0); WHITE BLOOD COUNT 11.7 x10^3/uL (4.8-10.8)
[2023-02-14 05:39] LABS: CALCIUM 8.6 mg/dL (8.5-10.3); CREATININE 0.5 mg/dL (0.6-1.3); MAGNESIUM 1.4 mg/dL (1.7-2.3); POTASSIUM 3.9 mmol/L (3.5-4.5)
[2023-02-14] MEDS: METOPROLOL TARTRATE 50 MG TABLET PO SCH (09:00)
[2023-02-14] MEDS: cefTRIAXone 2 GM in SODIUM CHLORIDE 0.9% MINIBAG 100 ML IV SCH (09:00)
[2023-02-14] MEDS: polyethylene glycoL 3350 17 GM PACKET PO SCH (09:00)
[2023-02-14] MEDS: DIGOXIN 125 MCG TABLET PO SCH (09:00)
[2023-02-14] MEDS: ENOXAPARIN 40 MG/0.4 ML SYRINGE SUBQ SCH (09:00)
--- NOTE | 2023-02-14 09:22 | XRAY Report ---
PROCEDURE: Chest for Line Placement INDICATIONS: PICC line placement TECHNIQUE: One view of the chest was acquired. COMPARISON: Chest x-ray 02/07/2023 FINDINGS: Surgical changes and devices: Left-sided PICC line is present with distal tip projecting over the di stal SVC/right atrial junction. Lungs and pleura: Bibasilar opacities have developed since prior exam. Mild effusions are present. Mediastinum: Mediastinal contours appear normal. Heart size is enlarged. Bones and chest wall: No suspicious bony lesions. Overlying soft tissues appear unremarkable. IMPRESSION: Left PICC line as above. Interval bibasilar opacities and effusions. This could represent atelectasis versus developing pneumo andi. Reviewed by: Yeni Lloyd MD on 02/14/2023 9:20 AM PDT Approved by: Yeni Lloyd MD on 02/14/2023 9:20 AM PDT Station ID: [id number]
[2023-02-14] MEDS ORDERED: MAGNESIUM SULFATE 2 GRAM 2 GM/50 ML BAG IV ONE (10:42)
--- NOTE | 2023-02-14 10:53 | Discharge Plan ---
"Discharge Plan for SNF / SUSAN - Discharge Plan And Transition Orders Problem Reviewed?: Yes Disposition: 03 SNF DC/Xfer Condition: Fair Allergies and Adverse Reactions: Allergies Allergy/AdvReac Type Severity Reaction Status Date / Time No Known Drug Allergies Allergy Verified 02/06/23 08:12 Health Concerns: The patient was hospitalized to treat septic shock. It was caused by a UTI and a urinary stone causing obstruction. She had a stent placed by her urologist. She has been on IV antibiotics. Her blood culture has grown strep. She needs to complete a total 14-day course of treatment. She has a PICC line in and needs several more days of IV ceftriaxone 2 g daily (give through Feb 20). Plan of Treatment: As above. Care Goals: Improvement in symptoms and stabilization are the goals. Assessment: The patient understands and is agreeable with the plan. - SNF / SUSAN Transition Orders Admit to (Facility): [facility] Under the care of (Name): Dr Ziyad Gloria Discharge Diagnosis: (1) Septic shock Resolved (2) Streptococcal bacteremia She needs to complete her course of IV antibiotics via PICC line (3) Ureteral stone She had a left ureteral stent placed during this admission by Urologist, Dr. Ridley. The stent and stone will have further management by him as an outpatient. formerly [facility] to please contact Dr. Ridley and coordinate the appointments. (4) Chronic systolic CHF (congestive heart failure) Her last Echo showedd LVEF 30%. She had no CHF exacerbation during this hospital stay. (5) Hypomagnesemia Mg was replaced. (6) Atrial fibrillation Meds for rate control were adjusted. No plan for anticoagulants due to a Hx of several subdural bleeds. She is on 1 baby aspirin daily now. (7) Arthritis She is on 1 baby aspirin daily now and also oxycodone ordered for severe pain (8) Bedbound As per hx (9) Dementia As per Hx. She is able to feed herself. Medicare Certification Statement: I certify that [facility] is medically necessary on a continuing basis for any of the conditions for which she/he is receiving care during hospitalization. Notify PCP of admission and forward orders to primary provider for signature. Weight on admission and: Weekly Call PCP immediately if weight increases by: 5 kg Other Notification Orders: Call PCP immediately if patient develops dyspnea, chest pain/tightness or edema. House Bowel Program: Yes Additional Bowel Program Orders: If no BM after 2 days, nurse may give M.O.M. 30ml PO PRN and/or ducolax Supp 1 [place] and/or SHAUN 250mg P.O., and/or senna 1-2 tabs PO. On day 3 nurse may give repeat above order until residents constipation is resolved. Annual Influenza Vaccine (between Feb 09 and September 08): Yes Two-step PPD per [facility] [id number] or approved exception documents: Yes Treatments & Other Orders: IV antibiotic via PICC line daily, give through 02/20/23, then stop Lab Tests or X-ray Orders: Dig level and Mg level every Mon for 2 weeks Medication Orders: PLEASE REFER TO THE DISCHARGE MEDICATION LIST. Insulin Orders?: No - Medications New Prescriptions: oxyCODONE [Roxicodone] 5 mg PO Q8HR PRN #10 tab PRN Reason: Severe Pain (Level 7-10) Aspirin EC [Ecotrin] 81 mg PO DAILY #30 tablet Digoxin [Lanoxin] 125 mcg PO DAILY #30 tab Metoprolol Tartrate [Lopressor] 25 mg PO BID #60 tab Magnesium Oxide [Magnesium] 200 mg PO DAILY #7 ea Nystatin [Nystop] 1 applic TOP BID #1 each cefTRIAXone [Rocephin 2 gram] 2 gm IV DAILY #6 ea - Diet Type: Geriatric Texture: Regular Liquids: Thin May have monthly special meal: Yes - Therapies | Activity Weight Bearing: No Weight Follow Up: See PCP for routine follow-up"
--- NOTE | 2023-02-14 11:41 | DISCHARGE SUMMARY ---
Discharge Summary Admit Date: 02/06/23 Discharge Date: 02/14/23 Discharging Provider: Dr Rosa M Andersen Primary Care Provider: Dr Ziyad Gloria Code Status: Do Not Attempt Resuscitation Condition at Discharge: Fair Discharge Disposition: 03 SNF DC/Xfer - HPI History of Present Illness: Elderly female who is a resident of LTAC[facility] located within [facility] and has a history of alcohol abuse with admission for atrial fibrillation with RVR in November 2021 resulting in a swing bed stay. At that time ejection fraction was 25%. There is no antecedent history provided to EMS but EMS was called because her heart rate was elevated during vital sign check this morning. Heart rate was in the 150s. Blood pressure was not checked with this and she was given 12 mg of Car dizem IVP. She was then brought into the emergency room and fever was seen with a temperature of 101. Heart rate was in the 150s. Blood pressure were 70s to 80s systolic. She was given 2 L of IV fluids, and evaluation was done. She is still in A-fib with RVR but white cell count is 24,000, creatinine is twice but usually is (she is usually 0.7 and she is 1.7). Lactic acid is 3. Urinalysis h as dense pyuria. She is COVID-negative. Chest x-ray negative. CT of head and abdomen and pelvis is pending. In the emergency room the emergency room provider felt that the patient had septic shock from both A-fib with RVR and UTI. Since she did not respond to the 2 L IV fluid and her pressure is still in the 70s and 80s a central line was started and she was begun on Levophed. Blood pressures were manually confirmed. The emergency room provider and I discussed the case. She asked if the patient needed to be kept in the emergency room until we got back the CT of abdomen and pelvis. Since we do have urology on staff, I do feel comfortable admitting this patient even if she does have obstructed stones.As such, I am admitting this patient to inpatient status in the ICU. I last admitted this patient in September 2020 for a fall. At that time she had cognitive deficits, was walking with a cane. But she did tell me that she is a DO NOT RESUSCITATE and wanted limited intervention. She was readmitted again in November 2021. Again for fall. It was at that point she was identified as having an ejection fraction of 25%. The ER provider makes reference of a fall at home with resultant subarachnoid hemorrhage, subdural. She called EMS 6 times in 24 hours in December 2021 and with the last time had UTI. Also subdurral. Went to [facility]. And shortly thereafter placed in a halfway facility. I spoke to her nurse at the SNF, and the RN reports 10/05/2020 was Ms. Finley's admis mike to [facility] but that date is not concordant with the ER records of living along and EMS being called until December 2021. Never the less, the patient doesn't walk or get of bed. She will feed herself. But refuses to get out of bed and is dependent on the aides for bath, hygeined, meds, etc. She has a neice that is POA. Radha Garcia @ [phone]. Up until today, the patient was in her usual status. The nurse states that there was no change in the patient's mentation. There is no fever. No cough, urgency, frequency. It was only the fast heart rate that alerted her to something wrong. As far as mentation, the patient was normally mentating when she left the halfway facility and came to the ER. Her friend Franklyn, who is a nearby neighbor, has promised to look in after her ever since her . Franklyn said that she is pretty stubborn. Refuses to get out of bed because her feet hurt. So she is basically bedbound. She is starting to lose her memory over the last year. - HOSPITAL COURSE Hospital Course: (1) Septic shock Resolved with iv antibiotics and iv fluids (2) Streptococcal bacteremia She needs to complete her course of IV antibiotics via PICC line (3) Ureteral stone She had a left ureteral stent placed during this admission by Urologist, Dr. Ridley. The stent and stone will have further management by him as an outpatient. LTAC, located within [facility] to please contact Dr. Ridley and coordinate the appointments. (4) Chronic systolic CHF (congestive heart failure) Her last Echo showed LVEF 30%. She had no CHF exacerbation during this hospital stay. She is on a beta-kristin but is not on AIDAN or ARB because of "soft" blood pressures (5) Hypomagnesemia Mg was replaced. (6) Chronic atrial fibrillation Meds for rate control were adjusted. No plan for anticoagulants due to a Hx of several subdural bleeds. She is on 1 baby aspirin daily now. (7) Arthritis She is on 1 baby aspirin daily now and also oxycodone ordered for severe pain (8) Bedbound As per hx (9) Dementia As per Hx. She is able to feed herself. - ALLERGIES Allergies/Adverse Reactions: Allergies Allergy/AdvReac Type Severity Reaction Status Date / Time No Known Drug Allergies Allergy Verified 02/06/23 08:12 - MEDICATIONS Home Medications: Ambulatory Orders Medication Instructions Recorded Confirmed Multivit with Iron,Minerals 1 each PO DAILY #30 tab.chew 11/28/21 02/06/23 [Multivitamins with Iron] Acetaminophen [Tylenol] 650 mg PO Q8HR PRN 02/06/23 02/06/23 Bisacodyl Supp [Dulcolax Supp] 10 mg IA DAILY PRN 02/06/23 02/06/23 Diclofenac Sodium 1% Gel [Voltaren 1 applic TOP BID PRN 02/06/23 02/06/23 Gel] Mineral Oil [Mineral Oil Enema] 1 ea RC PRN PRN 02/06/23 02/06/23 Senna [Senokot] 17.2 mg PO DAILY PRN 02/06/23 02/06/23 guaiFENesin [Chest Congestion 400 mg PO Q6HR PRN 02/06/23 02/06/23 Relief] polyethylene glycoL 3350 [Miralax] 17 gm PO DAILY PRN 02/06/23 02/06/23 Aspirin EC [Ecotrin] 81 mg PO DAILY #30 tablet 02/14/23 Digoxin [Lanoxin] 125 mcg PO DAILY #30 tab 02/14/23 Magnesium Oxide [Magnesium] 200 mg PO DAILY #7 ea 02/14/23 Metoprolol Tartrate [Lopressor] 25 mg PO BID #60 tab 02/14/23 Nystatin [Nystop] 1 applic TOP BID #1 each 02/14/23 cefTRIAXone [Rocephin 2 gram] 2 gm IV DAILY #2 ea 02/14/23 cefTRIAXone [Rocephin 2 gram] 2 gm IV DAILY #6 ea 02/14/23 oxyCODONE [Roxicodone] 5 mg PO Q8HR PRN #10 tab 02/14/23 - PHYSICAL EXAM AT DISCHARGE General Appearance: positive: No acute distress, Alert Eyes Bilateral: positive: Normal inspection, EOMI ENT: positive: ENT inspection nml, No signs of dehydration Neck: positive: Nml inspection, No JVD Respiratory: positive: No respiratory distress Cardiovascular: positive: No murmur, Irregularly irregular Abdomen: positive: Non-tender, No distention Skin: positive: Warm, Dry Extremities: positive: No pedal edema, Other (Stiffness and tenderness of all joints of her hands) Neurologic/Psychiatric: positive: Oriented x3, Other (Poor memory, generalized weakness, left greater than right arm and leg weakness) - LABS Result Diagrams: 02/14/23 05:12 02/14/23 05:12 - DIAGNOSTIC IMAGING Diagnostic Imaging Results: Final report reviewed - SEPSIS Current Stage of Sepsis: Septic shock Possible source of Sepsis: Genitourinary Sepsis Criteria: Recorded Temperature greater than 38.3C or Less than 36C, Recorded Heart Rate greater than 90 bpm, WBC count greater than 10% bands, WBC count greater than 12,000 or less than 4000, [employer]: altered consciousness (unrelated to primary neuro pathology), SBP drop more than 40mHg, MAP less than 65 mmHg, Metabolic: lactate > 2 mmol/L - FOLLOW UP Follow Up: See PCP (at the nursing facility where she lives) per routine follow-up. - TIME SPENT Time Spent in Discharge (Minutes): 50
[2023-02-14] MEDS: NYSTATIN POWDER 15 GM TOP SCH (12:06)
--- NOTE | 2023-02-14 13:13 | ANESTHESIA PROCEDURE NOTE ---
Anesth Central Line Template - Central Line Central Line Preparation: Consent Obtained Central line location: Left Brachial Central line type: PICC Single Lumen Central line catheter tip site resides: Superior vena cava (SVC) Central line aftercare: Secured, Placement confirmed, No pneumothorax, No complications, Bundle checklist complete, Pt tolerated well (PICC trimmed to 46cm, pulled back with 7cm exposed after initial CXR due to deep placement. PICC with 39cm inserted demonstrated proper position in SVC by CXR. Exposed catheter secured with sterile steristrips and statlock under tegaderm.)
[2023-02-14 13:54] VITALS: BP 95/53; O2SAT 95
== END 2023-02-14 14:26 | DRG 853 ==
LOC: EDUNIT# → ED 08:04 → UNDOADMIN 11:00 → ICU 11:00 → MS2 02-09 11:17
PROVIDERS: ADMIT Specialist; ATTEND Internal Medicine
PROC: BT1FZZZ Fluoroscopy of Left Kidney, Ureter and Bladder (ICD-10-PCS; 2023-02-06)
PROC: 0T778DZ Dilation of Left Ureter with Intraluminal Device, Via Natural or Artificial Opening Endoscopic (ICD-10-PCS; principal; 2023-02-06 12:30)
DX: A41.9 Sepsis, unspecified organism (principal); A40.9 Streptococcal sepsis, unspecified; R65.21 Severe sepsis with septic shock; I50.9 Heart failure, unspecified; N39.0 Urinary tract infection, site not specified; I45.10 Unspecified right bundle-branch block; N20.1 Calculus of ureter; I50.22 Chronic systolic (congestive) heart failure; Z20.822 Contact with and (suspected) exposure to COVID-19; I48.20 Chronic atrial fibrillation, unspecified; E83.42 Hypomagnesemia; M19.90 Unspecified osteoarthritis, unspecified site; F03.90 Unspecified dementia, unspecified severity, without behavioral disturbance, psychotic disturbance, mood disturbance, and anxiety; D72.829 Elevated white blood cell count, unspecified; Z66 Do not resuscitate; Z74.01 Bed confinement status; Z79.01 Long term (current) use of anticoagulants; Z79.899 Other long term (current) drug therapy; Z91.81 History of falling
CPT/HCPCS: 36415; 36556; 70450; 71045; 74176; 80048; 80053; 80162; 81001; 82330; 82607; 82746; 83605; 83690; 83735; 84100; 84132; 85025; 87040; 87077; 87086; 87150; 87633; 93005; 93306; 96361; 96365; 97165; 99285; A6250; A9270; C1758; C2617; J1650; J3490; Q9966; 81003

== ENCOUNTER 2023-02-14 14:23 | Outpatient (CLI) | payer MEDICARE, BC | END 2023-02-14 14:24 | LOC: EMS 14:23 | PROVIDERS: ATTEND Internal Medicine | DX: R78.81 Bacteremia (principal); Z74.01 Bed confinement status; Z95.828 Presence of other vascular implants and grafts; F03.90 Unspecified dementia, unspecified severity, without behavioral disturbance, psychotic disturbance, mood disturbance, and anxiety | CPT/HCPCS: A0425; A0428 ==

== ENCOUNTER 2023-02-24 08:00 | Outpatient (CLI) | payer MEDICARE, BC ==
[2023-02-24 11:45] LABS: BASOPHILS # (AUTO) 0.2 10^3/uL (0.0-0.1); BASOPHILS % (AUTO) 2.4 %; EOSINOPHILS # (AUTO) 0.5 10^3/uL (0.0-0.7); EOSINOPHILS % (AUTO) 5.5 %; HCT - HEMATOCRIT 33.6 % (37.0-47.0); HGB - HEMOGLOBIN 10.9 g/dL (12.0-16.0); LYMPHOCYTES # (AUTO) 2.2 10^3/uL (1.5-3.5); LYMPHOCYTES % (AUTO) 23.8 %; MEAN CORPUSCULAR HEMOGLOBIN 34.8 pg (27.0-31.0); MEAN CORPUSCULAR HGB CONC 32.4 g/dL (32.0-36.0); MEAN CORPUSCULAR VOLUME 107.3 fL (81.0-99.0); MEAN PLATELET VOLUME 10.6 fL (7.9-10.8); MONOCYTES # (AUTO) 0.8 10^3/uL (0.0-1.0); MONOCYTES % (AUTO) 8.8 %; NEUTROPHILS # (AUTO) 5.3 10^3/uL (1.5-6.6); NEUTROPHILS % (AUTO) 58.7 %; PLT - PLATELET COUNT 308 10^3/uL (130-450); RED BLOOD COUNT 3.13 10^6/uL (4.20-5.40); RED CELL DISTRIBUTION WIDTH 14.5 % (12.0-15.0); WHITE BLOOD COUNT 9.1 x10^3/uL (4.8-10.8)
[2023-02-24 11:56] LABS: ALBUMIN 3.3 g/dL (3.2-5.5); ALKALINE PHOSPHATASE 62 IU/L (42-121); ALT ALANINE AMINOTRANSFERASE 11 IU/L (10-60); AST ASPARTATE AMINOTRANSFERASE 18 IU/L (10-42); BILIRUBIN,TOTAL 0.5 mg/dL (0.2-1.0); BUN - BLOOD UREA NITROGEN 30 mg/dL (6-20); CALCIUM 8.6 mg/dL (8.5-10.3); CARBON DIOXIDE - CO2 29 mmol/L (21-32); CHLORIDE 99 mmol/L (101-111); CREATININE 0.7 mg/dL (0.4-1.0); GFR - MDRD 79 (>89); GLUCOSE 122 mg/dL (70-100); POTASSIUM 3.5 mmol/L (3.5-5.0); SODIUM 136 mmol/L (135-145); TOTAL PROTEIN 6.5 g/dL (6.7-8.2)
== END 2023-02-24 23:59 | disposition home or self-care (01) ==
LOC: LAB.R 08:00
PROVIDERS: ATTEND Registered Nurse
DX: I10 Essential (primary) hypertension (principal); I48.20 Chronic atrial fibrillation, unspecified
CPT/HCPCS: 80053; 80162; 85025

== ENCOUNTER 2023-03-11 08:00 | Outpatient (CLI) | payer MEDICARE, BC ==
[2023-03-11 08:28] LABS: BILIRUBIN,URINE NEGATIVE (NEGATIVE); GLUCOSE, URINE (UA) NEGATIVE (NEGATIVE); KETONES,URINE (UA) NEGATIVE (NEGATIVE); LEUKOCYTE ESTERASE, URINE LARGE (NEGATIVE); NITRITE,URINE NEGATIVE (NEGATIVE); OCCULT BLOOD,URINE LARGE (NEGATIVE); PH,URINE 8.5 PH (5.0-7.5); PROTEIN,URINE 100 mg/dL (NEGATIVE); UROBILINOGEN,URINE 1 (NORMAL) E.U./dL (NORMAL)
[2023-03-11 08:29] LABS: CLARITY,URINE CLOUDY (CLEAR)
[2023-03-11 08:32] LABS: BACTERIA,URINE Few /HPF (None Seen); MUCUS,URINE Marked Strands; RBC,URINE TNTC /HPF (0-5); SQUAMOUS EPITHELIAL CELL,UR FEW Squamous (<= Few)
[2023-03-11 08:33] LABS: CRYSTALS,URINE 6-10 Triple Phos /LPF
[2023-03-11 16:24] LABS: DIGOXIN 1.3 ng/mL
== END 2023-03-11 23:59 | disposition home or self-care (01) ==
LOC: LAB.R 08:00
PROVIDERS: ATTEND Registered Nurse
DX: R30.0 Dysuria (principal); I48.20 Chronic atrial fibrillation, unspecified
CPT/HCPCS: 80162; 81001; 81003; 87077; 87086; 87181

== ENCOUNTER 2023-03-19 06:07 | Day surgery (SDC) | payer MEDICARE, BC ==
[2023-03-19] MEDS ORDERED: LACTATED RINGERS 1,000 ML IV ONE (06:26)
[2023-03-19] MEDS ORDERED: ceFAZolin 2 GM VIAL ONE (06:27)
[2023-03-19] MEDS ORDERED: LIDOCAINE 2% URO-JET 5 ML SYRINGE UR ONE ×2 (07:04→07:38)
[2023-03-19] MEDS ORDERED: LIDOCAINE-PF 2% 10 ML AMP SUBQ ONE (07:33)
[2023-03-19] MEDS ORDERED: ONDANSETRON 4 MG/2 ML VIAL ONE (07:33)
[2023-03-19] MEDS ORDERED: PROPOFOL 200 MG/20 ML VIAL IVP ONE (07:33)
[2023-03-19] MEDS ORDERED: fentaNYL 100 MCG/2 ML VIAL ONE (07:34)
[2023-03-19] MEDS ORDERED: HYDROcod/ACETAM 5/325 MG TABLET PO PRN (08:19)
[2023-03-19] MEDS ORDERED: ONDANSETRON 4 MG/2 ML VIAL IVP PRN ×2 (08:19→08:58)
[2023-03-19] MEDS ORDERED: LACTATED RINGERS 450 ML IV ONE (08:25)
--- NOTE | 2023-03-19 08:26 | Discharge Plan ---
Discharge Plan Problem Reviewed?: Yes Disposition: [facility] DC/Xfer Condition: Fair Prescriptions: Amox/Clav 875/125 [Augmentin 875/125 Tab] 1 tablet PO Q12H 10 Days #20 tablet Docusate Sodium 100Mg Capsule [Colace 100Mg Capsule] 100 mg PO DAILY #10 cap HYDROcod/ACETAM 5/325 [[place] 5/325] 1 tab PO Q4H PRN #10 tablet PRN Reason: Pain Diet: Regular Activity Restrictions: No Restrictions Shower Restrictions: Yes (sponge bathe only until stent removed later in the office) Driving Restrictions: No Instruction Topics: Stents Ureteral Plan of Treatment: you will be contacted for followup in the office later this week No Smoking: If you smoke, Please STOP! Call for help. Follow-up with: Wilbur Ridley MD [Provider Admit Priv/Credential] -
--- NOTE | 2023-03-19 08:28 | OPERATIVE REPORT ---
Operative Report - General Procedure Date: 03/19/23 Planned Procedure: cystoscopy, left ureteroscopy, laser lithotripsy stent exchange Pre-Op Diagnosis: left ureteral stone Procedure Performed: cystoscopy, left ureteroscopy, laser lithotripsy stent exchange Post Op Diagnosis: left ureteral and kidney stones - Procedure Note Primary Surgeon: Khai Anesthesia Provider: FRANCO Lynne Anesthesia Technique: General LMA Pathology: left ureteral stone Urine culture Findings: left distal 7mm ureteral stone renal pelvic small stones debris in left renal pelvis sent for culture Stent left on string Complications: none - Other Other Information/Narrative: After informed consent was obtained by the patient and her power of assistant prosecuting attorney the patient was brought to the OR and laid the supine position. She was anesthetized per anesthesia protocols and prepped and draped in the usual sterile fashion she was in the dorsolithotomy position. A timeout was performed reconfirming the patient procedure and laterality. A 22 Monegasque cystoscope was advanced easily into urinary bladder. She had an stent emanating from her left UO it was mildly encrusted. A sensor wire was placed next to this and up into the kidney, then the old stent was removed. A short semirigid ureteroscope was advanced into the distal ureter where a 7 mm stone was identified using a laser this was broken up into pieces and a large piece was grasped and removed and sent for analysis using a basket. The rest of the distal ureter was then cleared. A flexible ureteroscope was advanced up into the kidney. Her renal pelvis had a lot of debris that did appear possibly purulent and so a specimen of this urine was sent for culture. A few small stones were seen and these were lasered to dust. We then cleared the ureter under direct visualization. A new 6 Monegasque 24 cm double-J ureteral stent was placed with good curling noted in the kidney and good curling noted in the bladder. Her bladder was emptied. The stent was left on a string and it was taped to her lower pelvis. This concluded the procedure and the patient Toller procedure well brought to PACU that further incident. She will go home today and I will send her home with an empiric week of antibiotics. I will plan to see her in the office later this week to have the stent removed. All counts are correct
[2023-03-19] MEDS ORDERED: ATROPINE ABBOJECT 1 MG/10 ML SYRINGE IVP PRN (08:58)
[2023-03-19] MEDS ORDERED: HYDROmorphone 0.5 MG/0.5 ML SYRINGE IVP PRN (08:58)
[2023-03-19] MEDS ORDERED: fentaNYL 100 MCG/2 ML VIAL IVP PRN (08:58)
[2023-03-19] MEDS ORDERED: NALOXONE 0.4 MG/ML VIAL IVP PRN (08:58)
[2023-03-19] MEDS ORDERED: MORPHINE 2 MG/ML CARPUJECT IVP PRN (08:58)
[2023-03-19] MEDS ORDERED: LACTATED RINGERS 1,000 ML IV SCH (09:00)
--- NOTE | 2023-03-19 09:15 | ANESTHESIA ---
Pre-Anesthesia VS, & Labs - Diagnosis KIDNEY STONE - Procedure cystoscopy, stent removal, laser Vital Signs: Temp Pulse Resp BP Pulse Ox O2 Flow Rate 36.2 C L 89 14 101/68 98 03/19/23 08:59 03/19/23 08:59 03/19/23 08:59 03/19/23 08:55 03/19/23 08:59 Height: 5 ft 6 in Weight (kg): 63.5 kg Body Mass Index: 22.6 BMI Classification: Normal - NPO >8 hours - Is Patient ?: No Home Medications and Allergies Home Medications: Ambulatory Orders Lactobacillus Combination No.4 [Probiotic] 1 each PO DAILY 03/15/23 Naloxone HCl [Narcan] 1 spray NS PRN PRN 03/15/23 Apixaban [Eliquis] 1 tab PO BID 03/16/23 Furosemide [Lasix] 1 tab PO DAILY 03/16/23 Lisinopril [Zestril] 1 tab PO DAILY 03/16/23 Active Medications Hydrocodone Bitart/Acetaminophen (Hydrocod/Acetam 5/325 Mg Tablet) 1 tab PO Q4HR PRN PRN Reason: Moderate Pain (Level 4-6) Ondansetron HCl (Ondansetron 4 Mg/2 Ml Vial) 4 mg IVP Q6HR PRN PRN Reason: Nausea / Vomiting Acetaminophen [Tylenol] 650 mg PO Q8HR PRN 02/06/23 Bisacodyl Supp [Dulcolax Supp] 10 mg IA DAILY PRN 02/06/23 Diclofenac Sodium 1% Gel [Voltaren Gel] 1 applic TOP BID PRN 02/06/23 Mineral Oil [Mineral Oil Enema] 1 ea RC PRN PRN 02/06/23 Senna [Senokot] 17.2 mg PO DAILY PRN 02/06/23 polyethylene glycoL 3350 [Miralax] 17 gm PO DAILY PRN 02/06/23 Lactobacillus Combination No.4 [Probiotic] 1 each PO DAILY 03/15/23 Naloxone HCl [Narcan] 1 spray NS PRN PRN 03/15/23 Apixaban [Eliquis] 1 tab PO BID 03/16/23 Furosemide [Lasix] 1 tab PO DAILY 03/16/23 Lisinopril [Zestril] 1 tab PO DAILY 03/16/23 Allergies/Adverse Reactions: Allergies Allergy/AdvReac Type Severity Reaction Status Date / Time No Known Drug Allergies Allergy Verified 02/06/23 08:12 Anes History & Medical History - Anesthetic History Anesthesia Complications: reports: No previous complications Family history of Anesthesia Complications: Denies Family history of Malignant Hyperthermia: Denies - Medical History Cardiovascular: reports: Congestive heart failure, Hypertension, Atrial fibrillation Pulmonary: reports: None Gastrointestinal: reports: None Urinary: reports: None Neuro: reports: Dementia Musculoskeletal: reports: Osteoarthritis Endocrine/Autoimmune: reports: None Blood Disorders: reports: None Skin: reports: None Smoking Status: Unknown if ever smoked - Surgical History Eyes Ears Nose Throat (EENT): reports: Cataracts Gynecologic: reports: Hysterectomy Orthopedic: reports: Hip replacement, Knee replacement Exam General: Alert, Oriented x3, Cooperative Dental: WNL Mouth Openin Fingerbreadth Neck Mobility: Normal Mallampati classification: II Thyromental Distance: 4-6 cm Respiratory: Lungs clear Cardiovascular: Regular rate Plan Anesthesia Type: General Consent for Procedure(s) Verified and Reviewed: Yes Code Status: Attempt Resuscitation ASA classification: 2-Mild systemic disease Is this case an emergency?: No
--- NOTE | 2023-03-19 09:15 | ANESTHESIA POST OP EVALUATION ---
Anesthesia Post Eval - Post Anesthesia Eval Vitals: Last Vital Signs Temp 36.2 C L 03/19/23 08:59 Pulse 89 03/19/23 08:59 Resp 14 03/19/23 08:59 BP 101/68 03/19/23 08:55 Pulse Ox 98 03/19/23 08:59 O2 Flow Rate CV Function Including HR & BP: Stable Pain Control: Satisfactory Nausea & Vomiting: Negative Mental Status: Baseline Respiratory Status: Airway Patent Hydration Status: Satisfactory Anesthesia Complications: None
[2023-03-19 09:20] VITALS: O2SAT 100
[2023-03-19 09:49] VITALS: BP 100/63
--- NOTE | 2023-03-19 13:43 | XRAY Report ---
PROCEDURE: OR C-Arm Procedure INDICATIONS: LEFT URETEROSCOPY,LASER LITHOTRIPSY,STENT EXCHANGE FLUORO TIME: 0.1 MIN TECHNIQUE: Intraoperative fluoroscopic images were obtained. FINDINGS: Intraprocedural fluoroscopy was provided for guidance and anatomic localization. IMPRESSION: Intraprocedural fluoroscopy was provided for guidance and anatomic localization. Please see the proc edure report for further details. Reviewed by: Kel Hardy MD on 03/19/2023 1:42 PM PDT Approved by: Kel Hardy MD on 03/19/2023 1:42 PM PDT Station ID: [id number]
== END 2023-03-19 06:08 | disposition home or self-care (01) ==
LOC: SDS 06:07
PROVIDERS: ATTEND Urology
PROC: 0T778DZ Dilation of Left Ureter with Intraluminal Device, Via Natural or Artificial Opening Endoscopic (ICD-10-PCS; 2023-03-19)
PROC: 0TC78ZZ Extirpation of Matter from Left Ureter, Via Natural or Artificial Opening Endoscopic (ICD-10-PCS; principal; 2023-03-19 07:30)
DX: N20.2 Calculus of kidney with calculus of ureter (principal); Z87.442 Personal history of urinary calculi; I11.0 Hypertensive heart disease with heart failure; I50.9 Heart failure, unspecified; I48.91 Unspecified atrial fibrillation
CPT/HCPCS: 52356; 87086; C1758; C2617; J7120

== ENCOUNTER 2023-04-19 08:00 | Outpatient (CLI) | payer MEDICARE, BC ==
[2023-04-19 12:20] LABS: BASOPHILS # (AUTO) 0.1 10^3/uL (0.0-0.1); BASOPHILS % (AUTO) 1.1 %; EOSINOPHILS # (AUTO) 0.4 10^3/uL (0.0-0.7); EOSINOPHILS % (AUTO) 4.2 %; HCT - HEMATOCRIT 37.9 % (37.0-47.0); HGB - HEMOGLOBIN 12.3 g/dL (12.0-16.0); LYMPHOCYTES # (AUTO) 2.2 10^3/uL (1.5-3.5); LYMPHOCYTES % (AUTO) 24.6 %; MEAN CORPUSCULAR HEMOGLOBIN 34.2 pg (27.0-31.0); MEAN CORPUSCULAR HGB CONC 32.5 g/dL (32.0-36.0); MEAN CORPUSCULAR VOLUME 105.3 fL (81.0-99.0); MEAN PLATELET VOLUME 11.1 fL (7.9-10.8); MONOCYTES # (AUTO) 0.7 10^3/uL (0.0-1.0); NEUTROPHILS # (AUTO) 5.6 10^3/uL (1.5-6.6); NEUTROPHILS % (AUTO) 61.6 %; PLT - PLATELET COUNT 299 10^3/uL (130-450); RED CELL DISTRIBUTION WIDTH 13.1 % (12.0-15.0); WHITE BLOOD COUNT 9.1 x10^3/uL (4.8-10.8)
[2023-04-19 12:27] LABS: BILIRUBIN,URINE NEGATIVE (NEGATIVE); GLUCOSE, URINE (UA) NEGATIVE (NEGATIVE); KETONES,URINE (UA) NEGATIVE (NEGATIVE); LEUKOCYTE ESTERASE, URINE LARGE (NEGATIVE); NITRITE,URINE POSITIVE (NEGATIVE); OCCULT BLOOD,URINE LARGE (NEGATIVE); PROTEIN,URINE 100 mg/dL (NEGATIVE); UROBILINOGEN,URINE 1 (NORMAL) E.U./dL (NORMAL)
[2023-04-19 12:30] LABS: ALBUMIN 3.5 g/dL (3.2-5.5); ALBUMIN/GLOBULIN RATIO 1.1 (1.0-2.2); BILIRUBIN,TOTAL 0.5 mg/dL (0.2-1.0); CALCIUM 9.1 mg/dL (8.5-10.3); CREATININE 0.6 mg/dL (0.6-1.3); POTASSIUM 3.8 mmol/L (3.5-4.5); TOTAL PROTEIN 6.7 g/dL (6.4-8.9)
[2023-04-19 12:38] LABS: CLARITY,URINE HAZY (CLEAR); RBC,URINE TNTC /HPF (0-5); WBC CLUMPS,URINE PRESENT; WBC,URINE >25 /HPF (0-5)
[2023-04-19 12:39] LABS: AMORPHOUS SEDIMENT,UR Moderate /LPF; BACTERIA,URINE Moderate /HPF (None Seen); SQUAMOUS EPITHELIAL CELL,UR MOD Squamous (<= Few)
== END 2023-04-19 23:59 | disposition home or self-care (01) ==
LOC: LAB.R 08:00
PROVIDERS: ATTEND Registered Nurse
DX: I11.0 Hypertensive heart disease with heart failure (principal); I50.22 Chronic systolic (congestive) heart failure; E87.1 Hypo-osmolality and hyponatremia; R79.0 Abnormal level of blood mineral; N20.1 Calculus of ureter
CPT/HCPCS: 80053; 81001; 85025; 87086

== ENCOUNTER 2023-05-10 08:00 | Outpatient (CLI) | payer MEDICARE, BC ==
[2023-05-10 21:15] LABS: DIGOXIN 0.9 ng/mL
== END 2023-05-10 23:59 | disposition home or self-care (01) ==
LOC: LAB.R 08:00
DX: I48.20 Chronic atrial fibrillation, unspecified (principal)
CPT/HCPCS: 36415; 80162

== ENCOUNTER 2023-05-23 11:46 | Outpatient (CLI) | payer MEDICARE, BC ==
[2023-05-23 12:04] LABS: BASOPHILS # (AUTO) 0.1 10^3/uL (0.0-0.1); EOSINOPHILS # (AUTO) 0.2 10^3/uL (0.0-0.7); EOSINOPHILS % (AUTO) 2.6 %; HCT - HEMATOCRIT 37.7 % (37.0-47.0); HGB - HEMOGLOBIN 11.9 g/dL (12.0-16.0); LYMPHOCYTES # (AUTO) 1.9 10^3/uL (1.5-3.5); LYMPHOCYTES % (AUTO) 20.8 %; MEAN CORPUSCULAR HGB CONC 31.6 g/dL (32.0-36.0); MEAN CORPUSCULAR VOLUME 104.4 fL (81.0-99.0); MEAN PLATELET VOLUME 11.1 fL (7.9-10.8); MONOCYTES # (AUTO) 0.8 10^3/uL (0.0-1.0); MONOCYTES % (AUTO) 8.5 %; NEUTROPHILS # (AUTO) 6.1 10^3/uL (1.5-6.6); NEUTROPHILS % (AUTO) 66.3 %; PLT - PLATELET COUNT 237 10^3/uL (130-450); RED BLOOD COUNT 3.61 10^6/uL (4.20-5.40); RED CELL DISTRIBUTION WIDTH 13.2 % (12.0-15.0); WHITE BLOOD COUNT 9.2 x10^3/uL (4.8-10.8)
[2023-05-23 12:08] LABS: ALBUMIN 3.3 g/dL (3.2-5.5); ALBUMIN/GLOBULIN RATIO 1.1 (1.0-2.2); BILIRUBIN,TOTAL 0.5 mg/dL (0.2-1.0); CALCIUM 9.3 mg/dL (8.5-10.3); CREATININE 0.6 mg/dL (0.6-1.3); POTASSIUM 3.9 mmol/L (3.5-4.5); TOTAL PROTEIN 6.2 g/dL (6.4-8.9)
== END 2023-05-23 11:47 | disposition home or self-care (01) ==
LOC: LAB.R 11:46
PROVIDERS: ATTEND Registered Nurse
DX: I11.0 Hypertensive heart disease with heart failure (principal); I50.22 Chronic systolic (congestive) heart failure; E87.1 Hypo-osmolality and hyponatremia
CPT/HCPCS: 80053; 85025

== ENCOUNTER 2023-06-10 08:00 | Outpatient (CLI) | payer MEDICARE, BC ==
[2023-06-10 19:26] LABS: DIGOXIN 0.6 ng/mL
== END 2023-06-10 23:59 | disposition home or self-care (01) ==
LOC: LAB 08:00 → LAB.R 23:59
PROVIDERS: ATTEND Registered Nurse
DX: I48.20 Chronic atrial fibrillation, unspecified (principal)
CPT/HCPCS: 36415; 80162

== ENCOUNTER 2023-07-12 08:00 | Outpatient (CLI) | payer OTHER ==
[2023-07-12 17:10] LABS: DIGOXIN 0.5 ng/mL
== END 2023-07-12 23:59 | disposition home or self-care (01) ==
LOC: LAB.R 08:00
PROVIDERS: ATTEND Registered Nurse
DX: Z51.81 Encounter for therapeutic drug level monitoring (principal); Z79.899 Other long term (current) drug therapy
CPT/HCPCS: 80162

== ENCOUNTER 2023-08-03 11:06 | Outpatient (CLI) | payer MEDICARE, BC ==
--- NOTE | 2023-08-03 12:01 | XRAY Report ---
PROCEDURE: Abdomen 1 V INDICATIONS: ABDOMINAL PAIN TECHNIQUE: One view of the abdomen acquired. COMPARISON: None. FINDINGS: Hip arthroplasties are present. There are advanced degenerative changes in the spine and pelvis, with trace levoconvex curvature. Moderate to large stool burden. Unable to confidently evaluate for nephrolithiasis due to overlapping stool and costal cartilage calc ifications. IMPRESSION: Moderate to large stool burden. If there is high concern for further abdominal pathology, consider CT . There are osseous advanced degenerative changes. Reviewed by: Zeus Alonso MD on 08/03/2023 12:00 PM PST Approved by: Zeus Alonso MD on 08/03/2023 12:00 PM PST Station ID: [id number]
== END 2023-08-03 11:07 | disposition home or self-care (01) ==
LOC: DI 11:06
PROVIDERS: ATTEND Registered Nurse
DX: R10.9 Unspecified abdominal pain (principal); Z87.442 Personal history of urinary calculi; M47.819 Spondylosis without myelopathy or radiculopathy, site unspecified; M19.09 Primary osteoarthritis, other specified site

== ENCOUNTER 2023-09-09 08:00 | Outpatient (CLI) | payer MEDICARE ==
[2023-09-09 11:46] LABS: DIGOXIN 0.4 ng/mL
== END 2023-09-09 23:59 | disposition home or self-care (01) ==
LOC: LAB.R 08:00
PROVIDERS: ATTEND Registered Nurse
DX: I48.20 Chronic atrial fibrillation, unspecified (principal)
CPT/HCPCS: 80162

== ENCOUNTER 2023-10-09 08:00 | Outpatient (CLI) | payer MEDICARE ==
[2023-10-09 20:09] LABS: DIGOXIN 0.8 ng/mL
== END 2023-10-09 23:59 | disposition home or self-care (01) ==
LOC: LAB.R 08:00
PROVIDERS: ATTEND Registered Nurse
DX: I48.20 Chronic atrial fibrillation, unspecified (principal); I50.22 Chronic systolic (congestive) heart failure
CPT/HCPCS: 80162

== ENCOUNTER 2023-11-10 08:00 | Outpatient (CLI) | payer MEDICARE | END 2023-11-10 23:59 | disposition home or self-care (01) | LOC: LAB.N 08:00 | PROVIDERS: ATTEND Registered Nurse | DX: R89.2 Abnormal level of other drugs, medicaments and biological substances in specimens from other organs, systems and tissues (principal) | CPT/HCPCS: 36415; 80162 ==